=== PATIENT | female | born 1955 | race Caucasian/White ===

== ENCOUNTER → 2018-07-23 12:53 | Outpatient (CLI) | payer BC, SELFPAY ==
--- NOTE | 2018-07-23 12:56 | CT_ITS ---
CT lung screening EXAM: CT LUNG LOW DOSE WO CONTRAST HISTORY: 30 pack-year smoking history asymptomatic, quit smoking 2 years ago ITS.REASON: HX TOBACCO USE ORDERING PHYSICIAN: Gera Low MD PATIENT AGE: 63 years COMPARISON: 01/09/2017 TECHNIQUE: The exam was performed on a [employer] Speed [address] scanner using 2.90 mGy CTDI. A low dose helical CT CHEST was performed on a multi-detector scanner The LDCT was performed in a facility that meets the criteria for the screening program. Data regarding this exam was submitted to ACR which is an approved registry. The order for this exam indicates that it came as a result of a lung cancer screening counseling shard decision-making visit that included all the elements required of such a visit including smoking cessation. The radiologist interpreting this exam meets the [facility] criteria for the LDCT lung cancer screening program. The exam is reported using the Lung-RADS classification scale and reported to the ACR registry. NOTE: This study was performed for the specific purposes of lung cancer screening and is not an alternative to diagnostic chest CT. RADIATION DOSE: CTDI vol(CT dose Index-volume) = 2.90mG DLP (Dose Length Product) = 111.2 by mGcm FINDINGS: Moderate centrilobular emphysematous changes with biapical fibrosis once again noted. Biapical nodular opacities are stable. Previously noted 6 mm nodule in the right apex is unchanged and probably related to an area of postinflammatory fibrosis.. No new nodular opacities are evident. Scattered areas of parenchymal and pleural fibrosis once again noted IMPRESSION: 1. Lung RADS Category: 2 benign 2. Other findings: Emphysema with fibrosis RECOMMENDATIONS: 47-cmemy-izr LDCT screening
== END ==
PROVIDERS: PCP Family Medicine; Visit Provider Family Medicine
DX: Z12.2 Encounter for screening for malignant neoplasm of respiratory organs (principal); Z87.891 Personal history of nicotine dependence

== ENCOUNTER → 2018-08-24 08:58 | Outpatient (CLI) | payer BC, SELFPAY ==
[2018-08-24 09:54] LABS: Basophils % 0.7 % (0.1-2.0); Eosinophils # 0.1 K/mm3 (0.0-0.4); Eosinophils % 2.2 % (0.1-12.0); Hematocrit 41.9 % (37.0-47.0); Hemoglobin 13.5 g/dL (12.2-16.2); Lymphocytes # 1.3 K/mm3 (0.7-4.5); Mean Corpuscular HGB Conc 32.3 g/dL (31.8-35.4); Mean Corpuscular Hemoglobin 29.9 pg (27.0-31.2); Mean Corpuscular Volume 92.7 fl (81-99); Mean Platelet Volume 7.7 fl (7.4-10.4); Monocytes # 0.3 K/mm3 (0.1-1.0); Monocytes % 6.3 % (1.7-9.3); Neutrophils # 2.5 K/mm3 (1.8-7.8); Platelet Count 195 K/mm3 (142-424); Red Blood Count 4.52 M/mm3 (4.20-5.40); Red Cell Distribution Width 13.8 % (11.5-17.5); White Blood Count 4.2 K/mm3 (4.8-10.8)
[2018-08-24 10:55] LABS: Alanine Aminotransferase 26 U/L (12-78); Albumin Level 3.6 gm/dL (3.4-5.0); Albumin/Globulin Ratio 1.2 (1.1-1.8); Alkaline Phosphatase 51 U/L (46-116); Aspartate Amino Transferase 18 U/L (15-37); Bilirubin,Total 0.3 mg/dL (0.2-1.0); Blood Urea Nitrogen 14 mg/dL (7-18); Calcium 8.8 mg/dL (8.5-10.1); Carbon Dioxide 28 mmol/L (21.0-32.0); Chloride 109 mmol/L (98-107); Chol/HDL Ratio 2.5 (1-3.5); Cholesterol 215 mg/dL (140-200); Estimated Glomerular Filt Rate 85 ml/min (>60); GFR (African American) 103 ML/MIN (>60); Globulin 3.1 gm/dl (1.3-3.2); Glucose 96 mg/dL (74-106); HDL Cholesterol 87 mg/dL (29-89); LDL Cholesterol 113 mg/dL (0-130); Sodium 144 mmol/L (136-145); Total Protein,Serum 6.7 gm/dL (6.4-8.2); Triglycerides 76 mg/dL (30-200); VLDL Cholesterol 15 mg/dL (0-40)
[2018-08-25 13:19] LABS: Hep B Surface Ab, Qual Non Reactive (.); Hepatitis C Antibody <0.1 s/co ratio (0.0-0.9)
== END ==
PROVIDERS: Visit Provider Family Medicine
DX: Z00.00 Encounter for general adult medical examination without abnormal findings (principal)
CPT/HCPCS: 36415; 80053; 80061; 85025; 86706; 87380; 93005

== ENCOUNTER → 2018-11-13 08:40 | Outpatient (CLI) | payer BC, SELFPAY ==
[2018-11-13 09:46] LABS: Creatinine,Urine Random 223 mg/dL (20-320)
[2018-11-14 09:41] LABS: Calcium, Urine 7.6 mg/dL (Not Estab.)
[2018-11-14 12:39] LABS: Calcium, Urine 24hr 205.2 mg/24 hr (100.0-300.0)
[2018-11-14 12:43] LABS: Collection Time,Urine 24 hours; Creatinine 24 Hour,Urine 891 mg/24hr (630-2500); Creatinine,Urine Random 33 mg/dL (20-320); Total Volume,Urine 2700 mL (600-1600)
== END ==
PROVIDERS: Visit Provider Internal Medicine
DX: M81.0 Age-related osteoporosis without current pathological fracture (principal)
CPT/HCPCS: 82340; 82570; 83735; 84105

== ENCOUNTER → 2019-05-04 12:40 | Outpatient (CLI) | payer BC, SELFPAY ==
[2019-05-04 14:06] LABS: Albumin Level 3.4 gm/dL (3.4-5.0); Anion Gap 12.1 mEq/L (5-15); Blood Urea Nitrogen 14 mg/dL (7-18); Calcium 9.3 mg/dL (8.5-10.1); Carbon Dioxide 29 mmol/L (21.0-32.0); Chloride 105 mmol/L (98-107); Creatinine,Serum 0.82 mg/dL (0.55-1.02); Estimated Glomerular Filt Rate 71 ml/min (>60); GFR (African American) 85 ML/MIN (>60); Glucose 86 mg/dL (74-106); Phosphorous 4.3 mg/dL (2.4-4.9); Potassium 4.1 mmoL/L (3.5-5.1); Sodium 142 mmol/L (136-145)
[2019-05-05 14:48] LABS: Vitamin D 25 Hydroxy 58.1 ng/mL (30.0-100.0)
[2019-05-06 18:19] LABS: Tissue Transglutaminase IgA Ab <2 U/mL (0-3); Tissue Transglutaminase IgG Ab <2 U/mL (0-5)
== END ==
PROVIDERS: Visit Provider Internal Medicine
DX: M81.0 Age-related osteoporosis without current pathological fracture (principal)
CPT/HCPCS: 36415; 80069; 82652; 83516

== ENCOUNTER → 2019-07-28 07:49 | Outpatient (CLI) | payer BC, SELFPAY ==
--- NOTE | 2019-07-28 07:52 | CT_ITS ---
PROCEDURE: CT LUNG SCREENING CLINICAL INDICATION: FORMER SMOKER COMPARISON: LUNGSCREEN CT lung screening from 07/23/2018 TECHNIQUE: The exam was performed on a GE Light Speed [address] scanner using 2.90 mGy CTDI. A low dose helical CT CHEST was performed on a multi-detector scanner. All CT scans at the facility use one or more dose reduction, viz: automated exposure control, ma/kV adjustment per patient size (including targeted exams where dose is matched to indication, i.e. head), or iterative reconstruction technique. The LDCT was performed in a facility that meets the criteria for the screening program. Data regarding this exam was submitted to ACR which is an approved registry. The order for this exam indicates that it came as a result of a lung cancer screening counseling shard decision-making visit that included all the elements required of such a visit including smoking cessation. The radiologist interpreting this exam meets the CMS criteria for the LDCT lung cancer screening program. The exam is reported using the Lung-RADS classification scale and reported to the ACR registry. NOTE: This study was performed for the specific purposes of lung cancer screening and is not an alternative to diagnostic chest CT. RADIATION DOSE: CTDI vol(CT dose Index-volume) = 2.90mG DLP (Dose Length Product) = 118.55 mGcm FINDINGS: Again seen are the punctate noncalcified small apical nodular densities associated with linear densities consistent with scarring and some bilateral lateral pleural thickening. These areas are stable. The remainder of the exam is stable without acute process. Visualized upper abdominal structures are unremarkable. OTHER FINDINGS: No other pertinent findings evident. IMPRESSION: Stable fibro nodular scarring in both upper lobes. Lung rads category 2. Dictated by: Matias Youngblood 07/29/2019 17:51 Electronically signed by Matias Youngblood in [place] 07/29/2019 17:51
--- NOTE | 2019-07-28 08:23 | ECG_ITS ---
APPROVED REPORT Exam: Resting ECG HR:76 bpm ECG Measurements Heart Rate 76 AXES MT 144 P 70 QRSd 80 QRS 78 QT 364 T 70 QTc 409 <Conclusion> Normal sinus rhythm Normal ECG Electronically signed by : Jhon Nayak, 07/28/2019 13:41:55
== END ==
PROVIDERS: PCP Family Medicine; Visit Provider Family Medicine
DX: Z12.2 Encounter for screening for malignant neoplasm of respiratory organs (principal); Z87.891 Personal history of nicotine dependence
CPT/HCPCS: 93005

== ENCOUNTER → 2020-07-21 11:09 | Outpatient (CLI) | payer BC, SELFPAY ==
--- NOTE | 2020-07-21 11:25 | ECG_ITS ---
APPROVED REPORT Exam: Resting ECG HR:74 bpm ECG Measurements Heart Rate 74 AXES CA 144 P 66 QRSd 76 QRS 77 QT 370 T 68 QTc 410 <Conclusion> Normal sinus rhythm Normal ECG Electronically signed by : Jhon Nayak, 07/22/2020 06:25:15
== END ==
PROVIDERS: PCP Family Medicine; Visit Provider Family Medicine
DX: Z00.00 Encounter for general adult medical examination without abnormal findings (principal)
CPT/HCPCS: 93005

== ENCOUNTER → 2020-10-02 07:59 | Outpatient (CLI) | payer BC, SELFPAY ==
--- NOTE | 2020-10-02 08:02 | CT_ITS ---
PROCEDURE: CT LUNG SCREENING CLINICAL INDICATION: HX OF NICOTINE DEPENDENCE former smoker quit 4 years ago 60 pack year smoking history prior 07/28/19 copd, emphysema COMPARISON: CT LUNGSCREEN CT lung screening from 07/23/[address] LUNG SCREENING from 07/28/2019 TECHNIQUE: The exam was performed on a [employer] Speed [address] scanner using 2.90 mGy CTDI. A low dose helical CT CHEST was performed on a multi-detector scanner. All CT scans at the facility use one or more dose reduction, viz: automated exposure control, ma/kV adjustment per patient size (including targeted exams where dose is matched to indication, i.e. head), or iterative reconstruction technique. The LDCT was performed in a facility that meets the criteria for the screening program. Data regarding this exam was submitted to ACR which is an approved registry. The order for this exam indicates that it came as a result of a lung cancer screening counseling shard decision-making visit that included all the elements required of such a visit including smoking cessation. The radiologist interpreting this exam meets the CMS criteria for the LDCT lung cancer screening program. The exam is reported using the Lung-RADS classification scale and reported to the ACR registry. NOTE: This study was performed for the specific purposes of lung cancer screening and is not an alternative to diagnostic chest CT. RADIATION DOSE: CTDI vol(CT dose Index-volume) = 2.90mG DLP (Dose Length Product) = 109.94 mGcm FINDINGS: COPD with scattered areas of scarring and evidence of old granulomatous disease. No suspicious nodules apparent OTHER FINDINGS: Mild coronary artery calcification IMPRESSION: Lung-RADS Category 2 Benign Appearance or Behavior Follow-up: Continue annual screening with LDCT in 12 months Dictated by: Mariano Johnson MD 10/23/2020 11:40 Mariano Johnson MD in [place] 10/23/2020 11:40
== END ==
PROVIDERS: PCP Family Medicine; Visit Provider Family Medicine
DX: Z87.891 Personal history of nicotine dependence (principal); Z12.2 Encounter for screening for malignant neoplasm of respiratory organs

== ENCOUNTER 2020-10-31 10:55 | Outpatient (CLI) | payer BC, SELFPAY ==
[2020-10-31 11:30] VITALS: BP 155/76; PULSE 98; RESP 18; TEMP 37.2; O2SAT 98
== END 2020-10-31 11:30 | disposition home or self-care (01) ==
LOC: INF 10:56
PROVIDERS: Visit Provider Internal Medicine
DX: M81.0 Age-related osteoporosis without current pathological fracture (principal); J44.9 Chronic obstructive pulmonary disease, unspecified
CPT/HCPCS: 96372; J0897

== ENCOUNTER 2021-08-06 10:50 | Outpatient (CLI) | payer BC, SELFPAY ==
[2021-08-06 11:25] VITALS: BP 118/80; PULSE 93; RESP 16; TEMP 36.9; O2SAT 99
== END 2021-08-06 11:40 | disposition home or self-care (01) ==
LOC: INF 10:52
PROVIDERS: PCP Family Medicine; Visit Provider Internal Medicine
DX: M81.0 Age-related osteoporosis without current pathological fracture (principal)
CPT/HCPCS: 96372; J0897

== ENCOUNTER 2022-05-15 10:46 | Outpatient (CLI) | payer MEDICARE, BC, SELFPAY ==
[2022-05-15 10:50] VITALS: BP 162/77; PULSE 89; RESP 18; O2SAT 98
== END 2022-05-15 11:02 | disposition home or self-care (01) ==
LOC: INF 10:49
PROVIDERS: PCP Family Medicine; Visit Provider Internal Medicine
DX: M81.0 Age-related osteoporosis without current pathological fracture (principal)
CPT/HCPCS: 96372

== ENCOUNTER → 2022-08-16 13:02 | Outpatient (CLI) | payer MEDICARE, BC, SELFPAY ==
--- NOTE | 2022-08-16 13:05 | CT_ITS ---
FINAL REPORT TECHNIQUE: Axial images were obtained from the lung apex to the mid abdomen by computed tomography. This study was performed with techniques to keep radiation doses as low as reasonably achievable (ALARA). Individualized dose reduction techniques using automated exposure control or adjustment of mA and/or kV according to the patient's size were employed. CLINICAL HISTORY: H/O NICOTINE DEPENDENCE. former smoker, quit 6 years ago. smoked 11/2 ppd x 40 years. copd, emphysema COMPARISON: 10/02/2020 and 07/28/2019 FINDINGS: CHEST CT LOW DOSE CTDI vol (mGy): 2.90 DLP (mGy-cm): 113.33 There is no axillary adenopathy. There is no hilar or mediastinal adenopathy. The heart is normal in size. There is no pericardial or pleural effusion. Lung window images demonstrate no suspicious infiltrate or nodule. There is moderate scarring and moderate emphysema. There is a calcified granuloma in the right lung Limited images of the upper abdomen are unremarkable. IMPRESSION: Stable findings as above. Lung RADS category 1. Recommend 12 month follow-up low-dose chest CT. Reviewed, Interpreted and Dictated by Deshawn Martinez III, MD Transcribed by Elizabeth Etienne Authenticated and [facility]
== END ==
PROVIDERS: PCP Family Medicine; Visit Provider Family Medicine
DX: Z87.891 Personal history of nicotine dependence (principal); Z12.2 Encounter for screening for malignant neoplasm of respiratory organs
CPT/HCPCS: 71271

== ENCOUNTER 2023-03-12 13:20 | Outpatient (CLI) | payer MEDICARE, BC, SELFPAY ==
[2023-03-12 13:30] VITALS: BP 135/85; PULSE 92; RESP 16; O2SAT 95
== END 2023-03-12 13:45 | disposition home or self-care (01) ==
LOC: INF 13:21
PROVIDERS: PCP Family Medicine; Visit Provider Internal Medicine
DX: M81.0 Age-related osteoporosis without current pathological fracture (principal)
CPT/HCPCS: 96372

== ENCOUNTER → 2023-04-10 09:04 | Outpatient (CLI) | payer MEDICARE, BC, SELFPAY ==
[2023-04-10 09:10] LABS: Adenovirus F 40/41, stool Not Detected (NotDetected); Astrovirus Not Detected (NotDetected); Campylobacter Not Detected (NotDetected); Clostridium Difficile A/B, PCR Not Detected (NotDetected); Cryptosporidium Not Detected (NotDetected); Cyclospora Cayetanesis Not Detected (NotDetected); Entamoeba histolytica Not Detected (NotDetected); Enteroaggregative E coli Not Detected (NotDetected); Enteropathogenic E coli Not Detected (NotDetected); Enterotoxigenic E coli Not Detected (NotDetected); Giardia lamblia Not Detected (NotDetected); Norovirus Not Detected (NotDetected); Plesimonas Shigalloides, PCR Not Detected (NotDetected); Rotavirus A Not Detected (NotDetected); Salmonella, PCR Not Detected (NotDetected); Sapovirus Not Detected (NotDetected); Shiga-like toxin E coli Not Detected (NotDetected); Shigella Enterovasive E coli Not Detected (NotDetected); Vibrio Cholerae Not Detected (NotDetected); Vibrio, PCR Not Detected (NotDetected); Yersinia Entercolitica, PCR Not Detected (NotDetected)
== END ==
PROVIDERS: PCP Family Medicine; Visit Provider Nurse Practitioner Family
DX: R19.7 Diarrhea, unspecified (principal)
CPT/HCPCS: 87506

== ENCOUNTER 2023-11-25 14:48 | Outpatient (CLI) | payer MEDICARE, BC, SELFPAY ==
--- NOTE | 2023-11-25 14:56 | CT_ITS ---
FINAL REPORT TECHNIQUE: Axial CT without IV contrast administration using low dose protocol. This study was performed with techniques to keep radiation doses as low as reasonably achievable (ALARA). Individualized dose reduction techniques using automated exposure control or adjustment of mA and/or kV according to the patient's size were employed. CLINICAL HISTORY: FORMER SMOKER quit 9 years ago. smoked 1 ppd x 40 years COMPARISON: 08/16/2022 FINDINGS: CT CHEST LOW DOSE SCREENING DOSE: CTDIvol: 2.90 mGy, DLP: 110.72 mGy*cm No acute lung disease is present . No pulmonary lesions are seen suspicious for neoplasm. No pleural or pericardial effusion is seen . No adenopathy or mass lesion is present . Note is made of emphysema. There is upper lobe scarring. IMPRESSION: 1. No evidence of lung cancer LUNG RADS CATEGORY 1 RECOMMENDATION: 12 month LDCT follow up Reviewed, Interpreted and Dictated by Gerri Aguirre MD Transcribed by Elizabeth Etienne Authenticated and [facility]
== END 2023-11-25 23:59 ==
LOC: RAD 14:48
PROVIDERS: PCP Family Medicine; Visit Provider Family Medicine
DX: Z12.2 Encounter for screening for malignant neoplasm of respiratory organs; Z87.891 Personal history of nicotine dependence
CPT/HCPCS: 71271

== ENCOUNTER 2024-01-06 13:21 | Outpatient (CLI) | payer MEDICARE, BC, SELFPAY ==
[2024-01-06] MEDS: DENOSUMAB 60 MG/ML SYRINGE SQ (13:32)
[2024-01-06 13:40] VITALS: BP 146/72; PULSE 76; RESP 18; O2SAT 99
== END 2024-01-06 13:40 | disposition home or self-care (01) ==
LOC: INF 13:21
PROVIDERS: PCP Family Medicine; Visit Provider Internal Medicine
DX: M81.0 Age-related osteoporosis without current pathological fracture (principal)
CPT/HCPCS: 96372; J0897

== ENCOUNTER 2024-01-22 11:25 | Outpatient (CLI) | payer MEDICARE, BC, SELFPAY ==
[2024-01-22 12:32] LABS: Albumin Level 3.9 g/dl (3.5-5.0); Chloride 107 mmol/L (98-107); Potassium 3.9 mmoL/L (3.5-5.1); Sodium 139 mmol/L (136-145)
[2024-01-22 12:35] LABS: Anion Gap 5.9 mEq/L (5-15); Blood Urea Nitrogen 14 mg/dl (7-17); Calcium 9.5 mg/dl (8.4-10.2); Carbon Dioxide 30 mmol/L (22.0-30.0); Estimated Glomerular Filt Rate 84 ml/min (>60); GFR (African American) 101 ML/MIN (>60); Glucose 89 mg/dl (74-100); Phosphorous 3.7 mg/dl (2.5-4.5)
== END 2024-01-22 23:59 ==
PROVIDERS: PCP Family Medicine; Visit Provider Internal Medicine
DX: M81.0 Age-related osteoporosis without current pathological fracture (principal)
CPT/HCPCS: 36415; 80069

== ENCOUNTER 2024-09-17 10:50 | Outpatient (CLI) | payer MEDICARE, BC, SELFPAY ==
[2024-09-17 11:09] VITALS: BMI 20.7
[2024-09-17 11:24] LABS: Chloride 105 mmol/L (98-107); Potassium 3.8 mmoL/L (3.5-5.1); Sodium 139 mmol/L (136-145)
[2024-09-17 11:27] LABS: Anion Gap 8.8 mEq/L (5-15); Blood Urea Nitrogen 12 mg/dl (7-17); Calcium 9.4 mg/dl (8.4-10.2); Carbon Dioxide 29 mmol/L (22.0-30.0); Creatinine Clearance Estimated 55 mL/min (50-200); Estimated Glomerular Filt Rate 72 ml/min (>60); GFR (African American) 87 ML/MIN (>60); Glucose 87 mg/dl (74-100)
[2024-09-17 11:40] VITALS: BP 143/82; PULSE 81; RESP 20; TEMP 36.8; O2SAT 95
[2024-09-17] MEDS: DENOSUMAB 60 MG/ML SYRINGE SUBCUT (11:40)
--- NOTE | 2024-09-17 12:19 | PC.NURSE ---
1110-Pt presents today for Prolia inj. Order noted to check bmp. Venipuncture performed using a butterfly access needle to pt's lt ac x 1 stick and blood drawn for labs. Needle withdrawn and site secured with 2x2 gauze and coban. Specimen sent to lab for analysis.
== END 2024-09-17 12:00 | disposition home or self-care (01) ==
LOC: INF 10:56
PROVIDERS: PCP Family Medicine; Visit Provider Physician Assistant
DX: M81.0 Age-related osteoporosis without current pathological fracture (principal)
CPT/HCPCS: 36415; 80048; 96372; J0897

== ENCOUNTER 2024-10-01 11:31 | Outpatient (CLI) | payer MEDICARE, BC, SELFPAY ==
--- OUTSIDE RECORDS SUMMARY | 2024-10-01 11:43 | XMS_ITS | Encounter Summary ---
Author Organization [employer] Address [address] [place] [address] Care Team Providers Care Children'S Tutor Nursery Name Role Phone Unavailable Primary Care Provider Unavailabl e Encounter Details Date Type Department Care Team (Late st Contact Info) Description 07/19/2019 Historic Encounter [facility] Radiology 1 [place] [id number] Debra Diggs MD [address] [address] Social History Tobacco Use Types Packs/Day Years Used Date Smoking Tobacco: Never Assessed Comments Unknown Sex and Gender Information Value Date Recorded Sex Assigned at Female 04/23/2022 4:38 PM CDT Legal Sex Female 4:38 PM CDT Gender Identity Female 04/23/2022 4:38 PM CDT Sexual Orientation Not on file documented as of this encounter Plan of Treatment Upcoming Encounters Date Type Department Care Team (Late st Contact Info) Description 08/08/2025 11:00 AM EDT Appointment [facility] Breast Care [address] [facility] [address] [place] [address] documented as of this encounter Procedures Procedure Name Priority Date/Time Associated Diagnosis Comments MM DIGITAL MAMMO SCREEN WITH PEYMAN BILATERAL Routine 07/19/2019 12:10 PM EDT documented in this encounter Results * MM digital mammo screen with peyman bilateral (07/19/2019 12:10 PM EDT) Anatomical Region Laterality Modality Breast Bilateral Mammography 07/19/2019 12:1 0 PM EDT Narrative 07/19/2019 5:19 PM EDT PROCEDURE: Digital screening mammogram with tomosynthesis. REASON FOR EXAM: Routine screening. FAMILY HISTORY: ??Strong family history of breast cancer COMPARISON STUDY: [facility] ; no significant change. FINDINGS: Craniocaudal and mediolateral oblique images of both breasts were obtained in 2D, C-view and 3D modes. The breast tissue is heterogeneously dense, which may obscure small masses. Several scattered coarse, lucent centered calcifications are present bilaterally. There is no evidence of dominant mass, architectural distortion, or suspicious calcifications. This examination was reviewed with the benefit of computer aided detection (CAD). FINAL IMPRESSION: ACR BI-RADS 2: Benign findings. RECOMMENDATIONS: Annual screening mammography. At our facility, a [place] marker is positioned over a visible skin lesion and a linear marker is used to indicate a scar. A triangular marker is placed on a self reported palpable finding. A letter including results and recommendations was sent to the patient. Density notification was included for patients with Pattern 3 or 4 breast tissue. Patient information was entered into a reminder system with a target due date for the next mammogram. D Procedure Note Debra Diggs MD - 02/11/2023 PROCEDURE: Digital screening mammogram with tomosynthesis. REASON FOR EXAM: Routine screening. FAMILY HISTORY: Strong family history of breast cancer COMPARISON STUDY: [facility] ; no significant change. FINDINGS: Craniocaudal and mediolateral oblique images of both breasts were obtained in 2D, C-view and 3D modes. The breast tissue is heterogeneously dense, which may obscure small masses. Several scattered coarse, lucent centered calcifications are present bilaterally. There is no evidence of dominant mass, architectural distortion, or suspicious calcifications. This examination was reviewed with the benefit of computer aided detection (CAD). FINAL IMPRESSION: ACR BI-RADS 2: Benign findings. RECOMMENDATIONS: Annual screening mammography. At our facility, a [place] marker is positioned over a visible skin lesion and a linear marker is used to indicate a scar. A triangular marker is placed on a self reported palpable finding. A letter including results and recommendations was sent to the patient. Density notification was included for patients with Pattern 3 or 4 breast tissue. Patient information was entered into a reminder system with a target due date for the next mammogram. D us Debra Diggs MD IMG MAMMOGRAPHY ORDERABLES F inal Result documented in this encounter Visit Diagnoses Not on filedocumented in this encounter
--- OUTSIDE RECORDS SUMMARY | 2024-10-01 11:43 | XMS_ITS | Encounter Summary ---
Author Organization [employer] Address [address] [place] [address] Care Team Providers Care Mill Washer Name Role Phone Unavailable Primary Care Provider Unavailabl e Encounter Details Date Type Department Care Team (Late st Contact Info) Description 07/24/2022 Historic Encounter [facility] 1 [place] [address] Gera Diego MD [address] [facility] [address] [place], [place] [id number] Social History Tobacco Use Types Packs/Day Years [...] Info) Description 08/08/2025 11:00 AM EDT Appointment [address] [place] [address] documented as of this encounter Procedures Procedure Name Priority Date/Time Associated Diagnosis Comments MM DIGITAL MAMMO SCREEN WITH PEYMAN BILATERAL Routine 07/24/2022 2:23 PM EDT documented in this encounter Results * MM digital mammo screen with peyman bilateral (07/24/2022 2:23 PM EDT) Anatomical Region Laterality Modality Breast Bilateral Mammography 07/24/2022 2:23 PM EDT Narrative 07/24/2022 8:03 PM EDT PROCEDURE: Bilateral digital screening mammogram with tomosynthesis. REASON FOR EXAM: Routine screening. FAMILY HISTORY: ??Strong family history of breast cancer. COMPARISON STUDY: [facility] FINDINGS: Craniocaudal and mediolateral oblique images of both breasts were obtained in 2D, C-view, and 3D modes. Bilateral 2-D XCCL and 2-D left axillary tail views also performed. The breast tissue is heterogeneously dense, which may obscure small masses. Right nipple is chronically inverted. Coarse/lucent centered calcifications and arterial calcifications within both breasts are again noted. There is no evidence of dominant mass, architectural distortion, or suspicious calcifications. No significant interval change. This examination was reviewed with the benefit of computer-aided detection (CAD). FINAL IMPRESSION: ACR BI-RADS 2: Benign finding. RECOMMENDATIONS: Routine annual screening mammography. A letter including results and recommendations was sent to the patient. Density notification was provided to patients with type 3 or 4 breast tissue pattern. Patient information entered into a reminder system with a target due date for the next mammogram. At our facility, a [place] marker is positioned over a visible skin lesion and a linear marker is used to indicate a scar. A triangular marker is placed on a self reported palpable finding. cc: D Procedure Note Gera Diego MD - 02/11/2023 PROCEDURE: Bilateral digital screening mammogram with tomosynthesis. REASON FOR EXAM: Routine screening. FAMILY HISTORY: Strong family history of breast cancer. COMPARISON STUDY: [facility] FINDINGS: Craniocaudal and mediolateral oblique images of both breasts were obtained in 2D, C-view, and 3D modes. Bilateral 2-D XCCL and 2-D left axillary tail views also performed. The breast tissue is heterogeneously dense, which may obscure small masses. Right nipple is chronically inverted. Coarse/lucent centered calcifications and arterial calcifications within both breasts are again noted. There is no evidence of dominant mass, architectural distortion, or suspicious calcifications. No significant interval change. This examination was reviewed with the benefit of computer-aided detection (CAD). FINAL IMPRESSION: ACR BI-RADS 2: Benign finding. RECOMMENDATIONS: Routine annual screening mammography. A letter including results and recommendations was sent to the patient. Density notification was provided to patients with type 3 or 4 breast tissue pattern. Patient information entered into a reminder system with a target due date for the next mammogram. At our facility, a [place] marker is positioned over a visible skin lesion and a linear marker is used to indicate a scar. A triangular marker is placed on a self reported palpable finding. cc: D Gera Diego MD IMG MAMMOGRAPHY ORDERABLES Kelsey rosita Result documented in this encounter Visit Diagnoses Not on filedocumented in this encounter
--- OUTSIDE RECORDS SUMMARY | 2024-10-01 11:43 | XMS_ITS | Encounter Summary ---
Author Organization [facility] Address [address] [place] [address] Care Team Providers Care District Manager In Training Name Role Phone Provider, No Known Primary Care Provider [phone] Encounter Details Date Type Department Care Team (Late st Contact Info) Description 08/15/2016 Documentation [facility] [address] [place] [address] Chelsi Nieves [address] [place], [place] [id number] Social History Tobacco Use Types Packs/Day Years Used Date Smoking Tobacco: Never Assessed Comments Unknown Sex and Gender Information Value Date Recorded Sex Assigned at Not on file Legal Sex Female 11:08 AM EDT Gender Identity Not on file Sexual Orientation Not on file documented as of this encounter Progress Notes * Chelsi Nieves - 08/15/2016 10:16 AM EDT Images from the original note were not included. [facility] Hereditary Cancer Program PHONE: [phone] Natividad Tello, a 61-year old female, was seen for genetic counseling due to the recent identificationof a BRCA2 mutation in her sister. Ms. Tello has never had a cancer diagnosis. Her current cancer screening consists of annual clinical breast exams and annual mammogram. She is postmenopausal and her uterus and ovaries remain intact. Ms. Tello was 14 years of age at menarche and has not had children. Ms. Tello was interested in discussing her risk for a BRCA2 mutation and opted to pursue single site testing for the mutation identified in her sister. Genetic testing was negative for the familial mutation in the BRCA2 gene. This normal result was discussed by phone with Ms. Tello on 08/14/16. FAMILY HISTORY: (See attached pedigree) Sister: Breast cancer, 47 (BRCA2+) Breast cancer, 58 Father: Prostate cancer, 80 Pat. Grandfather: Prostate, 66 We do have medical records regarding Ms. Tello??? sister???s BRCA testing. GENETIC COUNSELING: We reviewed the family history information in detail. Cases of breast cancer follow three general patterns: sporadic, familial, and hereditary. While most breast cancer is sporadic, some cases appear to occur in family clusters. These cases are said to be familial and account for 10-20% of breast cancer cases. Familial cases may be due to a combination of shared genes and environmental factors among family members. In even fewer families, the cancer is said to be inherited, and the genes responsible for the cancer are known. Family histories typical of hereditary cancer syndromes usually include multiple first- and second-degree relatives diagnosed with cancer types that define a syndrome. These cases tend to be diagnosed at bmfvksv-xkoq-adkgschz ages and can be bilateral or multifocal. The cancer in these families follows an autosomal dominant inheritance pattern, which indicates the likely presence of a mutation elizabeth cancer susceptibility gene. Children and siblings of an individual believed to carry this mutation have a 50% chance of inheriting that mutation, thereby inheriting the increased risk to develop cancer. These mutations can be passed down from the maternal or the paternal lineage. Hereditary breast cancer accounts for 5-10% of all cases of breast cancer. A significant proportionof hereditary breast cancer can be attributed to mutations in the BRCA1 and BRCA2 genes. Mutations in these genes confer an increased risk for breast cancer, ovarian cancer, male breast cancer, prostate cancer and pancreatic cancer. Women with a BRCA2 mutation who have already been diagnosed with breast cancer have up to an 87% risk of breast cancer, and up to a 27% risk of ovarian cancer. GENETIC TESTING: The risks, benefits and limitations of multigene panel testing and implications for clinical management following testing were reviewed. DNA test results can influence decisions regarding screening, prevention and surgical management. Genetic testing can have significant psychological implications for both individuals and families. Also discussed was the possibility of employmentand insurance discrimination based on genetic test results and the laws in place to prevent this. The implications of a positive or negative test result were discussed. Genetic counseling and testing for the known familial BRCA2 mutation are available to Ms. Tello???s at-risk family members. Until each at-risk family member has been proven not to carry a BRCA mutation, he or she should be offered increased surveillance and chemoprevention. Based on the family history, it is most likely that this was inherited from Ms. Tello??? father. We would be happy to see family members who live in the [facility] or in [facility] in our clinic to further discuss this information and testing options. They can call our office at [phone] to schedule an appointment. For family members who live elsewhere, there are genetic counselors at [facility]. They can find a genetic counselor by visiting the National Society of Genetic Counselors website at www.nsgc.org or they can call our office and we would be happy to give them the contact information of the closest genetic counselor. RISK ASSESSMENT: Genetic testing was negative for the known familial mutation in the BRCA2 gene; therefore Ms. Tello is a ???true negative?? . This result indicates that Ms. Tello is only at general population risk for breast and ovarian cancer. Given Ms. Tello??? negative test results, we recommend general population breast cancer screening, including monthly self breast exams, annual clinical breast exams, and annual mammography. PLAN: Genetic counseling remains available to this patient and her other at-risk family members. Should Ms. Tello or any of her family members have any questions or concerns, they should feel free to contact us. Chelsi Nieves MS, [facility] Certified Genetic Counselor Cc: Natividad Tello MD Elian Francisco MD documented in this encounter Plan of Treatment Not on file documented as of this encounter Visit Diagnoses Not on filedocumented in this encounter Care Teams District Manager In Training Relationship Specialty Start Date End Date Provider, [place] [address] PCP - General 07/30/16 11/11/16 documented as of this encounter
--- OUTSIDE RECORDS SUMMARY | 2024-10-01 11:43 | XMS_ITS | Encounter Summary ---
Author Organization [facility] Address [address] [place] [address] Care Team Providers Care Patient Liaison Name Role Phone Provider, No Known Primary Care Provider [phone] Encounter Details Date Type Department Care Team (Late st Contact Info) Description 07/30/2016 1:00 PM EDT Clinical Support [facility] [address] [place] [address] Chelsi Nieves [address] [place] [address] Family history of BRCA2 gene positive (Primary Dx) Social History Tobacco Use Types Packs/Day Years Used Date Smoking Tobacco: Never Assessed Comments Unknown Sex and Gender Information Value Date Recorded Sex Assigned at Not on file Legal Sex Female 11:08 AM EDT Gender Identity Not on file Sexual Orientation Not on file documented as of this encounter Progress Notes * Chelsi Nieves - 07/30/2016 3:17 PM EDT Images from the original note were not included. [facility] Hereditary Cancer Program PHONE: [phone] Natividad Tello, a 61-year old female, was [...] for the mutation identified in her sister. Results should take 2-3 weeks. FAMILY HISTORY: (See attached pedigree) Sister: Breast cancer, 47 (BRCA2+) Breast cancer, 58 Father: Prostate cancer, 80 Pat. Grandfather: Prostate, 66 We do have medical records regarding Ms. Tello??? sister???s BRCA testing. RISK ASSESSMENT: Ms. Tello??? risk for carrying a BRCA2 mutation prior to testing is 50% based on her family history. GENETIC COUNSELING: We reviewed the family history [...] These cases tend to be diagnosed at zooclqp-flvo-clxjkwwy ages and can be bilateral or multifocal. [...] see family members who live in the [facility] or in [facility] in our clinic to further discuss this information and testing options. They can call our office at [phone] to schedule an appointment. For family members who live elsewhere, there are genetic counselors at [facility]. They can find a genetic counselor by visiting the National Society of Genetic Counselors website at www.nsgc.org or they can call our office and we would be happy to give them the contact information of the closest genetic counselor. PLAN: Results should take 2-3 weeks at which time Ms. Tello will be contacted by telephone to discuss. She is welcome to contact us in the meantime with any questions or concerns. Chelsi Nieves MS, [facility] Certified Genetic Counselor documented in this encounter Plan of Treatment Not on file documented as of this encounter Visit Diagnoses Diagnosis Family history of BRCA2 gene positive- Primary Family history of genetic disease carrier documented in this encounter Care Teams Patient Liaison Relationship Specialty Start Date End Date Provider, No Known [place], [place] [id number] PCP - General 07/30/16 11/11/16 documented as of this encounter
--- OUTSIDE RECORDS SUMMARY | 2024-10-01 11:43 | XMS_ITS | Clinical Summary ---
[facility] Organization [facility] Address [address] [place] [address] Care Team Providers Care Sandwich Wrapper Name Role Phone Gera Low MD Primary Care Provider Social History Tobacco Use Types Packs/Day Years Used Date Smoking Tobacco: Never Assessed Abuse Screen Answer Date Recorded Unsafe at Home or Work/School Not on file Feels Threatened by Someone? Not on file 06/2023 Does Anyone Keep You from Co ntacting Others or Doint Things Outside the Home? Not on file 08/04/2023 Physical Sign of Abuse Present Not on file 1 Housing Stability Answer Date Recorded Current Living Arrangements Not on file 06/2023 Potentially Unsafe Housing Conditions Not on luanne e 08/04/2023 Family and Community Support Answer Catrachito e Recorded Help with Day-to-Day Activities Not on file 08/04/2023 Lonely or Isolated Not on file 08/04/2023 Employment Answer Date Recorded Do you want help finding or keeping work or a tona b? Not on file 08/04/2023 Disabilities Answer Date Recorded Concentrating, Remembering, or Making Decisions Difficulty Not on file 08/04/2023 Doing Errands Independently Difficulty Not on fi le 08/04/2023 Education Answer Date Recorded Help with school or training? Not on file Preferred Language Not on file 08/04/2023 Comments Unknown Sex and Gender Information Value Date Recorded Sex Assigned at Not on file Legal Sex Female 11:08 AM EDT Gender Identity Not on file Sexual Orientation Not on file Plan of Treatment Health Maintenance Due Date Last Done Comments ANNUAL WELLNESS VISIT 1955 COLOGUARD 1957 COLON CANCER SCREENING 5 YEA R SIGMOIDOSCOPY 1957 COLONOSCOPY [address]CER SCREENING [address] CT COLONOGRAPHY 1957 FECAL OCCULT BLOOD TEST 1957 FIT Testing (1 year) 1957 HEPATITIS C SCREENING 1957 Pneumococcal Vaccine 65+ (1 of 2 - PCV) 1963 ZOSTER VACCINE (1 of 2) 2007 INFLUENZA VACCINE 04/26/2024 08/06/2023, , 07/24/2021, Additional history exists COVID-19 Vaccine (2023-2 5 season) 2024 08/06/2023, 08/14/2022, 09/05/2021, Additional history exists MAMMOGRAM 07/25/2025 07/25/2023, 06/28, 07/24/2022, Additional history exists DXA SCAN 12/25/2025 12/26/2023, 0310/2023, 12/19/2022, Additional history exists TDAP/TD VACCINES (3 - Td or Tdap) 07/15/2027 017, 01/02/1997 Insurance MEDICARE A & B Care Teams Sandwich Wrapper Relationship Specialty Start Date End Date Gera Low MD [address] [facility] [address] [facility] [address] [place] [address] PCP - General Family Medicine 11/15/16
--- OUTSIDE RECORDS SUMMARY | 2024-10-01 11:43 | XMS_ITS | Clinical Summary ---
Author Organization [facility] Address [address] [place] [address] Care Team Providers Care Voice Pathologist Name Role Phone Gera Low MD Primary Care Provider [phone]- [phone] Allergies No known active allergies Medications Black Pepper-Turmeric (Turmeric Curcumin) 5-1000 MG capsule TAKE 1 CAPSULE Daily 05/29/2020 Active raloxifene (Evista) 60 MG tablet 03/06/2021 Active calcium carbonate 1500 (600 Ca) MG tablet Take 1 tablet twice daily 12/04/2020 Active cyanocobalamin (Vitamin B-12) 1000 MCG tablet TAKE 1 TABLET DAILY DIRECTED. 08/17/2019 Active Multiple Vitamins-Iron tablet TAKE 1 TABLET DAILY. 08/17/2019 Active Melatonin 10-10 MG tablet controlled-rele ase Take by mouth. Active denosumab (Prolia) 60 MG/ML injection Inject 1 mL (60 mg) under the skin 1 (one) time for 1 dose. 1 mL 08/31/2024 Active Active Problems Problem Noted Date Diagnosed Date COPD (chronic obstructive pulmonary disease) Osteoporosis 10/09/2018 Assessment & Plan (05/08/2021 9:44 PM EDT): She used active directory architect BPs and DXA shows a decline in BMD. She was taking Boniva, raloxifene and vit D. Risk factors for bone loss include age, premature menopause, usp smoking, active directory architect BPs She underwent a full work up with blood work and 24 hour urine collection to rule out secondary causes of bone loss. Results of lab testing were reviewed and discussed with the patient. Her results are as follows: Bone turnover markers: BSAP-low normal OC- low normal; CTX- low normal; NTX-low; PCC low normal Kidney function: Normal Calcium profile: s. Ca low Phos profile - serum normal PTH: normal Vitamin D levels: down from 100 to 58 in a month, recommended to take MVI with 1000 units of vitamin D. Paraprotein w/u - negative; low IgA level - TTG negative for celiac disease. ?? The presence of low BTMs with decline in BMD although she is being treated with BPs active directory architect suggests that she has a significant decline in bone turnover. She underwent bone biopsy which confrmed low turnover osteoporosis. She took Forteo started March 2019 and has been tolerating it well, with normal labs over the last 2 visits. In Nov she reduced the dose to every other day for hypercalcemia and in december increased the dose to 5/7. Her BTMs have plateaued and she has completed a year on forteo. She transitioned to prolia, but unfortunately got her 1st dose only in oct 2020, which she tolerated well w/o any AEs. DXA scan Oct 2020 shows osteopenia with improved T-scores over past DXA Jul 2019; will be followed annually. BTMs remain low and we will rpt them in 2-3 months and review for scheduling the next dose of prolia Bursitis, hip 10/09/2018 Acid reflux 12/25/2017 Encounters Date Type Department Care Team Description 08/31/2024 Telephone [facility] Infusion [address] [place] [address] Shruti Alcocer, [facility] 08/27/2024 8:40 AM EDT Office Visit [facility] [address], [address] [place] [address] Krystal Pascual PA Age-related osteoporosis without current pathological fracture (Primary Dx) 08/25/2024 Travel 08/04/2024 Travel 08/03/2024 Travel from Last 3 Months Immunizations Name Administration Dates Next Due thereNow Covid-19 Vaccine 12y+ , Jose Protein, PF, Sukhdeep-Sucrose 08/06/2023 [employer] COVID-19 Vac cine (Purple Cap) 12+ 09/05/2021,01/20/2021,12/28/2020 Family History Medical History Relation Name Comments Diabetes Brother 1 Prostate cancer Brother 2 Cardiac disorder Father Heart attack Father Prostate cancer Father Hypertension Mother Osteoporosis Mother Colon cancer Paternal Grandfather Breast cancer Sister Relation Name Status Comments Brother 1 Brother 2 Father Mother Paternal Grandfather Sister Social History Tobacco Use Types Packs/Day Years Used Date Smoking Tobacco: Former Smokeless Tobacco: Never Tobacco Cessation:Counseling Given: Not Answered Alcohol Use Standard Drinks/Week Comments No 0 (1 standard drink = 0.6 oz pur e alcohol) PHQ-2 Answer Date Recorded Patient Health Questionnaire-2 Score 0 04/22/2022 PHQ-2A Answer Date Recorded Depression Risk 0 08/27/2024 Comments Unknown Sex and Gender Information Value Date Recorded Sex Assigned at Female 11/09/2021 11:47 AM EST Legal Sex Female 6:10 PM EDT Gender Identity Female 11/09/2021 11:47 AM EST Sexual Orientation Straight 11/09/2021 11 :47 AM EST Last Filed Vital Signs Vital Sign Reading Time Taken Comments Blood Pressure 126/80 08/27/2024 7:54 AM EDT Pulse 94 08/27/2024 7:54 AM EDT Temperature 36.9 ??C (98.4 ??F) 08/27/2024 7:54 AM ED T Respiratory Rate 18 12/26/2023 12:07 PM EST Oxygen Saturation 98% 12/26/2023 12:07 PM EST Inhaled Oxygen Concentration - - Weight 63.5 kg (140 lb) 08/27/2024 7:54 AM EDT Height 172.7 cm (5' 8 ) 08/27/2024 7:54 AM EDT Body Mass Index 21.29 08/27/2024 7:54 AM EDT Plan of Treatment Upcoming Encounters Date Type Department Care Team (Late st Contact Info) Description 03/18/2025 12:00 PM EDT Clinical Support [facility] [address], [address] [place] [address] 04/01/2025 12:40 PM EDT Appointment [facility] [address], [address] [place] [address] 04/01/2025 1:00 PM EDT Office Visit [facility] [address], [address] [place] [address] Michaelle Sprague MD [address] [place] [address] Health Maintenance Due Date Last Done Comments [facility]-Hepatitis C Screening 1957 [facility]-Medicare Annual Wellness (AWV) 1957 [facility]-/Child/Adol SDOH Screenings 1957 [facility]- SDOH Screenings 1975 [facility]-Adult SDOH Screenings 1975 CT Colonography 2002 Colonoscopy 2002 FIT-DNA 2002 FIT 2002 FOBT 2002 Sigmoidoscopy 2002 [facility]-Colorectal Cancer Screening 2002 [facility]-Zoster Vaccines (1 of 2) 2007 [facility]-Influenza Vaccine (#1) 06/27/202408/06, 08/09/2022, 07/24/2021, Additional history exists [facility]-Bone Density Scan 12/25/2024 12/26/2023 , 12/26/2023, 12/19/2022, Additional history exists [facility]-Depression Screening 08/27/2025 08/27/2024, 03/28 [facility]-Breast Cancer Screening 08/04/202606/2024, 08/04/2024, 07/25/2023, Additional history exists [facility]-DTaP,Tdap,and Td Vaccines (2 - Td or Tdap) 07/15/2027 07/15/2017, 01/02/1997 [facility]-RSV Vaccine: 60+ Years or Completed 08/06/2023 [facility]-Pneumococcal Vaccine: 65+ Years Completed 08/12/2023, 08/14/2022 [id number] Vaccine Completed 08/26/2024, 08/06/2023, 08/14/2022, Additional history exists [facility]-HIB Vaccines Aged Out No longer e ligible based on patient's age to complete this topic [facility]-HPV Vaccines Aged Out No longer e ligible based on patient's age to complete this topic [facility]-Hepatitis A Vaccines Aged Out No longer eligible based on patient's age to complete this topic [facility]-IPV Vaccines Aged Out No longer e ligible based on patient's age to complete this topic [facility]-Rotavirus Vaccines Aged Out No lo nger eligible based on patient's age to complete this topic Procedures Procedure Name Priority Date/Time Associated Diagnosis Comments OSTEOCALCIN BY ECIA (SO) Routine 08/04/2024 1:12 PM EDT Age-related osteoporosis without current pathological fracture C-TELOPEPTIDE Routine 08/04/2024 1:12 PM EDT Age-related osteoporosis without current pathological fracture RENAL FUNCTION PANEL, PLASMA Routine 08/04/2024 1:12 PM EDT Age-related osteoporosis without current pathological fracture N TELOPEPTIDE, CROSS-LINKED, SERUM (SO) Routine 08/04/2024 1:12 PM EDT Age-related osteoporosis without current pathological fracture BONE SPECIFIC ALKALINE PHOSPHATASE Routine 08/04/2024 1:12 PM EDT Age-related osteoporosis without current pathological fracture DEXA BONE DENSITY Routine 12/26/2023 10: 48 AM EST Age-related osteoporosis without current pathological fracture from Last 3 Months or Most Recently Relevant to Health Maintenance Results * Bone Specific Alkaline Phosphatase (08/04/2024 1:12 PM EDT) Pathologist [facility] Bone Specific Alkaline Phosphatase 7.4 ug/L 08/05/2024 1:07 AM EDT [facility] Comment: BSAP (Ostase) Reference Values, Female, age 18 years and up: ?? Premenopausal: ??4.5 to 16.9 ug/L ?? Postmenopausal: 7.0 to 22.4 ug/L Blood Venous blood specimen / Unknown Venipuncture / Unknown 08/04/2024 1:12 PM EDT 08/04/2024 1:14 PM EDT Michaelle Sprague MD LAB REF LAB BLOOD AND FLUID OR D Final Result [facility] [address] [place] [address] * C-Telopeptide (08/04/2024 1:12 PM EDT) C Telopeptide Beta Cross Linked Serum Result 164 pg/mL 08/06/2024 6:29 PM EDT [facility]) Blood Venous blood specimen / Unknown Venipuncture / Unknown 08/04/2024 1:12 PM EDT 08/04/2024 1:14 PM EDT Narrative [facility]) - 08/06/2024 6:29 PM EDT Premenopausal Females: 136-689 pg/mL Postmenopausal Females: 177-1015 pg/mL REFERENCE INTERVAL: C-Telopeptide, [id number]-[id number], Serum Access complete set of age- and/or gender-specific reference intervals for this test in the [facility] Test Directory (Lore). Performed By: [facility] [address] [place] [address] Sketch Artist: Vijay Bird MD, PhD CLIA Number: [id number] Michaelle Sprague MD LAB BLOOD ORDERABLES Final Res ult [facility]) [address] [place] [address] * N telopeptide, cross-linked, serum (08/04/2024 1:12 PM EDT) N-Telopeptide, Cross-Linked, Serum 9.2 nM BCE 08/07/2024 9:03 PM EDT [facility]) Blood Venous blood specimen / Unknown Venipuncture / Unknown 08/04/2024 1:12 PM EDT 08/04/2024 1:14 PM EDT Narrative [facility]) - 08/07/2024 9:03 PM EDT INTERPRETIVE INFORMATION: N-Telopeptide, Cross-Linked, Serum ??Adult Male.......................5.4 - 24.2 nM BCE ??Premenopausal Adult Female.......6.2 - 19.0 nM BCE The target value for treated post-menopausal adult females is the same as the premenopausal reference interval. BCE = Bone Collagen Equivalent Performed By: [facility] [address] [place] [address] Sketch Artist: Vijay Bird MD, PhD CLIA Number: [id number] Michaelle Sprague MD LAB BLOOD ORDERABLES Final Res ult Performing Organization Address [facility] Co de Phone Number [facility] [employer]) [address] [place] [address] * (ABNORMAL) Osteocalcin by ECIA (08/04/2024 1:12 PM EDT) [facility] OSTEOCALCIN BY ECIA 7(L) 8 - 36 ng/mL 08/06/2024 10:43 PM EDT [facility] [employer] ([place]) Blood Venous blood specimen / Unknown Venipuncture / Unknown 08/04/2024 1:12 PM EDT 08/04/2024 1:14 PM EDT Narrative [facility] [employer] ([place]) - 08/06/2024 10:43 PM EDT INTERPRETIVE INFORMATION: Osteocalcin by ECIA In patients with renal failure, the osteocalcin result may be directly elevated, due to impaired clearance, and/or indirectly elevated due to renal osteodystrophy. Access complete set of age- and/or gender-specific reference intervals for this test in the [facility] Test Directory (Lore). Performed By: [facility] [address] [place] [address] Sketch Artist: Vijay Bird MD, PhD CLIA Number: [id number] Michaelle Sprague MD LAB BLOOD ORDERABLES Final Res ult Performing Organization Address City/[facility]/ZIP Co de Phone Number [employer]) [address] [place] [address] * (ABNORMAL) Renal Function Panel, Plasma (08/04/2024 1:12 PM EDT) [facility] Glucose, Plasma 103(H) 74 - 99 mg/dL 08/04/2024 3:06 PM EDT [facility] BUN, Plasma 10 8 - 23 mg/dL 08/04/2024 3:06 PM EDT [facility] Creatinine, Plasma 0.68 0.60 - 1.10 mg/dL 08/04/2024 3:06 PM EDT [facility] BUN/Creatinine Ratio 15 08/04/2024 3:06 PM EDT [facility] Sodium, Plasma 141 136 - 145 mmol/L 08/04/2024 3:06 PM EDT [facility] Potassium, Plasma 3.8 3.6 - 4.9 mmol/L 08/04/2024 3:06 PM EDT [facility] Chloride, Plasma 104 97 - 107 mmol/L 08/04/2024 3:06 PM EDT [facility] CO2, Plasma 28 22 - 29 mmol/L 08/04/2024 3:06 PM EDT [facility] Anion Gap 9 6 - 16 mmol/L 08/04/2024 3:06 PM EDT [facility] Total Calcium, Plasma 9.9 8.9 - 10.2 mg/dL 08/04/2024 3:06 PM EDT [facility] Phosphorus, Plasma 3.1 2.5 - 4.5 mg/dL 08/04/2024 3:06 PM EDT [facility] Albumin, Plasma 4.2 3.5 - 5.2 g/dL 08/04/2024 3:06 PM EDT [facility] eGFRcr 95.6 mL/min/1.7 3m*2 08/04/2024 3:06 PM EDT [facility] Comment:Reported eGFRcr in m L/min/1.73m2 is based the CKD-EPI 2020 equation that does not use a race coefficient. Blood Venous blood specimen / Unknown Venipuncture / Unknown 08/04/2024 1:12 PM EDT 08/04/2024 1:14 PM EDT us Michaelle Sprague MD LAB BLOOD ORDERABLES Final Res ult [facility] [address] [place] [address] * Dexa Bone Density (12/26/2023 10:48 AM EST) Anatomical Region Laterality Modality L-spine Radiographic Zulay ging Narrative 12/28/2023 11:55 PM EST [facility] [address] [address], [place] [id number] DXA Bone Densitometry Report: [12/26/2023] Subjective ?? BMD test performed using the [employer] DXA System (analysis version: 14.10) manufactured by [employer]. REFERRING PROVIDER: Michaelle Barton MD CLINICAL INFORMATION: osteoporosis PATIENT NAME: Natividad Tello PATIENT AGE: 68 y.o. LEGAL SEX: female RADIOGRAPHIC VIEWS: Sites scanned: AP Spine, HIP Right , HIP Left, and TBS COMPARISON STUDY: DXA Axial ??12/19/2022. TBS ??Prior studies are not available for comparison. FINDINGS: Based on WHO criteria (post-menopausal female) the diagnosis is Osteopenia ?? The lowest T- score is -1.4 in the L total hip There is Stability compared to prior measurements The presence of arthritic or degenerative joint changes in the spine could artefactually increase measured BMD. TBS: The TBS ??L1-L4 ??of 1.405 indicates normal microarchitecture TREATMENT RECOMMENDATIONS: Patient has received specific treatment for osteoporosis in the last year. Work up for secondary osteoporosis and metabolic bone disease could be considered based on clinical indications. Treatment decisions may be based on clinical considerations. Suggest general measures to optimize calcium and vitamin D status, fall prevention measures and reduce fracture risk. Consider repeating this study in 1 year(s) or as clinically indicated to assess bone density change or response to treatment (should be performed on the same DXA scanner to allow for direct comparison and calculation of change in BMD). Michaelle Sprague MD IMG DXA PROCEDURES Final Resul t from Last 3 Months or Most Recently Relevant to Health Maintenance [place] [address] Care Teams Voice Pathologist Relationship Specialty Start Date End Date Gera Low MD [address] [place] [address] PCP - General 03/09/21
--- OUTSIDE RECORDS SUMMARY | 2024-10-01 11:43 | XMS_ITS | Clinical Summary ---
Author Organization [employer] [facility] [employer] Address [address] [facility] [place] [address] Care Team Providers Care Private Tutors And Teachers Name Role Phone Gera Low MD Primary Care Provider +1- [phone] Encounters Date Type Department Care Team Description 08/04/2024 2:05 PM EDT - 08/04/2024 11:59 PM EDT Hospital Encounter [facility] [address] [facility] [address] [place] [address] Yelitza Telles MD Visit for screening mammogram Discharge Disposition: Home or Self Care 08/04/2024 Outside Orders [facility] [address] [facility] [address] [place] [address] Mariann Martinez MD Visit for screening mammogram (Primary Dx) from Last 3 Months Family History Medical History Relation Name Comments Breast cancer Sister Relation Name Status Comments Sister Social History Tobacco Use Types Packs/Day Years Used Date Smoking Tobacco: Never Assessed Interpersonal Safety Answer Date Record ed Family or friends hurt you Not on file 11/14 Family or friends insult you Not on file Family or friends threaten you Not on file 0 11/14/2023 Family or friends scream or curse at you Not on file 11/14/2023 Housing Stability Answer Date Recorded Living situation today Not on file Living situation problems Not on file 2023 Family and Community Support Answer Catrachito e Recorded Help with Day to Day Activities Not on file 11/14/2023 Feeling Lonely or Isolated Not on file 11/14 Educational Attainment Answer Date Tommie rded Speak language other than Canadian at home Not on file 11/14/2023 Want help with school or training Not on file 11/14/2023 Depression Answer Date Recorded PHQ-2 Risk Not on file 11/14/2023 Disabilities Answer Date Recorded Difficulty concentrating Not on file 024 Difficulty doing errands alone Not on file 0 11/14/2023 Substance Use Answer Date Recorded Used prescription meds for non-medical reasons N ot on file 11/14/2023 Used illegal drugs past 12 months Not on file 11/14/2023 Comments Unknown Sex and Gender Information Value Date Recorded Sex Assigned at Female 04/23/2022 4:38 PM CDT Legal Sex Female 4:38 PM CDT Gender Identity Female 04/23/2022 4:38 PM CDT Sexual Orientation Not on file Plan of Treatment Upcoming Encounters Date Type Department Care Team (Late st Contact Info) Description 08/08/2025 11:00 AM EDT Appointment [address] [address] Health Maintenance Due Date Last Done Comments CT Colonography 1957 Colonoscopy 1957 Colorectal Cancer Screening 1957 DXA SCAN 1957 FOBT/FIT 1957 Fit-DNA (Cologuard) 1957 Sigmoidoscopy 1957 Depression Screening (12+) 1969 Tobacco Cessation Counseling and Screening (12+) 1969 Hepatitis C Screening 1975 Shingles Vaccine (Zoster) (1 of 2) 2007 Medicare Initial AWV [id number] 03/28/2023 Falls Risk Screening 10/27/2023 COVID-19 VACCINE (6 - 2023-2 5 season) 2024 08/14/2022, 09/05/2021, 01/20/2021, Additional history exists Influenza Vaccine (#1) 2024 08/09/2022 Breast Cancer Screening 08/04/2026 08/04/20 24, 07/25/2023, 07/24/2022, Additional history exists DTAP/TDAP/TD VACCINES (3 - T d or Tdap) 07/15/2027 07/15/2017, 01/02/1997 Respiratory Syncytial Virus (RSV) Adult or (1 - 1-dose 75+ series) 2032 Pneumococcal 65+ years Completed 08/14/2022 Procedures Procedure Name Priority Date/Time Associated Diagnosis Comments MM DIGITAL MAMMO SCREEN WITH PEYMAN BILATERAL Routine 08/04/2024 2:53 PM EDT Visit for screening mammogram from Last 3 Months Results * MM digital mammo screen with peyman bilateral (08/04/2024 2:53 PM EDT) Anatomical Region Laterality Modality Breast Bilateral Mammography 08/06/2024 3:09 PM EDT Impressions 08/06/2024 3:13 PM EDT FINAL IMPRESSION: ACR BI-RADS 2: Benign findings. RECOMMENDATIONS: Routine annual screening mammography. A letter including results and recommendations was sent to the patient. Density notification was provided to all patients. Patient information entered into a reminder system with a target due date for the next mammogram. At our facility, a buckland marker is positioned over a visible skin lesion and a linear marker is used to indicate a scar. A triangular marker is placed on a self reported palpable finding. Note: Mammography does not detect approximately 10-15% of breast cancers. An annual clinical breast exam by the patient's breast care physician and regular monthly self breast exams by the patient are integral parts of breast cancer screening, in addition to annual mammography. A normal mammogram does not completely exclude the presence of breast cancer, especially if there is an abnormal finding on physical exam. When clinically indicated, a biopsy should not be deferred because of a normal mammogram report. cc: Narrative 08/06/2024 3:13 PM EDT PROCEDURE: Bilateral digital screening mammogram with tomosynthesis. REASON FOR EXAM: Routine screening. FAMILY HISTORY: ??There is strong family history of breast cancer. The patient herself tested negative for genetic mutation. COMPARISON STUDY: [facility] [phone] FINDINGS: Craniocaudal and mediolateral oblique images of both breasts were obtained in 2D, C-view, and 3D modes. The breast tissue is heterogeneously dense, which may obscure small masses. No significant change. Bilateral coarse calcifications are again visualized. There is no evidence of dominant mass, architectural distortion, or suspicious calcifications. This examination was reviewed with the benefit of computer-aided detection (CAD). us Yelitza Koki MD IMG MAMMOGRAPHY ORDERABLES Final Result from Last 3 Months Insurance BLUE CROSS/BLUE SHIELD MEDICARE PART A B Care Teams Private Tutors And Teachers Relationship Specialty Start Date End Date Gera Low MD [address] [place] [address] PCP - General Family Medicine 08/04/24
--- OUTSIDE RECORDS SUMMARY | 2024-10-01 11:43 | XMS_ITS | Encounter Summary ---
[facility] Organization [facility] Address [address] [address] Care Team Providers Care Pairer Odds Name Role Phone Gera Low MD Primary Care Provider Reason for Referral * Diagnostic Imaging (Routine) - Closed Specialty Diagnoses / Procedures Referred By Giancarlo juan Referred To Contact Radiology Diagnoses Right thyroid nodule Procedures US Thyroid Yelitza Telles MD [address] [place] [address] Phone: tel: fax: Referral ID Status Reason Start Date Expiration Date Visits Re quested Visits Authorized [id number] Closed 11/12/2016 11/12/2017 1 1 Reason for Visit * Diagnostic Imaging (Routine) - Closed Specialty Diagnoses / Procedures Referred By Giancarlo juan Referred To Contact Radiology Diagnoses Right thyroid nodule Procedures US Thyroid Yelitza Telles MD [address] [place] [address] Phone: tel: fax: Referral ID Status Reason Start Date Expiration Date Visits Re quested Visits Authorized [id number] Closed 11/12/2016 11/12/2017 1 1 Encounter Details Date Type Department Care Team (Latest Contact Info) Description 11/15/2016 11:50 AM EST - 11/15/2016 11:59 PM EST Hospital Encounter [facility] ULTR[facility]OUND AT [address] [id number] Yelitza Telles MD [address] [address] Right thyroid nodule Discharge Disposition: Home or Self Care Social History Tobacco Use Types Packs/Day Years Used Date Smoking Tobacco: Never Assessed Comments Unknown Sex and Gender Information Value Date Recorded Sex Assigned at Not on file Legal Sex Female 11:08 AM EDT Gender Identity Not on file Sexual Orientation Not on file documented as of this encounter Plan of Treatment Not on file documented as of this encounter Procedures Procedure Name Priority Date/Time Associated Diagnosis Comments US THYROID Routine 11/15/2016 12:39 PM EST Right thyroid nodule documented in this encounter Results * US Thyroid (11/15/2016 12:39 PM EST) Anatomical Region Laterality Modality Head and Neck, Neck Ultrasound 11/15/2016 2:45 PM EST Impressions 11/18/2016 8:56 AM EST Multinodular thyroid with no dominant mass or nodule present. No significant enlargement. D: ??11/15/2016 E: ??11/15/2016 ?? This report was finalized on 11/18/2016 8:[address] Rosario Olivarez MD. 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 COMPARISON: NONE FINDINGS: The isthmus measures 3 mm. The right lobe of the thyroid measures 4.7 x 1.6 x 1.8 cm. The echotexture is homogeneous in appearance. There are several subcentimeter nodules identified the largest measuring 2 mm on the right. No dominant mass or nodules identified. The left lobe of the thyroid measures 4.9 x 1.1 x 1.7 cm. The echotexture is homogeneous with no underlying mass or lesion present. There are several subcentimeter nodules identified the largest measuring 2 mm. 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 COMPARISON: NONE FINDINGS: The isthmus measures 3 mm. The right lobe of the thyroid measures 4.7 x 1.6 x 1.8 cm. The echotexture is homogeneous in appearance. There are several subcentimeter nodules identified the largest measuring 2 mm on the right. No dominant mass or nodules identified. The left lobe of the thyroid measures 4.9 x 1.1 x 1.7 cm. The echotexture is homogeneous with no underlying mass or lesion present. There are several subcentimeter nodules identified the largest measuring 2 mm. IMPRESSION: Multinodular thyroid with no dominant mass or nodule present. No significant enlargement. E: 11/15/2016 This report was finalized on 11/18/2016 8:[address] Rosario Olivarez MD. us Yelitza Hever Telles MD IMG US ORDERABLES Final Res ult documented in this encounter Visit Diagnoses Diagnosis Right thyroid nodule documented in this encounter Care Teams Pairer Odds Relationship Specialty Start Date End Date Gera Low MD [address] [place] [facility] [address] [facility] [address] [place] [address] PCP - General Family Medicine 11/15/16 documented as of this encounter
--- OUTSIDE RECORDS SUMMARY | 2024-10-01 11:43 | XMS_ITS | Encounter Summary ---
Author Organization [employer] Address [address] [place] [address] Care Team Providers Care Controlled Atmospheric Furnace Brazer Name Role Phone Yelitza Telles MD Primary Care Provider Reason for Referral * Mammography (Routine) - Closed Specialty Diagnoses / Procedures Referred By Giancarlo juan Referred To Contact Diagnoses Visit for screening mammogram Procedures MM digital mammo screen with peyman bilateral Gera Low MD [address] [place] [address] [address] [place] [address] Phone: tel: fax: Referral ID Status Reason Start Date Expiration Date Visits Re quested Visits Authorized [id number] Closed 07/25/2023 01/21/2024 1 1 Reason for Visit * Mammography (Routine) - Closed Specialty Diagnoses / Procedures Referred By Giancarlo juan Referred To Contact Diagnoses Visit for screening mammogram Procedures MM digital mammo screen with peyman bilateral Gera Low MD [address] [facility] [address] [place] [address] Phone: tel: fax: Referral ID Status Reason Start Date Expiration Date Visits Re quested Visits Authorized [id number] Closed 07/25/2023 01/21/2024 1 1 Encounter Details Date Type Department Care Team (Latest Contact Info) Description 07/25/2023 1:04 PM EDT - 07/25/2023 11:59 PM EDT Hospital Encounter [address] [place] [phone] Yelitza Telles MD [address] [facility] [address] [place] [address] Visit for screening mammogram Discharge Disposition: Home or Self Care Social [...] Info) Description 08/08/2025 11:00 AM EDT Appointment [address] [place] [address] documented as of this encounter Procedures Procedure Name Priority Date/Time Associated Diagnosis Comments MM DIGITAL MAMMO SCREEN WITH PEYMAN BILATERAL Routine 07/25/2023 2:25 PM EDT Visit for screening mammogram documented in this encounter Results * MM digital mammo screen with peyman bilateral (07/25/2023 2:25 PM EDT) Anatomical Region Laterality Modality Breast Bilateral Mammography 07/25/2023 2:52 PM EDT Impressions 07/25/2023 2:57 PM EDT FINAL IMPRESSION: Stable mammogram. No findings suspicious for malignancy. Bi-RADS: ACR BI-RADS 1: Negative. RECOMMENDATIONS: ??Annual screening mammography. A letter including results and recommendations was sent to the patient. Density notification was included for patients with pattern 3 or 4 breast tissue. Patient information was entered into a reminder system with a target due date for the next mammogram. At our facility, a [place] marker is positioned over a visible skin [...] deferred because of a normal mammogram report. D Narrative 07/25/2023 2:57 PM EDT PROCEDURE: Digital screening mammogram with Digital Breast Tomosynthesis (DBT). REASON FOR EXAM: Routine screening. FAMILY HISTORY: ??Strong family history of breast cancer. COMPARISON STUDY: ??2021 through 2015 from [facility] FINDINGS: Craniocaudal and mediolateral oblique images of both breasts were obtained in 2D and DBT modes. Synthesized views were reconstructed from DBT data. The breast tissue is heterogeneously dense, which may obscure small masses. There is no evidence of dominant mass, architectural distortion, or suspicious calcifications. The mammogram was interpreted with the benefit of computer aided detection (CAD). us Gera Low MD IMG MAMMOGRAPHY ORDERABLES Final Result documented in this encounter Visit Diagnoses Diagnosis Visit for screening mammogram documented in this encounter Care Teams Controlled Atmospheric Furnace Brazer Relationship Specialty Start Date End Date Yelitza Telles MD [address] [place] [address] PCP - General Gynecology 07/25/23 08/03/24 documented as of this encounter
--- OUTSIDE RECORDS SUMMARY | 2024-10-01 11:43 | XMS_ITS | Encounter Summary ---
Author Organization [employer] Address [address] [place] [address] Care Team Providers Care Hot Car Operator Name Role Phone Gera Low MD Primary Care Provider [phone] Reason for Referral * Mammography (Routine) - Closed Specialty Diagnoses / Procedures Referred By Giancarlo juan Referred To Contact Diagnoses Visit for screening mammogram Procedures MM digital mammo screen with peyman bilateral Yelitza Telles MD [address] [place] [address] Phone: tel: fax: Referral ID Status Reason Start Date Expiration Date Visits Re quested Visits Authorized [id number] Closed 07/27/2024 01/23/2025 1 1 Reason for Visit * Mammography (Routine) - Closed Specialty Diagnoses / Procedures Referred By Giancarlo juan Referred To Contact Diagnoses Visit for screening mammogram Procedures MM digital mammo screen with peyman bilateral Yelitza Telles MD [address] [place] [address] Phone: tel: fax: Referral ID Status Reason Start Date Expiration Date Visits Re quested Visits Authorized [id number] Closed 07/27/2024 01/23/2025 1 1 Encounter Details Date Type Department Care Team (Latest Contact Info) Description 08/04/2024 2:05 PM EDT - 08/04/2024 11:59 PM EDT Hospital Encounter [facility] Breast [address] [place], [place] [phone] Yelitza Telles MD [address] [facility] [address] [place] [address] Visit for screening mammogram Discharge Disposition: Home [...] Date Tommie rded Speak language other than Taiwanese at home Not on file 11/14/2023 Want [...] Info) Description 08/08/2025 11:00 AM EDT Appointment [address] [place] [address] documented as of this encounter Procedures Procedure Name Priority Date/Time Associated Diagnosis Comments MM DIGITAL MAMMO SCREEN WITH PEYMAN BILATERAL Routine 08/04/2024 2:53 PM EDT Visit for screening mammogram documented [...] the next mammogram. At our facility, a [place] marker is positioned over a visible skin [...] tested negative for genetic mutation. COMPARISON STUDY: [facility] FINDINGS: Craniocaudal and mediolateral oblique images of both breasts were obtained in 2D, C-view, and 3D modes. The breast tissue is heterogeneously dense, which may obscure small masses. No significant change. Bilateral coarse calcifications are again visualized. There is no evidence of dominant mass, architectural distortion, or suspicious calcifications. This examination was reviewed with the benefit of computer-aided detection (CAD). Yelitza Telles MD IMG MAMMOGRAPHY ORDERABLES Final Result documented in this encounter Visit Diagnoses Diagnosis Visit for screening mammogram documented in this encounter Care Teams Hot Car Operator Relationship Specialty Start Date End Date Gera Low MD [address] [place] [phone] PCP - General Family Medicine 08/04/24 documented as of this encounter
--- OUTSIDE RECORDS SUMMARY | 2024-10-01 11:43 | XMS_ITS | Encounter Summary ---
Author Organization [facility] Address [address] [place] [address] Care Team Providers Care Route Deliverer Name Role Phone Provider, No Known Primary Care Provider [phone] Encounter Details Date Type Department Care Team (Late st Contact Info) Description 11/11/2016 3:00 PM EST Lab [facility] AT [address] [address] Thygeson's disease, right (Primary Dx) Social History Tobacco Use Types [...] Procedure Name Priority Date/Time Associated Diagnosis Comments THYROID ANTIBODIES Routine 11/11/2016 3: 01 PM EST Thygeson's disease, right TSH Routine 11/11/2016 3:01 PM EST Thygeson's disease, right T4 Routine 11/11/2016 3:01 PM EST Thygeson's disease, right documented in this encounter Results * Thyroid Antibodies (11/11/2016 3:01 PM EST) Thyroid Peroxidase Antibody 11 0 - 34 IU/mL 11/13/2016 3:16 PM EST [facility] Thyroglobulin Ab <1.0 0.0 - 0.9 IU/mL 11/13/2016 3:16 PM EST [facility] Comment:Thyroglobulin Antibo dy measured by [facility] [place] Methodology Blood Venipuncture / Unknown 11/11/2016 3:01 PM EST 11/11/2016 3:01 PM EST Narrative [facility] - 11/13/2016 3:16 PM EST Performed at: ??01 - [facility] [address], [place], [place] [id number] Certified Professional Controller: Emmanuel Vargas PhD, Phone: ??[phone] us Yelitza Telles MD LAB BLOOD ORDERABLES Final Result [facility] [address] [place] [address], [place] [phone] * TSH (11/11/2016 3:01 PM EST) TSH 3.066 0.350 - 5.350 mIU/mL 11/11/2016 7:45 PM EST [facility] Blood Venipuncture / Unknown 11/11/2016 3:01 PM EST 11/11/2016 3:01 PM EST us Yelitza Telles MD LAB BLOOD ORDERABLES Final Result [facility]
[address] [place] [address], [place] [phone] * T4 (11/11/2016 3:01 PM EST) T4, Total 10.50 4.70 - 11.40 mcg/dL 11/11/2016 7:45 PM EST [facility] Blood Venipuncture / Unknown 11/11/2016 3:01 PM EST 11/11/2016 3:01 PM EST Narrative [facility] - 11/11/2016 7:45 PM EST The concentration of Total T4 in samples from women is erroneously low (20%) when measured using the access Total T4 Assay. ??Erroneously low results could mask hyperthyroidism. ??Do not use the Access Total T4 assay as the only marker for evaluating patients for thyroid disorders. us Yelitza Telles MD LAB BLOOD ORDERABLES Final Result [facility]
[address] [place] [address], documented in this encounter Visit Diagnoses Diagnosis Thygeson's disease, right- Primary documented in this encounter Care Teams Route Deliverer Relationship Specialty Start Date End Date Provider, [place] [address] PCP - General 07/30/16 11/11/16 documented as of this encounter
--- OUTSIDE RECORDS SUMMARY | 2024-10-01 11:43 | XMS_ITS | Encounter Summary ---
Author Organization [employer] Address [address] [place] [address] Care Team Providers Care Inside Sales Specialist Name Role Phone Unavailable Primary Care Provider Unavailabl e Encounter Details Date Type Department Care Team (Late st Contact Info) Description 07/23/2021 Historic Encounter [facility] [address] [place] [address] Gera Diego MD [address] [facility] [address] [place], [place] [id number] Social History Tobacco Use Types Packs/Day Years [...] Info) Description 08/08/2025 11:00 AM EDT Appointment [facility] Breast [address] [place] [address] documented as of this encounter Procedures Procedure Name Priority Date/Time Associated Diagnosis Comments MM DIGITAL MAMMO SCREEN WITH PEYMAN BILATERAL Routine 07/23/2021 2:10 PM EDT documented in this encounter Results * MM digital mammo screen with peyman bilateral (07/23/2021 2:10 PM EDT) Anatomical Region Laterality Modality Breast Bilateral Mammography 07/23/2021 2:10 PM EDT Narrative 07/23/2021 8:14 PM EDT PROCEDURE: Bilateral digital screening mammogram with tomosynthesis. REASON FOR EXAM: Routine screening. FAMILY HISTORY: ??Intermediate family history of breast cancer. COMPARISON STUDY: [facility] FINDINGS: Craniocaudal and mediolateral oblique images of both breasts were obtained in 2D, C-view, and 3D modes. Bilateral 2-D XCCL views also performed. The breast tissue is heterogeneously dense, which may obscure small masses. Right nipple is chronically inverted. Coarse/lucent centered calcifications and vascular calcifications are again demonstrated bilaterally. There is no evidence of dominant [...] the next mammogram. At our facility, a [place] marker is positioned over a visible skin lesion and a linear marker is used to indicate a scar. A triangular marker is placed on a self reported palpable finding. cc: D Procedure Note Gera Diego MD - 02/11/2023 PROCEDURE: Bilateral digital screening mammogram with tomosynthesis. REASON FOR EXAM: Routine screening. FAMILY HISTORY: Intermediate family history of breast cancer. COMPARISON STUDY: [facility] FINDINGS: Craniocaudal and mediolateral oblique images of both breasts were obtained in 2D, C-view, and 3D modes. Bilateral 2-D XCCL views also performed. The breast tissue is heterogeneously dense, which may obscure small masses. Right nipple is chronically inverted. Coarse/lucent centered calcifications and vascular calcifications are again demonstrated bilaterally. There is no evidence of dominant [...] the next mammogram. At our facility, a mor[place] marker is positioned over a visible skin lesion and a linear marker is used to indicate a scar. A triangular marker is placed on a self reported palpable finding. cc: D Gera Diego MD IMG MAMMOGRAPHY ORDERABLES Kelsey becker Result documented in this encounter Visit Diagnoses Not on filedocumented in this encounter
--- OUTSIDE RECORDS SUMMARY | 2024-10-01 11:43 | XMS_ITS | Encounter Summary ---
[facility] Organization [facility] Address [address] [place] [address] Care Team Providers Care Automation Engineering Manager Name Role Phone Provider, No Known Primary Care Provider [phone] Encounter Details Date Type Department Care Team (Late st Contact Info) Description 07/30/2016 2:30 PM EDT Lab [facility] [address] [place] [address] Family hx-breast malignancy (Primary Dx) Social History Tobacco Use Types Packs/Day Years Used Date Smoking Tobacco: Never Assessed Comments Unknown Sex and Gender Information Value Date Recorded Sex Assigned at Not on file Legal Sex Female 11:08 AM EDT Gender Identity Not on file Sexual Orientation Not on file documented as of this encounter Plan of Treatment Scheduled Orders Name Type Priority Associated Diagnoses Orde r Schedule LAB VENIPUNCTURE (BILL ONLY) Lab Bill Only Routine Family hx-breast malignancy Ordered: 07/30/2016 documented as of this encounter Procedures Procedure Name Priority Date/Time Associated Diagnosis Comments SCANNED - LABS 07/30/2016 SCANNED - LABS 07/30/2016 documented in this encounter Results * SCANNED - LABS (07/30/2016) us [facility] BLOOD ORDERABLES Final Re sult * SCANNED - LABS (07/30/2016) us Yelitza Telles MD LAB BLOOD ORDERABLES Final Result documented in this encounter Visit Diagnoses Diagnosis Family hx-breast malignancy- Primary documented in this encounter Care Teams Automation Engineering Manager Relationship Specialty Start Date End Date Provider, No Known [facility] [address] PCP - General 07/30/16 11/11/16 documented as of this encounter
--- OUTSIDE RECORDS SUMMARY | 2024-10-01 11:43 | XMS_ITS | Encounter Summary ---
Author Organization [employer] Address [address] [place] [address] Care Team Providers Care Client Services Representative Name Role Phone Gera Low MD Primary Care Provider [phone] Reason for Referral * Mammography (Routine) - Authorized Specialty Diagnoses / Procedures Referred By Giancarlo t Referred To Contact Diagnoses Visit for screening mammogram Procedures MM digital mammo screen with esther bilateral Mariann Martinez MD [address] [address] Phone: tel: fax: Referral ID Status Reason Start Date Expiration Date V isits Requested Visits Authorized [id number] Authorized 08/08/2025 08/08/2026 1 1 Encounter Details Date Type Department Care Team (Late st Contact Info) Description 08/04/2024 Outside Orders [address] [place] [address] Mariann Martinez MD [facility] [place] [address] Visit for screening mammogram (Primary Dx) Social History Tobacco Use Types [...] Date Tommie rded Speak language other than Angolan at home Not on file 11/14/2023 Want [...] Info) Description 08/08/2025 11:00 AM EDT Appointment [address] [address] Scheduled Orders Name Type Priority Associated Diagnoses Orde r Schedule MM digital mammo screen with esther bilateral Imaging Routine Visit for screening mammogram Expected: 08/08/2025, Expires: 08/08/2026 documented as of this encounter Visit Diagnoses Diagnosis Visit for screening mammogram- Primary documented in this encounter Care Teams Client Services Representative Relationship Specialty Start Date End Date Gera Low MD [address] [place] [address] PCP - General Family Medicine 08/04/24 documented as of this encounter
--- OUTSIDE RECORDS SUMMARY | 2024-10-01 11:43 | XMS_ITS | Encounter Summary ---
Author Organization [employer] Address [address] [place] [address] Care Team Providers Care Agricultural Research Technologist Name Role Phone Unavailable Primary Care Provider Unavailabl e Encounter Details Date Type Department Care Team (Late Contact Info) Description 07/20/2020 Historic Encounter [facility] Radiology [address] [place] [address] Provider, [place] Historical Social History Tobacco Use Types Packs/Day Years [...] Encounters Date Type Department Care Team (Late Contact Info) Description 08/08/2025 11:00 AM EDT Appointment [address] [place] [address] documented as of this encounter Procedures Procedure Name Priority Date/Time Associated Diagnosis Comments MM DIGITAL MAMMO SCREEN WITH PEYMAN BILATERAL Routine 07/20/2020 1:08 PM EDT documented in this encounter Results * MM digital mammo screen with peyman bilateral (07/20/2020 1:08 PM EDT) Anatomical Region Laterality Modality Breast Bilateral Mammography 07/20/2020 1:08 PM EDT Narrative 07/20/2020 5:37 PM EDT PROCEDURE: Digital screening mammogram with tomosynthesis. REASON FOR EXAM: Routine screening. FAMILY HISTORY: ??Strong family history of breast cancer. COMPARISON STUDY: [facility] 5665-7264. FINDINGS: Craniocaudal and mediolateral oblique images of both breasts were obtained in 2D, C-view, and 3D modes including bilateral exaggerated CC views. The breast tissue is heterogeneously dense, which may obscure small masses. There is no evidence of dominant mass, architectural distortion, or suspicious calcifications in either breast. The mammogram was interpreted with the benefit of computer aided detection (CAD). FINAL IMPRESSION: ACR BI-RADS 1: Negative. RECOMMENDATIONS: 1. Screening mammogram in one year. 2. Additional screening with breast MR should also be considered. A letter including results and recommendations was sent to the patient. Density notification was included for patients with pattern 3 or 4 breast tissue. Patient information was entered into a reminder system with a target due date for the next mammogram. At our facility, a steb[place] marker is positioned over a visible skin lesion and a linear marker is used to indicate a scar. A triangular marker is placed on a self reported palpable finding. D Procedure Note Provider, MD Justin - 02/11/2023 PROCEDURE: Digital screening mammogram with tomosynthesis. REASON FOR EXAM: Routine screening. FAMILY HISTORY: Strong family history of breast cancer. COMPARISON STUDY: [facility] [id number]. FINDINGS: Craniocaudal and mediolateral oblique images of both breasts were obtained in 2D, C-view, and 3D modes including bilateral exaggerated CC views. The breast tissue is heterogeneously dense, which may obscure small masses. There is no evidence of dominant mass, architectural distortion, or suspicious calcifications in either breast. The mammogram was interpreted with the benefit of computer aided detection (CAD). FINAL IMPRESSION: ACR BI-RADS 1: Negative. RECOMMENDATIONS: 1. Screening mammogram in one year. 2. Additional screening with breast MR should also be considered. A letter including results and recommendations was sent to the patient. Density notification was included for patients with pattern 3 or 4 breast tissue. Patient information was entered into a reminder system with a target due date for the next mammogram. At our facility, a stebbins marker is positioned over a visible skin lesion and a linear marker is used to indicate a scar. A triangular marker is placed on a self reported palpable finding. D [facility] Historical Provider IMG MAMMOGRAPHY ORDERAB LES Final Result documented in this encounter Visit Diagnoses Not on filedocumented in this encounter
--- OUTSIDE RECORDS SUMMARY | 2024-10-01 11:43 | XMS_ITS | Encounter Summary ---
Author Organization [facility] Address [address] [place] [address] Care Team Providers Care Director Television Name Role Phone Gera Low MD Primary Care Provider Reason for Referral * Diagnostic Imaging (Routine) - Closed Specialty Diagnoses / Procedures Referred By Giancarlo juan Referred To Contact Radiology Diagnoses Multinodular thyroid Procedures US Thyroid US Head Neck Soft Tissue Yelitza Telles MD [address] [place] [address] Phone: tel: fax: [facility] AT [address] [address] Phone: tel: fax: Referral ID Status Reason Start Date Expiration Date Visits Re quested Visits Authorized [id number] Closed 12/26/2023 12/25/2024 1 1 Reason for Visit * Diagnostic Imaging (Routine) - Closed Specialty Diagnoses / Procedures [facility] Referred To Contact Radiology Diagnoses Multinodular thyroid Procedures US Thyroid US Head Neck Soft Tissue Yelitza Telles MD [address] [place] [address] Phone: tel: fax: [facility] [address] [address] Phone: tel: fax: Referral ID Status Reason Start Date Expiration Date Visits Re quested Visits Authorized [id number] Closed 12/26/2023 12/25/2024 1 1 Encounter Details Date Type Department Care Team (Latest Contact Info) Description 01/16/2024 12:33 PM EDT - 01/16/2024 11:59 PM EDT Hospital Encounter [facility] [address] [place] [address] Yelitza Telles MD [address] [facility] [address] [place] [address] Multinodular thyroid Discharge Disposition: Home or Self Care Social [...] Date/Time Associated Diagnosis Comments US THYROID Routine 01/16/2024 1:21 PM EDT Multinodular thyroid documented in this encounter Results * US Thyroid (01/16/2024 1:21 PM EDT) Anatomical Region Laterality Modality Head and Neck, Neck Ultrasound 01/19/2024 10:4 4 AM EDT Impressions 01/19/2024 10:52 AM EDT Impression: Normal sized, essentially normal appearing thyroid gland with a single 2 x 1 mm left thyroid cyst. TI-RADS: TR1 - Benign. No follow up needed. Electronically Signed: Andrew Clay MD 01/19/2024 10:52 AM EDT Workstation ID: [id number] Narrative 01/19/2024 10:52 AM EDT US THYROID Date of Exam: 01/16/2024 1:03 PM EDT Indication: E04.2. Comparison: 11/15/2016 thyroid ultrasound Technique: Grayscale and color and Doppler ultrasound imaging of the thyroid performed according to routine thyroid ultrasound protocol, real time with image documentation. Findings: Thyroid is normal in size, the right lobe 4.2 x 1.5 x 1.7 cm, and left lobe 4.7 x 1.4 x 1.3 cm. Thyroid isthmus is 3 mm in width. Thyroid echotexture is generally homogeneous. The assistant program manager notes a single 1 x 2 mm dorsal midpole cyst, TI RADS category 1, benign Procedure Note Andrew Clay MD - 01/19/2024 US THYROID Date of Exam: 01/16/2024 1:03 PM EDT Indication: E04.2. Comparison: 11/15/2016 thyroid ultrasound Technique: Grayscale and color and Doppler ultrasound imaging of thethyroid performed according to routine thyroid ultrasound protocol, realtime with image documentation. Findings: Thyroid is normal in size, the right lobe 4.2 x 1.5 x 1.7 cm, and leftlobe 4.7 x 1.4 x 1.3 cm. Thyroid isthmus is 3 mm in width. Thyroidechotexture is generally homogeneous. The assistant program manager notes a single 1 x 2mm dorsal midpole cyst, TI RADS category 1, benign IMPRESSION: Impression: Normal sized, essentially normal appearing thyroid gland with a single 2 x1 mm left thyroid cyst. TI-RADS: TR1 - Benign. No follow up needed. Electronically Signed: Andrew Clay MD 01/19/2024 10:52 AM EDT Workstation ID: [id number] us Yelitza Hever Telles MD IMG US ORDERABLES Final Res ult documented in this encounter Visit Diagnoses Diagnosis Multinodular thyroid Nontoxic multinodular goiter documented in this encounter Care Teams Director Television Relationship Specialty Start Date End Date Gera Low MD [facility] [address] [facility] [address] [place] [address] PCP - General Family Medicine 11/15/16 documented as of this encounter
--- OUTSIDE RECORDS SUMMARY | 2024-10-01 11:43 | XMS_ITS | Referral Summary ---
Author Organization [employer] Address [address] [place] [address] Care Team Providers Care Erosion Control Coordinator Name Role Phone Gera Low MD Primary Care Provider [phone]- [phone] Encounters Date Type Department Care Team Description 08/04/2024 Outside Orders [facility] Breast Care [address] [place] [address] [place] [address] Mariann Martinez MD Visit for screening mammogram (Primary Dx) 08/04/2024 2:05 PM EDT - 08/04/2024 11:59 PM EDT Hospital Encounter [facility] Breast [address] [address] Yelitza Telles MD Visit for screening mammogram Discharge Disposition: Home or Self Care from Last 3 Months Social History Tobacco Use Types Packs/Day Years [...] Date Tommie rded Speak language other than [place]guill[place] at home Not on file 11/14/2023 Want [...] Info) Description 08/08/2025 11:00 AM EDT Appointment [address] [address] Procedures Procedure Name Priority Date/Time Associated Diagnosis [...] the next mammogram. At our facility, a [place] marker is positioned over a visible skin [...] tested negative for genetic mutation. COMPARISON STUDY: [facility] FINDINGS: Craniocaudal and mediolateral oblique images [...] Telles MD IMG MAMMOGRAPHY ORDERABLES Final Result from Last 3 Months Insurance BLUE CROSS/BLUE SHIELD MEDICARE PART A B Care Teams Erosion Control Coordinator Relationship Specialty Start Date End Date Gera Low MD [address] [facility] [address] [place] [address] PCP - General Family Medicine 08/04/24
--- OUTSIDE RECORDS SUMMARY | 2024-10-01 11:43 | XMS_ITS | Encounter Summary ---
Author Organization [employer] Address [address] [place] [address] Care Team Providers Care Mattress Maker Name Role Phone Yelitza Telles MD Primary Care Provider [phone] Gera Low MD Primary Care Provider [phone]- [phone] Reason for Referral * Mammography (Routine) - Closed Specialty Diagnoses / Procedures Referred By Contac t Referred To Contact Diagnoses Visit for screening mammogram Procedures MM digital mammo screen with esther bilateral Gera Low MD [address] [place] [address] Phone: tel: fax: Referral ID Status Reason Start Date Expiration Date Visits Re quested Visits Authorized [id number] Closed 07/25/2023 01/21/2024 1 1 Encounter Details Date Type Department Care Team (Late st Contact Info) Description 07/24/2022 Outside Orders [address] [place] [address] Gera Low MD [address] [place] [address] Visit for screening mammogram (Primary Dx) Social [...] Info) Description 08/08/2025 11:00 AM EDT Appointment [address] [place] [address] documented as of this encounter Results * MM digital mammo screen with esther bilateral (07/25/2023 2:25 PM EDT) Anatomical Region [...] the next mammogram. At our facility, a point lay ira marker is positioned over a visible skin [...] cancer. COMPARISON STUDY: ??2021 through 2015 from [facility] FINDINGS: Craniocaudal and mediolateral oblique images [...] Diagnoses Diagnosis Visit for screening mammogram- Primary Visit for screening mammogram documented in this encounter Care Teams Mattress Maker Relationship Specialty Start Date End Date Yelitza Telles MD [address] [id number] PCP - General Gynecology 07/25/23 08/03/24 Gera Low MD [address] [place] [address] PCP - General Family Medicine 08/04/24 documented as of this encounter
--- OUTSIDE RECORDS SUMMARY | 2024-10-01 11:44 | XMS_ITS | Encounter Summary ---
Author Organization [facility] Address [address] [place], [place] [id number] Care Team Providers Care Concrete Form Setter And Finisher Name Role Phone Gera Low MD Primary Care Provider [phone]- [phone] Encounter Details Date Type Department Care Team (Latest Contact Info) Description 09/08/2023 Travel Social History Tobacco Use Types Packs/Day Years Used Date Smoking Tobacco: Former Smokeless Tobacco: Never Alcohol Use Standard Drinks/Week Comments No 0 (1 standard drink = 0.6 oz pur e alcohol) PHQ-2 Answer Date Recorded Patient Health Questionnaire-2 Score 0 04/22/2022 Comments Unknown Sex and Gender Information Value Date Recorded Sex Assigned at Female 11/09/2021 11:47 AM EST Legal Sex Female 6:10 PM EDT Gender Identity Female 11/09/2021 11:47 AM EST Sexual Orientation Straight 11/09/2021 11 :47 AM EST documented as of this encounter Plan of Treatment Upcoming Encounters Date Type Department Care Team (Late st Contact Info) Description 03/18/2025 12:00 PM EDT Clinical Support [facility] Laboratory Services [address], [address] [place] [address] 04/01/2025 12:40 PM EDT Appointment [facility] Bone & Mineral Metabolism [address], [address] [place] [address] 04/01/2025 1:00 PM EDT Office Visit [facility] Bone & Mineral Metabolism [address] [place] [address] Michaelle Sprague MD [address] [facility] [address] [place] [address] documented as of this encounter Visit Diagnoses Not on filedocumented in this encounter Additional Health Concerns Assessment Noted Time A fall risk assessment has been complete d for the patient 04/22/2022 2:51 PM EDT documented as of this encounter Care Teams Concrete Form Setter And Finisher Relationship Specialty Start Date End Date Gera Low MD [address] [place] [address] PCP - General 03/09/21 documented as of this encounter
--- OUTSIDE RECORDS SUMMARY | 2024-10-01 11:44 | XMS_ITS | Encounter Summary ---
Author Organization [facility] Address [address] [id number] Care Team Providers Care Hematology Technician Name Role Phone Gera Low MD Primary Care Provider [phone]- [phone] Encounter Details Date Type Department Care Team ([facility] Contact Info) Description 05/09/2022 Telephone [facility]phrology, Bone & Mineral Metabolism [address] [facility], [address] [place] [address] Michaelle Sprague MD [address] [place] [address] Social History Tobacco Use Types Packs/Day Years [...] Orientation Straight 11/09/2021 11 :47 AM EST COVID-19 Exposure Response Date Recorded In the last 10 days, have yo u been in contact with someone who was confirmed or suspected to have Coronavirus/COVID-19? No / Unsure 04/18/2022 2:29 PM EDT documented as of this encounter Plan of Treatment Upcoming Encounters Date Type Department Care Team (Late st Contact Info) Description 03/18/2025 12:00 PM EDT Clinical Support [facility] Laboratory Services [address] [facility], 1st [place] [address] 04/01/2025 12:40 PM EDT Appointment [facility] Bone & Mineral Metabolism [address] [facility], [address] [place] [address] 04/01/2025 1:00 PM EDT Office Visit [facility] Bone & Mineral Metabolism [address] [facility], [address] [place] [address] Michaelle Sprague MD [address] [facility] [address] [place] [address] documented as of this encounter Visit Diagnoses Not on filedocumented in this encounter Additional Health Concerns Assessment Noted Time A fall risk assessment has been complete d for the patient 04/22/2022 2:51 PM EDT documented as of this encounter Care Teams Hematology Technician Relationship Specialty Start Date End Date Gera Low MD [address] [place] [address] PCP - General 03/09/21 documented as of this encounter
--- OUTSIDE RECORDS SUMMARY | 2024-10-01 11:44 | XMS_ITS | Encounter Summary ---
Author Organization [facility] Address [address] [id number] Care Team Providers Care Medical Reimbursement Specialist Name Role Phone Gera Low MD Primary Care Provider [phone]- [phone] Encounter Details Date Type Department Care Team (Late st Contact Info) Description 02/10/2023 Telephone [facility] [address] [place] [address] Parisa Arnett, [facility] [address] [place] [address] Social History Tobacco Use Types Packs/Day Years [...] AM EST documented as of this encounter Miscellaneous Notes * Addendum Note - Boo Michelle, PharmD - 03/12/2023 8:30 AM EDTAddended by: BOO MICHELLE on: 03/12/2023 08:30 AM Modules accepted: Orders * Addendum Note - Boo Michelle, MaritzaD - 03/03/2023 11:08 AM EDTAddended by: BOO MICHELLE on: 03/03/2023 11:08 AM Modules accepted: Orders documented in this encounter Plan of Treatment Upcoming Encounters Date Type Department Care Team (Late st Contact Info) Description 03/18/2025 12:00 PM EDT Clinical Support [facility] Laboratory Services [address] [facility], 1st [place] [address] 04/01/2025 12:[address] [facility] Bone & Mineral Metabolism [address] [facility], [address] [place] [address] 04/01/2025 1:00 PM EDT Office Visit [facility] Bone & Mineral Metabolism [address] [facility], [address] [place] [address] Michaelle Sprague MD [address] [place] [address] documented as of this encounter Visit Diagnoses Diagnosis Age-related osteoporosis without current pathological fracture- Primary documented in this encounter Additional Health Concerns Assessment Noted Time A fall risk assessment has been complete d for the patient 04/22/2022 2:51 PM EDT documented as of this encounter Care Teams Medical Reimbursement Specialist Relationship Specialty Start Date End Date Gera Low MD [address] [place] [address] PCP - General 03/09/21 documented as of this encounter
--- OUTSIDE RECORDS SUMMARY | 2024-10-01 11:44 | XMS_ITS | Encounter Summary ---
Author Organization Healthcare Address [address] [id number] Care Team Providers Care Dumper Bailer Operator Name Role Phone Gera Low MD Primary Care Provider +1- [phone] Encounter Details Date Type Department Care Team (Late Contact Info) Description 08/31/2024 Telephone [facility] Infusion [address] [place] [address] Shruti Alcocer, [facility] Social History Tobacco Use Types Packs/Day Years [...] Department Care Team (Late Contact Info) Description 03/18/2025 12:00 PM EDT Clinical Support [facility] Laboratory Services [address] [place] [address] 04/01/2025 12:40 PM EDT Appointment [facility] Bone & Mineral Metabolism [address], [address] [place] [address] 04/01/2025 1:00 PM EDT Office Visit [facility] Met[facility] [address] [facility], [address] [place] [address] Michaelle Sprague MD [address] [facility] [address] [place] [address] documented as of this encounter Visit Diagnoses Not on filedocumented in this encounter Additional Health Concerns Assessment Noted Time A fall risk assessment has been complete d for the patient 08/27/2024 7:56 AM EDT A Body Mass Index follow-up plan has been documented for the patient 08/27/2024 11:28 AM EDT documented as of this encounter Care Teams Dumper Bailer Operator Relationship Specialty Start Date End Date Gera Low MD [address] [place] [address] PCP - General 03/09/21 documented as of this encounter
--- OUTSIDE RECORDS SUMMARY | 2024-10-01 11:44 | XMS_ITS | Encounter Summary ---
Author Organization [facility] Address [address] [place], [place] [address] Care Team Providers Care Senior Stereo Compiler Team Lead Name Role Phone Gera Low MD Primary Care Provider +1- [phone] Encounter Details Date Type Department Care Team (Latest Contact Info) Description 08/03/2024 Travel Social History Tobacco Use Types Packs/Day [...] 03/18/2025 12:00 PM EDT Clinical Support [facility] Laboratory Services [address], [address] [place] [address] 04/01/2025 12:40 PM EDT Appointment [facility] Bone & Mineral Metabolism [address], [address] [place] [address] 04/01/2025 1:00 PM EDT Office Visit [facility] Bone & Mineral Metabolism [address] [place] [address] Michaelle Sprague MD [address] [facility] [address] [place] [address] documented as of this encounter Visit Diagnoses Not on filedocumented in this encounter Additional Health Concerns Assessment Noted Time A fall risk assessment has been complete d for the patient 12/26/2023 12:08 PM EST documented as of this encounter Care Teams Senior Stereo Compiler Team Lead Relationship Specialty Start Date End Date Gera Low MD [address] [place] [address] PCP - General 03/09/21 documented as of this encounter
--- OUTSIDE RECORDS SUMMARY | 2024-10-01 11:44 | XMS_ITS | Encounter Summary ---
Author Organization Healthcare Address [address] [place], [place] [id number] Care Team Providers Care Apartment Maintenance Supervisor Name Role Phone Gera Low MD Primary Care Provider +1- [phone] Encounter Details Date Type Department Care Team (Latest Contact Info) Description 12/21/2023 Travel Social History Tobacco Use Types Packs/Day [...] 03/18/2025 12:00 PM EDT Clinical Support [facility] Laboratory Services [address], [address] [place] [address] 04/01/2025 12:40 PM EDT Appointment [facility] Bone & Mineral Metabolism [address], [address] [place] [address] 04/01/2025 1:00 PM EDT Office Visit [facility] Bone & Mineral Metabolism [address] [place] [address] Michaelle Sprague MD [address] [facility] [address] [place] [address] documented as of this encounter Visit Diagnoses Not on filedocumented in this encounter Additional Health Concerns Assessment Noted Time A fall risk assessment has been complete d for the patient 04/22/2022 2:51 PM EDT documented as of this encounter Care Teams Apartment Maintenance Supervisor Relationship Specialty Start Date End Date Gera Low MD [address] [place] [address] PCP - General 03/09/21 documented as of this encounter
--- OUTSIDE RECORDS SUMMARY | 2024-10-01 11:44 | XMS_ITS | Encounter Summary ---
Author Organization [facility] Address [address] [id number] Care Team Providers Care It Software Developer Name Role Phone Gera Low MD Primary Care Provider +1- [phone] Encounter Details Date Type Department Care Team ([facility] st Contact Info) Description 06/08/2024 Telephone [facility] [address] [place] [address] Krystal Pascual PA [address] [place] [address] Social History Tobacco Use Types [...] as of this encounter Miscellaneous Notes * Telephone Encounter - Sheng Ramirez - 06/08/2024 12:51 PM EDT Krystal out of office, left detailed vm regarding move documented in this encounter Plan of Treatment Upcoming Encounters Date Type Department Care Team (Late st Contact Info) Description 03/18/2025 12:00 PM EDT Clinical Support [facility] Laboratory Services [address] [place] [address] 04/01/2025 12:40 PM EDT Appointment [facility] & Mineral Metabolism [address] [facility], [address] [place] [address] 04/01/2025 1:00 PM EDT Office Visit [facility] Bone & Mineral Metabolism [address], [address] [place] [address] Michaelle Sprague MD [address] [place] [address] documented as of this encounter Visit Diagnoses Not on filedocumented in this encounter Additional Health Concerns Assessment Noted Time A fall risk assessment has been complete d for the patient 12/26/2023 12:08 PM EST documented as of this encounter Care Teams It Software Developer Relationship Specialty Start Date End Date Gera Low MD [address] [place] [address] PCP - General 03/09/21 documented as of this encounter
--- OUTSIDE RECORDS SUMMARY | 2024-10-01 11:44 | XMS_ITS | Encounter Summary ---
Author Organization Healthcare Address [address] [place], [place] [id number] Care Team Providers Care Linux Consultant Name Role Phone Gera Low MD Primary Care Provider +1- [phone] Encounter Details Date Type Department Care Team (Latest Contact Info) Description 08/25/2024 Travel Social History Tobacco Use Types Packs/Day [...] 03/18/2025 12:00 PM EDT Clinical Support Professional [facility] Laboratory Services [address], 1st [place] [address] 04/01/2025 12:40 PM EDT Appointment Professional [facility] Bone & Mineral Metabolism [address], [address] [place] [address] 04/01/2025 1:00 PM EDT Office Visit Professional [facility] Bone & Mineral Metabolism [address] [place] [address] Michaelle Sprague MD [address] [facility] [address] [place] [address] documented as of this encounter Visit Diagnoses Not on filedocumented in this encounter Additional Health Concerns Assessment Noted Time A fall risk assessment has been complete d for the patient 12/26/2023 12:08 PM EST documented as of this encounter Care Teams Linux Consultant Relationship Specialty Start Date End Date Gera Low MD [address] [place] [address] PCP - General 03/09/21 documented as of this encounter
--- OUTSIDE RECORDS SUMMARY | 2024-10-01 11:44 | XMS_ITS | Encounter Summary ---
Author Organization [facility] Address [address] [place] [address] Care Team Providers Care Skein Bleacher Name Role Phone Gera Low MD Primary Care Provider +1- [phone] Reason for Visit * Reason Comments Follow-up Encounter Details Date Type Department Care Team ([facility] Contact Info) Description 12/26/2022 4:40 PM EST Office Visit Professional [facility] Nephrology, Bone & Mineral Metabolism [address] [facility], [address] [place] [address] Michaelle Sprague MD [address] [place] [address] Age-related osteoporosis without current pathological fracture (Primary Dx) Social History Tobacco Use Types [...] suspected to have Coronavirus/COVID-19? No / Unsure 12/24/2022 3:10 PM EST documented as of this encounter Last Filed Vital Signs Vital Sign Reading Time Taken Comments Blood Pressure 125/81 12/26/2022 4:09 PM EST Pulse 88 12/26/2022 4:09 PM EST Temperature - - Respiratory Rate - - Oxygen Saturation - - Inhaled Oxygen Concentration - - Weight 66 kg (145 lb 9.6 oz) 12/26/2022 4:09 PM EST Height 175.3 cm (5' 9 ) 12/26/2022 4:09 PM EST Body Mass Index 21.5 12/26/2022 4:09 PM EST documented in this encounter Miscellaneous Notes * Progress Notes - Michaelle Sprague MD - 12/26/2022 4:40 PM EST Patient identity has been confirmed using name and date of ? Yes Authorizations and Agreements/Telemedicine Consent sent and consent confirmed? Yes Patient confirms they are physically located in [place]? Yes Provider has confirmed with [employer] that provider is authorized to provide services in patient's stated location? Yes Visit Type Telecare via online digital audio and video Patient Location Patient's Home Provider Location [facility] Total Time 20 minutes Bone Clinic Follow up note Delilah Tello is a 67 y.o. female who is referred by Dr. Gera Low MD for osteoporosis. She is seen for follow up today after instituting treatment with prolia to determine response and timing of next dose March 2019 started on Forteo - until May 2020; got Prolia Oct 2020, Aug 06 2021 and April 2022. Bone turnover markers showing recovery, but patient has planned dental work and will be seeing her dentist end of december - will hold prolia till we have more certainty. DXA - stable osteopenia Past history: DXA scan Date Nov 2021 T-scores LS:0.5 LFN: -1.4 LTH:-1.4 RFN: -1.3 RTH:-0.8 DXA scan Date Nov 2021 T-scores LS:0.2 LFN: -1.4 LTH:-1.4 RFN: -1.2 RTH:-0.8 Last DXA scan Date Oct 2020 T-scores LS:0.2 LFN: -1.3 LTH:-1.4 RFN: -1.4 RTH:-1.0 Diagnosed osteoporosis 2007 - took fosamax 5 yrs and stabilized BMD (reports she had addl testing in 2011, 2012 at [facility]). Further decline noted in 2015, and changed to boniva for GI symptoms which she took since 2017. Also taking raloxifene. No h/o #s DXA scan Date jun 2018 (2015) ([facility]) T-scores LS:-0.6 (-0.6) LFN:-2.1 (-2.0) Takes vit D 1000 units per day Takes dairy No systematic exercise Menopause late 40's - took HRT 2-3 yrs Took control age [age]; 2 miscarriages. Other issues - bursitis Smoker - quit 2015; 40 py; has COPD FH: Mother osteoporosis - rx fosamax, smoker, no # sister - osteoporosis, breast ca, BRCA pos Father, brother - prostate ca; GF - colon ca She underwent a full work up with blood work and 24 hour urine collection to rule out secondary causes of bone loss. Results of lab testing were reviewed and discussed with the patient. Her results showed low bone turnover markers. The setting of decline in BMD and correction BPs, suggests that she has a significant decline in bone turnover and she underwent a bone bx before consideration of anabolic therapy. This showed low turnover. She was seen in March 2019 and was started on Forteo for her osteoporosis. She has has been injecting it daily before sleeping and has been tolerating it well. Follow up in april and jul 2019 showed stable labs. In Nov 2019 she reduced the dose to every other day for hypercalcemia and in december increased the dose to 5/7. She stopped forteo in May 2020 and was transitioned to prolia; unfortunately there appears to have been scheduling delays and she got her dose only in Oct 2020. She tolerated the dose w/o any AEs. Diet - balanced Exercise - walking and stretching Vit D supplements/Ca - daily Weight unchanged Patient Active Problem List Diagnosis COPD (chronic obstructive pulmonary disease) (CMS/HCC) Osteoporosis Bursitis, hip Acid reflux Past Surgical History: Procedure Laterality Date BARTHOLIN GLAND CYST EXCISION N/A Bartholin's cyst excision from [facility] COLONOSCOPY N/A colonoscopy from [facility] Current Outpatient Medications Medication Sig Dispense Refill Black Pepper-Turmeric (Turmeric Curcumin) 5-1000 MG capsule TAKE 1 CAPSULE Daily calcium carbonate 1500 (600 Ca) MG tablet Take 1 tablet twice daily cyanocobalamin (Vitamin B-12) 1000 MCG tablet TAKE 1 TABLET DAILY DIRECTED. Multiple Vitamins-Iron tablet TAKE 1 TABLET DAILY. raloxifene (Evista) 60 MG tablet denosumab (Prolia) 60 MG/ML injection Inject 1 mL (60 mg total) under the skin 1 (one) time for 1 dose. 1 mL 0 No current facility-administered medications for this visit. Social History Tobacco Use Smoking status: Former Smokeless tobacco: Never Substance Use Topics Alcohol use: No No Known Allergies The following portions of the chart were reviewed this encounter and updated as appropriate: Tobacco Allergies Meds Problems Med Hx Surg Hx Fam Hx REVIEW OF SYSTEMS A 14 point ROS was obtained and is negative except as otherwise noted in HPI. PHYSICAL EXAMINATION Visit Vitals BP 125/81 Pulse 88 Constitutional: No acute distress. Weight 66 kg (145 lb 9.6 oz) Height 1.753 m (5' 9 ) BMI: Body mass index is 21.5 kg/m??. BSA: Body surface area is 1.79 meters squared. HEENT: normal. Cardiovascular: No JVD, no edema Pulmonary: Normal effort of breathing. Abdominal: no distension Musculoskeletal: Normal extremity movements Skin: No rashes or lesions. Neurologic: No focal deficits Psychiatric: Orientated to person, place, and time: Normal Mood and affect LAB RESULTS Renal Panel: Lab Results Component Value Date GLUCOSE 91 12/19/2022 NA 142 12/19/2022 K 4.0 12/19/2022 CL 107 12/19/2022 CO2 26 12/19/2022 BUN 12 12/19/2022 CREATININE 0.72 12/19/2022 CREATININE 0.79 04/08/2022 CREATININE 0.78 11/13/2021 CREATININE 0.74 07/03/2021 EGFR 92.9 12/19/2022 CALCIUM 10.1 12/19/2022 PHOS 3.1 12/19/2022 ALBUMIN 4.2 12/19/2022 MBD: Lab Results Component Value Date PTH 29 10/09/2018 CALCIUM 10.1 12/19/2022 CALCIUM 9.8 04/08/2022 CALCIUM 9.2 11/13/2021 CALCIUM 9.2 07/03/2021 PHOS 3.1 12/19/2022 PHOS 3.3 04/08/2022 PHOS 3.5 11/13/2021 PHOS 2.9 07/03/2021 MG 2.1 04/08/2022 MG 2.0 07/03/2021 MG 2.1 04/24/2021 MG 2.0 11/21/2020 ALBUMIN 4.2 12/19/2022 ALBUMIN 4.4 04/08/2022 ALBUMIN 4.1 11/13/2021 ALBUMIN 4.2 07/03/2021 VITAMIN D 25 Lab Results Component Value Date VITD25 62.8 04/08/2022 Paraproteinemia Labs: Lab Results Component Value Date KAPPALAMBDA 0.98 10/09/2018 Urine studies: Lab Results Component Value Date CAR 4.8 03/07/2020 CALCIUMUR 8.2 07/03/2021 CREATUR 47 07/03/2021 Bone Turnover Markers: Lab Results Component Value Date BSAP 7.8 (L) 12/19/2022 BSAP 7.5 (L) 04/08/2022 BSAP 8.1 (L) 07/03/2021 BSAP 8.7 (L) 04/24/2021 BSAP 7.4 11/21/2020 BSAP 8.7 05/16/2020 CTELOX 151 12/19/2022 CTELOX 117 04/08/2022 CTELOX 97 07/03/2021 CTELOX 70 04/24/2021 CTELOX 58 11/21/2020 CTELOX 153 05/16/2020 NTELOPEPTS 7.7 12/19/2022 NTELOPEPTS 6.2 04/08/2022 NTELOPEPTS 6.7 07/03/2021 NTELOPEPTS 6.5 04/24/2021 OSTEOCALCIN 8 12/19/2022 OSTEOCALCIN 9 04/08/2022 OSTEOCALCIN 8 (L) 07/03/2021 OSTEOCALCIN 7 (L) 04/24/2021 OSTEOCALCIN 12 11/21/2020 OSTEOCALCIN 23 05/16/2020 SERIAL BONE TURNOVER MARKERS Results for DELILAH TELLO ( ) as of 07/17/2021 06:26 Ref. Range 07/28/2019 13:34 12/01/2019 13:34 03/07/2020 13:10 05/16/2020 10:59 11/21/2020 11:05 111:12 07/03/2021 11:04 BSAP 10.5 - 44.8 ug/L 6.7 12.0 10.8 8.7 7.4 8.7 (L) 8.1 (L) OSTEOCALCIN 11 - 50 ng/mL 51 (H) 43 (H) 27.0 23 12 7 (L) 8 (L) CTX pg/mL 563 603 213 153 58 70 97 NTX nM BCE 13.3 20.7 12.1 9.3 5.0 N-Telopeptide, Cross-Linked, Serum Latest Units: nM BCE 6.5 6.7 ASSESSMENT/PLAN Delilah Tello is a 67 y.o. female who is being followed for osteoporosis. She used correction BPs and DXA shows a decline in BMD. She was taking Boniva, raloxifene and vit D. 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 The presence of low BTMs with decline in BMD although she is being treated with BPs correction suggests that she has a significant decline in bone turnover. She underwent bone biopsy which confrmed low turnover osteoporosis. She took Forteo started March 2019 and completed a year on forteo. She transitioned to prolia, in oct 2020, next dose was Jul 2021. DXA scan nov 2021 and 2022 shows osteopenia w ith improved T-scores over past DXA Jul 2019; will be followed annually. Bone turnover markers are showing recovery and we will proceed to schedule her next shot of prolia after she completes her dental work We will see her back in 6 mths after prolia shot with labs. Problem List Items Addressed This Visit Musculoskeletal Osteoporosis - Primary Relevant Orders N telopeptide, cross-linked, serum Bone Specific Alkaline Phosphatase Osteocalcin by ECIA C-Telopeptide Renal Function Panel, Plasma Vitamin D 25 Hydroxy Counseling Documentation: She should continue adequate dietary intake of Ca and take Ca supplements with meals. She should take vit D 2000 units daily. She is also advised exercises for fall prevention, muscle strengthening and balance exercises. Avoidance of tobacco and alcohol should be observed. She was also counseled toincrease her dietary protein intake. 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 Education provided was verbal counseling. Additional time was spent in care coordination including medical record review. Pt acknowledged understanding of instructions and was in agreement with the plan All questions and concerns were addressed and she was encouraged to call with any further questions or need for information. @ was also encouraged to update us with information on events such as any increase in or new back/hip pain or if she was to sustain a #, in addition to contacting her emergency or primary care providers. It was a pleasure to see Delilah Tello today in clinic. MDM: - was based on the following: Labs reviewed renal panel, vit d, BTM Past imaging reviewed Old chart reviewed Imaging directly visualized and personally interpreted DXA scan Comorbidities complicating the care of the patient COPD, GERD Medication monitoring for drug toxicity prolia ENCOUNTER TIMING: I personally spent a total of 20 minutes on this encounter. This time includes face to face with patient, counseling and discussion, lab/result interpretation, coordination of follow-up care, document review. ORDERS PLACED THIS ENCOUNTER Orders Placed This Encounter Procedures N telopeptide, cross-linked, serum Standing Status: Future Standing Expiration Date: 12/27/2023 Scheduling Instructions: 2 WEEKS BEFORE NEXT VISIT Order Specific Question: Release to patient in [facility] Answer: Immediate Bone Specific Alkaline Phosphatase Standing Status: Future Standing Expiration Date: 12/27/2023 Order Specific Question: [facility] patient in [facility] Answer: Immediate Osteocalcin by ECIA Standing Status: Future Standing Expiration Date: 12/27/2023 Order Specific Question: Release to patient in [facility] Answer: Immediate C-Telopeptide Standing Status: Future Standing Expiration Date: 12/27/2023 Order Specific Question: Release to patient in [facility] Answer: Immediate Renal Function Panel, Plasma Standing Status: Future Standing Expiration Date: 12/27/2023 Order Specific Question: Release to patient in [facility] Answer: Immediate Vitamin D 25 Hydroxy Standing Status: Future Standing Expiration Date: 12/27/2023 Order Specific Question[facility] Answer: Immediate documented in this encounter Plan of Treatment Upcoming Encounters Date Type Department Care Team (Late st Contact Info) Description 03/18/2025 12:00 PM EDT Clinical Support [facility] Laboratory Services [address] [place] [address] 04/01/2025 12:40 PM EDT Appointment [facility] Bone & Mineral Metabolism [address], [address] [place] [address] 04/01/2025 1:00 PM EDT Office Visit [facility] Mineral Metabolism [address], [address] [place] [address] Michaelle Sprague MD [address] [place] [address] documented as of this encounter Results * Vitamin D 25 Hydroxy (03/27/2023 11:37 AM EDT) [facility] Vitamin D 25 Hydroxy 51.0 20.0 - 80.0 ng/mL 03/27/2023 5:27 PM EDT [facility] Comment: Vitamin D, 25-Hydroxy reference range, age 18 years and up: Deficiency: ? <12 ng/mL Insufficiency: ?12 to 19 ng/mL Sufficiency: ?20 to 80 ng/mL Possible toxicity: ??>100 ng/mL Blood Venous blood specimen / Unknown Venipuncture / Unknown 03/27/2023 11:37 AM EDT 03/27/2023 11:37 AM EDT us Michaelle Sprague MD LAB BLOOD ORDERABLES Final Res ult [facility] [address] [place] [address] * (ABNORMAL) Renal Function Panel, Plasma (03/27/2023 11:37 AM EDT) Glucose, Plasma 107(H) 74 - 99 mg/dL 03/27/2023 2:48 PM EDT [facility] BUN, Plasma 13 8 - 23 mg/dL 03/27/2023 2:48 PM EDT [facility] Creatinine, Plasma 0.74 0.60 - 1.10 mg/dL 03/27/2023 2:48 PM EDT [facility] BUN/Creatinine Ratio 18 03/27/2023 2:48 PM EDT [facility] Sodium, Plasma 139 136 - 145 mmol/L 03/27/2023 2:48 PM EDT [facility] Potassium, Plasma 3.8 3.7 - 4.8 mmol/L 03/27/2023 2:48 PM EDT [facility] Chloride, Plasma 105 97 - 107 mmol/L 03/27/2023 2:48 PM EDT [facility] CO2, Plasma 25 22 - 29 mmol/L 03/27/2023 2:48 PM EDT [facility] Anion Gap 9 6 - 16 mmol/L 03/27/2023 2:48 PM EDT [facility] Total Calcium, Plasma 9.3 8.9 - 10.2 mg/dL 03/27/2023 2:48 PM EDT [facility] Phosphorus, Plasma 2.8 2.5 - 4.5 mg/dL 03/27/2023 2:48 PM EDT [facility] Albumin, Plasma 4.1 3.5 - 5.2 g/dL 03/27/2023 2:48 PM EDT [facility] eGFRcr 89.9 mL/min/1.7 3m*2 03/27/2023 2:48 PM EDT [facility] Comment: Reported eGFRcr in mL/min/1.73m2 is based the CKD-EPI 202 equation that does not use a race coefficient. Effective 05/22/22 our laboratory changed the eGFR calculation to the CKD-EPI 2021 equation from the previously reported eGFR, based on the MDRD equation. ??For comparisons between the two equations, please see laboratory website: ??[email or web address] Blood Venous blood specimen / Unknown Venipuncture / Unknown 03/27/2023 11:37 AM EDT 03/27/2023 11:37 AM EDT Michaelle Sprague MD LAB BLOOD ORDERABLES Final Res ult [facility] [address] [place] [id number] * C-Telopeptide (03/27/2023 11:37 AM EDT) C Telopeptide Beta Cross Linked Serum Result 34 pg/mL 03/30/2023 10:52 AM EDT [facility]) Blood Venous blood specimen / Unknown Venipuncture / Unknown 03/27/2023 11:37 AM EDT 03/27/2023 11:37 AM EDT Narrative [facility]) - 03/30/2023 10:52 AM EDT Premenopausal Females: 136-689 pg/mL Postmenopausal Females: 177-1015 pg/mL REFERENCE INTERVAL: C-Telopeptide, Tizv-[id number], Serum Access complete set of age- and/or gender-specific reference intervals for this test in the [facility] Test Directory ([facility]). Performed By: [facility] [address] [place] [address] Corporate Development Intern: Vijay Bird MD, PhD Michaelle Sprague MD LAB BLOOD ORDERABLES Final Res ult [facility]) [address] [place] [address] * Osteocalcin by ECIA (03/27/2023 11:37 AM EDT) OSTEOCALCIN BY ECIA 10 8 - 36 ng/mL 03/30/2023 1:22 PM EDT [facility]) Blood Venous blood specimen / Unknown Venipuncture / Unknown 03/27/2023 11:37 AM EDT 03/27/2023 11:37 AM EDT [facility]) - 03/30/2023 1:22 PM EDT INTERPRETIVE INFORMATION: Osteocalcin by ECIA In patients with renal failure, the osteocalcin result may be directly elevated, due to impaired clearance, and/or indirectly elevated due to renal osteodystrophy. Access complete set of age- and/or gender-specific reference intervals for this test in the [facility] Test Directory ([facility]). Performed By: [facility] [address] [place] [address] Corporate Development Intern: Vijay Bird MD, PhD Michaelle Sprague MD LAB BLOOD ORDERABLES Final Res ult [facility]) [address] [place] [address] * N telopeptide, cross-linked, serum (03/27/2023 11:37 AM EDT) N-Telopeptide, Cross-Linked, Serum 4.4 nM BCE 04/03/2023 4:07 PM EDT [facility]) Blood Venous blood specimen / Unknown Venipuncture / Unknown 03/27/2023 11:37 AM EDT 03/27/2023 11:37 AM EDT [facility]) - 04/03/2023 4:07 PM EDT INTERPRETIVE INFORMATION: N-Telopeptide, Cross-Linked, Serum ??Adult Male.......................5.4 - 24.2 nM BCE ??Premenopausal Adult Female.......6.2 - 19.0 nM BCE The target value for treated post-menopausal adult females is the same as the premenopausal reference interval. BCE = Bone Collagen Equivalent Performed By: [facility] [address] [place] [id number] Corporate Development Intern: Vijay Bird MD, PhD Michaelle Sprague MD LAB BLOOD ORDERABLES Final Res ult [facility]) [address] [place] [address] documented in this encounter Visit Diagnoses Diagnosis Age-related osteoporosis without current pathological fracture- Primary documented in this encounter Additional Health Concerns Assessment Noted Time A fall risk assessment has been complete d for the patient 04/22/2022 2:51 PM EDT documented as of this encounter Care Teams Skein Bleacher Relationship Specialty Start Date End Date Gera Low MD [address] [place] [address] PCP - General 03/09/21 documented as of this encounter
--- OUTSIDE RECORDS SUMMARY | 2024-10-01 11:44 | XMS_ITS | Encounter Summary ---
Author Organization Healthcare Address [address] [id number] Care Team Providers Care Degreaser Name Role Phone Gera Low MD Primary Care Provider +1- [phone] Encounter Details Date Type Department Care Team ([facility] Contact Info) Description 05/10/2022 Orders Only [facility] Infusion [address] [place] [id number] Haja Land, PharmD Social History Tobacco Use Types Packs/Day Years [...] Description 03/18/2025 12:00 PM EDT Clinical Support [facility] Laboratory Services [address], [address] [place] [address] 04/01/2025 12:40 PM EDT Appointment [facility] Bone & Mineral Metabolism [address], [address] [place] [address] 04/01/2025 1:00 PM EDT Office Visit [facility] Bone & Mineral Metabolism [address], [address] [place] [address] Michaelle Sprague MD [address] [facility] [address] [place] [address] documented as of this encounter Visit Diagnoses Not on filedocumented in this encounter Additional Health Concerns Assessment Noted Time A fall risk assessment has been complete d for the patient 04/22/2022 2:51 PM EDT documented as of this encounter Care Teams Degreaser Relationship Specialty Start Date End Date Gera Low MD [address] [place] [address] PCP - General 03/09/21 documented as of this encounter
--- OUTSIDE RECORDS SUMMARY | 2024-10-01 11:44 | XMS_ITS | Encounter Summary ---
Author Organization Healthcare Address [address] [place] [address] Care Team Providers Care Materials Management Supervisor Name Role Phone Gera Low MD Primary Care Provider +1- [phone] Encounter Details Date Type Department Care Team (Latest Contact Info) Description 12/19/2022 Travel Social History Tobacco Use Types Packs/Day [...] Recorded In the last 10 days, have yareli u been in contact with someone who was confirmed or suspected to have Coronavirus/COVID-19? No / Unsure 12/18/2022 3:56 PM EST documented as of this encounter Plan of Treatment Upcoming Encounters Date Type Department Care Team (Late st Contact Info) Description 03/18/2025 12:00 PM EDT Clinical Support Professional [facility] Laboratory Services [address], 1[address] [place] [address] 04/01/2025 12:40 PM EDT Appointment Professional [facility] Bone & Mineral Metabolism [address], [address] [place] [address] 04/01/2025 1:00 PM EDT Office Visit Professional [employer] [facility] [address] [facility], [address] [place] [address] Michaelle Sprague MD [address] [facility] [address] [place] [address] documented as of this encounter Visit Diagnoses Not on filedocumented in this encounter Additional Health Concerns Assessment Noted Time A fall risk assessment has been complete d for the patient 04/22/2022 2:51 PM EDT documented as of this encounter Care Teams Materials Management Supervisor Relationship Specialty Start Date End Date Gera Low MD [address] [place] [address] PCP - General 03/09/21 documented as of this encounter
--- OUTSIDE RECORDS SUMMARY | 2024-10-01 11:44 | XMS_ITS | Encounter Summary ---
Author Organization Healthcare Address [address] [place], [place] [id number] Care Team Providers Care Bottom Cager Name Role Phone Gera Low MD Primary Care Provider +1- [phone] Encounter Details Date Type Department Care Team (Latest Contact Info) Description 03/27/2023 Travel Social History Tobacco Use Types Packs/Day [...] 03/18/2025 12:00 PM EDT Clinical Support Professional [facility] Laboratory Services [address], 1st [place] [address] 04/01/2025 12:40 PM EDT Appointment Professional [facility] & Mineral Metabolism [address], [address] [place] [address] 04/01/2025 1:00 PM EDT Office Visit Professional [facility] Mineral Metabolism [address] [place] [address] Michaelle Sprague MD [address] [facility] [address] [place] [address] documented as of this encounter Visit Diagnoses Not on filedocumented in this encounter Additional Health Concerns Assessment Noted Time A fall risk assessment has been complete d for the patient 04/22/2022 2:51 PM EDT documented as of this encounter Care Teams Bottom Cager Relationship Specialty Start Date End Date Gera Lwo MD [address] [place] [address] PCP - General 03/09/21 documented as of this encounter
--- OUTSIDE RECORDS SUMMARY | 2024-10-01 11:44 | XMS_ITS | Encounter Summary ---
Author Organization Healthcare Address [address] [place] [address] Care Team Providers Care Marketing Programs Specialist Name Role Phone Gera Low MD Primary Care Provider +1- [phone] Encounter Details Date Type Department Care Team (Latest Contact Info) Description 12/24/2022 Travel Social History Tobacco Use Types Packs/Day [...] 03/18/2025 12:00 PM EDT Clinical Support Professional [facility] Laboratory Services [address], 1[address] [place] [address] 04/01/2025 12:40 PM EDT Appointment Professional [facility] Bone & Mineral Metabolism [address], [address] [place] [address] 04/01/2025 1:00 PM EDT Office Visit Professional [facility] [address] [facility], [address] [place] [address] Michaelle Sprague MD [address] [facility] [address] [place] [address] documented as of this encounter Visit Diagnoses Not on filedocumented in this encounter Additional Health Concerns Assessment Noted Time A fall risk assessment has been complete d for the patient 04/22/2022 2:51 PM EDT documented as of this encounter Care Teams Marketing Programs Specialist Relationship Specialty Start Date End Date Gera Low MD [address] [place] [address] PCP - General 03/09/21 documented as of this encounter
--- OUTSIDE RECORDS SUMMARY | 2024-10-01 11:44 | XMS_ITS | Encounter Summary ---
Author Organization Healthcare Address [address] [id number] Care Team Providers Care Fly Raiser Lockstitch Name Role Phone Gera Low MD Primary Care Provider +1- [phone] Encounter Details Date Type Department Care Team ([facility] Contact Info) Description 05/15/2022 Telephone [facility] Infusion [address] [place] [address] Haja Land, PharmD Social History Tobacco Use [...] Description 03/18/2025 12:00 PM EDT Clinical Support [facility] Laboratory Services [address] [facility], 1st [place] [address] 04/01/2025 12:40 PM EDT Appointment [facility] Bone & Mineral Metabolism [address] [facility], [address] [place] [address] 04/01/2025 1:00 PM EDT Office Visit [facility] Bone & Mineral Metabolism [address] [facility], [address] [place] [address] Michaelle Sprague MD [address] [facility] [address] [place] [address] documented as of this encounter Visit Diagnoses Not on filedocumented in this encounter Additional Health Concerns Assessment Noted Time A fall risk assessment has been complete d for the patient 04/22/2022 2:51 PM EDT documented as of this encounter Care Teams Fly Raiser Lockstitch Relationship Specialty Start Date End Date Gera Low MD [address] [place] [address] PCP - General 03/09/21 documented as of this encounter
--- OUTSIDE RECORDS SUMMARY | 2024-10-01 11:44 | XMS_ITS | Encounter Summary ---
Author Organization Healthcare Address [address] [place] [address] Care Team Providers Care Building Maintenance Repairer Name Role Phone Gera Low MD Primary Care Provider +1- [phone] Encounter Details Date Type Department Care Team (Late st Contact Info) Description 01/07/2024 Telephone [facility] Infusion [address] [place] [address] Aracely Shipley, PharmD Specialty Pharm[facility] [address] [place] [address] Social History Tobacco Use Types Packs/Day Years [...] encounter Miscellaneous Notes * Telephone Encounter - Claudia Samuels LPN - 01/13/2024 1:54 PM EDT Mailed patient copy of lab order to have post Prolia labs done at [facility] week of 01/18/24. documented in this encounter Plan of Treatment Upcoming Encounters Date Type Department Care Team (Late st Contact Info) Description 03/18/2025 12:00 PM EDT Clinical Support [facility] Laboratory Services [address], 1st [place] [address] 04/01/2025 12:40 PM EDT Appointment [facility] Bone & Mineral Metabolism [address] [facility], [address] [place] [address] 04/01/2025 1:00 PM EDT Office Visit [facility] Bone & Mineral Metabolism [address] [facility], [address] [place] [address] Michaelle Sprague MD [address] [facility] [address] [place] [address] documented as of this encounter Visit Diagnoses Not on filedocumented in this encounter Additional Health Concerns Assessment Noted Time A fall risk assessment has been complete d for the patient 12/26/2023 12:08 PM EST documented as of this encounter Care Teams Building Maintenance Repairer Relationship Specialty Start Date End Date Gera Low MD [address] [place] [address] PCP - General 03/09/21 documented as of this encounter
--- OUTSIDE RECORDS SUMMARY | 2024-10-01 11:44 | XMS_ITS | Encounter Summary ---
Author Organization Healthcare Address [address] [place] [address] Care Team Providers Care Highway Maintainer Name Role Phone Gera Low MD Primary Care Provider +1- [phone] Encounter Details Date Type Department Care Team (Latest Contact Info) Description 12/26/2022 Travel Social History Tobacco Use Types Packs/Day [...] 03/18/2025 12:00 PM EDT Clinical Support Professional [facility] Laboratory Services [address], 1st [place] [address] 04/01/2025 12:40 PM EDT Appointment Professional [facility] Bone [facility] Mineral Metabolism [address], [address] [place] [address] 04/01/2025 1:00 PM EDT Office Visit Professional [facility] [address] [facility], [address] [place] [address] Michaelle Sprague MD [address] [facility] [address] [place] [address] documented as of this encounter Visit Diagnoses Not on filedocumented in this encounter Additional Health Concerns Assessment Noted Time A fall risk assessment has been complete d for the patient 04/22/2022 2:51 PM EDT documented as of this encounter Care Teams Highway Maintainer Relationship Specialty Start Date End Date Gera Low MD [address] [place] [address] PCP - General 03/09/21 documented as of this encounter
--- OUTSIDE RECORDS SUMMARY | 2024-10-01 11:44 | XMS_ITS | Encounter Summary ---
Author Organization [facility] Address [address] [place] [address] Care Team Providers Care Territory Business Manager Name Role Phone Gera Low MD Primary Care Provider +1- [phone] Reason for Visit * Reason Comments Follow-up Encounter Details Date Type Department Care Team ([facility] st Contact Info) Description 08/27/2024 8:40 AM EDT Office Visit [facility] [address] [place] [address] Krystal Pascual PA [address] [place] [address] Age-related osteoporosis without current pathological [...] AM EST documented as of this encounter Last Filed Vital Signs Vital Sign Reading Time Taken Comments Blood Pressure 126/80 08/27/2024 7:54 AM EDT Pulse 94 08/27/2024 7:54 AM EDT Temperature 36.9 ??C (98.4 ??F) 08/27/2024 7:54 AM ED T Respiratory Rate - - Oxygen Saturation - - Inhaled Oxygen Concentration - - Weight 63.5 kg (140 lb) 08/27/2024 7:54 AM EDT Height 172.7 cm (5' 8 ) 08/27/2024 7:54 AM EDT Body Mass Index 21.29 08/27/2024 7:54 AM EDT documented in this encounter Miscellaneous Notes * Progress Notes - Krystal Pascual PA - 08/27/2024 8:40 AM EDT Bone Clinic Follow up note Delilah Tello is a 69 y.o. female who is referred by Gera May MD for osteoporosis. She is seen for follow up today after instituting treatment with prolia to determine response and timing of next dose March 2019 started on Forteo - until May 2020; Current treatment - Prolia Oct 2020, Aug 06 2021 and April 2022. 03/12/23, 01/12/2024 Labs - bone markers recovering and ready for Prolia, RFP wnl No current health concerns. No active infections Plan to proceed with Prolia and recheck in 6 months with labs and repeat DXA. Past history: DXA scan Date Nov 2023 T-scores LS:0.6 LFN: -1.3 LTH:-1.4 RFN: -1.2 RTH:-0.8 DXA scan Date Nov 2022 T-scores LS:0.5 LFN: -1.4 LTH:-1.4 RFN: -1.3 RTH:-0.8 DXA scan Date Nov 2021 T-scores LS:0.2 LFN: -1.4 LTH:-1.4 RFN: -1.2 RTH:-0.8 Last DXA scan Date Oct 2020 T-scores LS:0.2 LFN: -1.3 LTH:-1.4 RFN: -1.4 RTH:-1.0 Diagnosed osteoporosis 2007 - took fosamax 5 yrs and stabilized BMD (reports she had addl testing in 2011, 2012 at [facility]). Further decline noted in 2015, and changed to boniva for GI symptoms which she took since 2017. Also taking raloxifene. No h/o #s DXA scan Date jun 2018 (2015) ([facility]) T-scores LS:-0.6 (-0.6) LFN:-2.1 (-2.0) Takes vit [...] The setting of decline in BMD and snf BPs, suggests that she has a significant [...] List Diagnosis COPD (chronic obstructive pulmonary disease) ([facility]) Osteoporosis Bursitis, hip Acid reflux Past Surgical History: Procedure Laterality Date BARTHOLIN GLAND CYST EXCISION N/A Bartholin's cyst excision from [facility] COLONOSCOPY N/A colonoscopy from [facility] Current Outpatient Medications Medication Sig Dispense Refill Black Pepper-Turmeric (Turmeric Curcumin) 5-1000 MG capsule TAKE 1 CAPSULE Daily calcium carbonate 1500 (600 Ca) MG tablet Take 1 tablet twice daily cyanocobalamin (Vitamin B-12) 1000 MCG tablet TAKE 1 TABLET DAILY DIRECTED. Melatonin 10-10 MG tablet controlled-release Take by mouth. Multiple Vitamins-Iron tablet TAKE 1 TABLET DAILY. raloxifene (Evista) 60 MG tablet No current facility-administered medications for this visit. Social History Tobacco Use Smoking status: Former Smokeless tobacco: Never Substance Use Topics Alcohol use: No No Known Allergies The following portions of the chart were reviewed this encounter and updated as appropriate: REVIEW OF SYSTEMS A 14 point ROS was obtained and is negative except as otherwise noted in HPI. PHYSICAL EXAMINATION Visit Vitals BP 126/80 Pulse 94 Temp 36.9 ??C (98.4 ??F) Constitutional: No acute distress. Weight 63.5 kg (140 lb) Height 1.727 m (5' 8 ) BMI: Body mass index is 21.29 kg/m??. BSA: Body surface area is 1.75 meters squared. HEENT: normal. Cardiovascular: No JVD, no edema Pulmonary: Normal effort of breathing. Abdominal: no distension Musculoskeletal: Normal extremity movements Skin: No rashes or lesions. Neurologic: No focal deficits Psychiatric: Orientated to person, place, and time: Normal Mood and affect LAB RESULTS Renal Panel: Lab Results Component Value Date GLUCOSE 103 (H) 08/04/2024 NA 141 08/04/2024 K 3.8 08/04/2024 CL 104 08/04/2024 CO2 28 08/04/2024 BUN 10 08/04/2024 CREATININE 0.68 08/04/2024 CREATININE 0.74 12/12/2023 CREATININE 0.76 09/12/2023 CREATININE 0.74 03/27/2023 EGFR 95.6 08/04/2024 CALCIUM 9.9 08/04/2024 PHOS 3.1 08/04/2024 ALBUMIN 4.2 08/04/2024 MBD: Lab Results Component Value Date PTH 29 10/09/2018 CALCIUM 9.9 08/04/2024 CALCIUM 10.1 12/12/2023 CALCIUM 9.6 09/12/2023 CALCIUM 9.3 03/27/2023 PHOS 3.1 08/04/2024 PHOS 3.2 12/12/2023 PHOS 3.1 09/12/2023 PHOS 2.8 03/27/2023 MG 2.1 04/08/2022 MG 2.0 07/03/2021 MG 2.1 04/24/2021 MG 2.0 11/21/2020 ALBUMIN 4.2 08/04/2024 ALBUMIN 4.5 12/12/2023 ALBUMIN 4.3 09/12/2023 ALBUMIN 4.1 03/27/2023 VITAMIN D 25 Lab Results Component Value Date VITD25 54.9 12/12/2023 Paraproteinemia Labs: Lab Results Component Value Date [...] 04/24/2021 OSTEOCALCIN 12 11/21/2020 OSTEOCALCIN 23 05/16/2020 LAB RESULTS Renal Panel: Lab Results Component Value Date GLUCOSE 103 (H) 08/04/2024 NA 141 08/04/2024 K 3.8 08/04/2024 CL 104 08/04/2024 CO2 28 08/04/2024 BUN 10 08/04/2024 CREATININE 0.68 08/04/2024 CREATININE 0.74 12/12/2023 CREATININE 0.76 09/12/2023 CREATININE 0.74 03/27/2023 EGFR 95.6 08/04/2024 CALCIUM 9.9 08/04/2024 PHOS 3.1 08/04/2024 ALBUMIN 4.2 08/04/2024 MBD: Lab Results Component Value Date PTH 29 10/09/2018 CALCIUM 9.9 08/04/2024 CALCIUM 10.1 12/12/2023 CALCIUM 9.6 09/12/2023 CALCIUM 9.3 03/27/2023 PHOS 3.1 08/04/2024 PHOS 3.2 12/12/2023 PHOS 3.1 09/12/2023 PHOS 2.8 03/27/2023 MG 2.1 04/08/2022 MG 2.0 07/03/2021 MG 2.1 04/24/2021 MG 2.0 11/21/2020 ALBUMIN 4.2 08/04/2024 ALBUMIN 4.5 12/12/2023 ALBUMIN 4.3 09/12/2023 ALBUMIN 4.1 03/27/2023 Paraproteinemia Labs: Lab Results Component Value Date KAPPALAMBDA 0.98 10/09/2018 Bone Turnover Markers: Lab Results Component Value Date BSAP 7.4 08/04/2024 BSAP 8.5 12/12/2023 BSAP 9.0 09/12/2023 BSAP 7.0 03/27/2023 BSAP 7.8 (L) 12/19/2022 BSAP 7.5 (L) 04/08/2022 CTELOX 164 08/04/2024 CTELOX 154 12/12/2023 CTELOX 87 09/12/2023 CTELOX 34 03/27/2023 CTELOX 151 12/19/2022 CTELOX 117 04/08/2022 NTELOPEPTS 9.2 08/04/2024 NTELOPEPTS 8.0 12/12/2023 NTELOPEPTS 4.4 03/27/2023 NTELOPEPTS 7.7 12/19/2022 NTELOPEPTS 6.2 04/08/2022 NTELOPEPTS 6.7 07/03/2021 OSTEOCALCIN 7 (L) 08/04/2024 OSTEOCALCIN 10 12/12/2023 OSTEOCALCIN 6 (L) 09/12/2023 OSTEOCALCIN 10 03/27/2023 OSTEOCALCIN 8 12/19/2022 OSTEOCALCIN 9 04/08/2022 VITAMIN D Lab Results Component Value Date VITD25 54.9 12/12/2023 VITD25 51.0 03/27/2023 VITD25 62.8 04/08/2022 Urine studies: Lab Results Component Value Date CAR 4.8 03/07/2020 CALCIUMUR 8.2 07/03/2021 CREATUR 47 07/03/2021 SERIAL BONE TURNOVER MARKERS Results for DELILAH [...] 6.5 6.7 ASSESSMENT/PLAN Delilah Tello is a 69 y.o. female who is being followed for osteoporosis. She used snf BPs and DXA shows a decline in BMD. She was taking Boniva, raloxifene and vit D. 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 Education provided was verbal counseling. Additional time was spent in care coordination including medical record review. Pt acknowledged understanding of instructions and was in agreement with the plan All questions and concerns were addressed and she was encouraged to call with any further questions or need for information. She was also encouraged to update us with [...] TIMING: I personally spent a total of 25 minutes on this encounter. This time includes face to face with patient, counseling and discussion, lab/result interpretation, coordination of follow-up care, document review. Patient Verification Patient identity has been confirmed using name and date of ? Yes Authorizations and Agreements/Telemedicine Consent sent and consent confirmed? Yes Patient Location: home Patient confirms they are physically located in [place]? Yes If the patient is not physically located in [place], the provider has confirmed with Legal thatthe provider is authorized to provide services in patient's stated location? N/A Provider Location: clinic Audio and video or audio only? Audio and video Total visit time: 20 minutes ORDERS PLACED THIS ENCOUNTER Orders Placed This Encounter Procedures Dexa Bone Density Standing Status: Future Standing Expiration Date: 02/24/2026 Order Specific Question: Reason for exam: Answer: osteopoross Order Specific Question: Where should this exam be performed? Answer: [facility] Clinic ([facility]) Order Specific Question: Are you able to bear weight on your lower extremities? Answer: Yes Order Specific Question: Release [facility] Answer: Immediate [1] Renal Function Panel, Plasma Standing Status: Future Standing Expiration Date: 02/24/2026 Order Specific Question[facility] Answer: Immediate [1] Bone Specific Alkaline Phosphatase Standing Status: Future Standing Expiration Date: 02/24/2026 Order Specific Question: Release to patient in MyChart Answer: Immediate [1] C-Telopeptide Standing Status: Future Standing Expiration Date: 02/24/2026 Order Specific Question[facility] Answer: Immediate [1] Vitamin D 25 Hydroxy Standing Status: Future Standing Expiration Date: 02/24/2026 Order Specific Question: Release [facility] Answer: Immediate [1] ALEXANDREA Cormier documented in this encounter Plan of Treatment Upcoming Encounters Date Type Department Care Team (Late st Contact Info) Description 03/18/2025 12:00 PM EDT Clinical Support [facility] Laboratory Services [address] [facility], 1st [place] [address] 04/01/2025 12:40 PM EDT Appointment [facility] Bone & Mineral Metabolism [address] [facility], [address] [place] [address] 04/01/2025 1:00 PM EDT Office Visit [facility] [address] [facility], [address] [place] [address] Michaelle Sprague MD [address] [facility] [address] [place] [address] Scheduled Orders Name Type Priority Associated Diagnoses Orde r Schedule Renal Function Panel, Plasma Lab Routine Age-related osteoporosis without current pathological fracture Expected: 02/18/2025 (Approximate), Expires: 02/24/2026 Bone Specific Alkaline Phosphatase Lab Routine Age-related osteoporosis without current pathological fracture Expected: 02/18/2025 (Approximate), Expires: 02/24/2026 C-Telopeptide Lab Routine Age-related osteoporosis without current pathological fracture Expected: 02/18/2025 (Approximate), Expires: 02/24/2026 Vitamin D 25 Hydroxy Lab Routine Age-related osteoporosis without current pathological fracture Expected: 02/18/2025 (Approximate), Expires: 02/24/2026 Dexa Bone Density Imaging Routine Age-related osteoporosis without current pathological fracture Expected: 02/18/2025 (Approximate), Expires: 02/24/2026 documented as of this encounter Visit Diagnoses Diagnosis Age-related osteoporosis without current pathological fracture- Primary documented in this encounter Additional Health Concerns Assessment Noted Time A fall risk assessment has been complete d for the patient 08/27/2024 7:56 AM EDT A Body Mass Index follow-up plan has been documented for the patient 08/27/2024 11:28 AM EDT documented as of this encounter Care Teams Territory Business Manager Relationship Specialty Start Date End Date Gera Low MD [address] [place] [address] PCP - General 03/09/21 documented as of this encounter
--- OUTSIDE RECORDS SUMMARY | 2024-10-01 11:44 | XMS_ITS | Encounter Summary ---
Author Organization [facility] Address [address] [place] [address] Care Team Providers Care Pack Out Operator Name Role Phone Gera Low MD Primary Care Provider +1- [phone] Reason for Visit * Reason Comments Follow-up Encounter Details Date Type Department Care Team ([facility] Contact Info) Description 12/26/2023 12:20 PM EST [facility] Visit [facility] [address] [place] [address] Michaelle Sprague MD [address] [place] [address] Age-related osteoporosis without current pathological fracture (Primary Dx); Chronic obstructive pulmonary disease, unspecified COPD type (CMS/HCC) Social History Tobacco Use Types Packs/Day Years [...] Sign Reading Time Taken Comments Blood Pressure 131/79 12/26/2023 12:07 PM EST Pulse 96 12/26/2023 12:07 PM EST Temperature - - Respiratory Rate 18 12/26/2023 12:07 PM EST Oxygen Saturation 98% 12/26/2023 12:07 PM EST Inhaled Oxygen Concentration - - Weight 63.5 kg (140 lb) 12/26/2023 12:07 PM EST Height 172.7 cm (5' 8 ) 12/26/2023 12:07 PM EST Body Mass Index 21.29 12/26/2023 12:07 PM EST documented in this encounter Miscellaneous Notes * Progress Notes - Michaelle Sprague MD - 12/26/2023 12:20 PM EST Bone Clinic Follow up note Delilah Tello is a 68 y.o. female who is referred by Gera May MD for osteoporosis. She is seen for follow up today after instituting treatment with prolia to determine response and timing of next dose March 2019 started on Forteo - until May 2020; got Prolia Oct 2020, Aug 06 2021 and April 2022. 03/12/23 Bone turnover markers showing recovery, DXA - stable osteopenia Schedule prolia See back 6 mths after prolia shot with labs in [facility] Past history: DXA scan Date Nov 2023 [...] had addl testing in 2011, 2012 at [place]). Further decline noted in 2015, and changed to boniva for GI symptoms which she took since 2017. Also taking raloxifene. No h/o #s DXA scan Date jun 2018 (2015) ([employer]) T-scores LS:-0.6 (-0.6) LFN:-2.1 (-2.0) Takes vit D 1000 units per day Takes dairy No systematic exercise Menopause late 40's - took HRT 2-3 yrs Took control age [age]; 2 miscarriages. Other issues - bursitis Smoker - quit 2016; 40 py; has COPD FH: Mother osteoporosis [...] The setting of decline in BMD and care home BPs, suggests that she has a significant [...] List Diagnosis COPD (chronic obstructive pulmonary disease) ([facility]) Osteoporosis Bursitis, hip Acid reflux Past Surgical History: Procedure Laterality Date BARTHOLIN GLAND CYST EXCISION N/A Bartholin's cyst excision from [facility] COLONOSCOPY N/A colonoscopy from [facility] Current Outpatient Medications Medication Sig Dispense Refill [...] in HPI. PHYSICAL EXAMINATION Visit Vitals BP 131/79 Pulse 96 SpO2 98% Constitutional: No acute distress. Weight 63.5 kg [...] Panel: Lab Results Component Value Date GLUCOSE 96 12/12/2023 NA 141 12/12/2023 K 4.2 12/12/2023 CL 103 12/12/2023 CO2 27 12/12/2023 BUN 9 12/12/2023 CREATININE 0.74 12/12/2023 CREATININE 0.76 09/12/2023 CREATININE 0.74 03/27/2023 CREATININE 0.72 12/19/2022 EGFR 89.4 12/12/2023 CALCIUM 10.1 12/12/2023 PHOS 3.2 12/12/2023 ALBUMIN 4.5 12/12/2023 MBD: Lab Results Component Value Date PTH 29 10/09/2018 CALCIUM 10.1 12/12/2023 CALCIUM 9.6 09/12/2023 CALCIUM 9.3 03/27/2023 CALCIUM 10.1 12/19/2022 PHOS 3.2 12/12/2023 PHOS 3.1 09/12/2023 PHOS 2.8 03/27/2023 PHOS 3.1 12/19/2022 MG 2.1 04/08/2022 MG 2.0 07/03/2021 MG 2.1 04/24/2021 MG 2.0 11/21/2020 ALBUMIN 4.5 12/12/2023 ALBUMIN 4.3 09/12/2023 ALBUMIN 4.1 03/27/2023 ALBUMIN 4.2 12/19/2022 VITAMIN D 25 Lab Results Component Value [...] Panel: Lab Results Component Value Date GLUCOSE 96 12/12/2023 NA 141 12/12/2023 K 4.2 12/12/2023 CL 103 12/12/2023 CO2 27 12/12/2023 BUN 9 12/12/2023 CREATININE 0.74 12/12/2023 CREATININE 0.76 09/12/2023 CREATININE 0.74 03/27/2023 CREATININE 0.72 12/19/2022 EGFR 89.4 12/12/2023 CALCIUM 10.1 12/12/2023 PHOS 3.2 12/12/2023 ALBUMIN 4.5 12/12/2023 MBD: Lab Results Component Value Date PTH 29 10/09/2018 CALCIUM 10.1 12/12/2023 CALCIUM 9.6 09/12/2023 CALCIUM 9.3 03/27/2023 CALCIUM 10.1 12/19/2022 PHOS 3.2 12/12/2023 PHOS 3.1 09/12/2023 PHOS 2.8 03/27/2023 PHOS 3.1 12/19/2022 MG 2.1 04/08/2022 MG 2.0 07/03/2021 MG 2.1 04/24/2021 MG 2.0 11/21/2020 ALBUMIN 4.5 12/12/2023 ALBUMIN 4.3 09/12/2023 ALBUMIN 4.1 03/27/2023 ALBUMIN 4.2 12/19/2022 Paraproteinemia Labs: Lab Results Component Value Date KAPPALAMBDA 0.98 10/09/2018 Bone Turnover Markers: Lab Results Component Value Date BSAP 8.5 12/12/2023 BSAP 9.0 09/12/2023 BSAP 7.0 03/27/2023 BSAP 7.8 (L) 12/19/2022 BSAP 7.5 (L) 04/08/2022 BSAP 8.1 (L) 07/03/2021 CTELOX 154 12/12/2023 CTELOX 87 09/12/2023 CTELOX 34 03/27/2023 CTELOX 151 12/19/2022 CTELOX 117 04/08/2022 CTELOX 97 07/03/2021 NTELOPEPTS 8.0 12/12/2023 NTELOPEPTS 4.4 03/27/2023 NTELOPEPTS 7.7 12/19/2022 NTELOPEPTS 6.2 04/08/2022 NTELOPEPTS 6.7 07/03/2021 NTELOPEPTS 6.5 04/24/2021 OSTEOCALCIN 10 12/12/2023 OSTEOCALCIN 6 (L) 09/12/2023 OSTEOCALCIN 10 03/27/2023 OSTEOCALCIN 8 12/19/2022 OSTEOCALCIN 9 04/08/2022 OSTEOCALCIN 8 (L) 07/03/2021 VITAMIN D Lab Results Component Value Date [...] 6.5 6.7 ASSESSMENT/PLAN Delilah Tello is a 68 y.o. female who is being followed for osteoporosis. She used care home BPs and DXA shows a decline in BMD. She was taking Boniva, raloxifene and vit D. Risk factors for bone loss include age, premature menopause, care home smoking, assistant terminal manager BPs She underwent a full [...] although she is being treated with BPs assistant terminal manager suggests that she has a significant decline [...] labs. Problem List Items Addressed This Visit Respiratory COPD (chronic obstructive pulmonary disease) ([facility]) Musculoskeletal Osteoporosis - Primary Relevant Orders Osteocalcin by ECIA C-Telopeptide Renal Function Panel, Plasma N telopeptide, cross-linked, serum Bone Specific Alkaline Phosphatase Counseling Documentation: She should continue adequate dietary [...] Avoidance of NSAIDs and other nephrotoxins and care home nature of condition. Education provided was verbal [...] THIS ENCOUNTER Orders Placed This Encounter Procedures Osteocalcin by ECIA Standing Status: Future Standing Expiration Date: 06/27/2025 Order Specific Question: Release to patient in [facility] Answer: Immediate [1] C-Telopeptide Standing Status: Future Standing Expiration Date: 06/27/2025 Order Specific Question: Release to patient in [facility] Answer: Immediate [1] Renal Function Panel, Plasma Standing Status: Future Standing Expiration Date: 06/27/2025 Order Specific Question: Release to patient in [facility] Answer: Immediate [1] N telopeptide, cross-linked, serum Standing Status: Future Standing Expiration Date: 06/27/2025 Order Specific Question: Have you read the procees instruction below? Answer: Yes Order Specific Question: Release to patient in [facility] Answer: Immediate Bone Specific Alkaline Phosphatase Standing Status: Future Standing Expiration Date: 06/27/2025 Order Specific Question: Release to patient in [facility] Answer: Immediate Michaelle Sprague MD documented in this encounter Plan of Treatment Upcoming Encounters Date Type Department Care Team (Late st Contact Info) Description 03/18/2025 12:00 PM EDT Clinical Support [facility] Services [address] 1st [place] [address] 04/01/2025 12:40 PM EDT Appointment [facility] [address], [address] [place] [address] 04/01/2025 1:00 PM EDT Office Visit [facility] [address], [address] [place] [id number] Michaelle Sprague MD [address] [place] [address] documented as of this encounter Results * Bone Specific Alkaline Phosphatase (08/04/2024 1:12 PM EDT) Bone Specific Alkaline Phosphatase 7.4 ug/L 08/05/2024 1:[address] [facility] Comment: BSAP (Ostase) Reference Values, Female, age 18 years and up: ?? Premenopausal: ??4.5 to 16.9 ug/L ?? Postmenopausal: 7.0 to 22.4 ug/L Blood Venous blood specimen / Unknown Venipuncture / Unknown 08/04/2024 1:12 PM EDT 08/04/2024 1:14 PM EDT Michaelle Sprague MD LAB REF LAB BLOOD AND FLUID OR D Final Result [facility] [address] [place] [address] * N telopeptide, cross-linked, serum (08/04/2024 1:12 PM EDT) Pathologist [facility] N-Telopeptide, Cross-Linked, Serum 9.2 nM BCE 08/07/2024 9:03 PM EDT [email or web address] ([employer]) Blood Venous blood specimen / Unknown Venipuncture / Unknown 08/04/2024 1:12 PM EDT 08/04/2024 1:14 PM EDT Narrative [email or web address] ([place]) - 08/07/2024 9:03 PM EDT INTERPRETIVE INFORMATION: N-Telopeptide, Cross-Linked, Serum ??Adult Male.......................5.4 - 24.2 nM BCE ??Premenopausal Adult Female.......6.2 - 19.0 nM BCE The target value for treated post-menopausal adult females is the same as the premenopausal reference interval. BCE = Bone Collagen Equivalent Performed By: [facility] [address] [place] [address] Employment Counselor: Vijay Bird MD, PhD CLIA Number: [id number] Michaelle Sprague MD LAB BLOOD ORDERABLES Final Res ult [email or web address] ([employer]) [address] [place] [address] * (ABNORMAL) Renal Function Panel, Plasma (08/04/2024 1:12 PM EDT) [facility] Glucose, Plasma 103(H) 74 - 99 mg/dL 08/04/2024 3:06 PM EDT [facility] BUN, Plasma 10 8 - 23 mg/dL 08/04/2024 3:06 PM EDT [facility] Creatinine, Plasma 0.68 0.60 - 1.10 mg/dL 08/04/2024 3:06 PM EDT [facility] BUN/Creatinine Ratio 15 08/04/2024 3:06 PM EDT [facility] Sodium, Plasma 141 136 - 145 mmol/L 08/04/2024 3:06 PM EDT [facility] Potassium, Plasma 3.8 3.6 - 4.9 mmol/L 08/04/2024 3:06 PM EDT [facility] Chloride, Plasma 104 97 - 107 mmol/L 08/04/2024 3:06 PM EDT [facility] CO2, Plasma 28 22 - 29 mmol/L 08/04/2024 3:06 PM EDT [facility] Anion Gap 9 6 - 16 mmol/L 08/04/2024 3:06 PM EDT [facility] Total Calcium, Plasma 9.9 8.9 - 10.2 mg/dL 08/04/2024 3:06 PM EDT [facility] Phosphorus, Plasma 3.1 2.5 - 4.5 mg/dL 08/04/2024 3:06 PM EDT [facility] Albumin, Plasma 4.2 3.5 - 5.2 g/dL 08/04/2024 3:06 PM EDT [facility] eGFRcr 95.6 mL/min/1.7 3m*2 08/04/2024 3:06 PM EDT [facility] Comment:Reported eGFRcr in m L/min/1.73m2 is based the CKD-EPI 2020 equation that does not use a race coefficient. Blood Venous blood specimen / Unknown Venipuncture / Unknown 08/04/2024 1:12 PM EDT 08/04/2024 1:14 PM EDT us Michaelle Sprague MD LAB BLOOD ORDERABLES Final Res ult [facility] [address] [place] [address] * C-Telopeptide (08/04/2024 1:12 PM EDT) C Telopeptide Beta Cross Linked Serum Result 164 pg/mL 08/06/2024 6:29 PM EDT [facility] Blood Venous blood specimen / Unknown Venipuncture / Unknown 08/04/2024 1:12 PM EDT 08/04/2024 1:14 PM EDT Narrative [facility]) - 08/06/2024 6:29 PM EDT Premenopausal Females: 136-689 pg/mL Postmenopausal Females: 177-1015 pg/mL REFERENCE INTERVAL: C-Telopeptide, Vxvc-Fmcee-Tlcaau, Serum Access complete set of age- and/or gender-specific reference intervals for this test in the [employer] Directory ([employer]). Performed By: [facility] [address] [place] [address] Employment Counselor: Vijay Bird MD, PhD CLIA Number: [id number] us Michaelle Sprague MD LAB BLOOD ORDERABLES Final Res ult [facility]) [address] [place] [address] * (ABNORMAL) Osteocalcin by ECIA (08/04/2024 1:12 PM EDT) OSTEOCALCIN BY ECIA 7(L) 8 - 36 ng/mL 08/06/2024 10:43 PM EDT [facility]) Blood Venous blood specimen / Unknown Venipuncture / Unknown 08/04/2024 1:12 PM EDT 08/04/2024 1:14 PM EDT [facility]) - 08/06/2024 10:43 PM EDT INTERPRETIVE INFORMATION: Osteocalcin by ECIA In patients with renal failure, the osteocalcin result may be directly elevated, due to impaired clearance, and/or indirectly elevated due to renal osteodystrophy. Access complete set of age- and/or gender-specific reference intervals for this test in the [employer] Test Directory ([employer]). Performed By: [facility] [address] [place] [address] Employment Counselor: Vijay Bird MD, PhD CLIA Number: [id number] us Michaelle Sprague MD LAB BLOOD ORDERABLES Final Res ult [email or web address] ([place]) [address] [place] [address] documented in this encounter Visit Diagnoses Diagnosis Age-related osteoporosis without current pathological fracture- Primary Chronic obstructive pulmonary disease, unspecified COPD type (CMS/HCC) documented in this encounter Additional Health Concerns Assessment Noted Time A fall risk assessment has been complete d for the patient 12/26/2023 12:08 PM EST documented as of this encounter Care Teams Pack Out Operator Relationship Specialty Start Date End Date Gera Low MD [address] [place] [address] PCP - General 03/09/21 documented as of this encounter
--- OUTSIDE RECORDS SUMMARY | 2024-10-01 11:44 | XMS_ITS | Encounter Summary ---
Author Organization [facility] Address [address] [place], [place] [id number] Care Team Providers Care Mfts Name Role Phone Gera Low MD Primary Care Provider +1- [phone] Encounter Details Date Type Department Care Team (Latest Contact Info) Description 12/12/2023 Travel Social History Tobacco Use Types Packs/Day [...] PM EDT Clinical Support [facility] [address], [address] [place] [address] 04/01/2025 12:40 PM EDT Appointment [facility] [address], [address] [place] [address] 04/01/2025 1:00 PM EDT Office Visit [facility] [address] [place] [address] Michaelle Sprague MD [address] [facility] [address] [place] [address] documented as of this encounter Visit Diagnoses Not on filedocumented in this encounter Additional Health Concerns Assessment Noted Time A fall risk assessment has been complete d for the patient 04/22/2022 2:51 PM EDT documented as of this encounter Care Teams Mfts Relationship Specialty Start Date End Date Gera Low MD [address] [place] [address] PCP - General 03/09/21 documented as of this encounter
--- OUTSIDE RECORDS SUMMARY | 2024-10-01 11:44 | XMS_ITS | Encounter Summary ---
Author Organization [facility] Address [address] [place] [id number] Care Team Providers Care Water Pollution Control Inspector Name Role Phone Gera Low MD Primary Care Provider +1- [phone] Encounter Details Date Type Department Care Team ([facility] st Contact Info) Description 01/26/2024 Telephone [facility] [address], [address] [place] [address] Boo Michelle, PharmD [address] [place] [address] Social History Tobacco Use Types [...] as of this encounter Miscellaneous Notes * Clinician Note - Boo Michelle, PharmD - 01/26/2024 8:49 AM EDT Evaluated BMP drawn following recent Prolia (denosumab) injection on 01/06/24. Values of interest returned as follow: Creatinine, Plasma (mg/dL) Date Value 12/12/2023 0.74 09/12/2023 0.76 eGFRcr (mL/min/1.73m*2) Date Value 12/12/2023 89.4 09/12/2023 86.5 Total Calcium, Plasma (mg/dL) Date Value 12/12/2023 10.1 09/12/2023 9.6 Albumin, Plasma (g/dL) Date Value 12/12/2023 4.5 09/12/2023 4.3 External Labs: 01/22/24 Cr 0.70 eGFR 84 Ca 9.5 Alb 3.9 Assessment/Plan: Calcium is within normal limits and requires no additional supplementation. Will continue to follow patient. Boo Michelle, PharmD, BCACP Clinical Pharmacist [facility] [address] [place] [address] documented in this encounter Plan of Treatment Upcoming Encounters Date Type Department Care Team (Late st Contact Info) Description 03/18/2025 12:00 PM EDT Clinical Support [facility] Services [address] 1[address] [place] [address] 04/01/2025 12:40 PM EDT Appointment [facility] [address], [address] [place] [address] 04/01/2025 1:00 PM EDT Office Visit [facility] [address], [address] [place] [address] Michaelle Sprague MD [address] [facility] [address] [facility] [address] [place] [address] documented as of this encounter Visit Diagnoses Not on filedocumented in this encounter Additional Health Concerns Assessment Noted Time A fall risk assessment has been complete d for the patient 12/26/2023 12:08 PM EST documented as of this encounter Care Teams Water Pollution Control Inspector Relationship Specialty Start Date End Date Gera Low MD [address] [place], [place] [address] PCP - General 03/09/21 documented as of this encounter
--- OUTSIDE RECORDS SUMMARY | 2024-10-01 11:44 | XMS_ITS | Encounter Summary ---
Author Organization Healthcare Address [address] [place], [place] [phone] Care Team Providers Care Check Writer Salesperson Name Role Phone Gera Low MD Primary Care Provider +1- [phone] Encounter Details Date Type Department Care Team (Latest Contact Info) Description 10/02/2023 Travel Social History Tobacco Use Types Packs/Day [...] 12:00 PM EDT Clinical Support [facility] [address], [address]st [place] [address] 04/01/2025 12:40 PM EDT Appointment [facility] [address], [address] [place] [address] 04/01/2025 1:00 PM EDT Office Visit [facility] [address] [place] [address] Michaelle Sprague MD [address] [facility] [address] [place] [address] documented as of this encounter Visit Diagnoses Not on filedocumented in this encounter Additional Health Concerns Assessment Noted Time A fall risk assessment has been complete d for the patient 04/22/2022 2:51 PM EDT documented as of this encounter Care Teams Check Writer Salesperson Relationship Specialty Start Date End Date Gera Low MD [address] [place] [address] PCP - General 03/09/21 documented as of this encounter
--- OUTSIDE RECORDS SUMMARY | 2024-10-01 11:44 | XMS_ITS | Encounter Summary ---
Author Organization [facility] Address [address] [place] [id number] Care Team Providers Care Cocktail Server Name Role Phone Gera Low MD Primary Care Provider +1- [phone] Encounter Details Date Type Department Care Team (Late Contact Info) Description 01/26/2024 Orders Only [facility] [address] [place] [address] Haja Land, PharmD Social History Tobacco Use [...] 03/18/2025 12:00 PM EDT Clinical Support [facility] [address] [facility] 1st [place] [address] 04/01/2025 12:40 PM EDT Appointment [facility] [address], [address] [place] [address] 04/01/2025 1:00 PM EDT Office Visit [facility] [address] [facility], [address] [place] [address] Michaelle Sprague MD [address] [facility] [address] [place] [address] documented as of this encounter Visit Diagnoses Not on filedocumented in this encounter Additional Health Concerns Assessment Noted Time A fall risk assessment has been complete d for the patient 12/26/2023 12:08 PM EST documented as of this encounter Care Teams Cocktail Server Relationship Specialty Start Date End Date Gera Low MD [address] [facility] [facility] [address] [place] [address] PCP - General 03/09/21 documented as of this encounter
--- OUTSIDE RECORDS SUMMARY | 2024-10-01 11:44 | XMS_ITS | Encounter Summary ---
Author Organization [facility] Address [address] [place] [address] Care Team Providers Care Planning Analyst Name Role Phone Gera Low MD Primary Care Provider +1- [phone] Reason for Visit * Imaging (Routine) - Closed Specialty Diagnoses / Procedures Referred By Contac t Referred To Contact Radiology Diagnoses Age-related osteoporosis without current pathological fracture Procedures Dexa Bone Density Michaelle Sprague MD [address] [place] [address] Phone: tel: fax: Referral ID Status Reason Start Date Expiration Date Visits Re quested Visits Authorized [id number] Closed 04/29/2022 10/29/2023 1 1 Encounter Details Date Type Department Care Team (Latest Contact Info) Description 12/19/2022 12:20 PM EST Ancillary Procedure [facility] Nephrology, Bone & Mineral Metabolism [address], [address] [place] [address] Age-related osteoporosis without current pathological fracture Social History Tobacco Use Types Packs/Day Years [...] Description 03/18/2025 12:00 PM EDT Clinical Support [facility] Laboratory Services [address] [facility], 1st [place] [address] 04/01/2025 12:40 PM EDT Appointment [facility] Bone & Mineral Metabolism [address], [address] [place] [address] 04/01/2025 1:00 PM EDT Office Visit [facility] Bone & Mineral Metabolism [address] [facility], [address] [place] [address] Michaelle Sprague MD [address] [place] [address] documented as of this encounter Procedures Procedure Name Priority Date/Time Associated Diagnosis Comments DEXA BONE DENSITY Routine 12/19/2022 11: 57 AM EST Age-related osteoporosis without current pathological fracture documented in this encounter Results * Dexa Bone Density (12/19/2022 11:57 AM EST) Anatomical Region Laterality Modality L-spine Radiographic Zulay ging Narrative 12/23/2022 9:48 PM EST [facility] - Nephrology, Bone & Mineral Metabolism [address], [place] [address] DXA Bone Densitometry Report: [12/19/2022] Subjective ?? BMD test performed using the DocuTAP DXA System (analysis version: 14.10) manufactured by [employer]. REFERRING PROVIDER: Michaelle Barton MD CLINICAL INFORMATION: osteoporosis PATIENT NAME: Natividad Tello PATIENT AGE: 67 y.o. LEGAL SEX: female RADIOGRAPHIC VIEWS: Sites scanned: AP Spine, HIP Right , and HIP Left COMPARISON STUDY: DXA Axial ??12/11/2021. FINDINGS: Based on WHO criteria (post-menopausal female) the diagnosis is Osteopenia . The lowest T- score is -1.4 in the L hip There is Stability compared to prior measurements FRAX (10-year probability of fracture) - Major Osteoporotic: 8.1 %; ??Hip: 0.9 % The presence of arthritic or degenerative joint changes in the spine could artefactually increase measured BMD. TREATMENT RECOMMENDATIONS: Work up for secondary osteoporosis and metabolic bone disease could be considered based on clinical indications. Treatment decisions should be based on clinical indications. Suggest general measures to optimize calcium and vitamin D status, fall prevention measures and reduce fracture risk. Consider repeating this study in one year or as clinically indicated to assess bone density change or response to treatment. Michaelle Sprague MD IMG DXA PROCEDURES Final Resul t documented in this encounter Visit Diagnoses Diagnosis Age-related osteoporosis without current pathological fracture documented in this encounter Additional Health Concerns Assessment Noted Time A fall risk assessment has been complete d for the patient 04/22/2022 2:51 PM EDT documented as of this encounter Care Teams Planning Analyst Relationship Specialty Start Date End Date Gera Low MD [address] [place] [address] PCP - General 03/09/21 documented as of this encounter
--- OUTSIDE RECORDS SUMMARY | 2024-10-01 11:44 | XMS_ITS | Encounter Summary ---
Author Organization [facility] Address [address] [id number] Care Team Providers Care Educational Program Director Name Role Phone Gera Low MD Primary Care Provider +1- [phone] Encounter Details Date Type Department Care Team ([facility] Contact Info) Description 03/28/2023 Telephone [facility]rology, [facility] Mineral Metabolism [address] [facility], [address] [place] [address] Boo Michelle, PharmD [address] [place] [address] Social History Tobacco Use Types [...] encounter Miscellaneous Notes * Telephone Encounter - Boo Michelle, PharmD - 03/28/2023 9:52 AM EDT Evaluated BMP drawn following recent Prolia (denosumab) injection on 03/12/23. Values of interest returned as follow: Creatinine, Plasma (mg/dL) Date Value 03/27/2023 0.74 12/19/2022 0.72 eGFRcr (mL/min/1.73m*2) Date Value 03/27/2023 89.9 12/19/2022 92.9 Total Calcium, Plasma (mg/dL) Date Value 03/27/2023 9.3 12/19/2022 10.1 Assessment/Plan: Calcium is within normal limits and requires no additional supplementation. Adding back pre-visit labs to this encounter as they were drawn early. Will continue to follow patient. Boo Michelle, MaritzaD Clinical Pharmacist Nephrology, [facility] [address] [place] [address] documented in this encounter Plan of Treatment Upcoming Encounters Date Type Department Care Team (Late st Contact Info) Description 03/18/2025 12:00 PM EDT Clinical Support [facility] Laboratory Services [address] [facility], 1st [address] [place] [id number] 04/01/2025 12:[address] [facility] Bone & Mineral Metabolism [address] [facility], [address] [place] [id number] 04/01/2025 1:00 PM EDT Office Visit [facility] Bone & Mineral Metabolism [address] [facility], [address] [place] [phone] Michaelle Sprague MD [address] [facility] [address] [place] [address] documented as of this encounter Results * Bone Specific Alkaline Phosphatase (SO) (09/12/2023 11:46 AM EST) Bone Specific Alkaline Phosphatase 9.0 ug/L 09/15/2023 7:46 AM EST [facility] ([place]) Blood Venous blood specimen / Unknown Venipuncture / Unknown 09/12/2023 11:46 AM EST 09/12/2023 11:46 AM EST Narrative Proviation [facility]) - 09/15/2023 7:46 AM EST INTERPRETIVE INFORMATION: Bone Specific Alkaline Phosphatase ??Premenopausal Female: ?4.5 - 16.9 ug/L ??Postmenopausal Female: ?? 7.0 - 22.4 ug/L INTERPRETIVE INFORMATION: Bone Specific Alkaline Phosphatase Liver alkaline phosphatase can affect the measurement of bone specific alkaline phosphatase in this assay. Each 100 U/L of liver alkaline phosphatase contributes an additional 2.5 to 5.8 ug/L to the bone specific alkaline phosphatase result. Performed By: [id number] [place] [address] Store Group Manager: Vijay Bird MD, PhD CLIA Number: [id number] Michaelle Sprague MD LAB REF LAB BLOOD AND FLUID OR D Final Result Performing Organization Address [facility] de Phone Number [facility] ([facility] [address] [place] [address] * C-Telopeptide (09/12/2023 11:46 AM EST) C Telopeptide Beta Cross Linked Serum Result 87 pg/mL 09/15/2023 3:46 PM EST [facility] ([place]) Blood Venous blood specimen / Unknown Venipuncture / Unknown 09/12/2023 11:46 AM EST 09/12/2023 11:46 AM EST Narrative [facility] SENDY CHENE[facility]) - 09/15/2023 3:46 PM EST Premenopausal Females: 136-689 pg/mL Postmenopausal Females: 177-1015 pg/mL REFERENCE INTERVAL: C-Telopeptide, Tmtz-Clagu-Esjnwt, Serum Access complete set of age- and/or gender-specific reference intervals for this test in the for; to (do) Centers Laboratory Test Directory ([employer] Performed By: [id number] [place] [address] Store Group Manager: Vijay Bird MD, PhD CLIA Number: [id number] us Michaelle Sprague MD LAB BLOOD ORDERABLES Final Res ult Performing Organization Address [facility]/ZIP Co de Phone Number [facility] [place]) [address] [phone] * (ABNORMAL) Osteocalcin by ECIA (09/12/2023 11:46 AM EST) [facility] OSTEOCALCIN BY ECIA 6(L) 8 - 36 ng/mL 09/15/2023 3:41 PM EST [facility] ([place]) Blood Venous blood specimen / Unknown Venipuncture / Unknown 09/12/2023 11:46 AM EST 09/12/2023 11:46 AM EST Narrative [facility] ([place]) - 09/15/2023 3:41 PM EST INTERPRETIVE INFORMATION: Osteocalcin by ECIA In patients with renal failure, the osteocalcin result may be directly elevated, due to impaired clearance, and/or indirectly elevated due to renal osteodystrophy. Access complete set of age- and/or gender-specific reference intervals for this test in the for; to (do) Centers Laboratory Test Directory ([employer] Performed By: [id number] [place] [address] Store Group Manager: Vijay Bird MD, PhD CLIA Number: [id number] us Michaelle Sprague MD LAB BLOOD ORDERABLES Final Res ult [facility] ([facility]) [address] [phone] * Renal Function Panel, Plasma (09/12/2023 11:46 AM EST) [facility] Glucose, Plasma 77 74 - 99 mg/dL 09/12/2023 2:51 PM EST [facility] BUN, Plasma 14 8 - 23 mg/dL 09/12/2023 2:51 PM EST [facility] Creatinine, Plasma 0.76 0.60 - 1.10 mg/dL 09/12/2023 2:51 PM EST [facility] BUN/Creatinine Ratio 18 09/12/2023 2:51 PM EST [facility] Sodium, Plasma 140 136 - 145 mmol/L 09/12/2023 2:51 PM EST [facility] Potassium, Plasma 4.2 3.7 - 4.8 mmol/L 09/12/2023 2:51 PM EST [facility] Chloride, Plasma 104 97 - 107 mmol/L 09/12/2023 2:51 PM EST [facility] CO2, Plasma 27 22 - 29 mmol/L 09/12/2023 2:51 PM EST [facility] Anion Gap 9 6 - 16 mmol/L 09/12/2023 2:51 PM EST [facility] Total Calcium, Plasma 9.6 8.9 - 10.2 mg/dL 09/12/2023 2:51 PM EST [facility] Phosphorus, Plasma 3.1 2.5 - 4.5 mg/dL 09/12/2023 2:51 PM EST [facility] Albumin, Plasma 4.3 3.5 - 5.2 g/dL 09/12/2023 2:51 PM EST [facility] eGFRcr 86.5 mL/min/1.7 3m*2 09/12/2023 2:51 PM EST [facility] Comment:Reported eGFRcr in m L/min/1.73m2 is based the CKD-EPI 2020 equation that does not use a race coefficient. Blood Venous blood specimen / Unknown Venipuncture / Unknown 09/12/2023 11:46 AM EST 09/12/2023 11:46 AM EST Michaelle Sprague MD LAB BLOOD ORDERABLES Final Res ult [facility] [address] [place] [address] documented in this encounter Visit Diagnoses Diagnosis Age-related osteoporosis without current pathological fracture- Primary documented in this encounter Additional Health Concerns Assessment Noted Time A fall risk assessment has been complete d for the patient 04/22/2022 2:51 PM EDT documented as of this encounter Care Teams Educational Program Director Relationship Specialty Start Date End Date Gera Low MD [address] [place] [address] PCP - General 03/09/21 documented as of this encounter
--- OUTSIDE RECORDS SUMMARY | 2024-10-01 11:44 | XMS_ITS | Encounter Summary ---
Author Organization [facility] Address [address] [place] [address] Care Team Providers Care Supervisor Ski Production Name Role Phone Gera Low MD Primary Care Provider +1- [phone] Encounter Details Date Type Department Care Team ([facility] Contact Info) Description 12/13/2022 Telephone [facility] Nephrology, Bone [facility] Mineral Metabolism [address] [facility], [address] [place] [address] Vanessa James Social History Tobacco Use Types Packs/Day Years [...] encounter Miscellaneous Notes * Telephone Encounter - Vanessa James - 12/13/2022 8:24 AM EST I left voicemail for reminder of her Lab apt documented in this encounter Plan of Treatment Upcoming Encounters Date Type Department Care Team ([facility] Contact Info) Description 03/18/2025 12:00 PM EDT Clinical Support [facility] Laboratory Services [address] [facility], 1st [place] [address] 04/01/2025 12:40 PM EDT Appointment [facility] Bone & Mineral Metabolism [address] [facility], [address] [place] [address] 04/01/2025 1:00 PM EDT Office Visit [facility] Bone & Mineral Metabolism [address] [facility], [address] [place] [address] Michaelle Sprague MD [address] [facility] [address] [place] [address] documented as of this encounter Visit Diagnoses Not on filedocumented in this encounter Additional Health Concerns Assessment Noted Time A fall risk assessment has been complete d for the patient 04/22/2022 2:51 PM EDT documented as of this encounter Care Teams Supervisor Ski Production Relationship Specialty Start Date End Date Gera Low MD [address] [place] [address] PCP - General 03/09/21 documented as of this encounter
--- OUTSIDE RECORDS SUMMARY | 2024-10-01 11:44 | XMS_ITS | Encounter Summary ---
Author Organization [facility] Address [address] [id number] Care Team Providers Care Finisher Plate Name Role Phone Gera Low MD Primary Care Provider +1- [phone] Encounter Details Date Type Department Care Team ([facility] Contact Info) Description 03/11/2023 Telephone [facility]phrology, Bone & Mineral Metabolism [address] [facility], [address] [place] [address] Michaelle Sprague MD [address] [place] [address] Social History Tobacco Use Types [...] encounter Miscellaneous Notes * Telephone Encounter - Isadora Sorto - 03/11/2023 2:53 PM EDT Patient Phone Message Reason for Call: Please call [facility] about whether or not patient needs another Prolia injection, for tomorrow? If so, please fax new order to: [phone] Best contact number and optimal time of day to reach caller: [phone] (Cornelius) Note: Please do not reply to this message. Follow-up communication and further actions as a result of this message need to be communicated with the patient directly, if the patient is not active onMyChart. If the patient is active on MyChart, they will receive notification of the communication/outcome via eYekahart. documented in this encounter Plan of Treatment Upcoming Encounters Date Type Department Care Team (Late st Contact Info) Description 03/18/2025 12:00 PM EDT Clinical Support [facility] Laboratory Services [address] [facility], 1st [address] [place] [phone] 04/01/2025 12:40 PM EDT Appointment [facility] Bone & Mineral Metabolism [address] [facility], [address] [place] [phone] 04/01/2025 1:00 PM EDT Office Visit [facility] Bone & Mineral Metabolism [address] [facility], [address] [place] [phone] Michaelle Sprague MD [address] [facility] [address] [place] [phone] documented as of this encounter Visit Diagnoses Not on filedocumented in this encounter Additional Health Concerns Assessment Noted Time A fall risk assessment has been complete d for the patient 04/22/2022 2:51 PM EDT documented as of this encounter Care Teams Finisher Plate Relationship Specialty Start Date End Date Gera Low MD [address] [place] [address] PCP - General 03/09/21 documented as of this encounter
--- OUTSIDE RECORDS SUMMARY | 2024-10-01 11:44 | XMS_ITS | Encounter Summary ---
Author Organization [facility] Address [address] [place], [place] [id number] Care Team Providers Care Glove Cleaner Name Role Phone Gera Low MD Primary Care Provider +1- [phone] Encounter Details Date Type Department Care Team (Latest Contact Info) Description 12/26/2023 Travel Social History Tobacco Use Types Packs/Day [...] 03/18/2025 12:00 PM EDT Clinical Support [facility] Laboratory Services [address], 1st [place] [address] 04/01/2025 12:40 PM EDT Appointment [facility] Bone & Mineral Metabolism [address], [address] [place] [address] 04/01/2025 1:00 PM EDT Office Visit [facility] Bone & Mineral Metabolism [address] [place] [address] Michaelle Sprague MD [address] [facility] [address] [place] [address] documented as of this encounter Visit Diagnoses Not on filedocumented in this encounter Additional Health Concerns Assessment Noted Time A fall risk assessment has been complete d for the patient 12/26/2023 12:08 PM EST documented as of this encounter Care Teams Glove Cleaner Relationship Specialty Start Date End Date Gera Low MD [address] [place] [address] PCP - General 03/09/21 documented as of this encounter
--- OUTSIDE RECORDS SUMMARY | 2024-10-01 11:44 | XMS_ITS | Encounter Summary ---
Author Organization [facility] Address [address] [place], [place] [id number] Care Team Providers Care Final Inspector Movement Assembly Name Role Phone Gera Low MD Primary Care Provider +1- [phone] Encounter Details Date Type Department Care Team (Latest Contact Info) Description 12/05/2023 Travel Social History Tobacco Use Types Packs/Day [...] 03/18/2025 12:00 PM EDT Clinical Support [facility] Laboratory Services [address], 1st [place] [address] 04/01/2025 12:40 PM EDT Appointment [facility] Bone & Mineral Metabolism [address], [address] [place] [address] 04/01/2025 1:00 PM EDT Office Visit [facility] Bone & Mineral Metabolism [address] [place] [address] Michaelle Sprague MD [address] [facility] [address] [place] [address] documented as of this encounter Visit Diagnoses Not on filedocumented in this encounter Additional Health Concerns Assessment Noted Time A fall risk assessment has been complete d for the patient 04/22/2022 2:51 PM EDT documented as of this encounter Care Teams Final Inspector Movement Assembly Relationship Specialty Start Date End Date Gera Low MD [address] [place] [address] PCP - General 03/09/21 documented as of this encounter
--- OUTSIDE RECORDS SUMMARY | 2024-10-01 11:44 | XMS_ITS | Encounter Summary ---
Author Organization [facility] Address [address] [place], [place] [id number] Care Team Providers Care Patient Support Tech Name Role Phone Gera Low MD Primary Care Provider +1- [phone] Encounter Details Date Type Department Care Team (Latest Contact Info) Description 03/25/2023 Travel Social History Tobacco Use Types Packs/Day [...] 03/18/2025 12:00 PM EDT Clinical Support [facility] Laboratory Services [address], 1st [place] [address] 04/01/2025 12:40 PM EDT Appointment [facility] Bone & Mineral Metabolism [address], [address] [place] [address] 04/01/2025 1:00 PM EDT Office Visit [facility] Bone & Mineral Metabolism [address] [place] [address] Michaelle Sprague MD [address] [facility] [address] [place] [address] documented as of this encounter Visit Diagnoses Not on filedocumented in this encounter Additional Health Concerns Assessment Noted Time A fall risk assessment has been complete d for the patient 04/22/2022 2:51 PM EDT documented as of this encounter Care Teams Patient Support Tech Relationship Specialty Start Date End Date Gera Low MD [address] [place] [address] PCP - General 03/09/21 documented as of this encounter
--- OUTSIDE RECORDS SUMMARY | 2024-10-01 11:44 | XMS_ITS | Encounter Summary ---
Author Organization [facility] Address [address] [place], [place] [address] Care Team Providers Care Supervisor Lace Tearing Name Role Phone Gera Low MD Primary Care Provider +1- [phone] Encounter Details Date Type Department Care Team (Latest Contact Info) Description 09/12/2023 Travel Social History Tobacco Use Types Packs/Day [...] 03/18/2025 12:00 PM EDT Clinical Support [facility] Laboratory Services [address], 1st [place] [address] 04/01/2025 12:40 PM EDT Appointment [facility] Bone & Mineral Metabolism [address], [address] [place] [address] 04/01/2025 1:00 PM EDT Office Visit [facility] Bone & Mineral Metabolism [address] [place] [address] Michaelle Sprague MD [address] [facility] [address] [place] [address] documented as of this encounter Visit Diagnoses Not on filedocumented in this encounter Additional Health Concerns Assessment Noted Time A fall risk assessment has been complete d for the patient 04/22/2022 2:51 PM EDT documented as of this encounter Care Teams Supervisor Lace Tearing Relationship Specialty Start Date End Date Gera Low MD [address] [place] [address] PCP - General 03/09/21 documented as of this encounter
--- OUTSIDE RECORDS SUMMARY | 2024-10-01 11:44 | XMS_ITS | Encounter Summary ---
Author Organization [facility] Address [address] [place] [address] Care Team Providers Care Client Relations Representative Name Role Phone Gera Low MD Primary Care Provider +1- [phone] Encounter Details Date Type Department Care Team (Latest Contact Info) Description 12/26/2023 10:48 AM EST - 12/26/2023 11:59 PM EST Hospital Encounter [facility] [address] [facility], [address] [place] [address] Age-related osteoporosis without current pathological fracture Discharge Disposition: Home or Self Care Social [...] AM EST documented as of this encounter Medications at Time of Discharge Black Pepper-Turmeric (Turmeric Curcumin) 5-1000 MG capsule TAKE 1 CAPSULE Daily 05/29/2020 calcium carbonate 1500 (600 Ca) MG tablet Take 1 tablet twice daily 12/04/2020 cyanocobalamin (Vitamin B-12) 1000 MCG tablet TAKE 1 TABLET DAILY DIRECTED. 08/17/2019 Melatonin 10-10 MG tablet controlled-releas e Take by mouth. Multiple Vitamins-Iron tablet TAKE 1 TABLET DAILY. 08/17/2019 raloxifene (Evista) 60 MG tablet 03/06/2021 documented as of this encounter Plan of Treatment Upcoming Encounters Date Type Department Care Team (Late st Contact Info) Description 03/18/2025 12:00 PM EDT Clinical Support [facility] Laboratory Services [address], 1st [place] [address] 04/01/2025 12:40 PM EDT Appointment [facility] Bone [facility] Mineral Metabolism [address], [address] [place] [address] 04/01/2025 1:00 PM EDT Office Visit [facility] [address], [address] [place] [address] Michaelle Sprague MD [address] [place] [address] documented as of this encounter Procedures Procedure Name Priority Date/Time Associated Diagnosis Comments DEXA BONE DENSITY Routine 12/26/2023 10: 48 AM EST Age-related osteoporosis without current pathological fracture documented in this encounter Results * Dexa Bone Density (12/26/2023 10:48 AM EST) Anatomical Region Laterality Modality L-spine Radiographic Zulay ging Narrative 12/28/2023 11:55 PM EST [facility] [address], [place] [address] DXA Bone Densitometry Report: [12/26/2023] Subjective ?? BMD test performed using the Prism Digital DXA System (analysis version: 14.10) manufactured by [employer]. REFERRING PROVIDER: Michaelle Barton MD CLINICAL INFORMATION: [...] of change in BMD). Michaelle Sprague MD IM DXA PROCEDURES Final Resul t documented in this encounter Visit Diagnoses Diagnosis Age-related osteoporosis without current pathological fracture documented in this encounter Additional Health Concerns Assessment Noted Time A fall risk assessment has been complete d for the patient 12/26/2023 12:08 PM EST documented as of this encounter Care Teams Client Relations Representative Relationship Specialty Start Date End Date Gera Low MD [address] [place] [address] PCP - General 03/09/21 documented as of this encounter
--- OUTSIDE RECORDS SUMMARY | 2024-10-01 11:44 | XMS_ITS | Encounter Summary ---
Author Organization Healthcare Address [address] [place] [address] Care Team Providers Care Sampling Theory Teacher Name Role Phone Gera Low MD Primary Care Provider +1- [phone] Encounter Details Date Type Department Care Team (Latest Contact Info) Description 12/18/2022 Travel Social History Tobacco Use Types Packs/Day [...] [facility] Laboratory Services [address], [address]st [place] [address] 04/01/2025 12:40 PM EDT Appointment [facility] [address], [address] [place] [address] 04/01/2025 1:00 PM EDT Office Visit [facility] [place] [facility] [address] [facility], [address] [place] [address] Michaelle Sprague MD [address] [facility] [address] [place] [address] documented as of this encounter Visit Diagnoses Not on filedocumented in this encounter Additional Health Concerns Assessment Noted Time A fall risk assessment has been complete d for the patient 04/22/2022 2:51 PM EDT documented as of this encounter Care Teams Sampling Theory Teacher Relationship Specialty Start Date End Date Gera Low MD [address] [place] [address] PCP - General 03/09/21 documented as of this encounter
--- OUTSIDE RECORDS SUMMARY | 2024-10-01 11:44 | XMS_ITS | Encounter Summary ---
Author Organization Healthcare Address [address] [place], [place] [id number] Care Team Providers Care Garden Implement Mechanic Name Role Phone Gera Low MD Primary Care Provider +1- [phone] Encounter Details Date Type Department Care Team (Latest Contact Info) Description 08/04/2024 Travel Social History Tobacco Use Types Packs/Day [...] 03/18/2025 12:00 PM EDT Clinical Support [facility] Laboratory Services [address], 1st [place] [address] 04/01/2025 12:40 PM EDT Appointment [facility] [address], [address] [place] [address] 04/01/2025 1:00 PM EDT Office Visit [facility] [address] [place] [address] Michaelle Sprague MD [address] [facility] [address] [place] [address] documented as of this encounter Visit Diagnoses Not on filedocumented in this encounter Additional Health Concerns Assessment Noted Time A fall risk assessment has been complete d for the patient 12/26/2023 12:08 PM EST documented as of this encounter Care Teams Garden Implement Mechanic Relationship Specialty Start Date End Date Gera Low MD [address] [place] [address] PCP - General 03/09/21 documented as of this encounter
--- OUTSIDE RECORDS SUMMARY | 2024-10-01 11:45 | XMS_ITS | Encounter Summary ---
Author Organization Healthcare Address [address] [place] [id number] Care Team Providers Care Non Clinical Advisor Name Role Phone Gera Low MD Primary Care Provider +1- [phone] Encounter Details Date Type Department Care Team (Late Contact Info) Description 04/23/2021 Orders Only [facility] Nephrology, Bone & Mineral Metabolism [address] [place] [address] Deshawn Holly, RN [facility] Age-related osteoporosis without current pathological fracture (Primary Dx) Social History Tobacco Use Types Packs/Day Years Used Date Smoking Tobacco: Former Alcohol Use Standard Drinks/Week Comments No 0 (1 standard drink = 0.6 oz pur e alcohol) Comments Unknown Sex and Gender Information Value Date Recorded Sex Assigned at Female 11/09/2021 11:47 AM EST Legal Sex Female 6:10 PM EDT Gender Identity Female 11/09/2021 11:47 AM EST Sexual Orientation Straight 11/09/2021 11 :47 AM EST documented as of this encounter Plan of Treatment Upcoming Encounters Date Type Department Care Team (Late Contact Info) Description 03/18/2025 12:00 PM EDT Clinical Support [facility] Laboratory Services [address], 1st [place] [address] 04/01/2025 12:40 PM EDT Appointment [facility] Bone & Mineral Metabolism [address], [address] [place] [address] 04/01/2025 1:00 PM EDT Office Visit [facility] Mineral Metabolism [address] [facility], [address] [place] [address] Michaelle Sprague MD [address] [place] [address] documented as of this encounter Results * Calcium, Random, Urine (04/24/2021 11:16 AM EDT) Calcium, Urine 27.9 mg/dL 04/24/2021 1:37 PM EDT [facility] Urine Urine specimen obtained by clean catch procedure / Unknown Non-blood Collection / Unknown 04/24/2021 11:16 AM EDT 04/24/2021 11:16 AM EDT Michaelle Sprague MD LAB URINE ORDERABLES Final Res ult Performing Organization Address City/[facility]/ZIP Co de Phone Number [facility] [address] [place] [address] * Creatinine, Random, Urine (04/24/2021 11:16 AM EDT) Creatinine, Urine 151 mg/dL 04/24/2021 12:46 PM EDT [facility] Urine Urine specimen obtained by clean catch procedure / Unknown Non-blood Collection / Unknown 04/24/2021 11:16 AM EDT 04/24/2021 11:16 AM EDT Michaelle Sprague MD LAB URINE ORDERABLES Final Res ult [facility] [address] [place] [address] * (ABNORMAL) Bone Specific Alkaline Phosphatase (04/24/2021 11:12 AM EDT) Bone Specific Alkaline Phosphatase 8.7(L) 10.5 - 44.8 ug/L 04/24/2021 3:49 PM EDT [facility] Comment: BSAP (Ostase) Reference Values, Female, age 18 years and up: ?? Premenopausal: ??4.5 to 16.9 ug/L ?? Postmenopausal: 7.0 to 22.4 ug/L Blood Venous blood specimen / Unknown Venipuncture / Unknown 04/24/2021 11:12 AM EDT 04/24/2021 11:12 AM EDT Michaelle Sprague MD LAB BLOOD ORDERABLES Final Res ult Performing Organization Address [facility] de Phone Number [facility] [address] [place] [address] * Magnesium, Plasma (04/24/2021 11:12 AM EDT) Magnesium, Plasma 2.1 1.9 - 2.4 mg/dL 04/24/2021 12:40 PM EDT [facility] Blood Venous blood specimen / Unknown Venipuncture / Unknown 04/24/2021 11:12 AM EDT 04/24/2021 11:12 AM EDT Michaelle Sprague MD LAB BLOOD ORDERABLES Final Res ult Performing Organization Address [facility] de Phone Number [facility] [address] [place] [address] * Vitamin D 25 Hydroxy (04/24/2021 11:12 AM EDT) Vitamin D 25 Hydroxy 59.6 20.0 - 80.0 ng/mL 04/24/2021 3:00 PM EDT [facility] Comment: Vitamin D, 25-Hydroxy reference range, age 18 years and up: Deficiency: ? <12 ng/mL Insufficiency: ?12 to 19 ng/mL Sufficiency: ?20 to 80 ng/mL Possible toxicity: ??>100 ng/mL Blood Venous blood specimen / Unknown Venipuncture / Unknown 04/24/2021 11:12 AM EDT 04/24/2021 11:12 AM EDT Michaelle Sprague MD LAB BLOOD ORDERABLES Final Res ult [facility] [address] [place] [address] * N telopeptide, cross-linked, serum (04/24/2021 11:12 AM EDT) N-Telopeptide, Cross-Linked, Serum 6.5 nM BCE 04/30/2021 1:33 PM EDT [facility] ([facility]) Blood Venous blood specimen / Unknown Venipuncture / Unknown 04/24/2021 11:12 AM EDT 04/24/2021 11:12 AM EDT Narrative [facility] ([facility]) - 04/30/2021 1:33 PM EDT INTERPRETIVE INFORMATION: N-Telopeptide, Cross-Linked, Serum ??Adult Male.......................5.4 - 24.2 nM BCE ??Premenopausal Adult Female.......6.2 - 19.0 nM BCE The target value for treated post-menopausal adult females is the same as the premenopausal reference interval. BCE = Bone Collagen Equivalent Performed By: [facility] [address] [place] [address] Solar Pv Installer: Aminata Currie MD Michaelle Sprague MD LAB BLOOD ORDERABLES Final Res ult [facility] [employer]) [address] [place] [address] * (ABNORMAL) Osteocalcin by ECIA (04/24/2021 11:12 AM EDT) OSTEOCALCIN BY [facility]IA 7(L) 11 - 50 ng/mL 04/27/2021 11:02 AM EDT [facility] ([facility]) Blood Venous blood specimen / Unknown Venipuncture / Unknown 04/24/2021 11:12 AM EDT 04/24/2021 11:12 AM EDT Narrative [facility] ([facility]) - 04/27/2021 11:02 AM EDT INTERPRETIVE INFORMATION: Osteocalcin by ECIA In patients with renal failure the osteocalcin result can be elevated, both directly, due to impaired clearance and indirectly, due to renal osteodystrophy. Access complete set of age- and/or gender-specific reference intervals for this test in the [facility] Test Directory ([email or web address]). Performed By: [facility] [address] [place] [address] Solar Pv Installer: Aminata Currie MD Michaelle Sprague MD LAB BLOOD ORDERABLES Final Res ult Performing Organization Address [facility] Co de Phone Number [facility]) [address] [place], [place] [id number] * C-Telopeptide (04/24/2021 11:12 AM EDT) [facility] C Telopeptide Beta Cross Linked Serum Result 70 pg/mL 04/27/2021 11:02 AM EDT [facility]) Blood Venous blood specimen / Unknown Venipuncture / Unknown 04/24/2021 11:12 AM EDT 04/24/2021 11:12 AM EDT Narrative [facility]) - 04/27/2021 11:02 AM EDT Postmenopausal Females: 104-1008 pg/mL REFERENCE INTERVAL: C-Telopeptide, Wtwx-Dlrem-Hkkuos, Serum Access complete set of age- and/or gender-specific reference intervals for this test in the [facility] Test Directory ([email or web address]). Performed By: [employer] [address] [place] [address] Solar Pv Installer: Aminata Currie MD Michaelle Sprague MD LAB BLOOD ORDERABLES Final Res ult Performing Organization Address [facility] Co de Phone Number [facility] [employer]) [address] [place] [address] * (ABNORMAL) Renal Function Panel, Plasma (04/24/2021 11:12 AM EDT) Pathologist [facility] Glucose, Plasma 108(H) 74 - 99 mg/dL 04/24/2021 12:40 PM EDT [facility] BUN, Plasma 19 8 - 23 mg/dL 04/24/2021 12:40 PM EDT [facility] Creatinine, Plasma 0.73 0.60 - 1.10 mg/dL 04/24/2021 12:40 PM EDT [facility] BUN/Creatinine Ratio 26 04/24/2021 12:40 PM EDT [facility] Sodium, Plasma 140 136 - 145 mmol/L 04/24/2021 12:40 PM EDT [facility] Potassium, Plasma 4.4 3.7 - 4.8 mmol/L 04/24/2021 12:40 PM EDT [facility] Chloride, Plasma 105 97 - 107 mmol/L 04/24/2021 12:40 PM EDT [facility] CO2, Plasma 24 22 - 29 mmol/L 04/24/2021 12:40 PM EDT [facility] Anion Gap 11 6 - 16 mmol/L 04/24/2021 12:40 PM EDT [facility] Total Calcium, Plasma 9.9 8.9 - 10.2 mg/dL 04/24/2021 12:40 PM EDT [facility] Phosphorus, Plasma 3.1 2.5 - 4.5 mg/dL 04/24/2021 12:40 PM EDT [facility] Albumin, Plasma 4.4 3.5 - 5.2 g/dL 04/24/2021 12:40 PM EDT [facility] eGFR >60 >60 mL/min/1.7 3m*2 04/24/2021 12:40 PM EDT [facility] Comment:eGFR = estimated GFR ; eGFR units = mL/min/1.73 sq meters Chronic Kidney Disease is considered if eGFR <60 mL/min/1.73 sq meters Kidney failure is considered if eGFR is <15 mL/min/1.73 sq meters. eGFR assumes steady state plasma creatinine concentration; not applicable if renal function is rapidly changing or patient is on dialysis. eGFR, if AFR/AM >60 >60 mL/min/1.7 3m*2 04/24/2021 12:40 PM EDT [facility] Comment:eGFR = estimated GFR ; eGFR units = mL/min/1.73 sq meters Chronic Kidney Disease is considered if eGFR <60 mL/min/1.73 sq meters Kidney failure is considered if eGFR is <15 mL/min/1.73 sq meters. eGFR assumes steady state plasma creatinine concentration; not applicable if renal function is rapidly changing or patient is on dialysis. Blood Venous blood specimen / Unknown Venipuncture / Unknown 04/24/2021 11:12 AM EDT 04/24/2021 11:12 AM EDT us Michaelle Sprague MD LAB BLOOD ORDERABLES Final Res ult [facility] [address] [place] [address] documented in this encounter Visit Diagnoses Diagnosis Age-related osteoporosis without current pathological fracture- Primary documented in this encounter Care Teams Non Clinical Advisor Relationship Specialty Start Date End Date Gera Low MD [address] [place] [address] PCP - General 03/09/21 documented as of this encounter
--- OUTSIDE RECORDS SUMMARY | 2024-10-01 11:45 | XMS_ITS | Encounter Summary ---
Author Organization Healthcare Address [address] [place] [address] Care Team Providers Care Veterinarian Assistant Name Role Phone Gera Low MD Primary Care Provider +1- [phone] Encounter Details Date Type Department Care Team (Latest Contact Info) Description 04/04/2022 Travel Social History Tobacco Use Types Packs/Day [...] suspected to have Coronavirus/COVID-19? No / Unsure 04/04/2022 12:39 PM EDT documented as of this encounter Plan of Treatment Upcoming Encounters Date Type Department Care Team (Late st Contact Info) Description 03/18/2025 12:00 PM EDT Clinical Support [facility] Laboratory Services [address] [facility], 1st [place] [address] 04/01/2025 12:40 PM EDT Appointment [facility] [address] [facility], [address] [place] [address] 04/01/2025 1:00 PM EDT Office Visit [facility] [address] [facility], [address] [place] [address] Michaelle Sprague MD [address] [facility] [address] [place] [address] documented as of this encounter Visit Diagnoses Not on filedocumented in this encounter Additional Health Concerns Assessment Noted Time A fall risk assessment has been complete d for the patient 12/17/2021 1:41 PM EST documented as of this encounter Care Teams Veterinarian Assistant Relationship Specialty Start Date End Date Gera Low MD [address] [facility] [address] [place] [address] PCP - General 03/09/21 documented as of this encounter
--- OUTSIDE RECORDS SUMMARY | 2024-10-01 11:45 | XMS_ITS | Encounter Summary ---
Author Organization Healthcare Address [address] [place] [address] Care Team Providers Care Driver Wheelchair Name Role Phone Gera Low MD Primary Care Provider +1- [phone] Encounter Details Date Type Department Care Team (Latest Contact Info) Description 04/08/2022 Travel Social History Tobacco Use Types Packs/Day [...] was confirmed or suspected to have Coronavirus/COVID-19? Yes 04/08/2022 12:03 PM EDT documented as of this encounter Plan of Treatment Upcoming Encounters Date Type Department Care Team (Late st Contact Info) Description 03/18/2025 12:00 PM EDT Clinical Support [facility] Laboratory Services [address] [facility], 1st [place] [address] 04/01/2025 12:40 PM EDT Appointment [facility] Bone & Mineral Metabolism [address] [facility], [address] [place] [address] 04/01/2025 1:00 PM EDT Office Visit [facility] [employer] [facility] [address] [facility], [address] [place] [address] Michaelle Sprague MD [address] [facility] [address] [place] [address] documented as of this encounter Visit Diagnoses Not on filedocumented in this encounter Additional Health Concerns Assessment Noted Time A fall risk assessment has been complete d for the patient 12/17/2021 1:41 PM EST documented as of this encounter Care Teams Driver Wheelchair Relationship Specialty Start Date End Date Gera Low MD [address] [facility] [address] [facility] [address] [place] [address] PCP - General 03/09/21 documented as of this encounter
--- OUTSIDE RECORDS SUMMARY | 2024-10-01 11:45 | XMS_ITS | Encounter Summary ---
Author Organization Healthcare Address [address] [place] [address] Care Team Providers Care Bung Sewer Name Role Phone Gera Low MD Primary Care Provider +1- [phone] Encounter Details Date Type Department Care Team (Latest Contact Info) Description 12/14/2021 Travel Social History Tobacco Use Types Packs/Day [...] Exposure Response Date Recorded In the last month, have you been in contact with someone who was confirmed or suspected to have Coronavirus / COVID-19? No / Unsure 12/14/2021 6:11 PM EST documented as of this encounter Plan of Treatment Upcoming Encounters Date Type Department Care Team (Late st Contact Info) Description 03/18/2025 12:00 PM EDT Clinical Support Professional [facility] Laboratory Services [address] [facility], 1st [place] [address] 04/01/2025 12:40 PM EDT Appointment Professional [facility] Bone & Mineral Metabolism [address] [facility], [address] [place] [address] 04/01/2025 1:00 PM EDT Office Visit Professional [facility] [facility] [address] [facility], [address] [place] [address] Michaelle Sprague MD [address] [facility] [address] [place] [address] documented as of this encounter Visit Diagnoses Not on filedocumented in this encounter Additional Health Concerns Assessment Noted Time A fall risk assessment has been complete d for the patient 05/08/2021 11:21 AM EDT documented as of this encounter Care Teams Bung Sewer Relationship Specialty Start Date End Date Gera Low MD [address] [facility] [address] [facility] [address] [place] [address] PCP - General 03/09/21 documented as of this encounter
--- OUTSIDE RECORDS SUMMARY | 2024-10-01 11:45 | XMS_ITS | Encounter Summary ---
Author Organization Healthcare Address [address] [place] [address] Care Team Providers Care Wire Web Worker Name Role Phone Gera Low MD Primary Care Provider +1- [phone] Encounter Details Date Type Department Care Team (Late st Contact Info) Description 12/17/2021 1:40 PM EST Office Visit Professional [facility] Nephrology, Bone & Mineral Metabolism [address] [facility], [address] [place] [address] Michaelle Sprague MD [address] [place] [address] Age-related osteoporosis without current pathological [...] Sign Reading Time Taken Comments Blood Pressure 153/97 12/17/2021 1:38 PM EST Pulse 103 12/17/2021 1:38 PM EST Temperature - - Respiratory Rate - - Oxygen Saturation - - Inhaled Oxygen Concentration - - Weight 65.8 kg (145 lb) 12/17/2021 1:38 PM EST Height 175.3 cm (5' 9 ) 12/17/2021 1:38 PM EST Body Mass Index 21.41 12/17/2021 1:38 PM EST documented in this encounter Miscellaneous Notes * Progress Notes - Michaelle Sprague MD - 12/17/2021 1:40 PM EST Bone Clinic Follow up note Delilah Tello is a 66 y.o. female who is referred by Dr. Gera Low MD for osteoporosis. She is seen for follow up today to review results of DXA and labs and discuss treatment She is getting prolia and her last shot was Aug 06 2021 Past history: DXA scan Date Nov 2021 T-scores LS:0.2 LFN: -1.4 LTH:-1.4 RFN: -1.2 RTH:-0.8 Last DXA scan Date Oct 2020 T-scores LS:0.2 LFN: -1.3 LTH:-1.4 RFN: -1.4 RTH:-1.0 Diagnosed osteoporosis 2007 - took fosamax 5 yrs and stabilized BMD (reports she had addl testing in 2011, 2013 at [facility]). Further decline noted in 2015, and changed to boniva for GI symptoms which she took since 2017. Also taking raloxifene. No h/o #s DXA scan Date jun 2018 (2015) (hologic) T-scores LS:-0.6 (-0.6) LFN:-2.1 (-2.0) ?? Takes vit D 1000 units per day Takes dairy No systematic exercise Menopause late 40's - took HRT 2-3 yrs Took control age [age]; 2 miscarriages. ?? Other issues - bursitis Smoker - quit 2016; 40 py; has COPD ?? FH: Mother osteoporosis - rx fosamax, smoker, no # sister - osteoporosis, breast ca, BRCA pos Father, brother - prostate ca; GF - colon ca ?? She underwent a full work up with [...] of anabolic therapy. This showed low turnover. ?? She was seen in March 2019 and [...] Weight unchanged Patient Active Problem List Diagnosis ??? COPD (chronic obstructive pulmonary disease) (CMS/HCC) ??? Osteoporosis ??? Bursitis, hip Past Surgical History: Procedure Laterality Date ??? BARTHOLIN GLAND CYST EXCISION N/A [facility] ??? COLONOSCOPY N/A colonoscopy from [facility] Current Outpatient Medications Medication Sig Dispense Refill ??? Black Pepper-Turmeric (Turmeric Curcumin) 5-1000 MG capsule TAKE 1 CAPSULE Daily ??? calcium carbonate (Calcium 600) 1500 (600 Ca) MG tablet Take 1 tablet twice daily ??? cyanocobalamin (Vitamin B-12) 1000 MCG tablet TAKE 1 TABLET DAILY DIRECTED. ??? denosumab (Prolia) 60 MG/ML solution prefilled syringe Inject 60 mg under the skin 1 (one) time. ??? Multiple Vitamins-Iron tablet TAKE 1 TABLET DAILY. ??? raloxifene (Evista) 60 MG tablet No current facility-administered medications for this visit. Social History Tobacco Use ??? Smoking status: Former Smoker ??? Smokeless tobacco: Never Used Substance Use Topics ??? Alcohol use: No No Known Allergies The following portions of the chart were reviewed this encounter and updated as appropriate: Tobacco Allergies Meds Problems Med Hx Surg Hx Fam Hx REVIEW OF SYSTEMS A 14 point ROS was obtained and is negative except as otherwise noted in HPI. PHYSICAL EXAMINATION Visit Vitals BP (!) 153/97 Pulse 103 Constitutional: No acute distress. Weight 65.8 kg (145 lb) Height 1.753 m (5' 9 ) BMI: Body mass index is 21.41 kg/m??. BSA: Body surface area is 1.79 meters squared. HEENT: normal. Cardiovascular: No JVD, no edema Pulmonary: Normal effort of breathing. Abdominal: no distension Musculoskeletal: Normal extremity movements Skin: No rashes or lesions. Neurologic: No focal deficits Psychiatric: Orientated to person, place, and time: Normal Mood and affect LAB RESULTS Renal Panel: Lab Results Component Value Date NA 142 11/13/2021 K 4.5 11/13/2021 CL 106 11/13/2021 CO2 28 11/13/2021 BUN 17 11/13/2021 CREATININE 0.78 11/13/2021 EGFR >60 11/13/2021 EGFR >60 11/13/2021 CA 9.0 11/21/2020 PHOS 3.5 11/13/2021 ALBUMIN 4.1 11/13/2021 MBD: Lab Results Component Value Date PTH 29 10/09/2018 CA 9.0 11/21/2020 CALCIUM 9.2 11/13/2021 PHOS 3.5 11/13/2021 MG 2.0 07/03/2021 VITAMIN D 25 Lab Results Component Value Date VITD25 62.3 07/03/2021 Paraproteinemia Labs: Lab Results Component Value Date KAPPALAMBDA 0.98 10/09/2018 Urine studies: Lab Results Component Value Date CAR 4.8 03/07/2020 CALCIUMUR 8.2 07/03/2021 CREATUR 47 07/03/2021 Bone Turnover Markers: Lab Results Component Value Date BSAP 8.1 (L) 07/03/2021 CTELOX 97 07/03/2021 NTELOPEPTS 6.7 07/03/2021 OSTEOCALCIN 8 (L) 07/03/2021 SERIAL BONE TURNOVER MARKERS Results for [...] 6.5 6.7 ASSESSMENT/PLAN Delilah Tello is a 66 y.o. female who is being followed for osteoporosis. She used termite renewal inspector BPs and DXA shows a decline in BMD. She was taking Boniva, raloxifene and vit D. Risk factors for bone loss include age, premature menopause, termite renewal inspector smoking, snf BPs She underwent a full work up [...] although she is being treated with BPs termite renewal inspector suggests that she has a significant decline [...] which she tolerated well w/o any AEs. Her next dose was Jul 2021 DXA scan nov 2021 shows osteopenia with improved T-scores over past DXA Jul 2019; will be followed annually. We will see her back in 2-3 mths with results of labs to schedule her prolia shot. Problem List Items Addressed This Visit Respiratory COPD (chronic obstructive pulmonary disease) ([facility]) Musculoskeletal Osteoporosis - Primary Relevant Orders N telopeptide, cross-linked, serum Bone Specific Alkaline Phosphatase Magnesium, Plasma Vitamin D 25 Hydroxy Osteocalcin by ECIA C-Telopeptide Renal Function Panel, Plasma Counseling Documentation: She should continue adequate dietary [...] Avoidance of NSAIDs and other nephrotoxins and snf nature of condition. Education provided was verbal [...] to see Delilah Tello today in clinic. ENCOUNTER TIMING: I personally spent a total of 20 minutes on this encounter. This time includes face to face with patient, counseling and discussion, lab/result interpretation, coordination of follow-up care, document review. ORDERS PLACED THIS ENCOUNTER Orders Placed This Encounter Procedures ??? N telopeptide, cross-linked, serum Standing Status: Future Standing Expiration Date: 12/17/2022 Scheduling Instructions: 2 WEEKS BEFORE NEXT VISIT Order Specific Question: Release to patient in [facility] Answer: Immediate ??? Bone Specific Alkaline Phosphatase Standing Status: Future Standing Expiration Date: 12/17/2022 Order Specific Question: [facility] Answer: Immediate ??? Magnesium, Plasma Standing Status: Future Standing Expiration Date: 12/17/2022 Order Specific Question: Release to patient in MyChart Answer: Immediate ??? Vitamin D 25 Hydroxy Standing Status: Future Standing Expiration Date: 12/17/2022 Order Specific Question: [facility] Answer: Immediate ??? Osteocalcin by ECIA Standing Status: Future Standing Expiration Date: 12/17/2022 Order Specific Question: [facility] Answer: Immediate ??? C-Telopeptide Standing Status: Future Standing Expiration Date: 12/17/2022 Order Specific Question: [facility] Answer: Immediate ??? Renal Function Panel, Plasma Standing Status: Future Standing Expiration Date: 12/17/2022 Order Specific Question: [facility] Answer: Immediate documented in this encounter Plan of Treatment Upcoming Encounters Date Type Department Care Team (Late st Contact Info) Description 03/18/2025 12:00 PM EDT Clinical Support [facility] [place] Laboratory Services [address], [address] [place] [address] 04/01/2025 12:40 PM EDT Appointment [facility] [place] Bone & Mineral Metabolism [address], [address] [place] [address] 04/01/2025 1:00 PM EDT Office Visit [facility] [place] Bone & Mineral Metabolism [address], [address] [place] [address] Michaelle Sprauge MD [address] [place] [address] documented as of this encounter Results * Renal Function Panel, Plasma (04/08/2022 12:13 PM EDT) [facility] Signature Glucose, Plasma 95 74 - 99 mg/dL 04/08/2022 3:13 PM EDT [facility] BUN, Plasma 16 8 - 23 mg/dL 04/08/2022 3:13 PM EDT [facility] Creatinine, Plasma 0.79 0.60 - 1.10 mg/dL 04/08/2022 3:13 PM EDT [facility] BUN/Creatinine Ratio 20 04/08/2022 3:13 PM EDT [facility] Sodium, Plasma 140 136 - 145 mmol/L 04/08/2022 3:13 PM EDT [facility] Potassium, Plasma 4.2 3.7 - 4.8 mmol/L 04/08/2022 3:13 PM EDT [facility] Comment:Reference range for Serum potassium is 0.2 to 0.5 mmol/L higher than Plasma range. Chloride, Plasma 105 97 - 107 mmol/L 04/08/2022 3:13 PM EDT [facility] CO2, Plasma 25 22 - 29 mmol/L 04/08/2022 3:13 PM EDT [facility] Anion Gap 10 6 - 16 mmol/L 04/08/2022 3:13 PM EDT [facility] Total Calcium, Plasma 9.8 8.9 - 10.2 mg/dL 04/08/2022 3:13 PM EDT [facility] Phosphorus, Plasma 3.3 2.5 - 4.5 mg/dL 04/08/2022 3:13 PM EDT [facility] Albumin, Plasma 4.4 3.5 - 5.2 g/dL 04/08/2022 3:13 PM EDT [facility] eGFR >60 >60 mL/min/1.7 3m*2 04/08/2022 3:13 PM EDT [facility] Comment:eGFR = estimated GFR ; eGFR units = mL/min/1.73 sq meters Chronic Kidney Disease is considered if eGFR <60 mL/min/1.73 sq meters Kidney failure is considered if eGFR is <15 mL/min/1.73 sq meters. eGFR assumes steady state plasma creatinine concentration; not applicable if renal function is rapidly changing or patient is on dialysis. eGFR, if AFR/AM >60 >60 mL/min/1.7 3m*2 04/08/2022 3:13 PM EDT [facility] Comment:eGFR = estimated GFR ; eGFR units = mL/min/1.73 sq meters Chronic Kidney Disease is considered if eGFR <60 mL/min/1.73 sq meters Kidney failure is considered if eGFR is <15 mL/min/1.73 sq meters. eGFR assumes steady state plasma creatinine concentration; not applicable if renal function is rapidly changing or patient is on dialysis. Blood Venous blood specimen / Unknown Venipuncture / Unknown 04/08/2022 12:13 PM EDT 04/08/2022 12:14 PM EDT Michaelle Sprague MD LAB BLOOD ORDERABLES Final Res ult [facility] [address] [place] [address] * C-Telopeptide (04/08/2022 12:13 PM EDT) C Telopeptide Beta Cross Linked Serum Result 117 pg/mL 04/10/2022 5:32 PM EDT [facility] ([place]) Blood Venous blood specimen / Unknown Venipuncture / Unknown 04/08/2022 12:13 PM EDT 04/08/2022 12:14 PM EDT Narrative [employer]) - 04/10/2022 5:32 PM EDT Premenopausal Females: 136-689 pg/mL Postmenopausal Females: 177-1015 pg/mL Premenopausal Females: 136-689 pg/mL Postmenopausal Females: 177-1015 pg/mL REFERENCE INTERVAL: C-Telopeptide, [id number], Serum Access complete set of age- and/or gender-specific reference intervals for this test in the [facility] Test Directory ([employer]). Performed By: [facility] [address] [place] [address] Instrument Processing Tech: Aminata Currie MD Michaelle Sprague MD LAB BLOOD ORDERABLES Final Res ult Performing Organization Address City/[facility]/ZIP Co de Phone Number [facility] [employer] [address] [place] [address] * Osteocalcin by ECIA (04/08/2022 12:13 PM EDT) OSTEOCALCIN BY ECIA 9 8 - 36 ng/mL 04/11/2022 3:39 AM EDT [employer]) Blood Venous blood specimen / Unknown Venipuncture / Unknown 04/08/2022 12:13 PM EDT 04/08/2022 12:14 PM EDT Narrative [employer]) - 04/11/2022 3:39 AM EDT INTERPRETIVE INFORMATION: Osteocalcin by ECIA In patients with renal failure, the osteocalcin result may be directly elevated, due to impaired clearance, and/or indirectly elevated due to renal osteodystrophy. Access complete set of age- and/or gender-specific reference intervals for this test in the [facility] Test Directory ([employer]). Performed By: [facility] [address] [place] [address] Instrument Processing Tech: Aminata Currie MD Michaelle Sprague MD LAB BLOOD ORDERABLES Final Res ult Performing Organization Address [facility] de Phone Number [facility] ([facility]) [address] [place] [address] * Vitamin D 25 Hydroxy (04/08/2022 12:13 PM EDT) Vitamin D 25 Hydroxy 62.8 20.0 - 80.0 ng/mL 04/08/2022 5:23 PM EDT [facility] Comment: Vitamin D, 25-Hydroxy reference range, age 18 years and up: Deficiency: ? <12 ng/mL Insufficiency: ?12 to 19 ng/mL Sufficiency: ?20 to 80 ng/mL Possible toxicity: ??>100 ng/mL Blood Venous blood specimen / Unknown Venipuncture / Unknown 04/08/2022 12:13 PM EDT 04/08/2022 12:14 PM EDT Michaelle Sprague MD LAB BLOOD ORDERABLES Final Res ult [facility] [address] [place] [address] * Magnesium, Plasma (04/08/2022 12:13 PM EDT) Magnesium, Plasma 2.1 1.9 - 2.4 mg/dL 04/08/2022 3:13 PM EDT [facility] Blood Venous blood specimen / Unknown Venipuncture / Unknown 04/08/2022 12:13 PM EDT 04/08/2022 12:14 PM EDT Michaelle Sprague MD LAB BLOOD ORDERABLES Final Res ult Performing Organization Address [facility] Co de Phone Number [facility] [address] [place] [address] * (ABNORMAL) Bone Specific Alkaline Phosphatase (04/08/2022 12:13 PM EDT) Bone Specific Alkaline Phosphatase 7.5(L) 10.5 - 44.8 ug/L 04/08/2022 5:11 PM EDT [facility] Comment: BSAP (Ostase) Reference Values, Female, age 18 years and up: ?? Premenopausal: ??4.5 to 16.9 ug/L ?? Postmenopausal: 7.0 to 22.4 ug/L Blood Venous blood specimen / Unknown Venipuncture / Unknown 04/08/2022 12:13 PM EDT 04/08/2022 12:14 PM EDT Michaelle Sprague MD LAB BLOOD ORDERABLES Final Res ult Performing Organization Address [facility] de Phone Number [facility] [address] [place] [id number] * N telopeptide, cross-linked, serum (04/08/2022 12:13 PM EDT) Pathologist [facility] N-Telopeptide, Cross-Linked, Serum 6.2 nM BCE 04/11/2022 3:51 PM EDT [facility] ([place]) Blood Venous blood specimen / Unknown Venipuncture / Unknown 04/08/2022 12:13 PM EDT 04/08/2022 12:14 PM EDT Narrative [facility] ([place]) - 04/11/2022 3:51 PM EDT INTERPRETIVE INFORMATION: N-Telopeptide, Cross-Linked, Serum ??Adult Male.......................5.4 - 24.2 nM BCE ??Premenopausal Adult Female.......6.2 - 19.0 nM BCE The target value for treated post-menopausal adult females is the same as the premenopausal reference interval. BCE = Bone Collagen Equivalent Performed By: [facility] [address] [place] [address] Instrument Processing Tech: Aminata Currie MD us Michaelle Sprague MD LAB BLOOD ORDERABLES Final Res ult [facility] ([place]) [address] [place] [address] documented in this encounter Visit Diagnoses Diagnosis Age-related osteoporosis without current pathological fracture- Primary Chronic obstructive pulmonary disease, unspecified COPD type (CMS/HCC) documented in this encounter Additional Health Concerns Assessment Noted Time A fall risk assessment has been complete d for the patient 12/17/2021 1:41 PM EST documented as of this encounter Care Teams Wire Web Worker Relationship Specialty Start Date End Date Gera Low MD [address] [place] [address] PCP - General 03/09/21 documented as of this encounter
--- OUTSIDE RECORDS SUMMARY | 2024-10-01 11:45 | XMS_ITS | Encounter Summary ---
Author Organization [facility] Address [address] [place] [address] Care Team Providers Care Leather Finisher Name Role Phone Unavailable Primary Care Provider Unavailabl e Encounter Details Date Type Department Care Team ([facility] Contact Info) Description 12/04/2020 [facility] Vitals Encounter [facility] OUTPATIENT CONVERSIONS [address] [place] [address] ProviderJustin MD [address] [place] [address] Social History Tobacco Use Types Packs/Day Years [...] Sign Reading Time Taken Comments Blood Pressure 153/79 12/04/2020 9:49 AM EST Pulse 108 12/04/2020 9:49 AM EST Temperature - - Respiratory Rate - - Oxygen Saturation - - Inhaled Oxygen Concentration - - Weight 64.4 kg (142 lb) 12/04/2020 9:49 AM EST Height 175.3 cm (5' 9 ) 12/04/2020 9:49 AM EST Body Mass Index 20.97 12/04/2020 9:49 AM EST documented in this encounter Plan of Treatment Upcoming Encounters Date Type Department Care Team (Late st Contact Info) Description 03/18/2025 12:00 PM EDT Clinical Support [facility] Laboratory Services [address] [facility] [address], 1st [place] [address] 04/01/2025 12:40 PM EDT Appointment [facility] Bone & Mineral Metabolism [address] [facility] [address], [address] [place] [address] 04/01/2025 1:00 PM EDT Office Visit [facility] Bone & Mineral Metabolism [address] [facility] [address], [address] [place] [address] Michaelle Sprague MD [address] [facility] [address] [place] [address] documented as of this encounter Visit Diagnoses Not on filedocumented in this encounter
--- OUTSIDE RECORDS SUMMARY | 2024-10-01 11:45 | XMS_ITS | Encounter Summary ---
Author Organization Healthcare Address [address] [place] [address] Care Team Providers Care Technical Sales Representative Name Role Phone Gera Low MD Primary Care Provider +1- [phone] Encounter Details Date Type Department Care Team (Latest Contact Info) Description 12/11/2021 Travel Social History Tobacco Use Types Packs/Day [...] have Coronavirus / COVID-19? No / Unsure 12/11/2021 1:47 PM EST documented as of this encounter Plan of Treatment Upcoming Encounters Date Type Department Care Team (Late st Contact Info) Description 03/18/2025 12:00 PM EDT Clinical Support Professional [facility] Laboratory Services [address] [facility] 1st [place] [address] 04/01/2025 12:40 PM EDT Appointment Professional [facility] Bone & Mineral Metabolism [address] [facility], [address] [place] [address] 04/01/2025 1:00 PM EDT Office Visit Professional [facility] [address] [facility], [address] [place] [address] Michaelle Sprague MD [address] [facility] [address] [place] [address] documented as of this encounter Visit Diagnoses Not on filedocumented in this encounter Additional Health Concerns Assessment Noted Time A fall risk assessment has been complete d for the patient 05/08/2021 11:21 AM EDT documented as of this encounter Care Teams Technical Sales Representative Relationship Specialty Start Date End Date Gera Low MD [address] [facility] [address] [facility] [address] [place] [address] PCP - General 03/09/21 documented as of this encounter
--- OUTSIDE RECORDS SUMMARY | 2024-10-01 11:45 | XMS_ITS | Encounter Summary ---
Author Organization [facility] Address [address] [place] [address] Care Team Providers Care Supervisor Public Health Nursing Name Role Phone Gera Low MD Primary Care Provider +1- [phone] Reason for Visit * Reason Onset Date Comments Med Refill 04/30/2022 Encounter Details Date Type Department Care Team (Late st Contact Info) Description 04/30/2022 Refill Professional [facility] Nephrology, Bone & Mineral Metabolism [address] [facility], [address] [place] [address] Michaelle Sprague MD [address] [place] [address] Age-related osteoporosis without current pathological [...] PM EDT documented as of this encounter Miscellaneous Notes * Telephone Encounter - Odette Tian, PharmD - 05/03/2022 11:21 AM EDT Please fax a Prolia prescription to [facility] at [phone]. Thank you. documented in this encounter Plan of Treatment Upcoming Encounters Date Type Department Care Team (Late st Contact Info) Description 03/18/2025 12:00 PM EDT Clinical Support [facility] Laboratory Services [address], [address] [place] [address] 04/01/2025 12:40 PM EDT Appointment [facility] Bone & Mineral Metabolism [address] [facility], [address] [place] [address] 04/01/2025 1:00 PM EDT Office Visit [facility] Bone & Mineral Metabolism [address], [address] [place] [id number] Michaelle Sprague MD [address] [facility] [address] [place] [address] documented as of this encounter Visit Diagnoses Diagnosis Age-related osteoporosis without current pathological fracture documented in this encounter Additional Health Concerns Assessment Noted Time A fall risk assessment has been complete d for the patient 04/22/2022 2:51 PM EDT documented as of this encounter Care Teams Supervisor Public Health Nursing Relationship Specialty Start Date End Date Gera Low MD [address] [place] [address] PCP - General 03/09/21 documented as of this encounter
--- OUTSIDE RECORDS SUMMARY | 2024-10-01 11:45 | XMS_ITS | Encounter Summary ---
Author Organization Healthcare Address [address] [place] [address] Care Team Providers Care Slip Cover Sewer Name Role Phone Gera Low MD Primary Care Provider +1- [phone] Encounter Details Date Type Department Care Team (Latest Contact Info) Description 04/22/2022 Travel Social History Tobacco Use Types Packs/Day [...] 03/18/2025 12:00 PM EDT Clinical Support Professional [facility] Laboratory Services [address], [address] [place] [address] 04/01/2025 12:40 PM EDT Appointment Professional [facility] Bone & Mineral Metabolism [address], [address] [place] [address] 04/01/2025 1:00 PM EDT Office Visit [facility] [address] [facility], [address] [place] [address] Michaelle Sprague MD [address] [facility] [address] [place] [address] documented as of this encounter Visit Diagnoses Not on filedocumented in this encounter Additional Health Concerns Assessment Noted Time A fall risk assessment has been complete d for the patient 04/22/2022 2:51 PM EDT documented as of this encounter Care Teams Slip Cover Sewer Relationship Specialty Start Date End Date Gera Low MD [address] [place] [address] PCP - General 03/09/21 documented as of this encounter
--- OUTSIDE RECORDS SUMMARY | 2024-10-01 11:45 | XMS_ITS | Encounter Summary ---
Author Organization [facility] Address [address] [place] [address] Care Team Providers Care International Representative Name Role Phone Unavailable Primary Care Provider Unavailabl e Encounter Details Date Type Department Care Team (Late st Contact Info) Description 12/14/2019 Legacy AEHR Vitals Encounter [facility] OUTPATIENT CONVERSIONS [address] [place] [address] ProviderJustin MD [address] [place] [address] Social History Tobacco Use Types Packs/Day [...] Sign Reading Time Taken Comments Blood Pressure 131/80 12/14/2019 11:16 AM EST Pulse 75 12/14/2019 11:16 AM EST Temperature - - Respiratory Rate - - Oxygen Saturation - - Inhaled Oxygen Concentration - - Weight 63.8 kg (140 lb 10.5 oz) 020 11:16 AM EST Height - - Body Mass Index - - documented in this encounter Plan of Treatment Upcoming Encounters Date Type Department Care Team (Late Contact Info) Description 03/18/2025 12:00 PM EDT Clinical Support [facility] Laboratory Services [address] [facility], 1st [place] [address] 04/01/2025 12:40 PM EDT Appointment [facility] Bone & Mineral Metabolism [address], [address] [place] [address] 04/01/2025 1:00 PM EDT Office Visit [facility] Bone & Mineral Metabolism [address], [address] [place] [address] Michaelle Sprague MD [address] [facility] [address] [place] [address] documented as of this encounter Visit Diagnoses Not on filedocumented in this encounter
--- OUTSIDE RECORDS SUMMARY | 2024-10-01 11:45 | XMS_ITS | Encounter Summary ---
Author Organization Healthcare Address [address] [place] [address] Care Team Providers Care Batting Machine Operator Name Role Phone Gera Low MD Primary Care Provider +1- [phone] Encounter Details Date Type Department Care Team (Latest Contact Info) Description 12/07/2021 Travel Social History Tobacco Use Types Packs/Day [...] have Coronavirus / COVID-19? No / Unsure 11/26/2021 1:27 PM EST documented as of this encounter Plan of Treatment Upcoming Encounters Date Type Department Care Team (Late st Contact Info) Description 03/18/2025 12:00 PM EDT Clinical Support [facility] Laboratory Services [address] [facility], 1st [place] [address] 04/01/2025 12:40 PM EDT Appointment [facility] Bone & Mineral Metabolism [address] [facility], [address] [place] [address] 04/01/2025 1:00 PM EDT Office Visit [facility] [address] [facility], [address] [place] [address] Michaelle Sprague MD [address] [facility] [address] [place] [address] documented as of this encounter Visit Diagnoses Not on filedocumented in this encounter Additional Health Concerns Assessment Noted Time A fall risk assessment has been complete d for the patient 05/08/2021 11:21 AM EDT documented as of this encounter Care Teams Batting Machine Operator Relationship Specialty Start Date End Date Gera Low MD [address] [facility] [facility] [address] [facility] [address] [place] [address] PCP - General 03/09/21 documented as of this encounter
--- OUTSIDE RECORDS SUMMARY | 2024-10-01 11:45 | XMS_ITS | Encounter Summary ---
Author Organization Healthcare Address [address] [place] [address] Care Team Providers Care Veteran Appeals Reviewer Name Role Phone Gera Low MD Primary Care Provider +1- [phone] Encounter Details Date Type Department Care Team (Latest Contact Info) Description 07/12/2021 Travel Social History Tobacco Use Types Packs/Day [...] have Coronavirus / COVID-19? No / Unsure 07/12/2021 7:44 PM EDT documented as of this encounter Plan of Treatment Upcoming Encounters Date Type Department Care Team (Late st Contact Info) Description 03/18/2025 12:00 PM EDT Clinical Support [facility] Laboratory Services [address] [facility], 1st [place] [address] 04/01/2025 12:40 PM EDT Appointment [facility] Bone & Mineral Metabolism [address] [facility], [address] [place] [address] 04/01/2025 1:00 PM EDT Office Visit Professional [facility] [address] [facility], [address] [place] [address] Michaelle Sprague MD [address] [facility] [address] [place] [address] documented as of this encounter Visit Diagnoses Not on filedocumented in this encounter Additional Health Concerns Assessment Noted Time A fall risk assessment has been complete d for the patient 05/08/2021 11:21 AM EDT documented as of this encounter Care Teams Veteran Appeals Reviewer Relationship Specialty Start Date End Date Gera Low MD [address] [facility] [address] [facility] [[email or web address] [address] [place] [address] PCP - General 03/09/21 documented as of this encounter
--- OUTSIDE RECORDS SUMMARY | 2024-10-01 11:45 | XMS_ITS | Encounter Summary ---
Author Organization Healthcare Address [address] [place] [address] Care Team Providers Care Pill Coater Name Role Phone Gera Low MD Primary Care Provider +1- [phone] Encounter Details Date Type Department Care Team ([facility] Contact Info) Description 04/24/2021 [facility] [address], [address] [place] [id number] Kelly Isaacs, RN IT - ELECTRONIC MEDICAL RECORD Social History Tobacco Use Types Packs/Day Years [...] have Coronavirus / COVID-19? No / Unsure 04/24/2021 10:55 AM EDT documented as of this encounter Plan of Treatment Upcoming Encounters Date Type Department Care Team ([facility] Contact Info) Description 03/18/2025 12:00 PM EDT Clinical Support [facility] Laboratory Services [address] [facility], 1st [place] [address] 04/01/2025 12:40 PM EDT Appointment [facility] Bone & Mineral Metabolism [address] [facility], [address] [place] [address] 04/01/2025 1:00 PM EDT Office Visit [facility] Bone & Mineral Metabolism [address] [facility], [address] [place] [address] Michaelle Sprague MD [address] [facility] [address] [place] [address] documented as of this encounter Visit Diagnoses Not on filedocumented in this encounter Care Teams Pill Coater Relationship Specialty Start Date End Date Gera Low MD [address] [facility] [address] [place] [address] PCP - General 03/09/21 documented as of this encounter
--- OUTSIDE RECORDS SUMMARY | 2024-10-01 11:45 | XMS_ITS | Encounter Summary ---
Author Organization Healthcare Address [address] [place] [address] Care Team Providers Care Flavorings Compounder Name Role Phone Gera Low MD Primary Care Provider +1- [phone] Encounter Details Date Type Department Care Team (Latest Contact Info) Description 11/13/2021 Travel Social History Tobacco Use Types Packs/Day [...] have Coronavirus / COVID-19? No / Unsure 11/13/2021 1:17 PM EST documented as of this encounter Plan of Treatment Upcoming Encounters Date Type Department Care Team (Late st Contact Info) Description 03/18/2025 12:00 PM EDT Clinical Support [facility] Laboratory Services [address] [facility], 1st [place] [address] 04/01/2025 12:40 PM EDT Appointment [facility] Bone & Mineral Metabolism [address] [facility], [address] [place] [address] 04/01/2025 1:00 PM EDT Office Visit [facility] [address] [facility], [address] [place] [address] Michaelle Sprague MD [address] [facility] [address] [place] [address] documented as of this encounter Visit Diagnoses Not on filedocumented in this encounter Additional Health Concerns Assessment Noted Time A fall risk assessment has been complete d for the patient 05/08/2021 11:21 AM EDT documented as of this encounter Care Teams Flavorings Compounder Relationship Specialty Start Date End Date Gera Low MD [address] [facility] [address] [facility] [address] [place] [address] PCP - General 03/09/21 documented as of this encounter
--- OUTSIDE RECORDS SUMMARY | 2024-10-01 11:45 | XMS_ITS | Encounter Summary ---
Author Organization Healthcare Address [address] [place] [address] Care Team Providers Care Topper Packer Name Role Phone Gera Low MD Primary Care Provider +1- [phone] Encounter Details Date Type Department Care Team (Latest Contact Info) Description 04/24/2021 Travel Social History Tobacco Use Types Packs/Day [...] Description 03/18/2025 12:00 PM EDT Clinical Support [facility] Laboratory Services [address] [facility], 1st [place] [address] 04/01/2025 12:40 PM EDT Appointment [facility] Bone & Mineral Metabolism [address], [address] [place] [address] 04/01/2025 1:00 PM EDT Office Visit [facility] Mineral Metabolism [address] [facility], [address] [place] [address] Michaelle Sprague MD [address] [facility] [address] [place] [address] documented as of this encounter Visit Diagnoses Not on filedocumented in this encounter Care Teams Topper Packer Relationship Specialty Start Date End Date Gera Low MD [address] [facility] [address] [place] [address] PCP - General 03/09/21 documented as of this encounter
--- OUTSIDE RECORDS SUMMARY | 2024-10-01 11:45 | XMS_ITS | Encounter Summary ---
Author Organization Healthcare Address [address] [place] [address] Care Team Providers Care Immigration Law Specialist Name Role Phone Gera Low MD Primary Care Provider +1- [phone] Encounter Details Date Type Department Care Team (Latest Contact Info) Description 04/07/2022 Travel Social History Tobacco Use Types Packs/Day [...] 03/18/2025 12:00 PM EDT Clinical Support [facility] Laboratory Services [address] [facility], 1st [place] [address] 04/01/2025 12:40 PM EDT Appointment [facility] Bone & Mineral Metabolism [address] [facility], [address] [place] [address] 04/01/2025 1:00 PM EDT Office Visit Professional [facility] [address] [facility], [address] [place] [address] Michaelle Sprague MD [address] [facility] [address] [place] [address] documented as of this encounter Visit Diagnoses Not on filedocumented in this encounter Additional Health Concerns Assessment Noted Time A fall risk assessment has been complete d for the patient 12/17/2021 1:41 PM EST documented as of this encounter Care Teams Immigration Law Specialist Relationship Specialty Start Date End Date Gera Low MD [address] [facility] [address] [place] [address] PCP - General 03/09/21 documented as of this encounter
--- OUTSIDE RECORDS SUMMARY | 2024-10-01 11:45 | XMS_ITS | Encounter Summary ---
Author Organization [facility] Address [address] [place] [address] Care Team Providers Care Vice President Of Recruiting Name Role Phone Gera Low MD Primary Care Provider +1- [phone] Reason for Referral * Imaging (Routine) - Closed Specialty Diagnoses / Procedures Referred By Contac t Referred To Contact Radiology Diagnoses Age-related osteoporosis without current pathological fracture Procedures Dexa Bone Density Michaelle Sprague MD [address] [place] [address] Phone: tel: fax: Referral ID Status Reason Start Date Expiration Date Visits Re quested Visits Authorized [id number] Closed 07/17/2021 01/13/2022 1 1 Encounter Details Date Type Department Care Team (Late st Contact Info) Description 07/17/2021 9:40 AM EDT Office Visit [facility], Bone & Mineral Metabolism [address], [address] [place] [address] Michaelle Sprague MD [address] [place] [address] Age-related osteoporosis without current pathological [...] as of this encounter Miscellaneous Notes * Patient Instructions - Michaelle Sprague MD - 07/17/2021 9:40 AM EDT 4 month * Progress Notes - Michaelle Sprague MD - 07/17/2021 9:40 AM EDT Bone Clinic Follow up note Delilah Tello is a 66 y.o. female who is referred by Dr. Gera Low MD for osteoporosis. She is seen for follow up today after instituting treatment with prolia to determine response and timing of next dose Past history: Last DXA scan Date Oct 2020 T-scores LS:0.2 LFN: -1.3 LTH:-1.4 RFN: -1.4 RTH:-1.0 Diagnosed osteoporosis 2007 - took fosamax 5 yrs and stabilized BMD (reports she had addl testing in 2011, 2013 at [facility]). Further decline noted in 2015, and changed to boniva for GI symptoms which she took since 2017. Also taking raloxifene. No h/o #s DXA scan Date jun 2018 (2015) ([facility]) T-scores LS:-0.6 (-0.6) LFN:-2.1 (-2.0) ?? Takes [...] EXCISION N/A Bartholin's cyst excision from [facility] ??? COLONOSCOPY N/A colonoscopy from [facility] Current Outpatient Medications Medication Sig Dispense Refill ??? denosumab (Prolia) 60 MG/ML solution prefilled syringe Inject 60 mg under the skin 1 (one) time. ??? Black Pepper-Turmeric (Turmeric Curcumin) 5-1000 MG capsule TAKE 1 CAPSULE Daily ??? calcium carbonate (Calcium 600) 1500 (600 Ca) MG tablet Take 1 tablet twice daily ??? cyanocobalamin (Vitamin B-12) 1000 MCG tablet TAKE 1 TABLET DAILY DIRECTED. ??? Multiple Vitamins-Iron tablet TAKE 1 TABLET [...] as otherwise noted in HPI. PHYSICAL EXAMINATION There were no vitals taken for this visit. Constitutional: No acute distress. Weight Height BMI: There is no height or weight on file to calculate BMI. BSA: There is no height or weight on file to calculate BSA. HEENT: normal. Cardiovascular: No JVD, no edema Pulmonary: Normal effort of breathing. Abdominal: no distension Musculoskeletal: Normal extremity movements Skin: No rashes or lesions. Neurologic: No focal deficits Psychiatric: Orientated to person, place, and time: Normal Mood and affect LAB RESULTS Renal Panel: Lab Results Component Value Date NA 142 07/03/2021 K 4.2 07/03/2021 CL 106 07/03/2021 CO2 25 07/03/2021 BUN 20 07/03/2021 CREATININE 0.74 07/03/2021 EGFR >60 07/03/2021 EGFR >60 07/03/2021 CA 9.0 11/21/2020 PHOS 2.9 07/03/2021 ALBUMIN 4.2 07/03/2021 MBD: Lab Results Component Value Date PTH 29 10/09/2018 CA 9.0 11/21/2020 CALCIUM 9.2 07/03/2021 PHOS 2.9 07/03/2021 MG 2.0 07/03/2021 VITAMIN D 25 Lab [...] is being followed for osteoporosis. She used rn long term care BPs and DXA shows a decline in BMD. She was taking Boniva, raloxifene and vit D. Risk factors for bone loss include age, premature menopause, correction smoking, correction BPs She underwent a full [...] although she is being treated with BPs rn long term care suggests that she has a significant decline [...] Jul 2019; will be followed annually. BTMs are showing recovery and we will proceed with the next dose of prolia We will start her on prolia; she has no active infection at present and no planned dental work. The schedule of administration, monitoring and side effects of Prolia were discussed. Prolia will be given by subcutaneous injection under supervision at the infusion center. The appropriate intervalbetween doses will be determined by monitoring markers, but it is usually administered every 6-12 months. She was advised to continue to take calcium and vitamin D supplements as instructed. She will need additional follow up blood tests 2 weeks after receiving the medication. Side effects of Prolia are increased risk of infections, low blood calcium, allergic reactions, mouth sores, bone, joint or muscle pain, bruising, jawbone problems, rarely pancreatitis, osteonecrosis of the jaw, atypical femur fracture, dermatitis and immunosuppression. She should contact us immediately in the event of any side effects or intolerance. We will see her back in 4 mths with results of DXA. Problem List Items Addressed This Visit Musculoskeletal Osteoporosis - Primary Relevant Medications denosumab (Prolia) 60 MG/ML solution prefilled syringe Other Relevant Orders Dexa Bone Density Counseling Documentation: She should [...] Avoidance of NSAIDs and other nephrotoxins and rn long term care nature of condition. Education provided was verbal [...] ENCOUNTER Orders Placed This Encounter Procedures ??? Dexa Bone Density Standing Status: Future Standing Expiration Date: 12/17/2022 Order Specific Question: Reason for exam: Answer: osteoporosis Order Specific Question: Where should this exam be performed? Answer: [facility] Clinic ([facility]) documented in this encounter Plan of Treatment Upcoming Encounters Date Type Department Care Team (Late st Contact Info) Description 03/18/2025 12:00 PM EDT Clinical Support [facility] Laboratory Services [address] [facility], 1st [place] [address] 04/01/2025 12:40 PM EDT Appointment [facility] Bone & Mineral Metabolism [address] [facility], [address] [place] [address] 04/01/2025 1:00 PM EDT Office Visit [facility] Mineral Metabolism [address] [facility], [address] [place] [address] Michaelle Sprague MD [address] [facility] [address] [place] [address] documented as of this encounter Results * Dexa Bone Density (12/11/2021 1:48 PM EST) Anatomical Region Laterality Modality L-spine Radiographic Zulay ging Narrative 12/23/2021 6:36 PM EST [facility] - Nephrology, Bone & Mineral Metabolism [address] [facility] [address], [place] [address] DXA Bone Densitometry Report: [12/11/21] Subjective ?? BMD test performed using the Propel DXA System (analysis version: 14.10) manufactured by [employer]. REFERRING PROVIDER: Michaelle Barton MD CLINICAL INFORMATION: osteoporosis PATIENT NAME: Delilah Tello PATIENT AGE: 66 y.o. LEGAL SEX: female RADIOGRAPHIC VIEWS: Sites scanned: AP Spine, HIP Right ??and HIP Left COMPARISON STUDY: ??11/21/20. FINDINGS: Based on WHO criteria (post-menopausal female) the diagnosis is Osteopenia . There is Improvement and Stability compared to prior measurements TREATMENT RECOMMENDATIONS: Work up for secondary osteoporosis and metabolic bone disease could be considered based on clinical indications. Treatment decisions should be based on clinical indications. Suggest general measures to optimize calcium and vitamin D status, fall prevention measures and reduce fracture risk. Consider repeating this study in one year or as clinically indicated to assess bone density change or response to treatment. us Michaelle Sprague MD IMG DXA PROCEDURES Final Resul t documented in this encounter Visit Diagnoses Diagnosis Age-related osteoporosis without current pathological fracture- Primary Age-related osteoporosis without current pathological fracture documented in this encounter Additional Health Concerns Assessment Noted Time A fall risk assessment has been complete d for the patient 05/08/2021 11:21 AM EDT documented as of this encounter Care Teams Vice President Of Recruiting Relationship Specialty Start Date End Date Gera Low MD [address] [place] [address] PCP - General 03/09/21 documented as of this encounter
--- OUTSIDE RECORDS SUMMARY | 2024-10-01 11:45 | XMS_ITS | Encounter Summary ---
Author Organization Healthcare Address [address] [place] [address] Care Team Providers Care Terminal Computer Operator Name Role Phone Gera Low MD Primary Care Provider +1- [phone] Encounter Details Date Type Department Care Team (Latest Contact Info) Description 07/03/2021 Travel Social History Tobacco Use Types Packs/Day [...] have Coronavirus / COVID-19? No / Unsure 07/03/2021 11:01 AM EDT documented as of this encounter Plan of Treatment Upcoming Encounters Date Type Department Care Team (Late st Contact Info) Description 03/18/2025 12:00 PM EDT Clinical Support [facility] Laboratory Services [address] [facility], 1st [place] [address] 04/01/2025 12:40 PM EDT Appointment [facility] Bone & Mineral Metabolism [address] [facility], [address] [place] [address] 04/01/2025 1:00 PM EDT Office Visit Professional [email or web address] [address] [facility], [address] [place] [address] Michaelle Sprague MD [address] [facility] [address] [place] [address] documented as of this encounter Visit Diagnoses Not on filedocumented in this encounter Additional Health Concerns Assessment Noted Time A fall risk assessment has been complete d for the patient 05/08/2021 11:21 AM EDT documented as of this encounter Care Teams Terminal Computer Operator Relationship Specialty Start Date End Date Gera Low MD [address] [facility] [address] [facility] [address] [place] [address] PCP - General 03/09/21 documented as of this encounter
--- OUTSIDE RECORDS SUMMARY | 2024-10-01 11:45 | XMS_ITS | Encounter Summary ---
Author Organization [facility] Address [address] [place] [address] Care Team Providers Care Adjunct Phlebotomy Instructor Name Role Phone Gera Low MD Primary Care Provider +1- [phone] Reason for Referral * Imaging (Routine) - Closed Specialty Diagnoses / Procedures Referred By Contac t Referred To Contact Radiology Diagnoses Age-related osteoporosis without current pathological fracture Procedures Dexa Bone Density Michaelle Sprague MD [address] [place] [address] Phone: tel: fax: Referral ID Status Reason Start Date Expiration Date Visits Re quested Visits Authorized [id number] Closed 04/29/2022 10/29/2023 1 1 Encounter Details Date Type Department Care Team (Late st Contact Info) Description 04/22/2022 4:00 PM EDT Office Visit [facility] [address], [address] [place] [address] Michaelle Sprague MD [address] [place] [address] Age-related osteoporosis without current pathological fracture (Primary Dx); Gastroesophageal reflux disease without esophagitis; Chronic obstructive pulmonary disease, unspecified COPD type [...] PM EDT documented as of this encounter Last Filed Vital Signs Vital Sign Reading Time Taken Comments Blood Pressure 138/78 04/22/2022 2:47 PM EDT Pulse 81 04/22/2022 2:47 PM EDT Temperature - - Respiratory Rate - - Oxygen Saturation - - Inhaled Oxygen Concentration - - Weight 68.7 kg (151 lb 6.4 oz) 04/22/2022 2:47 P M EDT Height 172.7 cm (5' 8 ) 04/22/2022 2:47 PM EDT Body Mass Index 23.02 04/22/2022 2:47 PM EDT documented in this encounter Miscellaneous Notes * Progress Notes - Michaelle Sprague MD - 04/22/2022 4:00 PM EDT Patient identity has been confirmed using name and date of ? Yes Authorizations and Agreements/Telemedicine Consent sent and consent confirmed? Yes Patient confirms they are physically located in [place]? Yes Provider has confirmed with [employer] that provider is authorized to provide services in patient's stated location? Yes Visit Type Telecare via online digital audio and video Patient Location Patient's Home Provider Location Healthcare Facility Total Time 25 minutes Bone Clinic Follow up note Delilah Tello is a 67 y.o. female who is referred by Dr. Gera Low MD for osteoporosis. She is seen for follow up today after instituting treatment with prolia to determine response and timing of next dose Her last shot was Aug 06 2021 Past history: DXA scan Date Nov 2021 T-scores LS:0.2 LFN: -1.4 LTH:-1.4 RFN: -1.2 RTH:-0.8 Last DXA scan Date Oct 2020 T-scores LS:0.2 LFN: -1.3 LTH:-1.4 RFN: -1.4 RTH:-1.0 Diagnosed osteoporosis 2007 - took fosamax 5 yrs and stabilized BMD (reports she had addl testing in 2011, 2012 at [place]). Further decline noted in 2015, and changed to boniva for GI symptoms which she took since 2016. Also taking raloxifene. No h/o #s DXA scan Date jun 2018 (2015) ([employer]) T-scores LS:-0.6 (-0.6) LFN:-2.1 (-2.0) ?? Takes vit D 1000 units per day Takes dairy No systematic exercise Menopause late 40's - took HRT 2-3 yrs Took control age [age]; 2 miscarriages. ?? Other issues - bursitis Smoker - quit 2015; 40 py; has COPD ?? FH: Mother [...] The setting of decline in BMD and fpc BPs, suggests that she has a significant [...] disease) (CMS/HCC) ??? Osteoporosis ??? Bursitis, hip ??? Acid reflux Past Surgical History: Procedure Laterality Date ??? BARTHOLIN GLAND CYST EXCISION N/A Bartholin's cyst excision from [facility] ??? COLONOSCOPY N/A colonoscopy from [facility] Current Outpatient Medications Medication Sig Dispense Refill ??? Black Pepper-Turmeric (Turmeric Curcumin) 5-1000 MG capsule TAKE 1 CAPSULE Daily ??? calcium carbonate 1500 (600 Ca) MG tablet [...] in HPI. PHYSICAL EXAMINATION Visit Vitals BP 138/78 Pulse 81 Constitutional: No acute distress. Weight 68.7 kg (151 lb 6.4 oz) Height 1.727 m (5' 8 ) BMI: Body mass index is 23.02 kg/m??. BSA: Body surface area is 1.82 meters squared. HEENT: normal. Cardiovascular: No JVD, no edema Pulmonary: Normal effort of breathing. Abdominal: no distension Musculoskeletal: Normal extremity movements Skin: No rashes or lesions. Neurologic: No focal deficits Psychiatric: Orientated to person, place, and time: Normal Mood and affect LAB RESULTS Renal Panel: Lab Results Component Value Date NA 140 04/08/2022 K 4.2 04/08/2022 CL 105 04/08/2022 CO2 25 04/08/2022 BUN 16 04/08/2022 CREATININE 0.79 04/08/2022 EGFR >60 04/08/2022 EGFR >60 04/08/2022 CA 9.0 11/21/2020 PHOS 3.3 04/08/2022 ALBUMIN 4.4 04/08/2022 MBD: Lab Results Component Value Date PTH 29 10/09/2018 CA 9.0 11/21/2020 CALCIUM 9.8 04/08/2022 PHOS 3.3 04/08/2022 MG 2.1 04/08/2022 VITAMIN D 25 Lab Results Component Value Date VITD25 62.8 04/08/2022 Paraproteinemia Labs: Lab Results Component Value Date KAPPALAMBDA 0.98 10/09/2018 Urine studies: Lab Results Component Value Date CAR 4.8 03/07/2020 CALCIUMUR 8.2 07/03/2021 CREATUR 47 07/03/2021 Bone Turnover Markers: Lab Results Component Value Date BSAP 7.5 (L) 04/08/2022 CTELOX 117 04/08/2022 NTELOPEPTS 6.2 04/08/2022 OSTEOCALCIN 9 04/08/2022 SERIAL BONE TURNOVER MARKERS Results for DELILAH [...] is being followed for osteoporosis. She used superintendent container terminal BPs and DXA shows a decline in BMD. She was taking Boniva, raloxifene and vit D. Risk factors for bone loss include age, premature menopause, superintendent container terminal smoking, superintendent container terminal BPs She underwent a full work up [...] although she is being treated with BPs fpc suggests that she has a significant decline [...] any AEs. Her next dose was Jul 2021. DXA scan nov 2021 shows osteopenia with improved T-scores over past DXA Jul 2019; will be followed annually. Bone turnover markers are showing recovery and we will proceed to schedule her next shot of prolia;she has no active infection at present and [...] intolerance. We will see her back in 6 mths with results of labs to schedule her prolia shot. Problem List Items Addressed This Visit Respiratory COPD (chronic obstructive pulmonary disease) ([facility]) Digestive Acid reflux Musculoskeletal Osteoporosis - Primary Relevant Orders N telopeptide, cross-linked, serum Bone Specific Alkaline Phosphatase Osteocalcin by ECIA C-Telopeptide Renal Function Panel, Plasma Dexa Bone Density Counseling Documentation: She should [...] Avoidance of NSAIDs and other nephrotoxins and superintendent container terminal nature of condition. Education provided was verbal [...] Density Standing Status: Future Standing Expiration Date: 10/30/2023 Order Specific Question: Reason for exam: Answer: osteoporosis Order Specific Question: Where should this exam be performed? Answer: [facility] Clinic ([facility]) ??? N telopeptide, cross-linked, serum Standing Status: Future Standing Expiration Date: 04/29/2023 Scheduling Instructions: 2 WEEKS BEFORE NEXT VISIT Order Specific Question: Release to patient in [facility] Answer: Immediate ??? Bone Specific Alkaline Phosphatase Standing Status: Future Standing Expiration Date: 04/29/2023 Order Specific Question: Release to patient in MyChart Answer: Immediate ??? Osteocalcin by ECIA Standing Status: Future Standing Expiration Date: 04/29/2023 Order Specific Question: Release to patient in MyChart Answer: Immediate ??? C-Telopeptide Standing Status: Future Standing Expiration Date: 04/29/2023 Order Specific Question: Release to patient in MyChart Answer: Immediate ??? Renal Function Panel, Plasma Standing Status: Future Standing Expiration Date: 04/29/2023 Order Specific Question: Release to patient in MyChart Answer: Immediate documented in this encounter Plan of Treatment Upcoming Encounters Date Type Department Care Team (Late st Contact Info) Description 03/18/2025 12:00 PM EDT Clinical Support [facility] [place] [address] [place] [address] 04/01/2025 12:40 PM EDT Appointment [facility] [place] Min[facility] Metabolism [address], [address] [place] [address] 04/01/2025 1:00 PM EDT Office Visit [facility] [place] [address], [address] [place] [address] Michaelle Sprague MD [address] [place] [address] documented as of this encounter Results * Renal Function Panel, Plasma (12/19/2022 12:39 PM EST) Glucose, Plasma 91 74 - 99 mg/dL 12/19/2022 3:03 PM EST [facility] BUN, Plasma 12 8 - 23 mg/dL 12/19/2022 3:03 PM EST [facility] Creatinine, Plasma 0.72 0.60 - 1.10 mg/dL 12/19/2022 3:03 PM EST [facility] BUN/Creatinine Ratio 17 12/19/2022 3:03 PM EST [facility] Sodium, Plasma 142 136 - 145 mmol/L 12/19/2022 3:03 PM EST [facility] Potassium, Plasma 4.0 3.7 - 4.8 mmol/L 12/19/2022 3:03 PM EST [facility] Chloride, Plasma 107 97 - 107 mmol/L 12/19/2022 3:03 PM EST [facility] CO2, Plasma 26 22 - 29 mmol/L 12/19/2022 3:03 PM EST [facility] Anion Gap 9 6 - 16 mmol/L 12/19/2022 3:03 PM EST [facility] Total Calcium, Plasma 10.1 8.9 - 10.2 mg/dL 12/19/2022 3:03 PM EST [facility] Phosphorus, Plasma 3.1 2.5 - 4.5 mg/dL 12/19/2022 3:03 PM EST [facility] Albumin, Plasma 4.2 3.5 - 5.2 g/dL 12/19/2022 3:03 PM EST [facility] eGFRcr 92.9 mL/min/1.7 3m*2 12/19/2022 3:03 PM EST [facility] Comment: Reported eGFRcr in mL/min/1.73m2 is based the CKD-EPI 2021 equation that does not use a race coefficient. Effective 05/22/22 our laboratory changed the eGFR calculation to the CKD-EPI 2021 equation from the previously reported eGFR, based on the MDRD equation. ??For comparisons between the two equations, please see laboratory website: ??[email or web address] Blood Venous blood specimen / Unknown Venipuncture / Unknown 12/19/2022 12:39 PM EST 12/19/2022 12:39 PM EST us Michaelle Sprague MD LAB BLOOD ORDERABLES Final Res ult [facility] [address] [place] [address] * C-Telopeptide (12/19/2022 12:39 PM EST) C Telopeptide Beta Cross Linked Serum Result 151 pg/mL 12/22/2022 4:01 PM EST [facility] Blood Venous blood specimen / Unknown Venipuncture / Unknown 12/19/2022 12:39 PM EST 12/19/2022 12:39 PM EST Narrative [facility] - 12/22/2022 4:01 PM EST Premenopausal Females: 136-689 pg/mL Postmenopausal Females: 177-1015 pg/mL REFERENCE INTERVAL: C-Telopeptide, Tclk-Djepx-Jkfeji, Serum Access complete set of age- and/or gender-specific reference intervals for this test in the [facility] Test Directory ([employer]). Performed By: [facility] [address] [place] [address] Exhibit Carpenter: Vijay Bird MD, PhD Michaelle Sprague MD LAB BLOOD ORDERABLES Final Res ult Performing Organization Address [facility] Co de Phone Number [facility] Red e [facility] [address] [place] [address] * Osteocalcin by ECIA (12/19/2022 12:39 PM EST) [facility] OSTEOCALCIN BY ECIA 8 8 - 36 ng/mL 12/22/2022 4:13 PM EST [facility] Blood Venous blood specimen / Unknown Venipuncture / Unknown 12/19/2022 12:39 PM EST 12/19/2022 12:39 PM EST Narrative [facility] ([facility] - 12/22/2022 4:13 PM EST INTERPRETIVE INFORMATION: Osteocalcin by ECIA In patients with renal failure, the osteocalcin result may be directly elevated, due to impaired clearance, and/or indirectly elevated due to renal osteodystrophy. Access complete set of age- and/or gender-specific reference intervals for this test in the [facility] Test Directory ([employer]). Performed By: [facility] [address] [place] [address] Exhibit Carpenter: Vijay Bird MD, PhD Michaelle Sprague MD LAB BLOOD ORDERABLES Final Res ult Performing Organization Address City/[facility]/ZIP Co de Phone Number [facility] Red e [facility]) [address] [place] [address] * (ABNORMAL) Bone Specific Alkaline Phosphatase (12/19/2022 12:39 PM EST) Bone Specific Alkaline Phosphatase 7.8(L) 10.5 - 44.8 ug/L 12/19/2022 6:19 PM EST [facility] Comment: BSAP (Ostase) Reference Values, Female, age 18 years and up: ?? Premenopausal: ??4.5 to 16.9 ug/L ?? Postmenopausal: 7.0 to 22.4 ug/L Blood Venous blood specimen / Unknown Venipuncture / Unknown 12/19/2022 12:39 PM EST 12/19/2022 12:39 PM EST Michaelle Sprague MD LAB BLOOD ORDERABLES Final Res ult Performing Organization Address City/State/[facility] de Phone Number [facility] [address] [place] [address] * N telopeptide, cross-linked, serum (12/19/2022 12:39 PM EST) N-Telopeptide, Cross-Linked, Serum 7.7 nM BCE 12/23/2022 5:07 PM EST [facility] ([facility]) Blood Venous blood specimen / Unknown Venipuncture / Unknown 12/19/2022 12:39 PM EST 12/19/2022 12:39 PM EST Narrative [facility] ([place]) - 12/23/2022 5:07 PM EST INTERPRETIVE INFORMATION: N-Telopeptide, Cross-Linked, Serum ??Adult Male.......................5.4 - 24.2 nM BCE ??Premenopausal Adult Female.......6.2 - 19.0 nM BCE The target value for treated post-menopausal adult females is the same as the premenopausal reference interval. BCE = Bone Collagen Equivalent Performed By: [facility] [address] [place] [address], [place] [address] Exhibit Carpenter: Vijay Bird MD, PhD Michaelle Sprague MD LAB BLOOD ORDERABLES Final Res ult [facility] [place]) [place] [address] * Dexa Bone Density (12/19/2022 11:57 AM EST) Anatomical Region Laterality Modality L-spine Radiographic Zulay ging Narrative 12/23/2022 9:48 PM EST [facility] - Nephrology, Bone & Mineral Metabolism [address] [place] [address] DXA Bone Densitometry Report: [12/19/2022] Subjective ?? BMD test performed using the XipLink DXA System (analysis version: 14.10) manufactured by [employer]. REFERRING PROVIDER: Michaelle Barton MD CLINICAL INFORMATION: osteoporosis PATIENT NAME: Delilah Tello PATIENT AGE: 67 y.o. LEGAL SEX: [...] Age-related osteoporosis without current pathological fracture- Primary Gastroesophageal reflux disease without esophagitis Esophageal reflux Chronic obstructive pulmonary disease, unspecified COPD type (CMS/HCC) Age-related osteoporosis without current pathological fracture documented in this encounter Additional Health Concerns Assessment Noted Time A fall risk assessment has been complete d for the patient 04/22/2022 2:51 PM EDT documented as of this encounter Care Teams Adjunct Phlebotomy Instructor Relationship Specialty Start Date End Date Gera Low MD [address] [place] [address] PCP - General 03/09/21 documented as of this encounter
--- OUTSIDE RECORDS SUMMARY | 2024-10-01 11:45 | XMS_ITS | Encounter Summary ---
Author Organization Healthcare Address [address] [place] [address] Care Team Providers Care Licensing Director Name Role Phone Gera Low MD Primary Care Provider +1- [phone] Encounter Details Date Type Department Care Team (Latest Contact Info) Description 11/26/2021 Travel Social History Tobacco Use Types Packs/Day [...] 03/18/2025 12:00 PM EDT Clinical Support Professional [facility] [address] [facility] [place] [address] 04/01/2025 12:40 PM EDT Appointment Professional [facility] & Mineral Metabolism [address] [facility], [address] [place] [address] 04/01/2025 1:00 PM EDT Office Visit [facility] [address] [facility], [address] [place] [address] Michaelle Sprague MD [address] [facility] [address] [place] [address] documented as of this encounter Visit Diagnoses Not on filedocumented in this encounter Additional Health Concerns Assessment Noted Time A fall risk assessment has been complete d for the patient 05/08/2021 11:21 AM EDT documented as of this encounter Care Teams Licensing Director Relationship Specialty Start Date End Date Gera Low MD [address] [facility] [address] [facility] [address] [place] [address] PCP - General 03/09/21 documented as of this encounter
--- OUTSIDE RECORDS SUMMARY | 2024-10-01 11:45 | XMS_ITS | Encounter Summary ---
Author Organization Healthcare Address [address] [place] [address] Care Team Providers Care Line Appliance Assembler Name Role Phone Gera Low MD Primary Care Provider +1- [phone] Encounter Details Date Type Department Care Team (Latest Contact Info) Description 04/18/2022 Travel Social History Tobacco Use Types Packs/Day [...] 12:00 PM EDT Clinical Support Professional [facility] [address] [facility], 1st [place] [address] 04/01/2025 12:40 PM EDT Appointment Professional [facility] Min[facility] [address] [facility], [address] [place] [address] 04/01/2025 1:00 PM EDT Office Visit [facility] [address] [facility], [address] [place] [address] Michaelle Sprague MD [address] [facility] [address] [place] [address] documented as of this encounter Visit Diagnoses Not on filedocumented in this encounter Additional Health Concerns Assessment Noted Time A fall risk assessment has been complete d for the patient 12/17/2021 1:41 PM EST documented as of this encounter Care Teams Line Appliance Assembler Relationship Specialty Start Date End Date Gera Low MD [address] [facility] [address] [place] [address] PCP - General 03/09/21 documented as of this encounter
--- OUTSIDE RECORDS SUMMARY | 2024-10-01 11:45 | XMS_ITS | Encounter Summary ---
Author Organization [facility] Address [address] [place] [address] Care Team Providers Care Finishing Trimmer Name Role Phone Gera Low MD Primary Care Provider +1- [phone] Reason for Visit * Imaging (Routine) - Closed Specialty Diagnoses / Procedures Referred By Contac t Referred To Contact Radiology Diagnoses Age-related osteoporosis without current pathological fracture Procedures Dexa Bone Density Michaelle Sprague MD [address] [place] [address] Phone: tel: fax: Referral ID Status Reason Start Date Expiration Date Visits Re quested Visits Authorized [id number] Closed 07/17/2021 01/13/2022 1 1 Encounter Details Date Type Department Care Team (Latest Contact Info) Description 12/11/2021 2:00 PM EST Ancillary Procedure [facility] Nephrology, Bone & Mineral Metabolism [address], [address] [place] [address] Age-related osteoporosis without current pathological [...] Description 03/18/2025 12:00 PM EDT Clinical Support [facility] Services [address] [place] [address] 04/01/2025 12:40 PM EDT Appointment [facility] Mineral Metabolism [address] [facility], [address] [place] [address] 04/01/2025 1:00 PM EDT Office Visit [facility] Mineral Metabolism [address] [facility], [address] [place] [address] Michaelle Sprague MD [address] [place] [address] documented as of this encounter Procedures Procedure Name Priority Date/Time Associated Diagnosis Comments DEXA BONE DENSITY Routine 12/11/2021 1:4 8 PM EST Age-related osteoporosis without current pathological fracture documented in this encounter Results * Dexa Bone Density (12/11/2021 1:48 PM EST) Anatomical Region Laterality Modality L-spine Radiographic Zulay ging Narrative 12/23/2021 6:36 PM EST [facility] - Nephrology, Bone & Mineral Metabolism [address], [place] [address] DXA Bone Densitometry Report: [12/11/21] Subjective ?? BMD test performed using the eBoox DXA System (analysis version: 14.10) manufactured by [employer]. REFERRING PROVIDER: Michaelle Barton MD CLINICAL INFORMATION: osteoporosis PATIENT NAME: Natividad Tello PATIENT AGE: 66 y.o. LEGAL SEX: [...] documented as of this encounter Care Teams Finishing Trimmer Relationship Specialty Start Date End Date Gera Low MD [address] [place] [address] PCP - General 03/09/21 documented as of this encounter
--- OUTSIDE RECORDS SUMMARY | 2024-10-01 11:45 | XMS_ITS | Encounter Summary ---
Author Organization [facility] Address [address] [id number] Care Team Providers Care Felt Hat Pouncing Operator Hand Name Role Phone Gera Low MD Primary Care Provider +1- [phone] Encounter Details Date Type Department Care Team ([facility] Contact Info) Description 05/07/2022 Telephone [facility] [address] [facility], [address] [place] [address] Michaelle Sprague MD [address] [place] [address] Social History Tobacco Use Types [...] encounter Miscellaneous Notes * Telephone Encounter - Deshawn Holly RN - 05/10/2022 4:43 PM EDT OK to use 04/11 labs. Thanks * Telephone Encounter - Natividad Wolfe - 05/07/2022 12:01 PM EDT Patient Phone Message Reason for Call: [facility] called RE: Prolea Prefill syringe [facility]. Caller is requesting authorization to ship to pt's home. Transferred call to [facility] for assistance. Toy Jayne at Specialty said she could take care of it, so no further action needed. Best contact number and optimal time of day to reach caller: Contact: Ashley JEREMY [phone] Note: Please do not reply to this message. Follow-up communication and further actions as a result of this message need to be communicated with the patient directly, if the patient is not active onMyChart. If the patient is active on MyChart, they will receive notification of the communication/outcome via MyChart. * Telephone Encounter - Manish Quezada - 05/07/2022 10:00 AM EDT Patient Phone Message Reason for Call: Paula sent pts referral to [facility] for prolea, because of insurance. Best contact number and optimal time of day to reach caller: Note: Please do not reply to this message. Follow-up communication and further actions as a result of this message need to be communicated with the patient directly, if the patient is not active onMyChart. If the patient is active on MyChart, they will receive notification of the communication/outcome via MyChart. documented in this encounter Plan of Treatment Upcoming Encounters Date Type Department Care Team (Late st Contact Info) Description 03/18/2025 12:00 PM EDT Clinical Support Professional [facility] Services [address] [place] [address] 04/01/2025 12:40 PM EDT Appointment [facility] & Mineral Metabolism [address] [facility], [address] [place] [address] 04/01/2025 1:00 PM EDT Office Visit [facility] & Mineral Metabolism [address] [facility], [address] [place] [address] Michaelle Sprague MD [address] [facility] [address] [place] [address] documented as of this encounter Visit Diagnoses Not on filedocumented in this encounter Additional Health Concerns Assessment Noted Time A fall risk assessment has been complete d for the patient 04/22/2022 2:51 PM EDT documented as of this encounter Care Teams Felt Hat Pouncing Operator Hand Relationship Specialty Start Date End Date Gera Low MD [address] [place] [address] PCP - General 03/09/21 documented as of this encounter
--- OUTSIDE RECORDS SUMMARY | 2024-10-01 11:45 | XMS_ITS | Encounter Summary ---
Author Organization Healthcare Address [address] [place] [address] Care Team Providers Care Manager Image Name Role Phone Gera Low MD Primary Care Provider +1- [phone] Encounter Details Date Type Department Care Team ([facility] st Contact Info) Description 05/08/2021 11:20 AM EDT Office Visit Professional [facility] Mineral Metabolism [address], [address] [place] [address] Michaelle Sprague MD [address] [place] [address] Age-related osteoporosis without current pathological [...] have Coronavirus / COVID-19? No / Unsure 05/08/2021 11:08 AM EDT documented as of this encounter Last Filed Vital Signs Vital Sign Reading Time Taken Comments Blood Pressure 146/86 05/08/2021 11:16 AM EDT Pulse 88 05/08/2021 11:16 AM EDT Temperature - - Respiratory Rate - - Oxygen Saturation - - Inhaled Oxygen Concentration - - Weight 64.4 kg (142 lb) 05/08/2021 11:16 AM EDT Height 175.3 cm (5' 9 ) 05/08/2021 11:16 AM EDT Body Mass Index 20.97 05/08/2021 11:16 AM EDT documented in this encounter Miscellaneous Notes * Assessment & Plan Note - Michaelle Sprague MD - 05/08/2021 9:42 PM EDT Associated Problem(s): Osteoporosis She used retirement BPs and DXA shows a decline in BMD. She was taking Boniva, raloxifene and vit D. 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 female who [...] had addl testing in 2011, 2012 at [place]). Further decline noted in 2015, and changed [...] The setting of decline in BMD and retirement BPs, suggests that she has a significant [...] CYST EXCISION N/A Bartholin's cyst excision from [facility] ??? COLONOSCOPY N/A colonoscopy from [facility] Current Outpatient Medications Medication Sig Dispense Refill ??? Black Pepper-Turmeric (Turmeric Curcumin) 5-1000 MG capsule TAKE 1 CAPSULE Daily ??? calcium carbonate (Calcium 600) 1500 (600 Ca) MG tablet Take 1 tablet twice daily ??? cyanocobalamin (Vitamin B-12) 1000 MCG tablet TAKE 1 TABLET DAILY DIRECTED. ??? denosumab (Prolia) 60 MG/ML solution prefilled syringe INJECT 60 MG Once ??? Multiple Vitamins-Iron tablet TAKE 1 TABLET [...] in HPI. PHYSICAL EXAMINATION Visit Vitals BP 146/86 Pulse 88 Constitutional: No acute distress. Weight 64.4 kg (142 lb) Height 1.753 m (5' 9 ) BMI: Body mass index is 20.97 kg/m??. BSA: Body surface area is 1.77 meters squared. HEENT: normal. Cardiovascular: No JVD, no edema Pulmonary: Normal effort of breathing. Abdominal: no distension Musculoskeletal: Normal extremity movements Skin: No rashes or lesions. Neurologic: No focal deficits Psychiatric: Orientated to person, place, and time: Normal Mood and affect LAB RESULTS Renal Panel: Lab Results Component Value Date NA 140 04/24/2021 K 4.4 04/24/2021 CL 105 04/24/2021 CO2 24 04/24/2021 BUN 19 04/24/2021 CREATININE 0.73 04/24/2021 EGFR >60 04/24/2021 EGFR >60 04/24/2021 CA 9.0 11/21/2020 PHOS 3.1 04/24/2021 ALBUMIN 4.4 04/24/2021 MBD: Lab Results Component Value Date PTH 29 10/09/2018 CA 9.0 11/21/2020 CALCIUM 9.9 04/24/2021 PHOS 3.1 04/24/2021 MG 2.1 04/24/2021 VITAMIN D 25 Lab Results Component Value Date VITD25 59.6 04/24/2021 Paraproteinemia Labs: Lab Results Component Value Date KAPPALAMBDA 0.98 10/09/2018 Urine studies: Lab Results Component Value Date CAR 4.8 03/07/2020 CALCIUMUR 27.9 04/24/2021 CREATUR 151 04/24/2021 Bone Turnover Markers: Lab Results Component Value Date BSAP 8.7 (L) 04/24/2021 CTELOX 70 04/24/2021 NTELOPEPTS 6.5 04/24/2021 OSTEOCALCIN 7 (L) 04/24/2021 ASSESSMENT/PLAN Natividad Tello is a 66 y.o. female who is being followed for osteoporosis. 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 She was taking Boniva, raloxifene and vit D. 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 Education provided was verbal [...] providers. It was a pleasure to see Natividad Tello today in clinic. ENCOUNTER TIMING: I personally spent a total of 20 minutes on this encounter. This time includes face to face with patient, counseling and discussion, lab/result interpretation, coordination of follow-up care, document review. ORDERS PLACED THIS ENCOUNTER Orders Placed This Encounter Procedures ??? N telopeptide, cross-linked, serum 2 WEEKS BEFORE NEXT VISIT Standing Status: Future Standing Expiration Date: 05/08/2022 Scheduling Instructions: 2 WEEKS BEFORE NEXT VISIT Order Specific Question: Release to patient in MyChart Answer: Immediate ??? Bone Specific Alkaline Phosphatase 2 WEEKS BEFORE NEXT VISIT Standing Status: Future Standing Expiration Date: 05/08/2022 Order Specific Question: Release to patient in MyChart Answer: Immediate ??? Magnesium, Plasma 2 WEEKS BEFORE NEXT VISIT Standing Status: Future Standing Expiration Date: 05/08/2022 Order Specific Question: Release to patient in MyChart Answer: Immediate ??? Vitamin D 25 Hydroxy 2 WEEKS BEFORE NEXT VISIT Standing Status: Future Standing Expiration Date: 05/08/2022 Order Specific Question: Release to patient in MyChart Answer: Immediate ??? Calcium, Random, Urine 2 WEEKS BEFORE NEXT VISIT Standing Status: Future Standing Expiration Date: 05/08/2022 Order Specific Question: Release to patient in MyChart Answer: Immediate ??? Creatinine, Random, Urine 2 WEEKS BEFORE NEXT VISIT Standing Status: Future Standing Expiration Date: 05/08/2022 Order Specific Question: Release to patient in MyChart Answer: Immediate ??? Osteocalcin by ECIA 2 WEEKS BEFORE NEXT VISIT Standing Status: Future Standing Expiration Date: 05/08/2022 Order Specific Question: Release to patient in MyChart Answer: Immediate ??? C-Telopeptide 2 WEEKS BEFORE NEXT VISIT Standing Status: Future Standing Expiration Date: 05/08/2022 Order Specific Question: Release to patient in MyChart Answer: Immediate ??? Renal Function Panel, Plasma 2 WEEKS BEFORE NEXT VISIT Standing Status: Future Standing Expiration Date: 05/08/2022 Order Specific Question: [facility] Answer: Immediate documented in this encounter Plan of Treatment Upcoming Encounters Date Type Department Care Team ([facility] st Contact Info) Description 03/18/2025 12:00 PM EDT Clinical Support [facility] Laboratory Services [address] [facility], 1st [place] [address] 04/01/2025 12:40 PM EDT Appointment [facility] Bone & Mineral Metabolism [address], [address] [place] [address] 04/01/2025 1:00 PM EDT Office Visit [facility] Bone & Mineral Metabolism [address], [address] [place] [address] Michaelle Sprague MD [address] [place] [address] documented as of this encounter Results * (ABNORMAL) Renal Function Panel, Plasma (07/03/2021 11:04 AM EDT) Glucose, Plasma 73(L) 74 - 99 mg/dL 07/03/2021 3:32 PM EDT [facility] BUN, Plasma 20 8 - 23 mg/dL 07/03/2021 3:32 PM EDT [facility] Creatinine, Plasma 0.74 0.60 - 1.10 mg/dL 07/03/2021 3:32 PM EDT [facility] BUN/Creatinine Ratio 27 07/03/2021 3:32 PM EDT [facility] Sodium, Plasma 142 136 - 145 mmol/L 07/03/2021 3:32 PM EDT [facility] Potassium, Plasma 4.2 3.7 - 4.8 mmol/L 07/03/2021 3:32 PM EDT [facility] Chloride, Plasma 106 97 - 107 mmol/L 07/03/2021 3:32 PM EDT [facility] CO2, Plasma 25 22 - 29 mmol/L 07/03/2021 3:32 PM EDT [facility] Anion Gap 11 6 - 16 mmol/L 07/03/2021 3:32 PM EDT [facility] Total Calcium, Plasma 9.2 8.9 - 10.2 mg/dL 07/03/2021 3:32 PM EDT [facility] Phosphorus, Plasma 2.9 2.5 - 4.5 mg/dL 07/03/2021 3:32 PM EDT [facility] Albumin, Plasma 4.2 3.5 - 5.2 g/dL 07/03/2021 3:32 PM EDT [facility] eGFR >60 >60 mL/min/1.7 3m*2 07/03/2021 3:32 PM EDT [facility] Comment:eGFR = estimated GFR ; eGFR units = mL/min/1.73 sq meters Chronic Kidney Disease is considered if eGFR <60 mL/min/1.73 sq meters Kidney failure is considered if eGFR is <15 mL/min/1.73 sq meters. eGFR assumes steady state plasma creatinine concentration; not applicable if renal function is rapidly changing or patient is on dialysis. eGFR, if AFR/AM >60 >60 mL/min/1.7 3m*2 07/03/2021 3:32 PM EDT [facility] Comment:eGFR = estimated GFR ; eGFR units = mL/min/1.73 sq meters Chronic Kidney Disease is considered if eGFR <60 mL/min/1.73 sq meters Kidney failure is considered if eGFR is <15 mL/min/1.73 sq meters. eGFR assumes steady state plasma creatinine concentration; not applicable if renal function is rapidly changing or patient is on dialysis. Blood Venous blood specimen / Unknown Venipuncture / Unknown 07/03/2021 11:04 AM EDT 07/03/2021 11:04 AM EDT Michaelle Sprague MD LAB BLOOD ORDERABLES Final Res ult [facility] [address] [place] [address] * C-Telopeptide (07/03/2021 11:04 AM EDT) C Telopeptide Beta Cross Linked Serum Result 97 pg/mL 07/05/2021 2:37 PM EDT [facility] ([place]) Blood Venous blood specimen / Unknown Venipuncture / Unknown 07/03/2021 11:04 AM EDT 07/03/2021 11:04 AM EDT Narrative [facility] ([place]) - 07/05/2021 2:37 PM EDT Postmenopausal Females: 104-1008 pg/mL REFERENCE INTERVAL: C-Telopeptide, Jusf-[id number]-[id number], Serum Access complete set of age- and/or gender-specific reference intervals for this test in the [facility] Directory ([facility]). Performed By: [facility] [address] [place], [place] [id number] Real Estate Inspector: Aminata Currie MD Michaelle Sprague MD LAB BLOOD ORDERABLES Final Res ult Performing Organization Address [facility] Co de Phone Number [facility]) [address] [place] [address] * (ABNORMAL) Osteocalcin by ECIA (07/03/2021 11:04 AM EDT) OSTEOCALCIN BY ECIA 8(L) 11 - 50 ng/mL 07/05/2021 2:37 PM EDT [facility] ([facility]) Blood Venous blood specimen / Unknown Venipuncture / Unknown 07/03/2021 11:04 AM EDT 07/03/2021 11:04 AM EDT Narrative [facility] ([facility]) - 07/05/2021 2:37 PM EDT INTERPRETIVE INFORMATION: Osteocalcin by ECIA In patients with renal failure the osteocalcin result can be elevated, both directly, due to impaired clearance and indirectly, due to renal osteodystrophy. Access complete set of age- and/or gender-specific reference intervals for this test in the [facility] Directory ([facility]). Performed By: [facility] [address] [place] [address] Real Estate Inspector: Aminata Currie MD Michaelle Sprague MD LAB BLOOD ORDERABLES Final Res ult Performing Organization Address City/[facility]/ZIP Co de Phone Number [facility] ([place]) [address] [place] [address] * Creatinine, Random, Urine (07/03/2021 11:04 AM EDT) Creatinine, Urine 47 mg/dL 07/03/2021 4:06 PM EDT [facility] Urine Urine specimen obtained by clean catch procedure / Unknown Non-blood Collection / Unknown 07/03/2021 11:04 AM EDT 07/03/2021 11:04 AM EDT Michaelle Sprague MD LAB URINE ORDERABLES Final Res ult Performing Organization Address City/[facility] Co de Phone Number [facility] [address] [place] [address] * Calcium, Random, Urine (07/03/2021 11:04 AM EDT) Calcium, Urine 8.2 mg/dL 07/03/2021 3:23 PM EDT [facility] Urine Urine specimen obtained by clean catch procedure / Unknown Non-blood Collection / Unknown 07/03/2021 11:04 AM EDT 07/03/2021 11:04 AM EDT Michaelle Sprague MD LAB URINE ORDERABLES Final Res ult Performing Organization Address [facility] de Phone Number [facility] [address] [place] [address] * Vitamin D 25 Hydroxy (07/03/2021 11:04 AM EDT) Vitamin D 25 Hydroxy 62.3 20.0 - 80.0 ng/mL 07/03/2021 3:58 PM EDT [facility] Comment: Vitamin D, 25-Hydroxy reference range, age 18 years and up: Deficiency: ? <12 ng/mL Insufficiency: ?12 to 19 ng/mL Sufficiency: ?20 to 80 ng/mL Possible toxicity: ??>100 ng/mL Blood Venous blood specimen / Unknown Venipuncture / Unknown 07/03/2021 11:04 AM EDT 07/03/2021 11:04 AM EDT Michaelle Sprague MD LAB BLOOD ORDERABLES Final Res ult Performing Organization Address [facility] Co de Phone Number [facility] [address] [place] [address] * Magnesium, Plasma (07/03/2021 11:04 AM EDT) Magnesium, Plasma 2.0 1.9 - 2.4 mg/dL 07/03/2021 3:32 PM EDT [facility] Blood Venous blood specimen / Unknown Venipuncture / Unknown 07/03/2021 11:04 AM EDT 07/03/2021 11:04 AM EDT Michaelle Sprague MD LAB BLOOD ORDERABLES Final Res ult Performing Organization Address [facility] de Phone Number [facility] [address] [place] [address] * (ABNORMAL) Bone Specific Alkaline Phosphatase (07/03/2021 11:04 AM EDT) Bone Specific Alkaline Phosphatase 8.1(L) 10.5 - 44.8 ug/L 07/03/2021 3:20 PM EDT [facility] Comment: BSAP (Ostase) Reference Values, Female, age 18 years and up: ?? Premenopausal: ??4.5 to 16.9 ug/L ?? Postmenopausal: 7.0 to 22.4 ug/L Blood Venous blood specimen / Unknown Venipuncture / Unknown 07/03/2021 11:04 AM EDT 07/03/2021 11:04 AM EDT Michaelle Sprague MD LAB BLOOD ORDERABLES Final Res ult Performing Organization Address [facility] de Phone Number [facility] [address] [place] [address] * N telopeptide, cross-linked, serum (07/03/2021 11:04 AM EDT) N-Telopeptide, Cross-Linked, Serum 6.7 nM BCE 07/06/2021 4:58 PM EDT [facility] ([facility]) Blood Venous blood specimen / Unknown Venipuncture / Unknown 07/03/2021 11:04 AM EDT 07/03/2021 11:04 AM EDT Narrative [facility] ([employer]JORGE A) - 07/06/2021 4:58 PM EDT INTERPRETIVE INFORMATION: N-Telopeptide, Cross-Linked, Serum ??Adult Male.......................5.4 - 24.2 nM BCE ??Premenopausal Adult Female.......6.2 - 19.0 nM BCE The target value for treated post-menopausal adult females is the same as the premenopausal reference interval. BCE = Bone Collagen Equivalent Performed By: [facility] [address] [place] [address] Real Estate Inspector: Aminata Currie MD us Michaelle Sprague MD LAB BLOOD ORDERABLES Final Res ult [facility] ([place]) [address] [place] [address] documented in this encounter Visit Diagnoses Diagnosis Age-related osteoporosis without current pathological fracture- Primary documented in this encounter Additional Health Concerns Assessment Noted Time A fall risk assessment has been complete d for the patient 05/08/2021 11:21 AM EDT documented as of this encounter Care Teams Manager Image Relationship Specialty Start Date End Date Gera Low MD [address] [place] [address] PCP - General 03/09/21 documented as of this encounter
--- OUTSIDE RECORDS SUMMARY | 2024-10-01 11:45 | XMS_ITS | Encounter Summary ---
Author Organization [facility] Address [address] [place] [address] Care Team Providers Care Hardware Assembler Name Role Phone Unavailable Primary Care Provider Unavailabl e Encounter Details Date Type Department Care Team (Late st Contact Info) Description 05/29/2020 [facility] Vitals Encounter [facility] OUTPATIENT CONVERSIONS [address] [place] [address] ProviderJustin MD [address] [place] [address] Social History Tobacco Use Types Packs/Day [...] Sign Reading Time Taken Comments Blood Pressure 130/64 05/29/2020 1:10 PM EDT Pulse 68 05/29/2020 1:10 PM EDT Temperature - - Respiratory Rate - - Oxygen Saturation - - Inhaled Oxygen Concentration - - Weight 64.9 kg (142 lb 15.9 oz) 05/29/2020 1:10 PM EDT Height - - Body Mass Index - - documented in this encounter Plan of Treatment Upcoming Encounters Date Type Department Care Team (Late Contact Info) Description 03/18/2025 12:00 PM EDT Clinical Support [facility] [place] Laboratory Services [address] [facility] 1st [place] [address] 04/01/2025 12:40 PM EDT Appointment [facility] [place] Bone & Mineral Metabolism [address] [facility], [address] [place] [address] 04/01/2025 1:00 PM EDT Office Visit [facility] [place] Mineral Metabolism [address] [facility], [address] [place] [address] Michaelle Sprague MD [address] [place] [address] documented as of this encounter Visit Diagnoses Not on filedocumented in this encounter
--- OUTSIDE RECORDS SUMMARY | 2024-10-01 11:45 | XMS_ITS | Encounter Summary ---
Author Organization Healthcare Address [address] [place] [address] Care Team Providers Care Medical Laboratory Manager Name Role Phone Gera Low MD Primary Care Provider +1- [phone] Encounter Details Date Type Department Care Team (Latest Contact Info) Description 05/08/2021 Travel Social History Tobacco Use Types Packs/Day [...] PM EDT Clinical Support Professional [facility] Laboratory Services [address] [facility], 1st [place] [address] 04/01/2025 12:40 PM EDT Appointment Professional [facility] Bone & Mineral Metabolism [address] [facility], [address] [place] [address] 04/01/2025 1:00 PM EDT Office Visit [facility] [address] [facility], [address] [place] [address] Michaelle Sprague MD [address] [facility] [address] [place] [address] documented as of this encounter Visit Diagnoses Not on filedocumented in this encounter Additional Health Concerns Assessment Noted Time A fall risk assessment has been complete d for the patient 05/08/2021 11:21 AM EDT documented as of this encounter Care Teams Medical Laboratory Manager Relationship Specialty Start Date End Date Gera Low MD [address] [facility] [address] [facility] [address] [place] [address] PCP - General 03/09/21 documented as of this encounter
[2024-10-01 12:57] LABS: Blood Urea Nitrogen 14 mg/dl (7-17); Calcium 9.4 mg/dl (8.4-10.2); Carbon Dioxide 32 mmol/L (22.0-30.0); Chloride 105 mmol/L (98-107); Estimated Glomerular Filt Rate 72 ml/min (>60); GFR (African American) 87 ML/MIN (>60); Glucose 92 mg/dl (74-100); Phosphorous 3.4 mg/dl (2.5-4.5); Sodium 139 mmol/L (136-145)
== END 2024-10-01 23:59 | disposition home or self-care (01) ==
LOC: LAB 11:41
PROVIDERS: PCP Family Medicine; Visit Provider Physician Assistant
DX: M81.0 Age-related osteoporosis without current pathological fracture (principal)
CPT/HCPCS: 36415; 80048; 80069

== ENCOUNTER 2025-05-19 10:41 | Outpatient (CLI) | payer MEDICARE, BC, SELFPAY ==
--- OUTSIDE RECORDS SUMMARY | 2024-01-02 09:30 | XMS_ITS ---
Author Organization [facility] Address [address] [place] [address] Care Team Providers Care Spare Hand Name Role Phone Yelitza Telles Primary Care Provider [phone] REASON FOR VISIT annual Social History Sex Assigned At : Social History Observation Description Sex Assigned At Female Encounters Encounter Location Date Provider Diagnosis [facility] [address] [address] [place] [address] 01/02/2024 Yelitza Telles Plan Of Treatment No Information Progress Notes * Natividad TELLO ADOB:1955 (70 yo F)Acc No.[id number]:01/02/2024 Progress Note Patient: Natividad Man Provider: Demar Telles MD :1955 A ge:68 Y S ex:Female Date:01/02/2024 Address:[address] [place], [place] [address] Subjective: * Chief Complaints: * A nnual * Electronic signature of Yelitza Telles MD on 05/19/2025 at 10:44 AM EDT Sign off status: Pending Visit Status: R /S (Rescheduled) * Provider: Demar Telles MD Date: 01/02/2024 Generated for Printi ng/Faxing/eTransmitting on: 0 05/19/2025 10:44 AM EDT
--- OUTSIDE RECORDS SUMMARY | 2024-08-17 05:15 | XMS_ITS ---
Author Organization [facility] Address [address] [place] [id number] Care Team Providers Care Chief Strategy Officer Name Role Phone Demar Low Primary Care Provider Rojelio aMgallon Unavailable [phone] Allergies No Known Allergies Results Component Value Reference Range Notes P-Comprehensive Metabolic Pa bud (CMP) Reviewed date:08/24/2024 08:36:06 AM Interpretation:gluc 100 Performing Lab: Notes/Report: Test performed by [facility] , [address], [place] [address] Zac Childers MD, Watch Repairer CLIA: [id number] Sodium 144 135-145 mmol/L Potassium 4.0 3.5-5.3 [...] 210 Performing Lab: Notes/Report: Test performed by [facility], [address], [place] [address] Zac Childers MD, Watch Repairer CLIA: [id number] Cholesterol 210 <200 mg/dL Triglycerides 84 <150 [...] older) IM Intramuscular 08/17/2024 Administered Vital Signs Weight 141.8 lbs 08/17/2024 Blood pressure systolic 126 mm Hg 08/17/20 24 Blood pressure diastolic 80 mm Hg 024 Heart Rate 94 /min 08/17/2024 Height 68.50 in 08/17/2024 BMI 21.24 kg/m2 08/17/2024 Encounters Encounter Location Date [facility] [address] [place] [id number] 08/17/2024 Demar Low Hyperlipidemia, unspecified E78.5 ; [...] [address], [address], [place], [place], [id number], Progress Notes * DELILAH TELLODOB:[birth year] (70 yo F)Acc No.[id number]:08/17/2024 Progress Notes Patient: DELILAH LYON Provider: Demar Low M.D. :1955 A ge:69 Y S ex:Female Date:08/17/2024 Address:[address] [facility] [address], [id number] Subjective: * Chief Complaints: * 1 . [...] .? G YN: She follows with a business operations director and is current with her mammogram. 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 [...] * Images: Billing Information: * Visit Code: 39267 Office Visit, Est Pt., Level 4. * Procedure Codes: * Electronic signature of Demar Low MD on 05/19/2025 at 10:44 AM EDT Sign off status: Pending * Provider: Demar Low M.D. Date: 1 Generated for Printi ng/Fasmithag/eTransmitting on: 0 05/19/2025 10:44 AM EDT History and Physical Notes * HPI (History of Present Illness) Category Sub-Category Detail Notes Category Not es MASTER MECHANIC She brings in a copy of the thyroid ultrasound ordered by her business operations director which is normal except for a single [...]
--- OUTSIDE RECORDS SUMMARY | 2025-05-03 10:42 | XMS_ITS ---
Author Organization [facility] Address [address] [facility] [address] [place] [id number] Care Team Providers Care Cloth Bleaching Supervisor Name Role Phone Demar Low Primary Care Provider [phone] Rojelio Magallon [phone] Encounters Encounter Location Date Provider Diagnosis Javier [address] [facility] [address] [place] [id number] 05/03/2025 Demar Low History of tobacco use Z87.891 and Encounter for screening for lung cancer Z12.2 Assessments Encounter Date Diagnosis (ICD Code) Assessment Notes Treatment Notes Treatment Clinical Notes Section Notes 05/03/2025 History of tobacco use (ICD-10 - Z87.891) 05/03/2025 Encounter for screening for lung cancer (ICD-10 - Z12.2) Plan Of Treatment Pending Test Test Name Order Date CT Scan : Chest, low dose 05/03/2025 Next Appt Details Provider Name:Demar Goodwin et, 08/18/2025 09:00:00 AM, [address], [address], [place], [id number], Progress Notes * DELILAH TELLODOB:[birth year] (70 yo F)Acc No.[id number]:05/03/2025 Patient: DELILAH LYON Ann :1955 A ge:70 Y S ex:Female [address] [facility] [place] [address] Subjective: * Chief Complaints: * * Medical History: * Surgical History: * Hospitalization/Major Diagno stic Procedure: * Medications: Objective: * Vitals: * Physical Examination: Assessment: * Assessment: 1. H istory of tobacco use - Z87.891 (Primary) 2 . E ncounter for screening for lung cancer - Z12.2 Plan: * Treatment: * Procedure Codes: * true * Date: Generated for Abimael knox/Albert/eTgerhardsmitting on: 0 05/19/2025 10:45 AM EDT
--- OUTSIDE RECORDS SUMMARY | 2025-05-18 10:25 | XMS_ITS | Encounter Summary ---
Author Organization [facility] Address [address] [place] [address] Care Team Providers Care Review Engineer Name Role Phone Gera Low MD Primary Care Provider +1- [phone] Encounter Details Date Type Department Care Team (Latest Contact Info) Description 05/18/2025 10:25 AM EDT - 05/18/2025 11:59 PM EDT Hospital Encounter [facility] [address] [facility], [address] [place] [address] Age-related osteoporosis without current pathological [...] Description 01/11/2026 12:10 PM EDT Clinical Support [facility] Laboratory Services [address] [facility], 1[address] [place] [address] 01/25/2026 11:00 AM EDT Evaluation [facility] [address] [facility], [address] [place] [address] Boo Michelle, PharmD [address] [facility] [address] [place] [address] Pending Results Name Type Priority Associated Diagnoses Date /Time Dexa Bone Density Imaging Routine Age-related osteoporosis without current pathological fracture 05/18/2025 10:25 AM EDT Scheduled Orders Name Type Priority Associated Diagnoses Orde r Schedule Dexa Bone Density Imaging Routine Age-related osteoporosis without current pathological fracture Once for 1 Occurrences starting 05/18/2025 until 05/18/2025 documented as of this encounter Visit Diagnoses Diagnosis Age-related osteoporosis without current pathological fracture documented in this encounter Additional Health Concerns Assessment Noted Time A fall risk assessment has been complete d for the patient 05/18/2025 11:12 AM EDT A Body Mass Index follow-up plan has been documented for the patient 05/18/2025 11:47 AM EDT documented as of this encounter Care Teams Review Engineer Relationship Specialty Start Date End Date Gera Low MD [address] [place] [address] PCP - General 03/09/21 documented as of this encounter
--- OUTSIDE RECORDS SUMMARY | 2025-05-18 11:40 | XMS_ITS | Encounter Summary ---
Author Organization [facility] Address [address] [place] [address] Care Team Providers Care Liquid Loader Name Role Phone Gera Low MD Primary Care Provider +1- [phone] Reason for Referral * Consultation (Routine) - Authorized Specialty Diagnoses / Procedures Referred By Contlesly t Referred To Contact Diagnoses Age-related osteoporosis without current pathological fracture Michaelle Sprague MD [address] [place] [address] Phone: tel: fax: Referral ID Status Reason Start Date Expiration Date V isits Requested Visits Authorized [id number] Authorized 05/18/2025 11/17/2026 1 1 Reason for Visit * Reason Comments Follow-up Encounter Details Date Type Department Care Team (Late st Contact Info) Description 05/18/2025 11:40 AM EDT Office Visit [facility] [address], [address] [place] [address] Michaelle Sprague MD [address] [place] [address] Age-related osteoporosis without current pathological [...] Sign Reading Time Taken Comments Blood Pressure 137/79 05/18/2025 11:14 AM EDT Pulse 75 05/18/2025 11:14 AM EDT Temperature 36.8 C (98.3 F) 05/18/2025 11:14 AM EDT Respiratory Rate - - Oxygen Saturation 99% 05/18/2025 11: 14 AM EDT Inhaled Oxygen Concentration - - Weight 60.3 kg (132 lb 15 oz) 11:14 AM EDT with shoes Height 173.4 cm (5' 8.25 ) 05/18/2025 1 1:14 AM EDT with shoes Body Mass Index 20.07 05/18/2025 11:14 AM EDT documented in this encounter Functional Status * Over the [...] Aurora Kaufman documented as of this encounter Plan of Treatment Upcoming Encounters Date Type Department Care Team (Late st Contact Info) Description 01/11/2026 12:10 PM EDT Clinical Support [facility] [address] [facility], 1st [place] [address] 01/25/2026 11:00 AM EDT Evaluation [facility] [address] [facility], [address] [place] [address] Boo Michelle, PharmD [address] [facility] [address] [place] [address] Scheduled Referrals Name Type Priority Associated Diagnoses Orde r Schedule Follow Up Bone Mineral Metabolism Outpatient Referral Routine Age-related osteoporosis without current pathological fracture Expected: 01/23/2026, Expires: 06/18/2026 documented as of this encounter Visit Diagnoses Diagnosis Age-related osteoporosis without current pathological fracture- Primary documented in this encounter Additional Health Concerns Assessment Noted Time A fall risk assessment has been complete d for the patient 05/18/2025 11:12 AM EDT A Body Mass Index follow-up plan has been documented for the patient 05/18/2025 11:47 AM EDT documented as of this encounter Care Teams Liquid Loader Relationship Specialty Start Date End Date Gera Low MD [address] [place] [address] PCP - General 03/09/21 documented as of this encounter
--- OUTSIDE RECORDS SUMMARY | 2025-05-19 10:44 | XMS_ITS | Encounter Summary ---
Author Organization [facility] Address [address] [place] [address] Care Team Providers Care Clinical Documentation Consultant Name Role Phone Gera Low MD Primary Care Provider +1- [phone] Encounter Details Date Type Department Care Team ([facility] Contact Info) Description 05/09/2025 Telephone [facility] [address], [address] [place] [address] Aurora Kaufman Social History Tobacco Use Types Packs/Day Years [...] encounter Miscellaneous Notes * Telephone Encounter - Aurora Kaufman - 05/09/2025 9:59 AM EDT Called patient to confirm appointment, patient confirmed. documented in this encounter Plan of Treatment Upcoming Encounters Date Type Department Care Team (Late st Contact Info) Description 01/11/2026 12:10 PM EDT Clinical Support [facility] Laboratory Services [address] [place] [address] 01/25/2026 11:00 AM EDT Evaluation [facility] [address], [address] [place] [address] Boo Michelle, PharmD [address] [facility] [address] [place] [address] documented as of this encounter Visit Diagnoses Not on filedocumented in this encounter Additional Health Concerns Assessment Noted Time A fall risk assessment has been complete d for the patient 08/27/2024 7:56 AM EDT A Body Mass Index follow-up plan has been documented for the patient 08/27/2024 11:28 AM EDT documented as of this encounter Care Teams Clinical Documentation Consultant Relationship Specialty Start Date End Date Gera Low MD [address] [place] [address] PCP - General 03/09/21 documented as of this encounter
--- OUTSIDE RECORDS SUMMARY | 2025-05-19 10:44 | XMS_ITS | Patient Health Record ---
Author Organization [facility] Address [address] [place] [address] Care Team Providers Care Milking Machine Operator Name Role Phone Yelitza Telles Primary Care Provider Allergies No Known Allergies Reason For Referral No Information Medications Medication SIG (Take, Route, Frequency, Duration) Notes Start Date End Date Status Multi Complete Activ e Probiotic Active Calcium Active Evista 60 MG Tablet 1 tablet Orally Once a day; Duration: 90 days 11/23/2021 Active B12 Folate Active Turmeric Curcumin 500 MG Capsule as directed Orally Active Melatonin 10-10 MG Tablet Extended Release as directed Orally Not-Takin g/PRN Prolia 60 MG/ML Solution Prefilled Syringe as directed Subcutaneous Active Social History Tobacco Use: Social History Observation Description Date Details (start date - stop date) Never Smoker NA - NA Sex Assigned At : Social History Observation Description Sex Assigned At Female Social History Drugs/Alcohol: Social Info Question Answer Notes Drugs Have you used drugs other than those for medical reasons in the past 12 months? No Alcohol Screen Did you have a drink containing alcohol in the past year? No Points 0 Interpretation Negative Tobacco Use: Social Info Question Answer Notes Tobacco Use/Smoking Are you a nonsmoker Problems Problem Type SNOMED Code ICD Code Onset Dates Problem Status W/U Status Risk Notes Problem Gynecological examination normal (143045337671211 ) Cervical smear, as part of routine gynecological examination (Z01.419) 12/01/19 20 Active confirmed Annual without abnormal findings Problem Non-toxic multinodular goiter (06910209) Multinodular thyroid (E04.2) Active confirmed Plan Of Treatment No Information Insurance Providers Payer Name Payer Address Payer Phone Subscriber Number Group Number Insured Name Patient Relationship to Insured Coverage Start Date Coverage End Date [place] [address] [place] [address] [id number] [place] Tello Self - patient is the insured [facility] [address] [address] [place] [address] [id number] [place] Tello Self - patient is the insured Medical (General) History Medical History History ICD Code osteoporosis GERD trochateric hip bursitis COPD with emphysema Surgical History Surgery Date(Month/Year) bone bx marsupilization of bartholin gland Hospitalization History Reason Date(Month/Year) childbirth
--- OUTSIDE RECORDS SUMMARY | 2025-05-19 10:44 | XMS_ITS | Referral Summary ---
Author Organization [employer] ([place], [place], [place], [place]) Address [address] [place] [address] Care Team Providers Care Senior Loss Control Specialist Name Role Phone Gera Low MD Primary Care Provider +1- [phone] Social History Tobacco Use Types Packs/Day Years Used Date Smoking Tobacco: Never Assessed Family and Community Support Answer Catrachito e Recorded Help with Day to Day Activities Not on file 11/14/2023 Feeling Lonely or Isolated Not on file 11/14 Educational Attainment Answer Date Tommie rded Speak language other than Eritrean at home Not on file 11/14/2023 Want help with school or training Not on file 11/14/2023 Substance Use Answer Date Recorded Used [...] Info) Description 08/08/2025 11:00 AM EDT Appointment [address] [place] [address] Procedures Procedure Name Priority Date/Time Associated Diagnosis Comments MM DIGITAL MAMMO SCREEN WITH PEYMAN BILATERAL Routine 08/04/2024 2:53 PM EDT Visit for screening mammogram from Last 3 Months or Most Recently Relevant to Health Maintenance Results * MM digital mammo screen with [...] the next mammogram. At our facility, a new [place] marker is positioned over a visible skin [...] REASON FOR EXAM: Routine screening. FAMILY HISTORY: There is strong family history of breast cancer. The patient herself tested negative for genetic mutation. COMPARISON STUDY: [facility] [phone] FINDINGS: Craniocaudal and mediolateral oblique images of [...] ORDERABLES Final Result from Last 3 Months or Most Recently Relevant to Health Maintenance Insurance BLUE CROSS/BLUE SHIELD MEDICARE PART A B Care Teams Senior Loss Control Specialist Relationship Specialty Start Date End Date Gera Low MD [address] [place] [address] PCP - General Family Medicine 08/04/24
--- OUTSIDE RECORDS SUMMARY | 2025-05-19 10:44 | XMS_ITS | Clinical Summary ---
Author Organization [employer] ([place], [place], [place], [place]) Address [address] [place] [address] Care Team Providers Care School Social Worker Name Role Phone Gera Low MD Primary Care Provider +1- [phone] Family History Medical History Relation Name Comments [...] Date Tommie rded Speak language other than Frisian at home Not on file 11/14/2023 Want [...] Info) Description 08/08/2025 11:00 AM EDT Appointment [address] [place] [address] Health Maintenance Due Date Last Done Comments CT Colonography 1957 Colonoscopy 1957 Colorectal Cancer Screening 1957 DXA SCAN 1957 FOBT/FIT 1957 Fit-DNA (Cologuard) 1957 Sigmoidoscopy 1957 Depression Screening (12+) 1969 Tobacco Cessation Counseling and Screening (12+) 1969 Hepatitis C Screening 1975 Shingles Vaccine (Zoster) (1 of 2) 2007 Medicare Initial AWV [id number] 03/28/2023 COVID-19 VACCINE (6 - 2023-2 5 season) 2024 08/14/2022, 09/05/2021, 01/20/2021, Additional history exists Falls Risk Screening 10/27/2024 Influenza Vaccine (#1) 2025 08/09/2022 Breast Cancer Screening 08/04/2026 08/04/20 24, 07/25/2023, 07/24/2022, Additional history exists DTAP/TDAP/TD VACCINES (3 - T d or Tdap) 07/15/2027 07/15/2017, 01/02/1997 Respiratory Syncytial Virus (RSV) Adult or (1 - 1-dose 75+ series) 2032 Pneumococcal 50+ years Completed 08/14/2022 Procedures Procedure Name Priority [...] the next mammogram. At our facility, a o[place]e-[place] marker is positioned over a visible skin [...] tested negative for genetic mutation. COMPARISON STUDY: [facility] FINDINGS: Craniocaudal and mediolateral oblique images of [...] Most Recently Relevant to Health Maintenance Insurance [facility] [address] [id number] BLUE CROSS/BLUE SHIELD MEDICARE PART A B Care Teams School Social Worker Relationship Specialty Start Date End Date Gera Low MD [address] [place] [address] PCP - General Family Medicine 08/04/24
--- OUTSIDE RECORDS SUMMARY | 2025-05-19 10:44 | XMS_ITS | Clinical Summary ---
Author Organization [facility] Address [address] [place] [address] Care Team Providers Care Immigration Associate Name Role Phone Gera Low MD Primary [...] Maintenance Due Date Last Done Comments ANNUAL PHYSICAL 1955 HEPATITIS C SCREENING 1957 COLOGUARD 2002 COLON CANCER SCREENING 5 YEA R SIGMOIDOSCOPY 2002 COLONOSCOPY [address]ER SCREENING 2002 CT COLONOGRAPHY 2002 FECAL OCCULT BLOOD TEST 2002 FIT Testing (1 year) 2002 ZOSTER VACCINE (1 of 2) 2007 COVID-19 Vaccine (2023- 5 season) 2024 08/06/2023, 08/14/2022, 09/05/2021, Additional history exists MAMMOGRAM 07/25/2025 07/25/2023, 06/28, 07/24/2022, Additional history exists INFLUENZA VACCINE 07/27/2025 08/06/2023, , 07/24/2021, Additional history exists DXA SCAN 12/25/2025 12/26/2023, 0310/2023, 12/19/2022, Additional history exists TDAP/TD VACCINES (3 - Td or Tdap) 07/15/2027 017, 01/02/1997 Pneumococcal Vaccine 50+ Completed 08/12/2023, 07/27 Insurance MEDICARE A & B Care Teams Immigration Associate Relationship Specialty Start Date End Date Gera Low MD [address] [facility] [address] [facility] [address] [place] [address] PCP - General Family Medicine 11/15/16
--- OUTSIDE RECORDS SUMMARY | 2025-05-19 10:44 | XMS_ITS | Encounter Summary ---
Author Organization [facility] Address [address] [place] [address] Care Team Providers Care Assistant Foreman Name Role Phone Gera Low MD Primary Care Provider +1- [phone] Encounter Details Date Type Department Care Team (Latest Contact Info) Description 05/18/2025 Travel Social History Tobacco Use Types Packs/Day [...] Description 01/11/2026 12:10 PM EDT Clinical Support [facility] [address] [facility] [address] 1[address] [place] [address] 01/25/2026 11:00 AM EDT Evaluation [facility] [address], [address] [place] [address] Boo Michelle, PharmD [address] [place] [address] documented as of this encounter Visit Diagnoses Not on filedocumented in this encounter Additional Health Concerns Assessment Noted Time A fall risk assessment has been complete d for the patient 05/18/2025 11:12 AM EDT A Body Mass Index follow-up plan has been documented for the patient 05/18/2025 11:47 AM EDT documented as of this encounter Care Teams Assistant Foreman Relationship Specialty Start Date End Date Gera Low MD [address] [place] [address] PCP - General 03/09/21 documented as of this encounter
--- OUTSIDE RECORDS SUMMARY | 2025-05-19 10:44 | XMS_ITS | Clinical Summary ---
Author Organization [facility] Address [address] [place] [address] Care Team Providers Care Early Head Start Director Name Role Phone Gera Low MD Primary Care Provider [phone]- [phone] Allergies No known active allergies Medications raloxifene (Evista) 60 MG tablet 1 Active calcium carbonate 1500 (600 Ca) MG tablet Take 1 tablet twice daily 1 Active cyanocobalamin (Vitamin B-12) 1000 MCG tablet TAKE 1 TABLET DAILY DIRECTED. 9 Active Melatonin 10-10 MG tablet controlled-rel ease Take by mouth. Active denosumab (Prolia) 60 MG/ML injection Inject 1 mL (60 mg) under the skin 1 (one) time for 1 dose. 1 mL 4 Active Coenzyme Q10 (CoQ10) 200 MG capsule 5 Active Melatonin 5 MG capsule 1 cap(s) orally once a day (at bedtime) Active Black Pepper-Turmeri c (Turmeric Curcumin) 5-1000 MG capsule TAKE 1 CAPSULE Daily 0 05/18/20 25 Discontinued Multiple Vitamins-Iron tablet TAKE 1 TABLET DAILY. 9 05/18/20 25 Discontinued Active Problems Problem Noted Date Diagnosed Date COPD (chronic obstructive pulmonary disease) Osteoporosis 10/09/2018 Assessment & Plan (05/08/2021 9:44 PM EDT): She used long-term BPs and DXA shows a decline in BMD. She was taking Boniva, raloxifene and vit D. Risk factors for bone loss include age, premature menopause, buttermaker continuous churn smoking, buttermaker continuous churn BPs She underwent a full work up [...] although she is being treated with BPs long-term suggests that she has a significant decline [...] Encounters Date Type Department Care Team Description 05/18/2025 11:40 AM EDT Office Visit [facility] [address] , [address] [place] [address] Michaelle Sprague MD Age-related osteoporosis without current pathological fracture (Primary Dx) 05/18/2025 10:25 AM EDT - 05/18/2025 11:59 PM EDT Hospital Encounter [facility] [address] , [address] [place] [address] Age-related osteoporosis without current pathological fracture Discharge Disposition: Home or Self Care 05/18/2025 Travel 05/12/2025 Travel 05/09/2025 [facility] Mineral Metabolism [address] [facility], [address] [place] [address] Aurora Kaufman 03/18/2025 Travel 03/13/2025 Travel from Last 3 Months Immunizations Immunization Administration Dates Next Due Pfizer Covid-19 Vaccine 12y+ , Jose Protein, PF, Sukhdeep-Sucrose 08/06/2023 Movista COVID-19 Vac cine (Purple Cap) 12+ 09/05/2021,01/20/2021,12/28/2020 Family History Medical History Relation Name Comments Diabetes Brother 1 Jose Guadalupe Prostate cancer Brother 2 Cancer Brother 3 Jose Guadalupe Britton Diabetes Brother 3 Jose Guadalupe Britton Vision loss Brother 3 Jose Guadalupe Britton Asthma Brother 4 Andrews Britton Cancer Brother 4 Andrews Britton Vision loss Brother 4 Andrews Britton Cancer Father Cody Britton Cardiac disorder Father Cody Britton Heart attack Father Cody Britton Prostate cancer Father Cody Britton Stroke Father's Sister Natividad Johnson Hypertension Mother Corina Britton Osteoporosis Mother Corinaannette Britton Cancer Mother's Brother 1 Elvin Guzman Cancer Mother's Brother 2 Earnest Guzman Cancer Mother's Brother 3 Jose Guadalupe Guzman Cancer Mother's Brother 5 Gera Heart disease Mother's Brother 7 Shahid Andujar Stroke Mother's Sister 1 Jasmin Edward Colon cancer Paternal Grandfather Breast cancer Sister 1 Carleen Sharma Cancer Sister 1 Carleen Sharma Relation Name Status Comments Brother 1 Jose Guadalupe Brother 2 Brother 3 Jose Guadalupe Britton Brother 4 Andrews Britton Alive Brother 5 Andrews Alive Father Cody Britton Father's Sister Natividad Johnson Mother Corina Britton Mother's Brother 1 Oconnor Guzman Mother's Brother 2 Earnest Guzman Mother's Brother 3 Jose Guadalupe Guzman Mother's Brother 4 Earnest Alive Mother's Brother 5 Gera Mother's Brother 6 Shahid Alive Mother's Brother 7 Shahid Andujar Mother's Sister 1 Jasmin Edward Mother's Sister 2 Jasmin Alive Paternal Grandfather Sister 1 Carleen Sharma Sister 2 Carleen Alive Social History Tobacco Use Types Packs/Day Years [...] F) 05/18/2025 11:14 AM EDT Respiratory Rate 18 12/26/2023 12:0 7 PM EST Oxygen Saturation 99% 05/18/2025 11: 14 AM EDT Inhaled Oxygen Concentration - - Weight 60.3 kg (132 lb 15 oz) 11:14 AM EDT with shoes Height 173.4 cm (5' 8.25 ) 05/18/2025 1 1:14 AM EDT with shoes Body Mass Index 20.07 05/18/2025 11:14 AM EDT Plan of Treatment Upcoming Encounters Date Type Department Care Team (Late st Contact Info) Description 01/11/2026 12:10 PM EDT Clinical Support [facility] Laboratory Services [address] [facility], 1st [place] [address] 01/25/2026 11:00 AM EDT Evaluation [facility] [address] [facility], [address] [place] [address] Boo Michelle, PharmD [address] [address] Health Maintenance Due Date Last Done Comments [facility]-Hepatitis C Screening 1955 [facility]-Medicare Annual Wellness (AWV) 1955 [facility]-/Child/Adol SDOH Screenings 1955 [facility]- SDOH Screenings 1975 [facility]-Adult SDOH Screenings 1975 CT Colonography 2002 Colonoscopy 2002 FIT-DNA 2002 FIT 2002 FOBT 2002 Sigmoidoscopy 2002 [facility]-Colorectal Cancer Screening 2002 [facility]-Lung Cancer Screening 2007 [facility]-Zoster Vaccines (1 of 2) 2007 [facility]-Bone Density Scan 12/25/2024 12/26/2023 , 12/26/2023, 12/19/2022, Additional history exists ROZ-XTDYP-90 Vaccine (8 - Pfizer risk 2023- season) 2025 08/26/2024, 08/06/2023, 08/14/2022, Additional history exists [facility]-Influenza Vaccine (#1) 06/27/202508/06, 08/09/2022, 07/24/2021, Additional history exists [facility]-Depression Screening 05/18/2026 05/18/2025, 110 10/2023 [facility]-Breast Cancer Screening 08/04/20260 06/2024, 08/04/2024, 07/25/2023, Additional history exists [facility]-DTaP,Tdap,and Td Vaccines (2 - Td or Tdap) 07/15/2027 07/15/2017, 01/02/1997 [facility]-RSV Vaccine: 60+ Years or Completed 08/06/2023 [facility]-Pneumococcal Vaccine: 50+ Years Completed 08/12/2023, 08/14/2022 HPV Vaccines Aged Out No longer eligi ble based on patient's age to complete this topic [facility]-HIB Vaccines Aged Out No longer e [...] Procedure Name Priority Date/Time Associated Diagnosis Comments RENAL FUNCTION PANEL, PLASMA Routine 03/18/2025 11:48 AM EDT Age-related osteoporosis without current pathological fracture BONE SPECIFIC ALKALINE PHOSPHATASE Routine 03/18/2025 11:48 AM EDT Age-related osteoporosis without current pathological fracture VITAMIN D 25 HYDROXY Routine 03/18/2025 11:48 AM EDT Age-related osteoporosis without current pathological fracture C-TELOPEPTIDE Routine 03/18/2025 11:48 AM EDT Age-related osteoporosis without current pathological fracture DEXA BONE DENSITY Routine 12/26/2023 10: 48 AM EST Age-related osteoporosis without current pathological fracture from Last 3 Months or Most Recently Relevant to Health Maintenance Results * Bone Specific Alkaline Phosphatase (03/18/2025 11:48 AM EDT) Bone Specific Alkaline Phosphatase 7.1 ug/L 03/18/2025 4:37 PM EDT [facility] Comment: BSAP (Ostase) Reference Values, Female, age 18 years and up: Premenopausal: 4.5 to 16.9 ug/L Postmenopausal: 7.0 to 22.4 ug/L Blood Venous blood specimen / Unknown Venipuncture / Unknown 03/18/2025 11:48 AM EDT 03/18/2025 11:48 AM EDT us [facility] REF LAB BLOOD AND FLUID ORD Final Result [facility] [address] [place] [address] * C-Telopeptide (03/18/2025 11:48 AM EDT) C Telopeptide Beta Cross Linked Serum Result 111 pg/mL 03/19/2025 7:44 PM EDT [facility]) Blood Venous blood specimen / Unknown Venipuncture / Unknown 03/18/2025 11:48 AM EDT 03/18/2025 11:48 AM EDT Narrative [facility]) - 03/19/2025 7:44 PM EDT Premenopausal Females: 136-689 pg/mL Postmenopausal Females: 177-1015 pg/mL REFERENCE INTERVAL: C-Telopeptide, Furg-Hizac-Szzrbw, Serum Access complete set of age- and/or gender-specific reference intervals for this test in the [facility] Test Directory ([place]). Performed By: [facility] [facility] [address] [place] [address] Licensed Funeral Director: Vijay Bird MD, PhD CLIA Number: [id number] [facility] BLOOD ORDERABLES Final R esult [facility]) [address] [place] [address] * Vitamin D 25 Hydroxy (03/18/2025 11:48 AM EDT) Pathologist [facility] Vitamin D 25 Hydroxy 52.6 20.0 - 80.0 ng/mL 03/18/2025 4:[address] [facility] Blood Venous blood specimen / Unknown Venipuncture / Unknown 03/18/2025 11:48 AM EDT 03/18/2025 11:48 AM EDT Narrative [facility] - 03/18/2025 4:32 PM EDT Testing performed on Santos Delivery Consultant, standardized against NIST SRM 2972. When testing samples from patients whose predominant form of vitamin D is vitamin D2, such as patients receiving vitamin D2 supplementation, results that are subtherapeutic should be confirmed with another method, such as LC-MS/MS, before being used for patient management. Vitamin D, 25-Hydroxy reference range, age 18 years and up: Deficiency: <12 ng/mL Insufficiency: 12 to 19 ng/mL Sufficiency: 20 to 80 ng/mL Possible toxicity: >100 ng/mL us [facility] BLOOD ORDERABLES Final R esult [facility] [address] [place] [address] * Renal Function Panel, Plasma (03/18/2025 11:48 AM EDT) [facility] Glucose, Plasma 91 74 - 99 mg/dL 03/18/2025 3:01 PM EDT [facility] BUN, Plasma 11 8 - 23 mg/dL 03/18/2025 3:01 PM EDT [facility] Creatinine, Plasma 0.67 0.60 - 1.10 mg/dL 03/18/2025 3:01 PM EDT [facility] BUN/Creatinine Ratio 16 03/18/2025 3:01 PM EDT [facility] Sodium, Plasma 138 136 - 145 mmol/L 03/18/2025 3:01 PM EDT [facility] Potassium, Plasma 4.0 3.6 - 4.9 mmol/L 03/18/2025 3:01 PM EDT [facility] Chloride, Plasma 103 97 - 107 mmol/L 03/18/2025 3:01 PM EDT [facility] CO2, Plasma 27 22 - 29 mmol/L 03/18/2025 3:01 PM EDT [facility] Anion Gap 8 6 - 16 mmol/L 03/18/2025 3:01 PM EDT [facility] Total Calcium, Plasma 9.5 8.9 - 10.2 mg/dL 03/18/2025 3:01 PM EDT [facility] Phosphorus, Plasma 3.3 2.5 - 4.5 mg/dL 03/18/2025 3:01 PM EDT [facility] Albumin, Plasma 4.2 3.5 - 5.2 g/dL 03/18/2025 3:01 PM EDT [facility] eGFRcr 95.9 mL/min/1.7 3m*2 03/18/2025 3:01 PM EDT [facility] Comment:Reported eGFRcr in m L/min/1.73m2 is based the CKD-EPI 2020 equation that does not use a race coefficient. Blood Venous blood specimen / Unknown Venipuncture / Unknown 03/18/2025 11:48 AM EDT 03/18/2025 11:48 AM EDT us [facility] BLOOD ORDERABLES Final R esult [facility] [address] [place] [address] * Dexa Bone Density (12/26/2023 10:48 AM EST) Anatomical Region Laterality Modality L-spine Radiographic Zulay ging Narrative 12/28/2023 11:55 PM EST [facility] - [facility] [address] [address], [place] [address] DXA Bone Densitometry Report: [12/26/2023] Subjective BMD test performed using the [employer] DXA System (analysis version: 14.10) manufactured by [employer]. REFERRING PROVIDER: Michaelle Barton MD CLINICAL INFORMATION: osteoporosis PATIENT NAME: Natividad Tello PATIENT AGE: 68 y.o. LEGAL SEX: female RADIOGRAPHIC VIEWS: Sites scanned: AP Spine, HIP Right , HIP Left, and TBS COMPARISON STUDY: DXA Axial 12/19/2022. TBS Prior studies are not available for comparison. FINDINGS: Based on WHO criteria (post-menopausal female) the diagnosis is Osteopenia The lowest T- score is -1.4 in the L total hip There is Stability compared to prior measurements The presence of arthritic or degenerative joint changes in the spine could artefactually increase measured BMD. TBS: The TBS L1-L4 of 1.405 indicates normal microarchitecture TREATMENT RECOMMENDATIONS: Patient [...] comparison and calculation of change in BMD). us Michaelle Sprague MD IMG DXA PROCEDURES Final Resul t from Last 3 Months or Most Recently Relevant to Health Maintenance Insurance ANTH MEDICARE Care Teams Early Head Start Director Relationship Specialty Start Date End Date Gera Low MD [address] [facility] [address] [place] [address] PCP - General 03/09/21
--- OUTSIDE RECORDS SUMMARY | 2025-05-19 10:44 | XMS_ITS | Encounter Summary ---
Author Organization Healthcare Address [address] [place] [address] Care Team Providers Care Movie Theater Manager Name Role Phone Gera Low MD Primary Care Provider [phone]- [phone] Encounter Details Date Type Department Care Team (Latest Contact Info) Description 05/12/2025 Travel Social History Tobacco Use Types Packs/Day [...] 01/11/2026 12:10 PM EDT Clinical Support [facility] Services [address], 1[address] [place] [address] 01/25/2026 11:00 AM EDT Evaluation [facility] Metabolism [address], [address] [place] [address] Boo Michelle, PharmD [address] [place] [address] documented as of this encounter Visit Diagnoses Not on filedocumented in this encounter Additional Health Concerns Assessment Noted Time A fall risk assessment has been complete d for the patient 08/27/2024 7:56 AM EDT A Body Mass Index follow-up plan has been documented for the patient 08/27/2024 11:28 AM EDT documented as of this encounter Care Teams Movie Theater Manager Relationship Specialty Start Date End Date Gera Low MD [address] [place] [address] PCP - General 03/09/21 documented as of this encounter
--- NOTE | 2025-05-19 10:45 | CT_ITS ---
FINAL REPORT CLINICAL HISTORY: HX OF TOBACCO. Former smoker- quit 9 yrs ago, smoked 1.5 ppd x40 yrs. Hx of COPD and emphysema. COMPARISON: 11/25/2023 FINDINGS: CT CHEST LOW DOSE SCREENING DOSE: CTDI vol: 2.90 mGy, DLP: 112.29 mGy*cm TECHNIQUE: Axial CT without IV contrast administration using low dose protocol. This study was performed with techniques to keep radiation doses as low as reasonably achievable, (ALARA). Individualized dose reduction techniques using automated exposure control or adjustment of mA and/or kV according to the patient's size were employed. No acute lung disease is present. No pulmonary lesions are seen suspicious for neoplasm. There is evidence of old calcified granulomatous disease. Stable biapical scarring is identified. There is moderate emphysematous change. No pleural or pericardial effusion is seen. No adenopathy or mass lesion is present. IMPRESSION: Chronic changes without evidence of primary lung neoplasm. LUNG RADS CATEGORY 1 RECOMMENDATION: 12 month LDCT follow up Reviewed, Interpreted and Dictated by Gerri Aguirre MD Transcribed by Elizabeth Etienne Authenticated and [facility]
--- OUTSIDE RECORDS SUMMARY | 2025-05-19 10:45 | XMS_ITS | Encounter Summary ---
Author Organization [employer] ([place], [place], [place], [place]) Address [address] [place] [address] Care Team Providers Care Rn Neonatal Name Role Phone Yelitza Telles MD Primary Care Provider [phone] Gera Low MD Primary Care Provider [phone] Reason for Referral * Mammography (Routine) - Closed Specialty Diagnoses / Procedures Referred By Giancarlo t Referred To Contact Diagnoses Visit for screening mammogram Procedures MM digital mammo screen with esther bilateral Gera Low MD [address] [facility] [address] [place] [address] Phone: tel: fax: Referral ID Status Reason Start Date Expiration Date Visits Re quested Visits Authorized [id number] Closed 07/25/2023 01/21/2024 1 1 Encounter Details Date Type Department Care Team (Late st Contact Info) Description 07/24/2022 Outside Orders [address] [place] [address] Gera Low MD [address] [place] [address] Visit for screening mammogram (Primary Dx) [...] Info) Description 08/08/2025 11:00 AM EDT Appointment [facility] [address] [facility] [address] [place] [address] documented as of this encounter Results * MM digital mammo screen with esther bilateral (07/25/2023 2:25 PM EDT) Anatomical Region Laterality Modality Breast Bilateral Mammography 07/25/2023 2:52 PM EDT Impressions 07/25/2023 2:57 PM EDT FINAL IMPRESSION: Stable mammogram. No findings suspicious for malignancy. Bi-RADS: ACR BI-RADS 1: Negative. RECOMMENDATIONS: Annual screening mammography. A letter including results and recommendations was sent to the patient. Density notification was included for patients with pattern 3 or 4 breast tissue. Patient information was entered into a reminder system with a target due date for the next mammogram. At our facility, a [place] marker is positioned over a visible skin [...] family history of breast cancer. COMPARISON STUDY: 2021 through 2015 from [facility] FINDINGS: Craniocaudal and mediolateral oblique images [...] mammogram documented in this encounter Care Teams Rn Neonatal Relationship Specialty Start Date End Date Yelitza Telles MD [address] [id number] PCP - General Gynecology 07/25/23 08/03/24 Gera Low MD [address] [place] [address] PCP - General Family Medicine 08/04/24 documented as of this encounter
--- OUTSIDE RECORDS SUMMARY | 2025-05-19 10:45 | XMS_ITS | Patient Health Record ---
Author Organization [facility] Address [address] [place] [id number] Care Team Providers Care Personal Banking Officer Name Role Phone Demar Low Primary Care Provider [phone] Rojelio Magallon Unavailable [phone] Allergies No Known Allergies Results Component Value Reference Range Notes P-Comprehensive Metabolic Pa bud (CMP) Reviewed date:08/24/2024 08:36:06 AM Interpretation:gluc 100 Performing Lab: Notes/Report: Test performed by [facility] [address] [facility] , [address], [place] [address] Zac Childers MD, Preform Machine Operator CLIA: [id number] Sodium 144 135-145 mmol/L Potassium 4.0 3.5-5.3 [...] 210 Performing Lab: Notes/Report: Test performed by [facility], [address] , [address] , [place] [address] Zac Childers MD, Preform Machine Operator CLIA: [id number] Cholesterol 210 <200 mg/dL Triglycerides 84 <150 [...] Results: 94 Units: mg/dL % Change: - Medications Medication SIG (Take, Route, Frequency, Duration) Notes Start Date End Date Status Raloxifene HCl 60 MG 1 tablet Orally Once a day 10/28/2024 Active Melatonin 5 MG 1 cap(s) orally once a day (at bedtime) Active Align 4 MG 1 cap(s) orally once a day; Duration: 28 day(s) Active FLECTOR PATCHES 1.3% 1 PATCH BID *Please review for potential replacement for e-prescription and drug interaction check* 05/11/2020 Not-Taking Prolia 60 MG/ML as directed Subcutaneous Active Multiple Vitamins 1 QD Ac tive Calcium 600 + Minerals 600-200 MG-UNIT 1 tab(s) orally 3 times a day Active Vitamin B-12 1000 MCG 1 tab(s) orally once a day Active Forteo 600 MCG/2.4ML orally qhs Not-Taking Levsin 0.125 MG 1 tablet as needed Orally every 4 hrs; Duration: 30 days 04/09/2023 Not-Taking Immunizations Vaccine Route Administration Date Status Comme nts Tetanus Tdap-Adacel (over 7yrs) IM Intramuscular 07/15/2017 Administered Prevnar (PCV20) Unknown 08/14/2022 Administered PNEUMOVAX 23 VACCINE IM Intramuscular 08/12/2023 Administe red Fluzone Quad (6months&older) IM Intramuscular 07/15/2017 Administered Fluzone Quad (6months&older) IM Intramuscular 07/28/2017 Administered Fluzone Quad (6months&older) IM Intramuscular 07/16/2018 Administered Fluzone Quad (6months&older) Unknown 07/23/2019 Pending Fluzone Quad (6months&older) IM Intramuscular 07/24/2021 Administered Fluzone PF Quad (6-35 months) Unknown 07/24/2020 Administered Fluzone High Dose (65yr and older) IM Intramuscular 08/09/2022 Administered Fluzone High Dose (65yr and older) Unknown 08/06/2023 Administered Fluzone High Dose (65yr and older) IM Intramuscular 08/17/2024 Administered DT, 7 YEARS OR OLDER Unknown 01/02/1997 Administered COVID 19 Pfizer IM Intramuscular 10/30/2020 Administered COVID 19 Pfizer Unknown 12/28/2020 Administered COVID 19 Pfizer Unknown 01/20/2021 Administered COVID 19 Pfizer Unknown 09/05/2021 Administered Problems Problem Type SNOMED Code ICD Code Onset Dates Problem Status W/U Status Risk Notes Problem Osteopenia (737508627) Osteopenia (M85.80) Active confirmed Problem Age-related osteoporosis (610118909) Age-related osteoporosis without current pathological fracture (M81.0) Active confirmed Problem Hyperlipidemia (97952427) Hyperlipidemia, unspecified (E78.5) Active confirmed Problem Gastroesophageal reflux disease without esophagitis (064612129) Gastroesophageal reflux disease without esophagitis (K21.9) Active confirmed Problem Former smoker (7093558) Former smoker (Z87.891) Active confirmed Vital Signs Heart Rate 94 /min 08/17/2024 Blood pressure diastolic 80 mm Hg 08/17/2024 Height 68.50 in 08/17/2024 Blood pressure systolic 126 mm Hg 08/17/2024 Weight 141.8 lbs 08/17/2024 BMI 21.24 kg/m2 08/17/2024 Encounters Encounter Location Date Provider Diagnosis Javier [address] [facility] [address] [place] [id number] 08/17/2024 R Elian Low Hyperlipidemia, unspecified E78.5 ; Age-related osteoporosis without current pathological fracture M81.0 ; Former smoker Z87.891 ; Trochanteric bursitis of left hip M70.62 ; Osteopenia M85.80 ; Screening for breast cancer Z12.39 and Encounter for immunization Z23 FCKoko-Andi [address] [facility] [address] [place] [id number] 08/24/2024 R Elian Low RICARDO-Andi [address] [facility] [address] [place] [id number] 10/28/2024 R Elian Low Osteopenia 733.90 RICARDO-Andi [address] [place] [id number] 05/03/2025 R Elian Low RICARDO-Andi [address] [place] [id number] 05/03/2025 R Elian Low History of tobacco u se Z87.891 and Encounter for screening for lung cancer Z12.2 Assessments Encounter Date Diagnosis (ICD Code) Assessment Notes Treatment Notes Treatment Clinical Notes Section Notes 08/17/2024 Age-related osteoporosis without current pathological fracture (ICD-10 - M81.0) 10/28/2024 Osteopenia (ICD9-CM - 733.90) 05/03/2025 History of tobacco use (ICD-10 - Z87.891) 05/03/2025 Encounter for screening for lung cancer (ICD-10 - Z12.2) 08/17/2024 Hyperlipidemia, unspecified (ICD-10 - E78.5) 08/17/2024 Former smoker (ICD-10 - Z87.891) 08/17/2024 Trochanteric bursitis of left hip (ICD-10 - M70.62) 08/17/2024 Osteopenia (ICD-10 - M85.80) 08/17/2024 Screening for breast cancer (ICD-10 - Z12.39) 08/17/2024 Encounter for immunization (ICD-10 - Z23) Plan Of Treatment Pending Test Test Name Order Date CT Scan : Chest, low dose 05/03/2025 Next Appt Details Provider Name:Demar Davis, 08/18/2025 09:00:00 AM, [address], [place], [place], [id number], Insurance Providers Payer Name Payer Address Payer Phone Subscriber Number Group Number Insured Name Patient Relationship to Insured Coverage Start Date Coverage End Date MEDICARE PART B [address] [address] [place] [id number] DELILAH TELLO Self - patient is the insured [facility] [employer] [address] [place] [address] [id number] DELILAH TELLO Self - patient is the insured Medical (General) History Medical History History ICD Code hypercholestrolemia Osteoporosis Former smoker - quit 2016 GERD She follows with Dr. Telles for LOG BUYER car e She follows with Nephrology for osteo porosis Surgical History Surgery Date(Month/Year) bartholin gland cysts Biopsy on right breast colonoscopy (normal) 03/2011 EGD and C-scope/ Dr. Arce 2018
== END 2025-05-19 23:59 | disposition home or self-care (01) ==
LOC: RAD 10:42
PROVIDERS: PCP Family Medicine; Visit Provider Family Medicine
DX: Z12.2 Encounter for screening for malignant neoplasm of respiratory organs (principal); J43.9 Emphysema, unspecified; Z87.891 Personal history of nicotine dependence
CPT/HCPCS: 71271

== ENCOUNTER 2025-06-14 10:57 | Outpatient (CLI) | payer MEDICARE, BC, SELFPAY ==
--- OUTSIDE RECORDS SUMMARY | 2024-01-02 09:30 | XMS_ITS ---
Author Organization [facility] Address [address] [place] [address] Care Team Providers Care Supervisor Picking Crew Name Role Phone Yelitza Telles Primary Care Provider [phone] REASON FOR VISIT annual Social History Sex Assigned At : Social History Observation Description Sex Assigned At Female Encounters Encounter Location Date Provider Diagnosis [facility] [address] [address] [place] [address] 01/02/2024 Yelitza Telles Plan Of Treatment No Information Progress Notes * Natividad TELLO ADOB:1955 (70 yo F)Acc No.[id number]:01/02/2024 Progress Note Patient: Natividad Man Provider: Demar Telles MD :1955 A ge:68 Y S ex:Female Date:01/02/2024 Address:[address] [place], [place] [address] Subjective: * Chief Complaints: * A nnual * Electronic signature of Yelitza Telles MD on 06/14/2025 at 11:01 AM EDT Sign off status: Pending Visit Status: R /S (Rescheduled) * Provider: Demar Telles MD Date: 01/02/2024 Generated for Printi ng/Faxing/eTransmitting on: 0 06/14/2025 11:01 AM EDT
--- OUTSIDE RECORDS SUMMARY | 2024-08-17 05:15 | XMS_ITS ---
Author Organization [facility] Address [address] [place] [id number] Care Team Providers Care Photographic Process Worker Name Role Phone Demar Low Primary Care Provider Rojelio Magallon Unavailable [phone] Allergies No Known Allergies Results Component Value Reference Range Notes P-Comprehensive Metabolic Pa bud (CMP) Reviewed date:08/24/2024 08:36:06 AM Interpretation:gluc 100 Performing Lab: Notes/Report: Test performed by [facility] , [address], [place] [address] Zac Childers MD, Manipulator Operator CLIA: [id number] Sodium 144 135-145 mmol/L Potassium 4.0 3.5-5.3 [...] 210 Performing Lab: Notes/Report: Test performed by [facility], [address], [place] [address] Zac Childers MD, Manipulator Operator CLIA: [id number] Cholesterol 210 <200 mg/dL Triglycerides 84 <150 [...] 08/17/2024 Encounters Encounter Location Date [facility] [address] [place] [id number] 08/17/2024 Demar Low Hyperlipidemia, unspecified E78.5 ; [...] [address], [address], [place], [place], [id number], Progress Notes * DELILAH TELLODOB:[birth year] (70 yo F)Acc No.[id number]:08/17/2024 Progress Notes Patient: DELILAH LYON Provider: Demar Low M.D. :1955 A ge:69 Y S ex:Female Date:08/17/2024 Address:[address] [facility] [address], [id number] Subjective: * Chief Complaints: * 1 . [...] .? G YN: She follows with a kitchen clerk and is current with her mammogram. 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 [...] * Images: Billing Information: * Visit Code: 46414 Office Visit, Est Pt., Level 4. * Procedure Codes: * Electronic signature of Demar Low MD on 06/14/2025 at 11:00 AM EDT Sign off status: Pending * Provider: Demar Low M.D. Date: Generated for Printi ng/Sonnyg/eTransmitting on: 0 06/14/2025 11:00 AM EDT History and Physical Notes * HPI (History of Present Illness) Category Sub-Category Detail Notes Category Not es SHANK SORTER She brings in a copy of the thyroid ultrasound ordered by her kitchen clerk which is normal except for a single [...]
--- OUTSIDE RECORDS SUMMARY | 2025-05-03 10:42 | XMS_ITS ---
Author Organization [facility] Address [address] [place] [address] [place] [id number] Care Team Providers Care Requirements Engineer Name Role Phone Demar Low Primary Care Provider Rojelio Magallon Unavailable [phone] Results Component Value Reference Range Notes CT Scan : Chest, low dose Reviewed date:06/09/2025 12:41:18 PM Interpretation:no evidence of lung cancer, f/u 1 year Performing Lab: Notes/Report: no evidence of lung cancer, f/u 1 year Encounters Encounter Location Date Provider Diagnosis [facility] [address] [place] [id number] 05/03/2025 Demar Low History of tobacco use Z87.891 and Encounter for screening for lung cancer Z12.2 Assessments Encounter Date Diagnosis (ICD Code) Assessment Notes Treatment Notes Treatment Clinical Notes Section Notes 05/03/2025 History of tobacco use (ICD-10 - Z87.891) 05/03/2025 Encounter for screening for lung cancer (ICD-10 - Z12.2) Plan Of Treatment Next Appt Details Provider Name:Demar Davis, 08/18/2025 09:00:00 AM, [address], [address], [place], [id number], Progress Notes * DELILAH TELLOB:[birth year] (70 yo F)Acc No.[id number]:05/03/2025 Patient: DELILAH LYON :1955 A ge:70 Y S ex:Female Address:[address] [place] [address] [address] [place] [address] Subjective: * Chief Complaints: * * Medical History: * Surgical History: * Hospitalization/Major Diagno stic Procedure: * Medications: Objective: * Vitals: * Physical Examination: Assessment: * Assessment: 1. H istory of tobacco use - Z87.891 (Primary) 2 . E ncounter for screening for lung cancer - Z12.2 Plan: * Treatment: * Procedure Codes: * true * Date: Generated for Abimael konx/Albert/Haiitting on: 0 06/14/2025 11:01 AM EDT
--- OUTSIDE RECORDS SUMMARY | 2025-05-18 10:25 | XMS_ITS | Encounter Summary ---
Author Organization [facility] Address [address] [place] [address] Care Team Providers Care Tagman Name Role Phone Gera Low MD Primary Care Provider +1- [phone] Encounter Details Date Type Department Care Team (Latest Contact Info) Description 05/18/2025 10:25 AM EDT - 05/18/2025 11:59 PM EDT Hospital Encounter [facility] [address] [facility], [address] [place] [address] Age-related osteoporosis without current pathological fracture Discharge Disposition: Home or Self Care Social History Tobacco Use Types Packs/Day Years Used Date Smoking Tobacco: Former Cigarettes 1.5 40 1 - 08/07/2016 Passive Smoke Exposure: Past Smokeless Tobacco: Never Alcohol Use Standard Drinks/Week Comments No 0 (1 standard drink = 0.6 oz pur e alcohol) PHQ-2 Answer Date Recorded Patient Health Questionnaire-2 Score 0 05/18/2025 PHQ-2A Answer Date Recorded Depression Risk 0 08/27/2024 Comments Unknown Sex and Gender Information Value Date Recorded Sex Assigned at Female 11/09/2021 11:47 AM EST Legal Sex Female 6:10 PM EDT Gender Identity Female 11/09/2021 11:47 AM EST Sexual Orientation Straight 11/09/2021 11 :47 AM EST documented as of this encounter Functional Status * Over the past 2 weeks, how often have you been bothered by any of the following problems? Question Answer Date of Assessment Author Little interest or pleasure in doing things Not at all 05/18/2025 11:12 AM EDT Aurora Kaufman Feeling down, depressed, or hopeless Not at all 05/18/2025 11:12 AM EDT Aurora Kaufman Patient Health Questionnaire -2 Score 0 05/18/2025 11:12 AM EDT Aurora Kaufman documented as of this encounter Medications at Time of Discharge calcium carbonate 1500 (600 Ca) MG tablet Take 1 tablet twice daily 12/04/2020 Coenzyme Q10 (CoQ10) 200 MG capsule 10/27/2024 cyanocobalamin (Vitamin B-12) 1000 MCG tablet TAKE 1 TABLET DAILY DIRECTED. 08/17/2019 Melatonin 10-10 MG tablet controlled-releas e Take by mouth. Melatonin 5 MG capsule 1 cap(s) orally once a day (at bedtime) raloxifene (Evista) 60 MG tablet 03/06/2021 documented as of this encounter Plan of Treatment Upcoming Encounters Date Type Department Care Team (Late st Contact Info) Description 01/11/2026 12:10 PM EDT Clinical Support [facility] Laboratory Services [address] [facility], 1[address] [place] [phone] 01/25/2026 11:00 AM EDT Evaluation [facility] Bone [facility] Mineral Metabolism [address] [facility], [address] [place] [phone] Boo Michelle, PharmD [address] [facility] [address] [place] [phone] documented as of this encounter Procedures Procedure Name Priority Date/Time Associated Diagnosis Comments DEXA BONE DENSITY Routine 05/18/2025 10: 25 AM EDT Age-related osteoporosis without current pathological fracture documented in this encounter Results * Dexa Bone Density (05/18/2025 10:25 AM EDT) Anatomical Region Laterality Modality L-spine Radiographic Zulay ging Narrative 05/29/2025 9:32 PM EDT [facility] [address] [place] [address] DXA Bone Densitometry Report: [05/18/2025] BMD test performed using the eGifterXA DXA System (analysis version: 14.10) manufactured by [employer]. REFERRING PROVIDER: ALEXANDREA Rivas CLINICAL INFORMATION: osteoporosis PATIENT NAME: Natividad Tello PATIENT AGE: 70 y.o. LEGAL SEX: female RADIOGRAPHIC VIEWS: Sites scanned: AP Spine, HIP Right , HIP Left, and TBS COMPARISON STUDY: DXA Axial 12/26/2023 and TBS 12/26/2023 FINDINGS: Based on WHO criteria (post-menopausal female) the diagnosis is Osteopenia The lowest T- score is -1.3 in the R total hip There is Stability compared to prior measurements The presence of arthritic or degenerative joint changes in the spine could artefactually increase measured BMD. TBS: The TBS L1-L4 of 1.401 indicates normal microarchitecture TREATMENT RECOMMENDATIONS: Patient has [...] comparison and calculation of change in BMD). Krystal LECHUGA IMG DXA PROCEDURES Final Res ult documented in this encounter Visit Diagnoses Diagnosis Age-related osteoporosis without current pathological fracture documented in this encounter Additional Health Concerns Assessment Noted Time A fall risk assessment has been complete d for the patient 05/18/2025 11:12 AM EDT A Body Mass Index follow-up plan has been documented for the patient 05/18/2025 11:47 AM EDT documented as of this encounter Care Teams Tagman Relationship Specialty Start Date End Date Gera Low MD [address] [place], [place] [address] PCP - General 03/09/21 documented as of this encounter
--- OUTSIDE RECORDS SUMMARY | 2025-05-18 11:40 | XMS_ITS | Encounter Summary ---
Author Organization [facility] Address [address] [place] [address] Care Team Providers Care Process Equipment Operator Name Role Phone Gera Low MD Primary Care Provider +1- [phone] Reason for Referral * Consultation (Routine) - Authorized Specialty Diagnoses / Procedures Referred By Contlesly t Referred To Contact Diagnoses Age-related osteoporosis without current pathological fracture Michaelle Sprague MD [address] [place] [address] Phone: tel: fax: Referral ID Status Reason Start Date Expiration Date V isits Requested Visits Authorized [id number] Authorized 05/18/2025 11/17/2026 1 1 Reason for Visit * Reason Comments Follow-up Encounter Details Date Type Department Care Team (Late st Contact Info) Description 05/18/2025 11:40 AM EDT Office Visit [facility] [address], [address] [place] [address] Michaelle Sprague MD [address] [place] [address] Age-related osteoporosis without current pathological [...] had addl testing in 2011, 2013 at [place]). Further decline noted in 2015, and changed [...] The setting of decline in BMD and vermin exterminator BPs, suggests that she has a significant [...] List Diagnosis COPD (chronic obstructive pulmonary disease) ([facility]) Osteoporosis Bursitis, hip Acid reflux Past Surgical History: Procedure Laterality Date BARTHOLIN GLAND CYST EXCISION N/A Bartholin's cyst excision from [facility] COLONOSCOPY N/A colonoscopy from [facility] Current Outpatient Medications Medication Sig Dispense Refill [...] is being followed for osteoporosis. She used vermin exterminator BPs and DXA shows a decline in BMD. She was taking Boniva, raloxifene and vit D. Risk factors for bone loss include age, premature menopause, care home smoking, vermin exterminator BPs She underwent a full work up [...] although she is being treated with BPs care home suggests that she has a significant decline [...] Avoidance of NSAIDs and other nephrotoxins and vermin exterminator nature of condition. Education provided was verbal [...] Patient confirms they are physically located in [place]? Yes If the patient is not physically located in [place], the provider has confirmed with Legal thatthe provider is authorized to provide services in patient's stated location? N/A Provider Location: clinic Audio and video or audio only? Audio and video Total visit time: 20 minutes ORDERS PLACED THIS ENCOUNTER Orders Placed This Encounter Procedures Vitamin D 25 Hydroxy Standing Status: Future Expected Date: 11/21/2025 Expiration Date: 11/25/2026 Release to patient in [facility]: Immediate [1] Osteocalcin by [facility] Standing Status: Future Expected Date: 11/21/2025 Expiration Date: 11/25/2026 Release to patient in [facility]: Immediate [1] C-Telopeptide Standing Status: Future Expected Date: 11/21/2025 Expiration Date: 11/25/2026 Release to patient in [facility]: Immediate [1] Renal Function Panel, Plasma Standing Status: Future Expected Date: 11/21/2025 Expiration Date: 11/25/2026 Release to patient in [facility]: Immediate [1] Bone Specific Alkaline Phosphatase Standing Status: Future Expected Date: 11/21/2025 Expiration Date: 11/25/2026 Release to patient in [facility]: Immediate Follow Up Bone Mineral Metabolism Standing Status: Future Expected Date: 01/23/2026 Expiration Date: 06/18/2026 Referral Priority: Routine Referral Type: Consultation Number of Visits Requested: 1 Michaelle Sprague MD documented in this encounter Plan of Treatment Upcoming Encounters Date Type Department Care Team ([facility] st Contact Info) Description 01/11/2026 12:10 PM EDT Clinical Support [facility] Services [address], [address] [place] [id number] 01/25/2026 11:00 AM EDT Evaluation [facility] [address], [address] [place] [address] Boo Michelle, PharmD [address] [place] [phone] Scheduled Orders Name Type Priority Associated Diagnoses [...] documented as of this encounter Care Teams Process Equipment Operator Relationship Specialty Start Date End Date Gera Low MD [address] [place] [address] PCP - General 03/09/21 documented as of this encounter
--- OUTSIDE RECORDS SUMMARY | 2025-06-14 11:00 | XMS_ITS ---
Author Organization Unknown TREATMENT PLAN [facility] Start Date Provider Encounter for Check-up [phone] [facility]
--- OUTSIDE RECORDS SUMMARY | 2025-06-14 11:00 | XMS_ITS | Clinical Summary ---
[facility] Organization [facility] Address [address] [place] [address] Care Team Providers Care Horse Racing Manager Name Role Phone Gera Low MD [...] Insurance MEDICARE A & B Care Teams Horse Racing Manager Relationship Specialty Start Date End Date Gera Low MD [address] [facility] [address] [facility] [address] [place] [address] PCP - General Family Medicine 11/15/16
--- OUTSIDE RECORDS SUMMARY | 2025-06-14 11:00 | XMS_ITS | Encounter Summary ---
Author Organization [facility] Address [address] [place] [address] Care Team Providers Care Electrolysis Operator Name Role Phone Gera Low MD Primary Care Provider +1- [phone] Encounter Details Date Type Department Care Team ([facility] Contact Info) Description 05/09/2025 Telephone [facility] [address] [facility], [address] [place] [address] Aurora Kaufman Social History Tobacco [...] Description 01/11/2026 12:10 PM EDT Clinical Support [facility] Laboratory Services [address] [facility], 1st [place] [address] 01/25/2026 11:00 AM EDT Evaluation [facility] [address] [facility], [address] [place] [address] Boo Michelle, PharmD [address] [facility] [address] [place] [address] documented as of this encounter Visit Diagnoses Not on filedocumented in this encounter Additional Health Concerns Assessment Noted Time A fall risk assessment has been complete d for the patient 08/27/2024 7:56 AM EDT A Body Mass Index follow-up plan has been documented for the patient 08/27/2024 11:28 AM EDT documented as of this encounter Care Teams Electrolysis Operator Relationship Specialty Start Date End Date Gera Low MD [address] [place] [address] PCP - General 03/09/21 documented as of this encounter
--- OUTSIDE RECORDS SUMMARY | 2025-06-14 11:01 | XMS_ITS | Encounter Summary ---
Author Organization [facility] Address [address] [place] [address] Care Team Providers Care Repair Department Supervisor Name Role Phone Gera Low MD Primary Care Provider +1- [phone] Encounter Details Date Type Department Care Team ([facility] st Contact Info) Description 06/14/2025 Telephone [facility] [address] [facility], [address] [place] [address] Boo Michelle, PharmD [address] [place] [address] Social History Tobacco Use Types [...] Clinician Note - Boo Michelle, PharmD - 06/14/2025 9:08 AM EDT Spoke with patient today. She states she is going in today (06/14) for dose of Prolia at [facility]. [facility] has advised her they will print her post-Prolia lab order so she can have scheduled there as well. I will follow up with patient once results return. Patient expressed understanding of plan outlined above, encouraged to call clinic with any questions or concerns. Boo Michelle, MaritzaD, BCACP Clinical Pharmacist Nephrology, [facility] [address] [place] [address] documented in this encounter Plan of Treatment Upcoming Encounters Date Type Department Care Team (Late st Contact Info) Description 01/11/2026 12:10 PM EDT Clinical Support [facility] Laboratory Services [address] [facility], 1st Floor [place] [id number] 01/25/2026 11:00 AM EDT Evaluation [facility] Mineral Metabolism [address] [facility], [address] [place] [address] Boo Michelle, PharmD [address] [facility] [address] [place] [address] documented as of this encounter Visit Diagnoses Not on filedocumented in this encounter Additional Health Concerns Assessment Noted Time A fall risk assessment has been complete d for the patient 05/18/2025 11:12 AM EDT A Body Mass Index follow-up plan has been documented for the patient 05/18/2025 11:47 AM EDT documented as of this encounter Care Teams Repair Department Supervisor Relationship Specialty Start Date End Date Gera Low MD [address] [place] [address] PCP - General 03/09/21 documented as of this encounter
--- OUTSIDE RECORDS SUMMARY | 2025-06-14 11:01 | XMS_ITS | Clinical Summary ---
Author Organization [facility] Address [address] [place] [address] Care Team Providers Care Repairer Switchgear Name Role Phone Gera Low MD Primary Care Provider +1- [phone] Allergies No known active allergies Medications raloxifene [...] Plan (05/08/2021 9:44 PM EDT): She used keno terminal operator BPs and DXA shows a decline in BMD. She was taking Boniva, raloxifene and vit D. Risk factors for bone loss include age, premature menopause, prison smoking, keno terminal operator BPs She underwent a full work up [...] although she is being treated with BPs prison suggests that she has a significant decline [...] Encounters Date Type Department Care Team Description 06/14/2025 Telephone [facility] [address] , [address] [place] [address] Boo Michelle, PharmD 05/27/2025 Telephone [facility] [address] [place] [address] Kaur Avitia, dog walker 05/18/2025 11:40 AM EDT Office Visit [facility] [address] , [address] [place] [address] Michaelle Sprague MD Age-related osteoporosis without current pathological fracture (Primary Dx) 05/18/2025 10:25 AM EDT - 05/18/2025 11:59 PM EDT Hospital Encounter [facility] [address], [address] [place] [address] Age-related osteoporosis without current pathological fracture Discharge Disposition: Home or Self Care 05/18/2025 Travel 05/12/2025 Travel 05/09/2025 [facility] Mineral Met[facility] [address], [address] [place] [address] Aurora Kaufman E 03/18/2025 Travel from Last 3 Months Immunizations Immunization Administration Dates Next Due Pfizer Covid-19 Vaccine 12y+ , Jose Protein, PF, Sukhdeep-Sucrose 08/06/2023 [employer] COVID-19 Vac cine (Purple Cap) 12+ 09/05/2021,01/20/2021,12/28/2020 Family History Medical History Relation Name Comments Diabetes Brother 1 Jose Guadalupe Prostate cancer Brother 2 Cancer Brother 3 Jose Guadalupe Britton Diabetes Brother 3 Jose Guadalupe Britton Vision loss Brother 3 Jose Guadalupe Alexander Britton Asthma Brother 4 Andrews Britton Cancer Brother 4 Andrews Britton Vision loss Brother 4 Andrews Britton Cancer Father Cody Britton Cardiac disorder Father Cody Britton Heart attack Father Cody Britton Prostate cancer Father Cody Britton Stroke Father's Sister Natividad Johnson Hypertension Mother Corinaannette Brian Britton Osteoporosis Mother Corinaannette Brian Britton Cancer Mother's Brother 1 Oconnor Guzman Cancer Mother's Brother 2 Earnest Guzman Cancer Mother's Brother 3 Jose Guadalupe Guzman Cancer Mother's Brother 5 Gera Heart disease Mother's Brother 7 Shahid Andujar Stroke Mother's Sister 1 Jasmin Edward Colon cancer Paternal Grandfather Breast cancer Sister 1 Carleen Sharma Cancer Sister 1 Carleen Sharma Relation Name Status Comments Brother 1 Jose Guadalupe Brother 2 Brother 3 Jose Guadalupe Alexander Britton Brother 4 Andrews Britton Alive Brother 5 Andrews Alive Father Cody Britton Father's Sister Natividad Johnson Mother Corina Britton Mother's Brother 1 Elvin Guzman Mother's Brother 2 Colin Guzman Mother's Brother 3 Jose Guadalupe Guzman Mother's Brother 4 Earnest Alive Mother's Brother 5 Gera Mother's Brother 6 Shahid Alive Mother's Brother 7 Shahid Andujar Mother's Sister 1 Jasmin Edward Mother's Sister 2 Jasmin Rain Paternal Grandfather Sister 1 Carleen Sharma Sister [...] Description 01/11/2026 12:10 PM EDT Clinical Support [facility] Services [address] [facility], 1st [place] [address] 01/25/2026 11:00 AM EDT Evaluation [facility] [address] [facility], [address] [place] [address] Boo Michelle, PharmD [address] [facility] [address] [place] [address] Health Maintenance Due Date Last Done Comments [facility]-Hepatitis C Screening 1955 [facility]Medicare Annual Wellness (AWV) 1955 [facility]-/Child/Adol SDOH Screenings 1957 [facility]- SDOH Screenings 1975 [facility]-Adult SDOH Screenings 1975 CT Colonography 2002 Colonoscopy 2002 FIT-DNA 2002 FIT 2002 FOBT 2002 Sigmoidoscopy 2002 [facility]-Colorectal Cancer Screening 2002 [facility]-Lung Cancer Screening 2007 [facility]-Zoster Vaccines (1 of 2) 2007 DDL-NLFGK-20 Vaccine (8 - Pfizer risk 2023- season) 2025 08/26/2024, 08/06/2023, 08/14/2022, Additional history exists [facility]-Influenza Vaccine (#1) 06/27/202508/06, 08/09/2022, 07/24/2021, Additional history exists [facility]-Bone Density Scan 05/18/2026 05/18/2025 , 12/26/2023, 12/26/2023, Additional history exists [facility]-Depression Screening 05/18/2026 05/18/2025, 10/2023 [facility]-Breast Cancer Screening 08/04/202606/2024, 08/04/2024, 07/25/2023, Additional [...] pathological fracture RENAL FUNCTION PANEL, PLASMA Routine 03/18/2025 11:48 AM EDT Age-related osteoporosis without current pathological fracture BONE SPECIFIC ALKALINE PHOSPHATASE Routine 03/18/2025 11:48 AM EDT Age-related osteoporosis without current pathological fracture VITAMIN D 25 HYDROXY Routine 03/18/2025 11:48 AM EDT Age-related osteoporosis without current pathological fracture C-TELOPEPTIDE Routine 03/18/2025 11:48 AM EDT Age-related osteoporosis without current pathological fracture from Last 3 Months Results * Dexa Bone Density (05/18/2025 10:25 AM EDT) Anatomical Region Laterality Modality L-spine Radiographic Zulay ging Narrative 05/29/2025 9:32 PM EDT [facility] - [facility] [address] [place] [address] DXA Bone Densitometry Report: [05/18/2025] BMD test performed using the PR Slides DXA System (analysis version: 14.10) manufactured by [employer]. REFERRING PROVIDER: ALEXANDREA Rivas CLINICAL INFORMATION: osteoporosis [...] [facility] DXA PROCEDURES Final Res ult * Bone Specific Alkaline Phosphatase (03/18/2025 11:48 AM EDT) [facility] Bone Specific Alkaline Phosphatase 7.1 ug/L 03/18/2025 4:37 PM EDT [facility] Comment: BSAP (Ostase) Reference Values, Female, age 18 years and up: Premenopausal: 4.5 to 16.9 ug/L Postmenopausal: 7.0 to 22.4 ug/L Blood Venous blood specimen / Unknown Venipuncture / Unknown 03/18/2025 11:48 AM EDT 03/18/2025 11:48 AM EDT [facility] REF LAB BLOOD AND FLUID ORD Final Result [facility] [address] [place] [address] * C-Telopeptide (03/18/2025 11:48 AM EDT) Pathologist [facility] C Telopeptide Beta Cross Linked Serum Result 111 pg/mL 03/19/2025 7:44 PM EDT [facility] NONI) Blood Venous blood specimen / Unknown Venipuncture / Unknown 03/18/2025 11:48 AM EDT 03/18/2025 11:48 AM EDT Narrative [facility] SENDY CHENEY) - 03/19/2025 7:44 PM EDT Premenopausal Females: 136-689 pg/mL Postmenopausal Females: 177-1015 pg/mL REFERENCE INTERVAL: C-Telopeptide, Edge-Uwzvw-Makcga, Serum Access complete set of age- and/or gender-specific reference intervals for this test in the [facility] Test Directory ([employer]). Performed By: [facility] [address] [place] [address] Data Visualization Developer: Vijay Bird MD, PhD CLIA Number: [id number] [facility] BLOOD ORDERABLES Final R esult [facility] [employer] [place] [address] [place] [address] * Vitamin D 25 Hydroxy (03/18/2025 11:48 AM EDT) [facility] Vitamin D 25 Hydroxy 52.6 20.0 - 80.0 ng/mL 03/18/2025 4:32 PM EDT [facility] Blood Venous blood specimen / Unknown Venipuncture / Unknown 03/18/2025 11:48 AM EDT 03/18/2025 11:48 AM EDT Narrative [facility] - 03/18/2025 4:32 PM EDT Testing performed on [employer] Community [employer], standardized against NIST SRM 2972. When testing [...] [facility] BLOOD ORDERABLES Final R esult [facility] [address] [place] [address] * Renal Function Panel, Plasma (03/18/2025 11:48 AM EDT) [facility] Glucose, Plasma 91 74 - 99 mg/dL 03/18/2025 3:01 PM EDT [facility] BUN, Plasma 11 8 - 23 mg/dL 03/18/2025 3:01 PM EDT [facility] Creatinine, Plasma 0.67 0.60 - 1.10 mg/dL 03/18/2025 3:01 PM EDT [facility] BUN/Creatinine Ratio 16 03/18/2025 3:01 PM EDT [facility] Sodium, Plasma 138 136 - 145 mmol/L 03/18/2025 3:01 PM EDT [facility] Potassium, Plasma 4.0 3.6 - 4.9 mmol/L 03/18/2025 3:01 PM EDT [facility] Chloride, Plasma 103 97 - 107 mmol/L 03/18/2025 3:01 PM EDT [facility] CO2, Plasma 27 22 - 29 mmol/L 03/18/2025 3:01 PM EDT [facility] Anion Gap 8 6 - 16 mmol/L 03/18/2025 3:01 PM EDT [facility] Total Calcium, Plasma 9.5 8.9 - 10.2 mg/dL 03/18/2025 3:01 PM EDT [facility] Phosphorus, Plasma 3.3 2.5 - 4.5 mg/dL 03/18/2025 3:01 PM EDT [facility] Albumin, Plasma 4.2 3.5 - 5.2 g/dL 03/18/2025 3:01 PM EDT [facility] eGFRcr 95.9 mL/min/1.7 3m*2 03/18/2025 3:01 PM EDT [facility] Comment:Reported eGFRcr in m L/min/1.73m2 is based the CKD-EPI 2020 equation that does not use a race coefficient. Blood Venous blood specimen / Unknown Venipuncture / Unknown 03/18/2025 11:48 AM EDT 03/18/2025 11:48 AM EDT us [facility] BLOOD ORDERABLES Final R esult [facility] [address] [place] [address] from Last 3 Months Insurance [facility] [place] [address] Care Teams Repairer Switchgear Relationship Specialty Start Date End Date Gera Low MD [address] [place] [address] PCP - General 03/09/21
--- OUTSIDE RECORDS SUMMARY | 2025-06-14 11:01 | XMS_ITS | Encounter Summary ---
Author Organization [facility] Address [address] [place] [address] Care Team Providers Care Physical Instructor Name Role Phone Gera Low MD Primary Care Provider +1- [phone] Encounter Details Date Type Department Care Team [...] Description 01/11/2026 12:10 PM EDT Clinical Support [facility] Laboratory Services [address] [facility], 1st [place] [address] 01/25/2026 11:00 AM EDT Evaluation [facility] Mineral Metabolism [address] [facility], [address] [place] [address] Boo Michelle, PharmD [address] [facility] [address] [place] [address] documented as of this encounter Visit Diagnoses Not on filedocumented in this encounter Additional Health Concerns Assessment Noted Time A fall risk assessment has been complete d for the patient 05/18/2025 11:12 AM EDT A Body Mass Index follow-up plan has been documented for the patient 05/18/2025 11:47 AM EDT documented as of this encounter Care Teams Physical Instructor Relationship Specialty Start Date End Date Gera Low MD [address] [place] [address] PCP - General 03/09/21 documented as of this encounter
--- OUTSIDE RECORDS SUMMARY | 2025-06-14 11:01 | XMS_ITS | Encounter Summary ---
Author Organization [facility] Address [address] [place] [address] Care Team Providers Care Strategic Planning Director Name Role Phone Gera Low MD Primary Care Provider +1- [phone] Encounter Details Date Type Department Care Team [...] [facility] [address], 1st [place] [address] 01/25/2026 11:00 AM EDT Evaluation [facility] [address], [address] [place] [address] Boo Michelle, PharmD [address] [place] [address] documented as of this encounter Visit Diagnoses Not on filedocumented in this encounter Additional Health Concerns Assessment Noted Time A fall risk assessment has been complete d for the patient 08/27/2024 7:56 AM EDT A Body Mass Index follow-up plan has been documented for the patient 08/27/2024 11:28 AM EDT documented as of this encounter Care Teams Strategic Planning Director Relationship Specialty Start Date End Date Gera Low MD [address] [place] [address] PCP - General 03/09/21 documented as of this encounter
--- OUTSIDE RECORDS SUMMARY | 2025-06-14 11:01 | XMS_ITS | Patient Health Record ---
Author Organization [facility] Address [address] [place] [address] Care Team Providers Care Hydraulic Lift Driver Name Role Phone Yelitza Telles Primary Care [...] Problem Status W/U Status Risk Notes Problem Multinodular thyroid (E04.2) Active confirmed Problem Gynecological examination normal ([id number] ) Cervical smear, as part of routine gynecological examination (Z01.419) 12/01/19 20 Active confirmed Annual without abnormal findings Plan Of Treatment No Information Insurance Providers Payer Name Payer Address Payer Phone Subscriber Number Group Number Insured Name Patient Relationship to Insured Coverage Start Date Coverage End Date [place] [address] [place] [address] [phone] [id number] Natividad Tello Self - patient is the insured [facility] [address] [address] [place] [address] [id number] Natividad Tello Self - patient is the insured Medical (General) History Medical History History ICD Code osteoporosis GERD trochateric hip bursitis COPD with emphysema Surgical History Surgery Date(Month/Year) bone bx marsupilization of bartholin gland Hospitalization History Reason Date(Month/Year) childbirth
--- OUTSIDE RECORDS SUMMARY | 2025-06-14 11:01 | XMS_ITS | Clinical Summary ---
Author Organization [employer] [place] Address [address] [place] [address] Care Team Providers Care Lacquerer Name Role Phone Gera Low MD Primary Care Provider +1- [phone] Family History Medical History Relation Name Comments [...] Date Tommie rded Speak language other than [place] at home Not on file 11/14/2023 Want [...] Info) Description 08/08/2025 11:00 AM EDT Appointment [address] [place] [address] Health Maintenance Due Date Last Done [...] the next mammogram. At our facility, a ely shoshone marker is positioned over a visible skin [...] tested negative for genetic mutation. COMPARISON STUDY: [facility] FINDINGS: Craniocaudal and mediolateral oblique images of [...] Most Recently Relevant to Health Maintenance Insurance [facility] [address] [id number] BLUE CROSS/BLUE SHIELD MEDICARE PART A B Care Teams Lacquerer Relationship Specialty Start Date End Date Gera Low MD [address] [place] [address] PCP - General Family Medicine 08/04/24
--- OUTSIDE RECORDS SUMMARY | 2025-06-14 11:01 | XMS_ITS | Encounter Summary ---
Author Organization [facility] Address [address] [place] [address] Care Team Providers Care Railroader Name Role Phone Gera Low MD Primary Care Provider +1- [phone] Encounter Details Date Type Department Care Team (Late st Contact Info) Description 05/27/2025 Telephone [facility] [address] [place] [address] Kaur Avitia, [facility] Social History Tobacco Use Types Packs/Day Years [...] encounter Miscellaneous Notes * Progress Notes - Kaur Avitia, cloth seconds sorter - 05/27/2025 3:59 PM EDT Infusion Authorization Not Required Specialty Medication: Prolia J-Code/CPT Code/S-Code: J0897 Quantity and Units of Measure Reviewed: QS Diagnosis Code: M81.0 Insurance Name: Alice Where did you submit request and how (portal/fax/phone number): Reference Number: [place] Follow-Up Filling Pharmacy/SOC: [facility] Will review auth status in 3 months. * Progress Notes - Kaur Avitia CPhT - 05/27/2025 3:56 PM EDT Medicare B/Advantage Plan Authorization Information Specialty Medication: Prolia Diagnosis Code: M810 J-code/CPT code/S code: J0897 Covered by Medicare B: Yes Does the diagnosis, dose, and frequency match an FDA approved dosing schedule? Yes, list prescribeddose/frequency: 60 mg once Site of Care: [facility] Does patient have an Advantage Plan? No. Will review in 12 months. documented in this encounter Plan of Treatment Upcoming Encounters Date Type Department Care Team (Late st Contact Info) Description 01/11/2026 12:10 PM EDT Clinical Support [facility] Laboratory Services [address] [facility], 1st [place] [address] 01/25/2026 11:00 AM EDT Evaluation [facility] Bone & Mineral Metabolism [address] [facility], [address] [place] [address] Boo Michelle, PharmD [address] [facility] [address] [place] [address] documented as of this encounter Visit Diagnoses Not on filedocumented in this encounter Additional Health Concerns Assessment Noted Time A fall risk assessment has been complete d for the patient 05/18/2025 11:12 AM EDT A Body Mass Index follow-up plan has been documented for the patient 05/18/2025 11:47 AM EDT documented as of this encounter Care Teams Railroader Relationship Specialty Start Date End Date Gera Low MD [address] [place] [address] PCP - General 03/09/21 documented as of this encounter
--- OUTSIDE RECORDS SUMMARY | 2025-06-14 11:02 | XMS_ITS | Referral Summary ---
Author Organization [employer] ([place], [place], [place], [place]) Address [address] [place] [address] Care Team Providers Care Natural Sciences Professor Name Role Phone Gera Low MD Primary Care Provider +1- [phone] Social History Tobacco Use Types Packs/Day Years Used Date Smoking Tobacco: Never Assessed Family and Community Support Answer Catrachito e Recorded Help with Day to Day Activities Not on file 11/14/2023 Feeling Lonely or Isolated Not on file 11/14 Educational Attainment Answer Date Tommie rded Speak language other than [place] at home Not on file 11/14/2023 Want [...] Info) Description 08/08/2025 11:00 AM EDT Appointment [address] [place] [address] Procedures Procedure Name Priority Date/Time Associated [...] the next mammogram. At our facility, a ute mountain marker is positioned over a visible skin [...] tested negative for genetic mutation. [id number] FINDINGS: Craniocaudal and mediolateral oblique images of [...] SHIELD MEDICARE PART A B Care Teams Natural Sciences Professor Relationship Specialty Start Date End Date Gera Low MD [address] [place] [address] PCP - General Family Medicine 08/04/24
--- OUTSIDE RECORDS SUMMARY | 2025-06-14 11:02 | XMS_ITS | Patient Health Record ---
Author Organization [facility] Address [address] [place] [id number] Care Team Providers Care Director Content Marketing Name Role Phone Demar Low Primary Care Provider Rojelio Magallon Unavailable [phone] Allergies No Known Allergies Results Component Value Reference Range Notes P-Comprehensive Metabolic Pa bud (CMP) Reviewed date:08/24/2024 08:36:06 AM Interpretation:gluc 100 Performing Lab: Notes/Report: Test performed by [facility] [address] [facility] , [address], [place] [address] Zac Childers MD, Anatomic Pathology Assistant CLIA: [id number] Sodium 144 135-145 mmol/L Potassium 4.0 3.5-5.3 [...] 210 Performing Lab: Notes/Report: Test performed by [facility], [address] , [address] , [place] [address] Zac Childers MD, Anatomic Pathology Assistant CLIA: [id number] Cholesterol 210 <200 mg/dL Triglycerides 84 <150 [...] Results: 94 Units: mg/dL % Change: - CT Scan : Chest, low dose Reviewed date:06/09/2025 12:41:18 PM Interpretation:no evidence of lung cancer, f/u 1 year Performing Lab: Notes/Report: no evidence of lung cancer, f/u 1 year Medications Medication SIG (Take, Route, Frequency, Duration) [...] Status W/U Status Risk Notes Problem Osteopenia (105677224) Osteopenia (M85.80) Active confirmed Problem Age-related osteoporosis (348272178) Age-related osteoporosis without current pathological fracture (M81.0) Active confirmed Problem Hyperlipidemia (54968621) Hyperlipidemia, unspecified (E78.5) Active confirmed Problem Gastroesophageal reflux disease without esophagitis (230155959) Gastroesophageal reflux disease without esophagitis (K21.9) Active confirmed Problem Former smoker (2920340) Former smoker (Z87.891) Active confirmed Vital Signs Heart Rate 94 /min 08/17/2024 Blood pressure diastolic 80 mm Hg 08/17/2024 Height 68.50 in 08/17/2024 Blood pressure systolic 126 mm Hg 08/17/2024 Weight 141.8 lbs 08/17/2024 BMI 21.24 kg/m2 08/17/2024 Encounters Encounter Location Date Provider Diagnosis [facility] [address] [place] [id number] 08/17/2024 R Elian Low Hyperlipidemia, unspecified E78.5 ; Age-related osteoporosis without current pathological fracture M81.0 ; Former smoker Z87.891 ; Trochanteric bursitis of left hip M70.62 ; Osteopenia M85.80 ; Screening for breast cancer Z12.39 and Encounter for immunization Z23 [facility] [address] [place] [id number] 08/24/2024 R Elian Low [facility] [address] [place] [id number] 10/28/2024 R Elian Low Osteopenia 733.90 [facility] [address] [place] [id number] 05/03/2025 R Elian Low [facility] [address] [place] [id number] 05/03/2025 R Elian Low History of tobacco u se Z87.891 and Encounter for screening for lung cancer Z12.2 Assessments Encounter Date Diagnosis (ICD Code) Assessment Notes Treatment Notes Treatment Clinical Notes Section Notes 08/17/2024 Age-related osteoporosis without current pathological fracture (ICD-10 - M81.0) 08/17/2024 Hyperlipidemia, unspecified (ICD-10 - E78.5) 10/28/2024 Osteopenia (ICD9-CM - 733.90) 05/03/2025 History of tobacco use (ICD-10 - Z87.891) 05/03/2025 Encounter for screening for lung cancer (ICD-10 - Z12.2) 08/17/2024 Former smoker (ICD-10 - Z87.891) 08/17/2024 Trochanteric bursitis of left hip (ICD-10 - M70.62) 08/17/2024 Osteopenia (ICD-10 - M85.80) 08/17/2024 Screening for breast cancer (ICD-10 - Z12.39) 08/17/2024 Encounter for immunization (ICD-10 - Z23) Plan Of Treatment Next Appt Details Provider Name:Demar Davis, 08/18/2025 09:00:00 AM, [address] [facility], [address], [place], [place], [id number], Insurance Providers Payer Name Payer Address Payer Phone Subscriber Number Group Number Insured Name Patient Relationship to Insured Coverage Start Date Coverage End Date MEDICARE PART B [address] [address] [place] [id number] [phone] [id number] DELILAH TELLO Self - patient is the insured [facility] [address] [place] [address] [phone] [id number] DELILAH TELLO Self - patient is the insured Medical (General) History Medical History History ICD Code hypercholestrolemia Osteoporosis Former smoker - quit 2015 GERD 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 Arce 2018
--- OUTSIDE RECORDS SUMMARY | 2025-06-14 11:02 | XMS_ITS | Encounter Summary ---
Author Organization [facility] ([place], [place], [place], [place]) Address [address] [place] [address] Care Team Providers Care Military Exchange Wireless Manager Name Role Phone Yelitza Telles MD Primary Care Provider [phone] Gera Low MD Primary Care Provider [phone] Reason for Referral * Mammography (Routine) - Closed Specialty Diagnoses / Procedures Referred By Giancarlo t Referred To Contact Diagnoses Visit for screening mammogram Procedures MM digital mammo screen with esther bilateral Gera Low MD [address] [facility] [address] [place] [address] Phone: tel: fax: Referral ID Status Reason Start Date Expiration Date Visits Re quested Visits Authorized [id number] Closed 07/25/2023 01/21/2024 1 1 Encounter Details Date Type Department Care Team (Late st Contact Info) Description 07/24/2022 Outside Orders [address] [place] [address] Gera Low MD [address] [place] [address] Visit for screening mammogram (Primary [...] Info) Description 08/08/2025 11:00 AM EDT Appointment [facility] [address] [facility] [address] [place] [address] documented as of this encounter Results [...] the next mammogram. At our facility, a match-e-be-nash-she-wish band marker is positioned over a visible skin [...] cancer. COMPARISON STUDY: 2021 through 2015 from [facility] FINDINGS: Craniocaudal and mediolateral [...] mammogram documented in this encounter Care Teams Military Exchange Wireless Manager Relationship Specialty Start Date End Date Yelitza Telles MD [address] [id number] PCP - General Gynecology 07/25/23 08/03/24 Gera Low MD [address] [place] [address] PCP - General Family Medicine 08/04/24 documented as of this encounter
[2025-06-14 11:20] VITALS: BP 141/65; PULSE 81; RESP 18; TEMP 36.8; O2SAT 98
[2025-06-14] MEDS: DENOSUMAB 60 MG/ML SYRINGE SUBCUT (11:20)
== END 2025-06-14 23:59 | disposition home or self-care (01) ==
LOC: INF 10:58
PROVIDERS: PCP Family Medicine; Visit Provider Internal Medicine
DX: M81.0 Age-related osteoporosis without current pathological fracture (principal)
CPT/HCPCS: 96372; J0897

== ENCOUNTER 2025-06-28 09:49 | Outpatient (CLI) | payer MEDICARE, BC, SELFPAY ==
--- OUTSIDE RECORDS SUMMARY | 2024-01-02 09:30 | XMS_ITS ---
Author Organization [facility] Address [address] [place] [address] Care Team Providers Care Religion Teacher Name Role Phone Yelitza Telles Primary Care Provider REASON FOR VISIT annual Social History Sex Assigned At : Social History Observation Description Sex Assigned At Female Encounters Encounter Location Date Provider Diagnosis [facility] [address] [address] [place] [address] 01/02/2024 Yelitza Telles Plan Of Treatment No Information Progress Notes * Natividad TELLO ADOB:1955 (70 yo F)Acc No.[id number]:01/02/2024 Progress Note Patient: Natividad Man Provider: Demar Telles MD :1955 A ge:68 Y S ex:Female Date:01/02/2024 Address:[address] [place], [place] [address] Subjective: * Chief Complaints: * A nnual * Electronic signature of Yelitza Telles MD on 06/28/2025 at 10:25 AM EDT Sign off status: Pending Visit Status: R /S (Rescheduled) * Provider: Demar Telles MD Date: 01/02/2024 Generated for Printi ng/Faxing/eTransmitting on: 0 06/28/2025 10:25 AM EDT
--- OUTSIDE RECORDS SUMMARY | 2024-08-17 05:15 | XMS_ITS ---
Author Organization [facility] Address [address] [place] [id number] Care Team Providers Care Assistant Casino Shift Manager Name Role Phone Demar Low Primary Care Provider Rojelio Magallon Unavailable [phone] Allergies No Known Allergies Results Component Value Reference Range Notes P-Comprehensive Metabolic Pa bud (CMP) Reviewed date:08/24/2024 08:36:06 AM Interpretation:gluc 100 Performing Lab: Notes/Report: Test performed by [facility] , [address], [place] [address] Zac Childers MD, Toll Line Inspector CLIA: [id number] Sodium 144 135-145 mmol/L Potassium 4.0 3.5-5.3 mmol/L Chloride 107 97-108 mmol/L CO2 28 22-32 mmol/L Glucose 100 65-99 mg/dL BUN 12 8-23 mg/dL Creatinine 0.81 0.50-1.00 mg/dL Calcium 9.5 8.6-10.4 mg/dL eGFR by Creatinine 79 >59 mL/min/1.73m2 Protein 7.0 6.0-8.3 g/dL Albumin 4.4 3.5-5.3 g/dL Alkaline Phosphatase 48 35-121 IU/L ALT (SGPT) 18 <5-47 IU/L AST (SGOT) 26 <5-40 IU/L Bilirubin, Total 0.2 <0.2-1.2 mg/dL A/G Ratio 1.7 1.1-2.5 P-Lipid Panel Reviewed date:08/24/2024 08:36:06 AM Interpretation:chol 210 Performing Lab: Notes/Report: Test performed by [facility], [address], [place] [address] Zac Childers MD, Toll Line Inspector CLIA: [id number] Cholesterol 210 <200 mg/dL Triglycerides 84 <150 mg/dL HDL Cholesterol 99 >39 mg/dL Cholesterol / HDL Ratio 2.12 0.00-4.44 Ratio Non-HDL Cholesterol 111 <130 mg/dL LDL Cholesterol (Calculation) 94 <130 mg/dL LDL Cholesterol Levels* Less than 100 mg/dL Optimal 100 to 129 mg/dL Near Optimal/ Above Optimal 130 to 159 mg/dL Borderline High 160 to 189 mg/dL High 190 mg/dL and above Very High * Categories as recommended by the 2004 ATPIII guidelines LDL/HDL Ratio 1.0 <3.3 Ratio LDL Cholesterol Patient History Test Date: 08/17/2024 LDL Results: 94 Units: mg/dL % Change: - REASON FOR VISIT 6 month f/u, Needs labs, mammogram, & flu vaccine Medications Medication SIG (Take, Route, Frequency, Duration) Notes Start Date End Date Status FLECTOR PATCHES 1.3% 1 PATCH BID *Please review for potential replacement for e-prescription and drug interaction check* 05/11/2020 Not-Taking Calcium 600 + Minerals 600-200 MG-UNIT 1 tab(s) orally 3 times a day Active Vitamin B-12 1000 MCG 1 tab(s) orally once a day Active Forteo 600 MCG/2.4ML orally qhs Not-Taking Levsin 0.125 MG 1 tablet as needed Orally every 4 hrs; Duration: 30 days 04/09/2023 Not-Taking Evista 60 MG 1 tab(s) orally once a day Active Melatonin 5 MG 1 cap(s) orally once a day (at bedtime) Active Align 4 MG 1 cap(s) orally once a day; Duration: 28 day(s) Active Prolia 60 MG/ML as directed Subcutaneous Active Multiple Vitamins 1 QD Ac tive Immunizations Vaccine Route Administration Date Status Comme nts Fluzone High Dose (65yr and older) IM Intramuscular 08/17/2024 Administered Vital Signs Blood pressure systolic 126 mm Hg 08/17/20 24 Blood pressure diastolic 80 mm Hg 024 Heart Rate 94 /min 08/17/2024 Height 68.50 in 08/17/2024 Weight 141.8 lbs 08/17/2024 BMI 21.24 kg/m2 08/17/2024 Encounters Encounter [facility] Date [facility] [address] [place] [id number] 08/17/2024 Demar Low Hyperlipidemia, unspecified E78.5 ; Age-related osteoporosis without current pathological fracture M81.0 ; Former smoker Z87.891 ; Trochanteric bursitis of left hip M70.62 ; Osteopenia M85.80 ; Screening for breast cancer Z12.39 and Encounter for immunization Z23 Assessments Encounter Date Diagnosis (ICD Code) Assessment Notes Treatment Notes Treatment Clinical Notes Section Notes 08/17/2024 Hyperlipidemia, unspecified (ICD-10 - E78.5) 08/17/2024 Age-related osteoporosis without current pathological fracture (ICD-10 - M81.0) 08/17/2024 Former smoker (ICD-10 - Z87.891) 08/17/2024 Trochanteric bursitis of left hip (ICD-10 - M70.62) 08/17/2024 Osteopenia (ICD-10 - M85.80) 08/17/2024 Screening for breast cancer (ICD-10 - Z12.39) 08/17/2024 Encounter for immunization (ICD-10 - Z23) Plan Of Treatment Next Appt Details Follow Up: 6 Months, Reason: Provider Name:Demar Davis, 08/18/2025 09:00:00 AM, [address], [address], [place], [place], [id number], Progress Notes * DELILAH TELLODOB:[birth year] (70 yo F)Acc No.[id number]:08/17/2024 Progress Notes Patient: DELILAH LYON Provider: Demar Low M.D. :1955 A ge:69 Y S ex:Female Date:08/17/2024 Address[facility] [facility] [address] [id number] Subjective: * Chief Complaints: * 1 . 6 month f/u. 2. Needs labs, mammogram, & flu vaccine. * HPI: H PI: Patient is here today for a yearly check up. Pt is fasting today. Pt would like her flu shot today. R heumatology: She continues to follow with nephrology at for her osteoporosis. She continues on Evista and Prolia injections. joint pain P t c/o pain in stiffness in her both thumbs. .? G YN: She follows with a rug cleaning supervisor and is current with her mammogram. She brings in a copy of the thyroid ultrasound ordered by her rug cleaning supervisor which is normal except for a single diminutive 2 mm cyst. C ardiology: She brings in a copy of a [facility] vascular screening which is completely normal. See copy in chart. * ROS: A LLERGY: no C ough. n o R unny nose. D ERMATOLOGY: no R avelina. n o H kay. U ROLOGY: no D ifficulty urinating. n o B lood in urine. * Medical History: H ypercholestrolemia, Osteoporosis, Former smoker - quit 2016, GERD, She follows with Dr. Telles for NURSING INFORMATICS ANALYST care, She follows with Nephrology for osteoporosis. * Surgical History: b artholin gland cysts , Biopsy on right breast , colonoscopy (normal) 03/2011, EGD and C-scope/ Dr. Arce 2017. * Family History: F ather: alive. M other: alive. * Social History: C URRENT TOBACCO USE: No S moking Status: P atient does NOT smoke, F ormer Smoker:?Yes. C affeine: yes, frequency:coffee. Home smoke detector use: yes. Marital Status: . Past smoking status: yes, Smoking status: Quit 2015. Sexually active: yes. * Medications: T aking Prolia 60 MG/ML Solution Prefilled Syringe as directed Subcutaneous , Taking Multiple Vitamins 1 QD , Taking Evista 60 MG Tablet 1 tab(s) orally once a day , Taking Melatonin 5 MG Capsule 1 cap(s) orally once a day (at bedtime) , Taking Align 4 MG Capsule 1 cap(s) orally once a day , Taking Calcium 600 + Minerals 600-200 MG-UNIT Tablet 1 tab(s) orally 3 times a day , Taking Vitamin B-12 1000 MCG Tablet 1 tab(s) orally once a day , Not-Taking Forteo 600 MCG/2.4ML Solution Pen-injector orally qhs , Not-Taking Levsin 0.125 MG Tablet 1 tablet as needed Orally every 4 hrs , Not-Taking FLECTOR PATCHES 1.3% 1 PATCH BID , Notes to Pharmacist: *Please review for potential replacement for e-prescription and drug interaction check*, Medication List reviewed and reconciled with the patient * Allergies: N .K.D.A. Objective: * Vitals: W t:141.8, Temp:98.4, BP:126/80, HR:94, Nurse:GLEN, Ht: 68.50, BMI:21.24. * Examination: G eneral Examination: General Appearance: N AD. H EENT: s clera and conjunctiva clear, PERRLA, TM's normal, translucent. O ral cavity: n o lesions, mucosa moist and WNL, no erythema. N abdiel: s upple, no lymphadenopathy, no carotid bruits, no thyromegaly. Heart: R SR. L ungs: c lear to auscultation. A bdomen: t hin, soft, not distended, nontender, bowel sounds present, no organomegaly or masses. S kin: n ormal, no rash.?Back: m ild kyphosis. E xtremities: n o leg edema. Assessment: * Assessment: 1. H yperlipidemia, unspecified - E78.5 (Primary) 2 . A ge-related osteoporosis without current pathological fracture - M81.0 3 . F ormer smoker - Z87.891? 4. T rochanteric bursitis of left hip - M70.62 5 . O steopenia - M85.80 6 . S creening for breast cancer - Z12.39 7 . E ncounter for immunization - Z23 Plan: * Treatment: Value Reference Range A /G Ratio 1.7 1.1-2.5 - * A lbumin 4.4 3.5-5.3 - g/dL * A lkaline Phosphatase 48 35-121 - IU/L * A LT (SGPT) 18 <5-47 - IU/L * A ST (SGOT) 26 <5-40 - IU/L * B ilirubin, Total 0.2 <0.2-1.2 - mg/dL * B UN 12 8-23 - mg/dL * C alcium 9.5 8.6-10.4 - mg/dL * C hloride 107 97-108 - mmol/L * C O2 28 22-32 - mmol/L * C reatinine 0.81 0.50-1.00 - mg/dL * G lucose 100 H 65-99 - mg/dL * P otassium 4.0 3.5-5.3 - mmol/L * S odium 144 135-145 - mmol/L * P rotein 7.0 6.0-8.3 - g/dL * e GFR by Creatinine 79 >59 - mL/min/1.73m2 * Demar Low 08/24/2024 8:35:56 AM >See phone encounter ?LAB: P-Lipid Panel (Collection Date & Time - 08/17/2024 08:33 AM)?chol 210 * Value Reference Range C holesterol / HDL Ratio 2.12 0.00-4.44 - Ratio * C holesterol 210 H <200 - mg/dL * H DL Cholesterol 99 >39 - mg/dL * L DL Cholesterol (Calculation) 94 <130 - mg/d L * L DL/HDL Ratio 1.0 <3.3 - Ratio * N on-HDL Cholesterol 111 <130 - mg/dL * T riglycerides 84 <150 - mg/dL * Demar Low 08/24/2024 8:35:56 AM >See phone encounter * Immunizations: Fluzone High Dose (65yr and older) : 0.5 mL (Route: Intramuscular) given by Maria Luz Nicole on Right Deltoid (Encounter for immunization) * Follow Up: 6 Months * Images: Billing Information: * Visit Code: 05571 Office Visit, Est Pt., Level 4. * Procedure Codes: * Electronic signature of Demar Low MD on 06/28/2025 at 10:24 AM EDT Sign off status: Pending * Provider: Demar Low M.D. Date: 1 Generated for Printi ng/Sonnyg/eTransmitting on: 0 06/28/2025 10:24 AM EDT History and Physical Notes * HPI (History of Present Illness) Category Sub-Category Detail Notes Category Not es NURSING INFORMATICS ANALYST She brings in a copy of the thyroid ultrasound ordered by her rug cleaning supervisor which is normal except for a single diminutive 2 mm cyst. Rheumatology joint pain Pt c/o pain in s tiffness in her both thumbs. HPI Patient is here today for a yearly check up. Pt is fasting today. Pt would like her flu shot today Examination Category Sub-Category Detail Notes Category Not es General Examination HEENT: sclera and c onjunctiva clear, PERRLA, TM's normal, translucent Heart: RSR Lungs: clear to auscultatio n Abdomen: thin, soft, not dist ended, nontender, bowel sounds present, no organomegaly or masses Extremities: no leg edema General Appearance: NAD Skin: normal, no rash Neurologic Exam: Neck: supple, no lymphaden opathy, no carotid bruits, no thyromegaly Oral cavity: no lesions, mucosa m oist and WNL, no erythema Back: mild kyphosis
--- OUTSIDE RECORDS SUMMARY | 2025-05-03 10:42 | XMS_ITS ---
Author Organization [facility] Address [address] [facility] [address] [place] [id number] Care Team Providers Care Cps Team Lead Name Role Phone Demar Low Primary Care Provider Rojelio Magallon Unavailable [phone] Results Component Value Reference Range Notes CT Scan : Chest, low dose Reviewed date:06/09/2025 12:41:18 PM Interpretation:no evidence of lung cancer, f/u 1 year Performing Lab: Notes/Report: no evidence of lung cancer, f/u 1 year Encounters Encounter Location Date Provider Diagnosis [facility] [address] [place] [id number] 05/03/2025 Demar Low History of tobacco use [...] [address], [place], [id number], Progress Notes * DELILAH TELLOB:[birth year] (70 yo F)Acc No.[id number]:05/03/2025 Patient: DELILAH LYON :1955 A ge:70 Y S ex:Female Address:[address] [place] [address] [address], [place] [address] Subjective: * Chief Complaints: * * Medical History: * Surgical History: * Hospitalization/Major Diagno stic Procedure: * Medications: Objective: * Vitals: * Physical Examination: Assessment: * Assessment: 1. H istory of tobacco use - Z87.891 (Primary) 2 . E ncounter for screening for lung cancer - Z12.2 Plan: * Treatment: * Procedure Codes: * true * Date: Generated for Abimael knox/Albert/Rosaliesmitting on: 0 06/28/2025 10:25 AM EDT
--- OUTSIDE RECORDS SUMMARY | 2025-05-18 10:25 | XMS_ITS | Encounter Summary ---
Author Organization [facility] Address [address] [place] [address] Care Team Providers Care Territory Account Executive Name Role Phone Gera Low MD Primary Care Provider +1- [phone] Encounter Details Date Type Department Care Team (Latest Contact Info) Description 05/18/2025 10:25 AM EDT - 05/18/2025 11:59 PM EDT Hospital Encounter [facility] [address] [facility], [address] [place] [address] Age-related osteoporosis without current pathological [...] Score 0 05/18/2025 11:12 AM EDT Aurora Kaumfan documented as of this encounter Medications at [...] Description 01/11/2026 12:10 PM EDT Clinical Support [facility] Laboratory Services [address] [facility], 1st Floor [place] [phone] 01/25/2026 11:00 AM EDT Pharmacist Visit [facility] [address] [facility], [address] [place] [address] Boo Michelle, PharmD [address] [facility] [address] [place] [address] documented as of this encounter Procedures Procedure Name Priority Date/Time Associated Diagnosis Comments DEXA BONE DENSITY Routine 05/18/2025 10: 25 AM EDT Age-related osteoporosis without current pathological fracture documented in this encounter Results * Dexa Bone Density (05/18/2025 10:25 AM EDT) Anatomical Region Laterality Modality L-spine Radiographic Zulay ging Narrative 05/29/2025 9:32 PM EDT [facility] [address] [address] DXA Bone Densitometry Report: [05/18/2025] BMD test performed using the [employer] DXA System (analysis version: 14.10) manufactured by [employer]. REFERRING PROVIDER: ALEXANDREA Rivas CLINICAL INFORMATION: osteoporosis [...] as of this encounter Care Teams Territory Account Executive Relationship Specialty Start Date End Date Gera Low MD [address] [place], [place] [address] PCP - General 03/09/21 documented as of this encounter
--- OUTSIDE RECORDS SUMMARY | 2025-05-18 11:40 | XMS_ITS | Encounter Summary ---
Author Organization [facility] Address [address] [place] [address] Care Team Providers Care Hospitality House Supervisor Name Role Phone Gera Low MD Primary Care Provider +1- [phone] Reason for Referral * Consultation (Routine) - Authorized Specialty Diagnoses / Procedures Referred By Contlesly t Referred To Contact Diagnoses Age-related osteoporosis without current pathological fracture Michaelle Sprague MD [address] [place] [address] Phone: tel: fax: Referral ID Status Reason Start Date Expiration Date V isits Requested Visits Authorized [id number] Authorized 05/18/2025 11/17/2026 1 1 Reason for Visit * Reason Comments Follow-up Encounter Details Date Type Department Care Team (Late st Contact Info) Description 05/18/2025 11:40 AM EDT Office Visit [facility] [address], [address] [place] [address] Michaelle Sprague MD [address] [place] [address] Age-related osteoporosis without current pathological [...] Aurora Kaufman documented as of this encounter Miscellaneous Notes * Progress Notes - Michaelle Sprague MD - 05/18/2025 11:40 AM EDT Bone Clinic Follow up note Delilah Tello is a 70 y.o. female who is referred by Gera May MD for osteoporosis. She is seen for follow up today after instituting treatment with prolia to determine response and timing of next dose March 2019 started on Forteo - until May 2020; Current treatment - Prolia Oct 2020, Aug 06 2021 and April 2022. 03/12/23, 01/12/2024, Aug 2024 Labs - bone markers recovering and ready for Prolia, RFP wnl No current health concerns. No active infections Plan to proceed with Prolia and recheck in 6 months with labs in [facility] Past history: DXA scan Date April 2025 T-scores LS:0.5 LFN: -1.2 LTH:-1.3 RFN: -1.2 RTH:-0.8 DXA scan Date Nov 2023 T-scores LS:0.6 [...] had addl testing in 2011, 2013 at [facility]). Further decline noted in 2015, and changed to boniva for GI symptoms which she took since 2017. Also taking raloxifene. 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, suggests that she has a significant [...] List Diagnosis COPD (chronic obstructive pulmonary disease) ([facility]) Osteoporosis Bursitis, hip Acid reflux Past Surgical History: Procedure Laterality Date BARTHOLIN GLAND CYST EXCISION N/A Bartholin's cyst excision from [facility] COLONOSCOPY N/A colonoscopy from [facility] Current Outpatient Medications Medication Sig Dispense Refill calcium carbonate 1500 (600 Ca) MG tablet Take 1 tablet twice daily Coenzyme Q10 (CoQ10) 200 MG capsule cyanocobalamin (Vitamin B-12) 1000 MCG tablet TAKE 1 TABLET DAILY DIRECTED. denosumab (Prolia) 60 MG/ML injection Inject 1 mL (60 mg) under the skin 1 (one) time for 1 dose. 1mL 0 Melatonin 10-10 MG tablet controlled-release Take by mouth. Melatonin 5 MG capsule 1 cap(s) orally once a day (at bedtime) raloxifene (Evista) 60 MG tablet No current facility-administered medications for this visit. Social History Tobacco Use Smoking status: Former Current packs/day: 0.00 Average packs/day: 1.5 packs/day for 40.0 years (60.0 ttl pk-yrs) Types: Cigarettes Start date: 08/07/1976 Quit date: 08/07/2016 Years since quittin.8 Passive exposure: Past Smokeless tobacco: Never Substance Use Topics Alcohol use: No No Known Allergies The following portions of the chart were reviewed this encounter and updated as appropriate: REVIEW OF SYSTEMS A 14 point ROS was obtained and is negative except as otherwise noted in HPI. PHYSICAL EXAMINATION Visit Vitals BP 137/79 (BP Location: Right arm, Patient Position: Sitting, BP Cuff Size: Adult long) Pulse 75 Temp 36.8 ??C (98.3 ??F) (Oral) SpO2 99% Constitutional: No acute distress. Weight 60.3 kg (132 lb 15 oz) Height 1.734 m (5' 8.25 ) BMI: Body mass index is 20.07 kg/m??. BSA: Body surface area is 1.7 meters squared. HEENT: normal. Cardiovascular: No JVD, no edema Pulmonary: Normal effort of breathing. Abdominal: no distension Musculoskeletal: Normal extremity movements Skin: No rashes or lesions. Neurologic: No focal deficits Psychiatric: Orientated to person, place, and time: Normal Mood and affect LAB RESULTS Renal Panel: Lab Results Component Value Date GLUCOSE 91 03/18/2025 NA 138 03/18/2025 K 4.0 03/18/2025 CL 103 03/18/2025 CO2 27 03/18/2025 BUN 11 03/18/2025 CREATININE 0.67 03/18/2025 CREATININE 0.68 08/04/2024 CREATININE 0.74 12/12/2023 CREATININE 0.76 09/12/2023 EGFR 95.9 03/18/2025 CALCIUM 9.5 03/18/2025 PHOS 3.3 03/18/2025 ALBUMIN 4.2 03/18/2025 MBD: Lab Results Component Value Date PTH 29 10/09/2018 CALCIUM 9.5 03/18/2025 CALCIUM 9.9 08/04/2024 CALCIUM 10.1 12/12/2023 CALCIUM 9.6 09/12/2023 PHOS 3.3 03/18/2025 PHOS 3.1 08/04/2024 PHOS 3.2 12/12/2023 PHOS 3.1 09/12/2023 MG 2.1 04/08/2022 MG 2.0 07/03/2021 MG 2.1 04/24/2021 MG 2.0 11/21/2020 ALBUMIN 4.2 03/18/2025 ALBUMIN 4.2 08/04/2024 ALBUMIN 4.5 12/12/2023 ALBUMIN 4.3 09/12/2023 Paraproteinemia Labs: Lab Results Component Value Date KAPPALAMBDA 0.98 10/09/2018 Bone Turnover Markers: Lab Results Component Value Date BSAP 7.1 03/18/2025 BSAP 7.4 08/04/2024 BSAP 8.5 12/12/2023 BSAP 9.0 09/12/2023 BSAP 7.0 03/27/2023 BSAP 7.8 (L) 12/19/2022 CTELOX 111 03/18/2025 CTELOX 164 08/04/2024 CTELOX 154 12/12/2023 CTELOX 87 09/12/2023 CTELOX 34 03/27/2023 CTELOX 151 12/19/2022 NTELOPEPTS 9.2 08/04/2024 NTELOPEPTS 8.0 12/12/2023 NTELOPEPTS 4.4 03/27/2023 NTELOPEPTS 7.7 12/19/2022 NTELOPEPTS 6.2 04/08/2022 NTELOPEPTS 6.7 07/03/2021 OSTEOCALCIN 7 (L) 08/04/2024 OSTEOCALCIN 10 12/12/2023 OSTEOCALCIN 6 (L) 09/12/2023 OSTEOCALCIN 10 03/27/2023 OSTEOCALCIN 8 12/19/2022 OSTEOCALCIN 9 04/08/2022 VITAMIN D Lab Results Component Value Date VITD25 52.6 03/18/2025 VITD25 54.9 12/12/2023 VITD25 51.0 03/27/2023 Urine studies: Lab Results Component Value Date [...] 6.5 6.7 ASSESSMENT/PLAN Delilah Tello is a 70 y.o. female who is being followed for osteoporosis. She used assisted BPs and DXA shows a decline in BMD. She was taking Boniva, raloxifene and vit D. 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 Education provided was verbal [...] Patient confirms they are physically located in [place]? Yes If the patient is not physically located in [place], the provider has confirmed with Legal thatthe provider is authorized to provide services in patient's stated location? N/A Provider Location: clinic Audio and video or audio only? Audio and video Total visit time: 20 minutes ORDERS PLACED THIS ENCOUNTER Orders Placed This Encounter Procedures Vitamin D 25 Hydroxy Standing Status: Future Expected Date: 11/21/2025 Expiration Date: 11/25/20[address] in [facility]: Immediate [1] Osteocalcin by ECIA Standing Status: Future Expected Date: 11/21/2025 Expiration Date: 11/25/[address] Release [address] in [facility]: Immediate [1] C-Telopeptide Standing Status: Future Expected Date: 11/21/2025 Expiration Date: 11/25/20[address] Release [address] in [facility]: Immediate [1] Renal Function Panel, Plasma Standing Status: Future Expected Date: 11/21/2025 Expiration Date: 11/25/2026 [facility]] Bone Specific Alkaline Phosphatase Standing Status: Future Expected Date: 11/21/2025 Expiration Date: 11/25/2026 Release [address] patient in [facility]: Immediate Follow Up Bone Mineral Metabolism Standing Status: Future Expected Date: 01/23/2026 Expiration Date: 06/18/2026 Referral Priority: Routine Referral Type: Consultation Number of Visits Requested: 1 Michaelle Sprague MD documented in this encounter Plan of Treatment Upcoming Encounters Date Type Department Care Team ([facility] st Contact Info) Description 01/11/2026 12:10 PM EDT Clinical Support [facility] Laboratory Services [address] [facility], 1st Floor [place] [phone] 01/25/2026 11:00 AM EDT Pharmacist Visit [facility] [address] [facility], [address] [place] [phone] Boo Michelle, PharmD [address] [facility] [address] [place] [phone] Scheduled Orders Name Type Priority Associated Diagnoses Orde r Schedule Vitamin D 25 Hydroxy Lab Routine Age-related osteoporosis without current pathological fracture Expected: 11/21/2025 (Approximate), Expires: 11/25/2026 Osteocalcin by ECIA Lab Routine Age-related osteoporosis without current pathological fracture Expected: 11/21/2025 (Approximate), Expires: 11/25/2026 C-Telopeptide Lab Routine Age-related osteoporosis without current pathological fracture Expected: 11/21/2025 (Approximate), Expires: 11/25/2026 Renal Function Panel, Plasma Lab Routine Age-related osteoporosis without current pathological fracture Expected: 11/21/2025 (Approximate), Expires: 11/25/2026 Bone Specific Alkaline Phosphatase Lab Routine Age-related osteoporosis without current pathological fracture Expected: 11/21/2025 (Approximate), Expires: 11/25/2026 Scheduled Referrals Name Type Priority Associated Diagnoses [...] documented as of this encounter Care Teams Hospitality House Supervisor Relationship Specialty Start Date End Date Gera Low MD [address] [place] [address] PCP - General 03/09/21 documented as of this encounter
--- OUTSIDE RECORDS SUMMARY | 2025-06-28 10:25 | XMS_ITS | Patient Health Record ---
Author Organization [facility] Address [address] [place] [address] Care Team Providers Care Chief Operating Engineer Name Role Phone Yelitza Telles Primary Care [...] Problem Status W/U Status Risk Notes Problem Non-toxic multinodular goiter (41386976) Multinodular thyroid (E04.2) Active confirmed Problem Gynecological examination normal (188320220969897 ) Cervical smear, as part of routine gynecological examination (Z01.419) 12/01/19 20 Active confirmed Annual without abnormal findings Plan Of Treatment No Information Insurance Providers Payer Name Payer Address Payer Phone Subscriber Number Group Number Insured Name Patient Relationship to Insured Coverage Start Date Coverage End Date [place] [address] [place] [address] [id number] Natividad Tello Self - patient is the insured [facility] [address] [address] [place] [address] [id number] Natividad Tello Self - patient is the insured Medical (General) History Medical History History ICD Code osteoporosis GERD trochateric hip bursitis COPD with emphysema Surgical History Surgery Date(Month/Year) bone bx marsupilization of bartholin gland Hospitalization History Reason Date(Month/Year) childbirth
--- OUTSIDE RECORDS SUMMARY | 2025-06-28 10:25 | XMS_ITS | Encounter Summary ---
Author Organization [facility] Address [address] [place] [address] Care Team Providers Care Coil Winder Name Role Phone Gera Low MD Primary Care Provider [phone] Encounter Details Date Type Department Care Team ([facility] Contact Info) Description 05/09/2025 Telephone [facility] [address] [facility], [address] [place] [address] Aurora Kaufman Social History Tobacco [...] Description 01/11/2026 12:10 PM EDT Clinical Support [facility] Laboratory Services [address] [facility], 1st [place] [address] 01/25/2026 11:00 AM EDT Pharmacist Visit [facility] [address] [facility], [address] [place] [address] Boo Michelle, PharmD [address] [facility] [address] [place] [address] documented as of this encounter Visit Diagnoses Not on filedocumented in this encounter Additional Health Concerns Assessment Noted Time A fall risk assessment has been complete d for the patient 08/27/2024 7:56 AM EDT A Body Mass Index follow-up plan has been documented for the patient 08/27/2024 11:28 AM EDT documented as of this encounter Care Teams Coil [place]inder Relationship Specialty Start Date End Date Gera Low MD [address] [place] [address] PCP - General 03/09/21 documented as of this encounter
--- OUTSIDE RECORDS SUMMARY | 2025-06-28 10:25 | XMS_ITS | Clinical Summary ---
Author Organization [facility] Address [address] [place] [address] Care Team Providers Care Enamel Machine Operator Name Role Phone Gera Low [...] Insurance MEDICARE A & B Care Teams Enamel Machine Operator Relationship Specialty Start Date End Date Gera Low MD [address] [facility] [address] [facility] [address] [place] [address] PCP - General Family Medicine 11/15/16
--- OUTSIDE RECORDS SUMMARY | 2025-06-28 10:25 | XMS_ITS | Encounter Summary ---
Author Organization [facility] Address [address] [place] [address] Care Team Providers Care Bull Riveter Name Role Phone Gera Low MD Primary Care Provider [phone] Encounter Details Date Type Department Care Team (Late st Contact Info) Description 05/27/2025 Telephone [facility] [address] [place] [address] Kaur Avitia, [facility] Social History Tobacco Use Types Packs/Day [...] Notes * Progress Notes - Kaur Avitia, agronomy research manager - 05/27/2025 3:59 PM EDT Infusion Authorization Not Required Specialty Medication: Prolia J-Code/CPT Code/S-Code: J0897 Quantity and Units of Measure Reviewed: QS Diagnosis Code: M81.0 Insurance Name: Alice Where did you submit request and how (portal/fax/phone number): Reference Number: [place] Follow-Up Filling Pharmacy/SOC: [facility] Will review auth status in 3 months. * Progress Notes - Kaur Avitia CPhT - 05/27/2025 3:56 PM EDT Medicare B/Advantage Plan Authorization Information Specialty Medication: Prolia Diagnosis Code: M810 J-code/CPT code/S code: J0897 Covered by Medicare B: Yes Does the diagnosis, dose, and frequency match an FDA approved dosing schedule? Yes, list prescribeddose/frequency: 60 mg once Site of Care: [facility] Does patient have an Advantage Plan? No. Will review in 12 months. documented in this encounter Plan of Treatment Upcoming Encounters Date Type Department Care Team (Late st Contact Info) Description 01/11/2026 12:10 PM EDT Clinical Support [facility] Laboratory Services [address] [facility], 1st [place] [address] 01/25/2026 11:00 AM EDT Pharmacist Visit [facility] Mineral Metabolism [address] [facility], [address] [place] [address] Boo Michelle, PharmD [address] [facility] [address] [place] [address] documented as of this encounter Visit Diagnoses Not on filedocumented in this encounter Additional Health Concerns Assessment Noted Time A fall risk assessment has been complete d for the patient 05/18/2025 11:12 AM EDT A Body Mass Index follow-up plan has been documented for the patient 05/18/2025 11:47 AM EDT documented as of this encounter Care Teams Bull Riveter Relationship Specialty Start Date End Date Gera Low MD [address] [place] [address] PCP - General 03/09/21 documented as of this encounter
--- OUTSIDE RECORDS SUMMARY | 2025-06-28 10:25 | XMS_ITS | Encounter Summary ---
Author Organization [facility] Address [address] [place] [address] Care Team Providers Care Speeder Tender Name Role Phone Gera Low MD Primary Care Provider [phone]- [phone] Encounter Details Date Type Department Care Team [...] Description 01/11/2026 12:10 PM EDT Clinical Support [facility] Laboratory Services [address] [facility], 1st [place] [address] 01/25/2026 11:00 AM EDT Pharmacist Visit [facility] Mineral Metabolism [address] [facility], [address] [place] [address] Boo Michelle, PharmD [address] [facility] [address] [place] [address] documented as of this encounter Visit Diagnoses Not on filedocumented in this encounter Additional Health Concerns Assessment Noted Time A fall risk assessment has been complete d for the patient 05/18/2025 11:12 AM EDT A Body Mass Index follow-up plan has been documented for the patient 05/18/2025 11:47 AM EDT documented as of this encounter Care Teams Speeder Tender Relationship Specialty Start Date End Date Gera Low MD [address] [place] [address] PCP - General 03/09/21 documented as of this encounter
--- OUTSIDE RECORDS SUMMARY | 2025-06-28 10:25 | XMS_ITS | Clinical Summary ---
Author Organization [facility] Address [address] [place] [address] Care Team Providers Care Turn Laster Name Role Phone Gera Low MD Primary Care Provider [phone]- [phone] Allergies No known active allergies Medications raloxifene (Evista) 60 MG tablet 03/06/2021 Active calcium carbonate 1500 (600 Ca) MG tablet Take 1 tablet twice daily 12/04/2020 Active cyanocobalamin (Vitamin B-12) 1000 MCG tablet TAKE 1 TABLET DAILY DIRECTED. 08/17/2019 Active Melatonin 10-10 MG tablet controlled-relea se Take by mouth. Active denosumab (Prolia) 60 MG/ML injection Inject 1 mL (60 mg) under the skin 1 (one) time for 1 dose. 1 mL 08/31/2024 Active Coenzyme Q10 (CoQ10) 200 MG capsule 10/27/2024 Active Melatonin 5 MG capsule 1 cap(s) orally once a day (at bedtime) Active Active Problems Problem Noted Date Diagnosed Date COPD (chronic obstructive pulmonary disease) Osteoporosis 10/09/2018 Assessment & Plan (05/08/2021 9:44 PM EDT): She used intermediate teacher BPs and DXA shows a decline in BMD. She was taking Boniva, raloxifene and vit D. Risk factors for bone loss include age, premature menopause, intermediate teacher smoking, correction BPs She underwent a full [...] Type Department Care Team Description 06/14/2025 Telephone [facility] Mineral Metabolism [address] , [address] [place] [address] Boo Michelle, PharmD 05/27/2025 Telephone [facility] [address] [place] [address] Kaur Avitia, bank consultant 05/18/2025 11:40 AM EDT Office Visit [facility]eral [facility]abolism [address] , [address] [place] [address] Michaelle Sprague MD Age-related osteoporosis without current pathological fracture (Primary Dx) 05/18/2025 10:25 AM EDT - 05/18/2025 11:59 PM EDT Hospital Encounter [facility]eral [facility] [address] [facility], [address] [place] [address] Age-related osteoporosis without current pathological fracture Discharge Disposition: Home or Self Care 05/18/2025 Travel 05/12/2025 Travel 05/09/2025 Telephone [facility] [address] [facility], [address] [place] [address] Aurora Kaufman from Last 3 Months Immunizations Immunization Administration Dates Next Due Pfizer Covid-19 Vaccine 12y+ , Jose Protein, PF, Sukhdeep-Sucrose 08/06/2023 shopandsave-Bumble Beez COVID-19 Vac cine (Purple Cap) 12+ 09/05/2021,01/20/2021,12/28/2020 [...] Mother Corinaannette Britton Cancer Mother's Brother 1 Oconnor Guzman [...] Cody Britton Father's Sister Natividad Johnson Mother Corinaannette Britton Mother's Brother 1 Oconnor Guzman Mother's Brother 2 Earnest Guzman Mother's Brother 3 Jose Guadalupe Guzman Mother's Brother 4 Colin Alive Mother's Brother 5 Gera Mother's Brother [...] Description 01/11/2026 12:10 PM EDT Clinical Support [facility] Laboratory Services [address] [facility], 1st [place] [address] 01/25/2026 11:00 AM EDT Pharmacist Visit [facility] [address] [facility], [address] [place] [address] Boo Michelle, PharmD [address] [facility] [address] [place] [address] Health Maintenance Due Date Last Done Comments [facility]-Hepatitis C Screening 1957 [facility]-Medicare Annual Wellness (AWV) 1955 [facility]-Infant/Child/Adol SDOH Screenings 1955 [facility]- SDOH Screenings 1975 [facility]-Adult SDOH Screenings 1975 CT Colonography 2002 Colonoscopy 2002 FIT-DNA 2002 FIT 2002 FOBT 2002 Sigmoidoscopy 2002 [facility]-Colorectal Cancer Screening 2002 [facility]-Lung Cancer Screening 2007 [facility]-Zoster Vaccines (1 of 2) 2007 AOC-TFGPU-42 Vaccine (8 - Pfizer risk 2023- season) 2025 08/26/2024, 08/06/2023, 08/14/2022, Additional history exists [facility]-Influenza Vaccine (#1) 06/27/202508/06, 08/09/2022, 07/24/2021, Additional history exists [facility]-Bone Density Scan 05/18/2026 05/18/2025 , 12/26/2023, 12/26/2023, Additional history exists [facility]-Depression Screening 05/18/2026 05/18/2025, 1110/2023 [facility]-Breast Cancer Screening 08/04/202606/2024, 08/04/2024, 07/25/2023, Additional [...] Zulay ging Narrative 05/29/2025 9:32 PM EDT [facility] [address] [place] [address] DXA Bone Densitometry Report: [05/18/2025] BMD test performed using the [employer] DXA System (analysis version: 14.10) manufactured by [employer]. REFERRING PROVIDER: Dr. Krystal Pascual, [place] CLINICAL INFORMATION: osteoporosis PATIENT NAME: Natividad Tello [...] LECHUGA IMG DXA PROCEDURES Final Res ult from Last 3 Months Insurance MEDICARE [facility] Care Teams Turn Laster Relationship Specialty Start Date End Date Gera Low MD [address] [facility] [address] [place] [address] PCP - General 03/09/21
--- OUTSIDE RECORDS SUMMARY | 2025-06-28 10:25 | XMS_ITS | Clinical Summary ---
Author Organization [facility] ([place], [place], [place], [place]) Address [address] [place] [address] Care Team Providers Care Drying Machine Operator Package Yarns Name Role Phone Gera Low MD Primary Care Provider [phone]- [phone] Family History Medical History Relation Name Comments [...] Date Tommie rded Speak language other than Panamanian at home Not on file 11/14/2023 Want [...] Info) Description 08/08/2025 11:00 AM EDT Appointment [address] [place] [address] Health Maintenance Due Date Last Done [...] the next mammogram. At our facility, a resighini marker is positioned over a visible skin [...] tested negative for genetic mutation. COMPARISON STUDY: [facility] FINDINGS: Craniocaudal and mediolateral [...] Most Recently Relevant to Health Maintenance Insurance [facility] [address] [id number] BLUE CROSS/BLUE SHIELD MEDICARE PART A B Care Teams Drying Machine Operator Package Yarns Relationship Specialty Start Date End Date Gera Low MD [address] [place] [address] PCP - General Family Medicine 08/04/24
--- OUTSIDE RECORDS SUMMARY | 2025-06-28 10:25 | XMS_ITS | Referral Summary ---
Author Organization [facility] ([place], [place], [place], [place]) Address [address] [place] [address] Care Team Providers Care Dental Laboratory Supervisor Name Role Phone Gera Low MD Primary Care Provider [phone] Social History Tobacco Use Types Packs/Day Years Used Date Smoking Tobacco: Never Assessed Family and Community Support Answer Catrachito e Recorded Help with Day to Day Activities Not on file 11/14/2023 Feeling Lonely or Isolated Not on file 11/14 Educational Attainment Answer Date Tommie rded Speak language other than Central African at home Not on file 11/14/2023 Want [...] Description 08/08/2025 11:00 AM EDT Appointment [address] [place] [address] Procedures Procedure Name Priority Date/Time Associated [...] the next mammogram. At our facility, a lower brule marker is positioned over a visible skin [...] tested negative for genetic mutation. COMPARISON STUDY: [facility] 6985-85[address] FINDINGS: Craniocaudal and mediolateral oblique images of [...] SHIELD MEDICARE PART A B Care Teams Dental Laboratory Supervisor Relationship Specialty Start Date End Date Gera Low MD [address] [place] [address] PCP - General Family Medicine 08/04/24
--- OUTSIDE RECORDS SUMMARY | 2025-06-28 10:25 | XMS_ITS | Encounter Summary ---
Author Organization [facility] ([place], [place], [place], [place]) Address [address] [place] [address] Care Team Providers Care Bank Appraiser Name Role Phone Yelitza Telles MD Primary Care Provider [phone] Gera Low MD Primary Care Provider [phone]- [phone] Reason for Referral * Mammography (Routine) - Closed Specialty Diagnoses / Procedures Referred By Giancarlo t Referred To Contact Diagnoses Visit for screening mammogram Procedures MM digital mammo screen with esther bilateral Gera Low MD [address] [facility] [address] [place] [address] Phone: tel: fax: Referral ID Status Reason Start Date Expiration Date Visits Re quested Visits Authorized [id number] Closed 07/25/2023 01/21/2024 1 1 Encounter Details Date Type Department Care Team (Late st Contact Info) Description 07/24/2022 Outside Orders [address] [place] [address] Gera Low MD [address] [place] [address] Visit for screening mammogram (Primary [...] Info) Description 08/08/2025 11:00 AM EDT Appointment [facility] [address] [facility] [address] [place] [address] documented as of this encounter Results [...] the next mammogram. At our facility, a apache marker is positioned over a visible skin [...] cancer. COMPARISON STUDY: 2021 through 2015 from [facility] FINDINGS: Craniocaudal and mediolateral oblique images of [...] mammogram documented in this encounter Care Teams Bank Appraiser Relationship Specialty Start Date End Date Yelitza Telles MD [address] [phone] PCP - General Gynecology 07/25/23 08/03/24 Gera Low MD [address] [place] [address] PCP - General Family Medicine 08/04/24 documented as of this encounter
--- OUTSIDE RECORDS SUMMARY | 2025-06-28 10:25 | XMS_ITS | Encounter Summary ---
Author Organization [facility] Address [address] [place] [address] Care Team Providers Care Funeral Driver Name Role Phone Gera Low MD Primary Care Provider +1- [phone] Encounter Details Date Type Department Care Team [...] Description 01/11/2026 12:10 PM EDT Clinical Support [facility] [address] [place] [address] 01/25/2026 11:00 AM EDT Pharmacist Visit [facility] [address], [address] [place] [address] Boo Michelle, PharmD [address] [place] [address] documented as of this encounter Visit Diagnoses Not on filedocumented in this encounter Additional Health Concerns Assessment Noted Time A fall risk assessment has been complete d for the patient 08/27/2024 7:56 AM EDT A Body Mass Index follow-up plan has been documented for the patient 08/27/2024 11:28 AM EDT documented as of this encounter Care Teams Funeral Driver Relationship Specialty Start Date End Date Gera Low MD [address] [place] [address] PCP - General 03/09/21 documented as of this encounter
--- OUTSIDE RECORDS SUMMARY | 2025-06-28 10:25 | XMS_ITS | Encounter Summary ---
Author Organization [facility] Address [address] [place] [address] Care Team Providers Care Taxonomy Teacher Name Role Phone Gera Low MD Primary Care Provider +1- [phone] Encounter Details Date Type Department Care Team ([facility] st Contact Info) Description 06/14/2025 Telephone [facility] [address] [facility], [address] [place] [address] Boo Michelle, PharmD [address] [place] [address] Social History Tobacco Use Types [...] today (06/14) for dose of Prolia at [facility]. [facility] has advised her they will print her post-Prolia lab order so she can have scheduled there as well. I will follow up with patient once results return. Patient expressed understanding of plan outlined above, encouraged to call clinic with any questions or concerns. Boo Michelle PharmD, BCACP Clinical Pharmacist [facility]rology[facility] [address] [place] [address] documented in this encounter Plan of Treatment Upcoming Encounters Date Type Department Care Team (Late st Contact Info) Description 01/11/2026 12:10 PM EDT Clinical Support [facility] Services [address] [facility] [place] [id number] 01/25/2026 11:00 AM EDT Pharmacist Visit [facility] [address] [facility], [address] [place] [address] Boo Michelle, PharmD [address] [facility] [address] [place] [address] documented as of this encounter Visit Diagnoses Not on filedocumented in this encounter Additional Health Concerns Assessment Noted Time A fall risk assessment has been complete d for the patient 05/18/2025 11:12 AM EDT A Body Mass Index follow-up plan has been documented for the patient 05/18/2025 11:47 AM EDT documented as of this encounter Care Teams Taxonomy Teacher Relationship Specialty Start Date End Date Gera Low MD [address] [place] [address] PCP - General 03/09/21 documented as of this encounter
--- OUTSIDE RECORDS SUMMARY | 2025-06-28 10:26 | XMS_ITS | Patient Health Record ---
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 Name Role Phone Demar Low Primary Care Provider Rojelio Magallon Unavailable [phone] Allergies No Known Allergies Results Component Value Reference Range Notes P-Comprehensive Metabolic Pa bud (CMP) Reviewed date:08/24/2024 08:36:06 AM Interpretation:gluc 100 Performing Lab: Notes/Report: Test performed by [facility] [address] [facility] [address] , [address], [place] [address] Zac Childers MD, Knocker Off CLIA: [id number] Sodium 144 135-145 mmol/L Potassium 4.0 3.5-5.3 [...] 210 Performing Lab: Notes/Report: Test performed by [facility], [address] , [address] , [place] [address] Zac Childers MD, Knocker Off CLIA: [id number] Cholesterol 210 <200 mg/dL Triglycerides 84 <150 [...] Vaccine Route Administration Date Status Comme nts COVID 19 Pfizer IM Intramuscular 10/30/2020 Administered COVID 19 Pfizer Unknown 12/28/2020 Administered COVID 19 Pfizer Unknown 01/20/2021 Administered COVID 19 Pfizer Unknown 09/05/2021 Administered DT, 7 YEARS OR OLDER Unknown 01/02/1997 Administered Fluzone High Dose (65yr and older) IM Intramuscular 08/09/2022 Administered Fluzone High Dose (65yr and older) Unknown 08/06/2023 Administered Fluzone High Dose (65yr and older) IM Intramuscular 08/17/2024 Administered Fluzone PF Quad (6-35 months) Unknown 07/24/2020 Administered Fluzone Quad (6months&older) IM Intramuscular 07/15/2017 Administered Fluzone Quad (6months&older) IM Intramuscular 07/28/2017 Administered Fluzone Quad (6months&older) IM Intramuscular 07/16/2018 Administered Fluzone Quad (6months&older) Unknown 07/23/2019 Pending Fluzone Quad (6months&older) IM Intramuscular 07/24/2021 Administered PNEUMOVAX 23 VACCINE IM Intramuscular 08/12/2023 Administe red Prevnar (PCV20) Unknown 08/14/2022 Administered Tetanus Tdap-Adacel (over 7yrs) IM Intramuscular 07/15/2017 Administered Problems Problem Type SNOMED Code ICD Code Onset Dates Problem Status W/U Status Risk Notes Problem Osteopenia (685704513) Osteopenia (M85.80) Active confirmed Problem Age-related osteoporosis (624159024) Age-related osteoporosis without current pathological fracture (M81.0) Active confirmed Problem Hyperlipidemia (41730978) Hyperlipidemia, unspecified (E78.5) Active confirmed Problem Gastroesophageal reflux disease without esophagitis (986397508) Gastroesophageal reflux disease without esophagitis (K21.9) Active confirmed Problem Former smoker (0993618) Former smoker (Z87.891) Active confirmed Vital Signs Heart Rate 94 /min 08/17/2024 Blood pressure diastolic 80 mm Hg 08/17/2024 Height 68.50 in 08/17/2024 Blood pressure systolic 126 mm Hg 08/17/2024 Weight 141.8 lbs 08/17/2024 BMI 21.24 kg/m2 08/17/2024 Encounters Encounter Location Date Provider Diagnosis [facility] [address] [place] [id number] 08/17/2024 R Elian Low Hyperlipidemia, unspecified E78.5 ; Age-related osteoporosis without current pathological fracture M81.0 ; Former smoker Z87.891 ; Trochanteric bursitis of left hip M70.62 ; Osteopenia M85.80 ; Screening for breast cancer Z12.39 and Encounter for immunization Z23 [facility] [facility] [address] [place] [id number] 08/24/2024 R Elian Low [facility] [facility] [address] [place] [id number] 10/28/2024 R Elian Low Osteopenia 733.90 [facility] [facility] [address] [place] [id number] 05/03/2025 R Elian Peñat [facility] [facility] [address] [place] [id number] 05/03/2025 R Elian Low History of tobacco [...] 08/18/2025 09:00:00 AM, [address] [facility], [address], [place], [place], [id number], Insurance Providers Payer Name Payer Address Payer Phone Subscriber Number Group Number Insured Name Patient Relationship to Insured Coverage Start Date Coverage End Date MEDICARE PART B [address] [address] [place] [phone] [id number] DELILAH TELLO Self - patient is the insured [facility] [address] [place] [address] [phone] [id number] DELILAH TELLO Self - patient is the insured Medical (General) History Medical History History ICD Code hypercholestrolemia Osteoporosis Former smoker - quit 2015 GERD 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 Arce 2018
[2025-06-28 10:51] LABS: Albumin Level 4.1 g/dl (3.5-5.0); Anion Gap 10.3 mEq/L (5-15); Blood Urea Nitrogen 12 mg/dl (7-17); Calcium 9.0 mg/dl (8.4-10.2); Carbon Dioxide 28 mmol/L (22.0-30.0); Chloride 106 mmol/L (98-107); Creatinine,Serum 0.70 mg/dl (0.52-1.04); Estimated Glomerular Filt Rate 83 ml/min (>60); GFR (African American) 101 ML/MIN (>60); Glucose 87 mg/dl (74-100); Phosphorous 3.7 mg/dl (2.5-4.5); Potassium 4.3 mmoL/L (3.5-5.1); Sodium 140 mmol/L (136-145)
== END 2025-06-28 23:59 | disposition home or self-care (01) ==
LOC: LAB 09:50
PROVIDERS: PCP Family Medicine; Visit Provider Internal Medicine
DX: M81.0 Age-related osteoporosis without current pathological fracture (principal)
CPT/HCPCS: 36415; 80048; 80069